=== PATIENT | male | born 1930 | race Caucasian/White ===

== ENCOUNTER 2017-02-19 09:59 | Inpatient (IN) | payer BC, MEDICARE ==
[~2017-02-19] VITALS: Ht 170.2 cm; Wt 61.0 kg
[2017-02-19] VITALS (27 sets, daily range): BP systolic 75–199; BP diastolic 45–188; PULSE 120–131; RESP 16–26; TEMP 97.1; Ht 170.2 cm; Wt 61.0 kg
--- NOTE | 2017-02-19 10:42 | ERA ---
ER Documentation Chief Complaint Date/Time DATE: 02/19/17 TIME: 10:39 Chief Complaint GEN WEAKNESS AND LOW BP NO TRAUMA NO NEURO DEFICIT. NO HEADACHE HPI Patient is an 86-year-old male who presents with 3 days of gradual onset, intermittent, nonbloody vomiting associated with generalized weakness and fatigue. Patient denies diarrhea, abdominal pain, chest pain. He does report mild dyspnea and cough. No sputum production or hemoptysis. Patient denies fever. He reports having poor appetite. Patient does report mild dysuria. According to family members, the patient was recently hospitalized 1 month ago for hypotension with hypoglycemia. He has been recovering in a jail. He recently had a blood test showing leukocytosis. He is apparently sent to the ER today for low blood pressure and generalized weakness. He has not had diarrhea, but a stool test was performed and is pending. ROS All systems reviewed and are negative except as per history of present illness. Medications Home Meds Reported Medications Ticagrelor* (Brilinta*) 90 Mg Tablet, 90 MG PO QAM, TAB 02/19/17 Rosuvastatin Calcium* (Crestor*) 20 Mg Tablet, 20 MG PO QHS, #30 TAB 02/19/17 Prednisone* (Prednisone*) 10 Mg Tab, 10 MG PO QAM, TAB 02/19/17 Linagliptin-Metformin (Jentadueto) 2.5-500 Mg Tablet, 1 TAB PO BID, TAB 02/19/17 Levothyroxine Sodium* (Levothyroxine Sodium*) 75 Mcg Tablet, 75 MCG PO BEFORE BREAKFAST, #30 TAB 02/19/17 Insulin Degludec (Tresiba Flextouch U-100) 100 Unit/1 Ml Insuln.pen, 28 UNIT SQ Q9AM 02/19/17 Esomeprazole Mag Trihydrate (Nexium) 40 Mg Capsule.dr, 40 MG PO QAM, #30 CAP 02/19/17 Sod Phosphate/Sod Biphosphate* (Fleet* Enema Pediatric) 66.6 Ml Soln, 66.6 ML TN Q2D Y for CONSTIPATION, ENEMA 02/19/17 Bisacodyl* (Bisacodyl*) 10 Mg Supp, 10 MG TN Q24H Y for PRN, SUPP 02/19/17 Desvenlafaxine Succinate (Pristiq) 50 Mg Tab.sr.24h, 50 MG PO QAM, TAB.SA 02/19/17 Magnesium Hydroxide* (Milk Of Magnesia*) 400 Mg/5 Ml Oral.susp, 30 ML PO DAILY, ML 02/19/17 Magnesium Oxide* (Magnesium Oxide*) 400 Mg Tablet, 400 MG PO QPM, TAB 02/19/17 Zinc Sulfate* (Zinc Sulfate*) 220 Mg Tablet, 220 MG PO QAM, TAB 02/19/17 Amino Acids/Protein Hydrolys (PRO-STAT LIQUID) 30 Ml Liquid.pkt, 30 ML PO BID SUGAR FREE 02/19/17 Gabapentin* (Gabapentin*) 100 Mg Capsule, 100 MG PO TID, #90 CAP 02/19/17 Acetaminophen* (Tylenol*) 325 Mg Tablet, 650 MG PO Q6H Y for PAIN LEVEL 1-02/15, TAB 02/19/17 Ascorbic Acid (Vitamin C) 500 Mg Tab, 500 MG PO QAM, TAB 02/19/17 Multivitamin with Minerals (Multivitamins with Minerals) 1 Each Tablet, 1 EACH PO QAM, TAB 02/19/17 Allergies Allergies: Coded Allergies: No Known Allergy (Unverified , 02/19/17) PMhx/Soc Past medical history: Diabetes mellitus Past surgical history: Prostate, cardiac stent 2 Social history: Ex-tobacco smoker, no alcohol FmHx Family History: No coronary disease, No diabetes Physical Exam Vitals Vital Signs Date Time Temp Pulse Resp B/P Pulse Ox O2 Delivery O2 Flow Rate FiO2 02/19/17 16:01 122 26 77/29 100 Nasal Cannula 4.0 02/19/17 15:19 120 26 88/56 98 Nasal Cannula 2.0 02/19/17 14:47 113 28 110/78 100 Nasal Cannula 4.0 02/19/17 13:12 97.1 115 30 103/88 98 Nasal Cannula 4.0 02/19/17 12:23 114 25 108/91 98 Nasal Cannula 2.0 02/19/17 11:41 112 20 98/56 98 Room Air 02/19/17 11:41 Nasal Cannula 3 02/19/17 10:08 98.8 115 22 90/58 97 Physical Exam Const: Alert, ill-appearing Head: Atraumatic Eyes: Normal Conjunctiva, mild pallor, no icterus ENT: Normal External Ears, Nose and Mouth. Neck: Full range of motion..~ No meningismus. No JVD Resp: Clear to auscultation bilaterally, except for left basilar rales, no wheeze Cardio: Regular rhythm, tachycardia, no murmurs Abd: Soft, non tender, non distended. Normal bowel sounds Skin: No petechiae or rashes Back: No midline or flank tenderness, stage II decubitus ulcer on sacrum. Rectal: Soft de la o stool, no external hemorrhoids : Uncircumcised penis, caseous material around foreskin, no perineal or scrotal edema or crepitus. Ext: No cyanosis, or edema Neur: Awake and alert, no facial droop, strength full in 4 extremities. Psych: Normal Mood and Affect though evaluation limited by patient's medical condition Result Diagram: 02/19/17 1020 02/19/17 1020 Results 24 hrs Laboratory Tests Test 02/19/17 10:20 02/19/17 11:05 02/19/17 12:47 02/19/17 12:50 White Blood Count 16.510^3/ul Red Blood Count 3.6210^6/ul Hemoglobin 10.6g/dl Hematocrit 33.7% Mean Corpuscular Volume 93.1fl Mean Corpuscular Hemoglobin 29.3pg Mean Corpuscular Hemoglobin Concent 31.5g/dl Red Cell Distribution Width 17.6% Platelet Count 31731^3/UL Mean Platelet Volume 10.1fl Neutrophils % 91.7% Lymphocytes % 4.7% Monocytes % 2.1% Eosinophils % 0.0% Basophils % 0.5% Nucleated Red Blood Cells % 0.1/100WBC Neutrophils # 15.110^3/ul Lymphocytes # 0.810^3/ul Monocytes # 0.310^3/ul Eosinophils # 0.010^3/ul Basophils # 0.110^3/ul Nucleated Red Blood Cells # 0.010^3/ul Prothrombin Time 19.0Sec Prothrombin Time Ratio 1.5 INR International Normalized Ratio 1.58 Activated Partial Thromboplast Time 33.4Sec Sodium Level 129mmol/L Potassium Level 5.4mmol/L Chloride Level 101mmol/L Carbon Dioxide Level 17mmol/L Anion Gap 16 Blood Urea Nitrogen 43mg/dl Creatinine 2.11mg/dl Glucose Level 80mg/dl Lactic Acid Level 7.6mmol/L 6.8mmol/L Calcium Level 8.2mg/dl Total Bilirubin 0.0mg/dl Direct Bilirubin 0.00mg/dl Indirect Bilirubin 0.0mg/dl Aspartate Amino Transf (AST/SGOT) 24IU/L Alanine Aminotransferase (ALT/SGPT) 36IU/L Alkaline Phosphatase 152IU/L Troponin I 0.025ng/ml B-Type Natriuretic Peptide 1770PG/ML Total Protein 4.8g/dl Albumin 2.2g/dl Globulin 2.60g/dl Albumin/Globulin Ratio 0.84 Lipase 20U/L Thyroid Stimulating Hormone (TSH) 0.758MIU/L Random Cortisol Pending Urine Color YELLOW Urine Clarity CLEAR Urine pH 6.0 Urine Specific [place] >=1.030 Urine Ketones NEGATIVE Urine Nitrite NEGATIVE Urine Bilirubin NEGATIVE Urine Urobilinogen 0.2 E.U./dL Urine Leukocyte Esterase NEGATIVE Urine Microscopic RBC 10-25/HPF Urine Microscopic WBC 2-5/HPF Urine Epithelial Cells FEW Urine Amorphous Urates FEW Urine Bacteria MODERATE Urine Coarse Granular Casts FEW Urine Mucus FEW Urine Hemoglobin 3+ Urine Glucose NEGATIVE% Urine Total Protein 2+ Test 02/19/17 14:36 Lactic Acid Level 5.6mmol/L Current Medications Medications (Trade) Dose Ordered Sig/Georgina Route PRN Reason Start Time Stop Time Status Last Admin Dose Admin Sodium Chloride 1,000 ml @ 1,000 mls/hr Q1H ONCE IV 02/19/17 11:00 02/19/17 11:59 DC 02/19/17 11:40 Sodium Chloride 1,000 ml @ 1,000 mls/hr Q1H ONCE IV 02/19/17 13:30 02/19/17 14:29 DC 02/19/17 13:18 Ceftriaxone Sodium 50 ml @ 100 mls/hr ONCE ONCE IVPB 02/19/17 13:30 02/19/17 13:59 DC 02/19/17 13:24 Sodium Chloride (NS) 1,000 ml @ 1,000 mls/hr Q1H ONCE IV 02/19/17 15:00 02/19/17 15:59 DC 02/19/17 14:49 Ondansetron HCl (Zofran Inj) 4 mg ER BRIDGE PRN IV NAUSEA AND/OR VOMITING 02/19/17 15:00 02/20/17 14:59 Acetaminophen 650 mg 650 mg ER BRIDGE PRN PO MILD PAIN/FEVER 02/19/17 15:00 02/20/17 14:59 Norepinephrine 250 ml @ ud STK-MED ONCE .ROUTE 02/19/17 15:57 02/19/17 15:58 DC Norepinephrine 250 ml @ 7.5 mls/hr ONCE STAT IV 02/19/17 16:09 02/21/17 01:28 Vancomycin HCl (Vancocin) 250 ml @ 125 mls/hr ONCE STAT IVPB 02/19/17 16:09 02/19/17 18:08 Vancomycin HCl (Vanco Iv Per Pharmacy) VANCOMYCIN PER PHARMACY PER PROTOCOL XX 02/19/17 16:30 UNV Vancomycin HCl 125 mg 125 mg Q6 PO 02/19/17 18:00 UNV Cefepime HCl (Maxipime 2gm/50 ml (Pmx)) 50 ml @ 100 mls/hr DAILY IVPB 02/19/17 16:30 UNV Enoxaparin Sodium (Lovenox) 30 mg DAILY SC 02/19/17 16:30 UNV Famotidine (Pepcid Iv) 20 mg DAILY IV 02/19/17 16:30 UNV Lactobacillus Acidophilus/ Rhamnosus (Culturelle) 1 cap BID PO 02/19/17 21:00 UNV Multivitamins Therapeutic (Theragran) 1 tab DAILY PO 02/20/17 09:00 UNV Ascorbic Acid (Vitamin C) 500 mg QAM PO 02/20/17 09:00 UNV Levothyroxine Sodium (Synthroid) 75 mcg BEFORE BREAKFAST PO 02/20/17 07:00 UNV Prednisone (Prednisone) 10 mg QAM PO 02/19/17 16:30 UNV Ticagrelor (Brilinta) 90 mg QAM PO 02/19/17 16:30 UNV Zinc Sulfate (Zinc Sulfate) 220 mg QAM PO 02/20/17 09:00 UNV Miscellaneous Information 30 ml BID PO 02/19/17 21:00 UNV Miscellaneous Information 50 mg QAM PO 02/20/17 09:00 UNV Miscellaneous Information 20 mg QHS PO 02/19/17 21:00 UNV Procedures/MDM EKG read by me: Time 1131, rate 117 Rhythm: Sinus tachycardia [place]: Normal Intervals: Normal ST-T waves: no ischemic changes Ectopy: No Q-waves: No Q waves, poor R-wave progression V2 to V3 Impression: Tachycardia, no evidence of ischemia or arrhythmia Central Line Placement by me: Patient consented, sterilely draped, full prep, gown, glove, mask, time out performed. Anesthesia: 1% lidocaine locally Location: Right internal jugular Device: Multiple lumen Technique: Seldinger technique. Secured with suture. Results: Venous return from all ports with easy saline flush. No complications. Guide wire retrieved and disposed of. ED Ultrasound: Central line placed by me using concurrent ultrasound guidance. Real time image archived in the medical record confirms vascular anatomy. Chest X-ray 1V Interpreted by me: Central line in SVC, Normal soft tissue, No evidence of pneumothorax. MDM: Patient is an 86-year-old male with diabetes brought from a snf for hypotension and generalized weakness. The patient is able to communicate, but has slightly garbled speech. Is no focal motor deficit or facial droop. Patient is found to have significant lactic acidosis. Septic workup was initiated, with blood and urine cultures sent. The patient was given empiric antibiotics and IV fluids. Lactic acid only slightly improved with treatment. Patient was found to have acute renal insufficiency, and is on metformin. He has no fever, but does have leukocytosis. There is no source of infection on his workup or exam. Diagnostic considerations include occult septic shock, and lactic acidosis due to metformin toxicity. The patient also had tachypnea and hypoxia initially, but his oxygenation and breathing improved with hydration. Chest x-ray showed left basilar atelectasis. I cannot exclude early pneumonia. That patient was given ceftriaxone and azithromycin. The patient denied dyspnea. Patient denied abdominal pain, and had a benign abdominal exam, so I do not suspect intestinal ischemia. The patient was found to have hyponatremia , so cortisol level was ordered. Central line was placed for recurrent hypotension and elevated lactic acid for administration of pressors. The patient will be admitted to the ICU for further care. I have ordered a VQ scan to evaluate for PE given hypoxia and hypotension, but I cannot obtain a CT angiogram of the chest due to renal impairment. I have ordered a CT of the head due to the family stating that the patient's speech is different than usual , although I believe this is likely due to underlying medical condition. I have ordered a pneumonia given the patient's low albumin and possible underlying liver disease. Critical Care Time: 40 minutes Treatments/Evaluations: Close monitoring and treatment of unstable vital signs, cardiorespiratory, and neurologic status, while maintaining tight balance of fluid, respiratory, and cardiac interventions. This time includes discussing the case with the patient and the patient's family. This time does not include all procedures stated elsewhere in this record. This time also includes reviewing old records, labs and radiological studies. This time includes examining and re-examining the patient. Additionally, this time also includes arranging care with admitting and consulting physicians. Departure Diagnosis: Primary Impression: Septic shock Additional Impressions: Acute renal failure Qualified Code: N17.9 - Acute renal failure, unspecified acute renal failure type Altered mental status Qualified Code: R41.82 - Altered mental status, unspecified altered mental status type Hyponatremia Hypoxemia Condition: Serious RAMIN CULLEN MD February 19, 2017 10:42
[2017-02-19] MEDS ORDERED: SOD CHLORIDE 0.9% 1,000 ML IV ONE ×4 (11:00→16:30)
--- NOTE | 2017-02-19 11:27 | RADRPT ---
PROCEDURE: XR Chest. CLINICAL INDICATION: Possible Sepsis TECHNIQUE: Single frontal view of the chest was obtained COMPARISON: None FINDINGS: Atherosclerotic changes are seen in the aortic arch. The cardiac silhouette is unremarkable. There is mild patchy left basilar atelectasis. Low lung volumes compresses the lung parenchyma. The lungs are otherwise clear. There is no pleural effusion or pneumothorax. IMPRESSION: Mild patchy left basilar atelectasis. Otherwise, no definite abnormalities are identified. RPTAT:AAJJ Physician Carlos Date Time Electronically viewed and signed by Chavez Dowd Physician on 02/19/2017 11:27 DHARMESH/
[2017-02-19] MEDS ORDERED: MULT-105 PO (11:28)
[2017-02-19] MEDS ORDERED: ASC500 PO (11:28)
[2017-02-19] MEDS ORDERED: ACET325T33 PO (11:29)
[2017-02-19] MEDS ORDERED: GABA100C14 PO (11:30)
[2017-02-19] MEDS ORDERED: AMIN30LI PO (11:31)
[2017-02-19 11:34] LABS: ADD SCAN DIFF NO
[2017-02-19 11:39] LABS: ABNORMAL IP MESSAGE 1; BASOPHIL # 0.1 10^3/ul (0.0-0.1); BASOPHILS % 0.5 % (0.0-2.0); HEMATOCRIT 33.7 % (42.0-52.0); HEMOGLOBIN 10.6 g/dl (14.0-18.0); LYMPHOCYTES # 0.8 10^3/ul (0.8-2.9); LYMPHOCYTES % 4.7 % (15.0-51.0); MEAN CORPUSCULAR HEMOGLOBIN 29.3 pg (29.0-33.0); MEAN CORPUSCULAR HGB CONC 31.5 g/dl (32.0-37.0); MEAN CORPUSCULAR VOLUME 93.1 fl (82.0-101.0); MEAN PLATELET VOLUME 10.1 fl (7.4-10.4); MONOCYTE # 0.3 10^3/ul (0.3-0.9); MONOCYTES % 2.1 % (0.0-11.0); NEUTROPHIL # 15.1 10^3/ul (1.6-7.5); NUCLEATED RED BLOOD CELLS% 0.1 /100WBC (0.0-0.0); PLATELET COUNT 254 10^3/UL (140-415); RED BLOOD COUNT 3.62 10^6/ul (4.70-6.10); RED CELL DISTRIBUTION WIDTH 17.6 % (11.5-14.5); WHITE BLOOD COUNT 16.5 10^3/ul (4.8-10.8)
[2017-02-19] MEDS ORDERED: ZINC220T PO (11:40)
[2017-02-19] MEDS ORDERED: MAGN400T28 PO (11:40)
[2017-02-19] MEDS ORDERED: DESV50TA4 PO (11:41)
[2017-02-19] MEDS ORDERED: MAGN400O4 PO (11:41)
[2017-02-19 11:42] LABS: NEUTROPHILS % 91.7 % (39.0-77.0)
[2017-02-19] MEDS ORDERED: BISA10SU75 PR (11:43)
[2017-02-19] MEDS ORDERED: FLEETPED PR (11:44)
[2017-02-19] MEDS ORDERED: ESOM40CA PO (11:45)
[2017-02-19] MEDS ORDERED: INSU100I31 SQ (11:46)
[2017-02-19] MEDS ORDERED: LEVO75TA5 PO (11:46)
[2017-02-19] MEDS ORDERED: PRED10TA PO (11:47)
[2017-02-19] MEDS ORDERED: LINA1TAB PO (11:47)
[2017-02-19] MEDS ORDERED: TICA90TA PO (11:48)
[2017-02-19] MEDS ORDERED: ROSU20TA PO (11:48)
[2017-02-19 11:52] LABS: INR 1.58; PT RATIO 1.5
[2017-02-19 11:53] LABS: PARTIAL THROMBOPLASTIN TIME 33.4 Sec (25.0-35.0)
[2017-02-19 11:54] LABS: ALBUMIN 2.2 g/dl (3.3-4.9); ALBUMIN/GLOBULIN RATIO 0.84; CALCIUM 8.2 mg/dl (8.4-10.2); CREATININE 2.11 mg/dl (0.61-1.24); POTASSIUM 5.4 mmol/L (3.5-5.1); TOTAL PROTEIN 4.8 g/dl (6.1-8.1)
[2017-02-19 12:06] LABS: TROPONIN-I 0.025 ng/ml (0.00-0.12)
[2017-02-19 13:20] LABS: ADD UMIC YES; URINE BILIRUBIN (Dip) NEGATIVE (NEGATIVE); URINE BLOOD (Dip) 3+ (NEGATIVE); URINE COLOR YELLOW (YELLOW); URINE GLUCOSE (Dip) NEGATIVE (NEGATIVE); URINE KETONES (Dip) NEGATIVE (NEGATIVE); URINE LEUKOCYTE ESTERASE (Dip) NEGATIVE (NEGATIVE); URINE NITRITE (Dip) NEGATIVE (NEGATIVE); URINE TOTAL PROTEIN (Dip) 2+ (NEGATIVE); URINE UROBILINOGEN (Dip) 0.2 E.U./dL (0.1-1.0)
[2017-02-19] MEDS ORDERED: CEFTRIAXONE 2 GM/50 ML (PMX) 50 ML IVPB ONE (13:30)
[2017-02-19 13:54] LABS: BACTERIA,URINE MODERATE; MUCUS,URINE FEW
[2017-02-19 14:43] LABS: THYROID STIMULATING HORMONE 0.758 MIU/L (0.465-4.680)
[2017-02-19] MEDS ORDERED: ACETAMINOPHEN 325 MG TAB PO PRN ×2 (15:00→16:30)
[2017-02-19] MEDS ORDERED: ONDANSETRON 4 MG INJ IV PRN ×2 (15:00→16:30)
[2017-02-19] MEDS ORDERED: NORepinephrine 8MG/250 ML (PMX 250 ML ONE (15:57)
--- NOTE | 2017-02-19 16:02 | PN ---
Date/Time of Note Date/Time of Note DATE: 02/19/17 TIME: 16:01 Assessment/Plan VTE Prophylaxis VTE Prophylaxis Intervention: heparin Lines/Catheters Urinary Cath still in place: Yes Reason Cath still needed: urinary retention, skin wounds contaminated by urine Assessment/Plan Chief Complaint/Hosp Course H&P dictated. family aware. A/P 1) Severe Sepsis 2) ARF 3) Ca Prostate 4) CAD/ pci/ brilinta 5) Decub 6) Ftt 7) Coagulopathy 8) Anemia Problems: Exam/Review of Systems Vital Signs Vitals Vital Signs Date Time Temp Pulse Resp B/P Pulse Ox O2 Delivery O2 Flow Rate FiO2 02/19/17 15:19 120 26 88/56 98 Nasal Cannula 2.0 02/19/17 13:12 97.1 Results Result Diagram: 02/19/17 1020 02/19/17 1020 Results 24 hrs Laboratory Tests Test 02/19/17 10:20 02/19/17 11:05 02/19/17 12:47 02/19/17 12:50 White Blood Count 16.5 H Red Blood Count 3.62 L Hemoglobin 10.6 L Hematocrit 33.7 L Mean Corpuscular Volume 93.1 Mean Corpuscular Hemoglobin 29.3 Mean Corpuscular Hemoglobin Concent 31.5 L Red Cell Distribution Width 17.6 H Platelet Count 254 Mean Platelet Volume 10.1 Neutrophils % 91.7 H Lymphocytes % 4.7 L Monocytes % 2.1 Eosinophils % 0.0 Basophils % 0.5 Nucleated Red Blood Cells % 0.1 H Neutrophils # 15.1 H Lymphocytes # 0.8 Monocytes # 0.3 Eosinophils # 0.0 Basophils # 0.1 Nucleated Red Blood Cells # 0.0 Prothrombin Time 19.0 H Prothrombin Time Ratio 1.5 INR International Normalized Ratio 1.58 Activated Partial Thromboplast Time 33.4 Sodium Level 129 L Potassium Level 5.4 H Chloride Level 101 Carbon Dioxide Level 17 L Anion Gap 16 Blood Urea Nitrogen 43 H Creatinine 2.11 H Glucose Level 80 Lactic Acid Level 7.6 *H 6.8 *H Calcium Level 8.2 L Total Bilirubin 0.0 L Direct Bilirubin 0.00 Indirect Bilirubin 0.0 Aspartate Amino Transf (AST/SGOT) 24 Alanine Aminotransferase (ALT/SGPT) 36 Alkaline Phosphatase 152 H Troponin I 0.025 B-Type Natriuretic Peptide 1770 H Total Protein 4.8 L Albumin 2.2 L Globulin 2.60 Albumin/Globulin Ratio 0.84 Lipase 20 L Thyroid Stimulating Hormone (TSH) 0.758 Random Cortisol Pending Urine Color YELLOW Urine Clarity CLEAR Urine pH 6.0 Urine Specific [place] >=1.030 H Urine Ketones NEGATIVE Urine Nitrite NEGATIVE Urine Bilirubin NEGATIVE Urine Urobilinogen 0.2 E.U./dL Urine Leukocyte Esterase NEGATIVE Urine Microscopic RBC 10-25 Urine Microscopic WBC 2-5 Urine Epithelial Cells FEW Urine Amorphous Urates FEW Urine Bacteria MODERATE Urine Coarse Granular Casts FEW Urine Mucus FEW Urine Hemoglobin 3+ H Urine Glucose NEGATIVE Urine Total Protein 2+ H Test 02/19/17 14:36 Lactic Acid Level 5.6 *H WHITNEY RODRIGUEZ MD February 19, 2017 16:02
[2017-02-19] MEDS ORDERED: VANCOMYCIN 1 GM (PMX) 250 ML IVPB STA (16:09)
[2017-02-19] MEDS ORDERED: NORepinephrine 8MG/250 ML (PMX 250 ML IV STA (16:09)
[2017-02-19] MEDS ORDERED: GLUCOSE GEL 15 GRAM TUBE PO PRN ×2 (16:30)
[2017-02-19] MEDS ORDERED: GLUCOSE GEL 15 GRAM TUBE BUCCAL PRN (16:30)
[2017-02-19] MEDS ORDERED: NACL 0.9% 3 ML SYG IV SCH (16:30)
[2017-02-19] MEDS ORDERED: VANCOMYCIN IV PER PHARMACY XX SCH (16:30)
[2017-02-19] MEDS ORDERED: ACETAMINOPHEN 650 MG SUPP PR PRN (16:30)
[2017-02-19] MEDS ORDERED: Discontinue Glyburide, Glipizide, and/or Glimepiride prior to starting Insulin XX ONE (16:30)
[2017-02-19] MEDS ORDERED: HYDROCODONE/APAP (5/325) TAB PO PRN (16:30)
[2017-02-19] MEDS ORDERED: GLUCAGON 1 MG INJ IM PRN (16:30)
[2017-02-19] MEDS ORDERED: AZITHROMYCIN 500MG/NS (PMX) 250 ML IVPB ONE (16:30)
[2017-02-19] MEDS ORDERED: SODIUM CHLORIDE 0.9% 1L BAG IV SCH (16:30)
[2017-02-19] MEDS ORDERED: HYPOGLYCEMIA PROTOCOL when Glucose is <70 mg/dL or symptomatic <90 mg/dL. XX ONE (16:30)
[2017-02-19] MEDS: [UNRECOGNIZED DRUG - OTHER] XX SCH (17:00)
--- NOTE | 2017-02-19 17:00 | RADRPT ---
PROCEDURE: Retroperitoneal US. CLINICAL INDICATION: Renal insufficiency TECHNIQUE: Multiple sonographic images of the kidneys and retroperitoneum were obtained. The imag es were reviewed on a PACS workstation. COMPARISON: No prior studies are available for comparison. FINDINGS: The kidneys are normal in size, contour, cortical thickness and cortical echogenicity. The right kidney measures 10.8 cm. The left kidney measures 11.1 cm. There is a 3.5 cm simple cyst in the left kidney. No kidney stones are visualized. There is no evidence for hydronephrosis. The urinary bladder is decompressed by a Christopher catheter and not seen. RPTAT: AA IMPRESSION: No evidence of hydronephrosis. Left kidney simple cyst. .Ronny Corona MD, MD Date Time Electronically viewed and signed by .Ronny Corona MD, MD on 02/19/2017 17:00 .S/
--- NOTE | 2017-02-19 17:00 | RADRPT ---
PROCEDURE: XR Chest. CLINICAL INDICATION: Chest pain, central line placement TECHNIQUE: AP view of the chest was performed. COMPARISON: None FINDINGS: There is a right central venous catheter with the tip at the RA/SVC junction. This line is in good positioning and ready for use. The heart size is normal. Decreased lung volumes and bibasilar atelectasis are present. There are no findings of fluid overload. Severe degenerative changes to both shoulder joints and osteopenia are noted. IMPRESSION: Right central venous catheter in good positioning and ready for use. Decreased lung volumes, bibasi lar atelectasis, osteopenia, and degenerative changes. No findings of fluid overload. RPTAT: QQ .Judi Mckeon MD, MD Date Time Electronically viewed and signed by .Judi Mckeon MD, on 02/19/2017 17:00 .F/
--- NOTE | 2017-02-19 17:39 | RADRPT ---
PROCEDURE: CT Brain without contrast. CLINICAL INDICATION: confused TECHNIQUE: A CT of the brain was performed on a multidetector CT scanner utilizing axial imaging f rom the skull base through the vertex without IV contrast. Multiplanar reformatted images were made . Images were reviewed on a PACS workstation. The CTDIvol is 44 mGy and the DLP is 810 mGycm. COMPARISON: None FINDINGS: There is severe diffuse cerebral volume loss with sulcal and ventricular dilatation. No discrete ex tra-axial fluid collection or masses seen. The ventricles are in the midline and of normal contour and configuration. There is periventricular white matter disease in both cerebral hemispheres. No associated mass effect is present. There is no intracranial hemorrhage. There is debris layering in the sphenoid sinus. IMPRESSION: Atrophy. White matter disease compatible with chronic small vessel ischemia. No intracranial hemor rhage or mass. .Esvin Muller MD, MD Date Time Electronically viewed and signed by .Esvin Muller MD, on 02/19/2017 17:39 .A/
[2017-02-19] MEDS: INSULIN ASPART [NOVOLOG] 3 ML PEN SC SCH ×2 (18:00→21:00)
[2017-02-19] MEDS: SOD CHLORIDE 0.9% 1,000 ML IV SCH (18:17)
[2017-02-19] MEDS ORDERED: VANCOMYCIN 1.25 GM in SOD CHLORIDE 0.9% 250 ML IVPB SCH (18:30)
--- NOTE | 2017-02-19 18:48 | HP ---
DATE OF ADMISSION: 02/19/2017 PRIMARY CARE PHYSICIAN: Dr. Pittman. CHIEF COMPLAINT: Fatigue and weakness. HISTORY OF PRESENT ILLNESS: This is an 86-year-old gentleman who was residing at [facility] a month after visiting [facility]. For the last few days the patient has been fatigued and lethargic. He has not been eating much in a while. Otherwise, family has not noted any problems o kelli the last week. Probably adherent to his medications but not eating well. He has a decubitus ul cer which [facility], but obviously he is deconditioned and trying to part icipate in PT, OT. Unknown reason for decline over the last few months. Back in May, the patient had coronary arter y disease stented. I believe went home, but his history is with sciatica, lower back pain. He rece ntly had sepsis related to pneumonia. longterm notes noted leukocytosis of 20, anemia around 9, potentially on Bactrim for UTI and po tentially diarrhea as a C. diff was ordered. PAST MEDICAL HISTORY: 1. Chronic coronary artery disease, potentially old IA status, stable on Brilinta, EF unknown. Per cutaneous intervention in May. 2. Chronic dyslipidemia. 3. Chronic diabetes. 4. Chronic hypothyroidism. 5. Metabolic syndrome. 6. Sepsis, pneumonia related, treated in [place]. 7. Prostate cancer diagnosed many years ago. Latest imaging does not show any metastases. He was on surveillance expectant management. 8. Sciatica, history of epidurals. 9. Cataracts. 10. Hernia. PAST SURGICAL HISTORY: Hernia, cataracts. SOCIAL HISTORY: Social alcohol. No tobacco. 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 FAMILY HISTORY: There is no family history of early coronary artery disease, cancer, or stroke that I am aware of. ALLERGIES: NO KNOWN DRUG ALLERGIES. REVIEW OF SYSTEMS: Not obtainable due to lethargy. At the most the patient has had no witnessed lo ss of speech or vision, chest pain, dyspnea, cough, fever or abdominal pain. Positive loss of appet ite, nausea, potentially diarrhea. MUSCULOSKELETAL: Moderate gait dysfunction. PHYSICAL EXAMINATION: HEENT: Extraocular movements appear to be intact. No pallor, no icterus. No adenopathy. No carot id bruits. No JVD. No droop. CARDIOVASCULAR: S1, S2 regular. No murmurs, rubs, gallops appreciated. LUNGS: Clear to auscultation bilaterally. No tachypnea. ABDOMEN: Bowel sounds present, nontender, nondistended. No rigidity, no rebound, no guarding. EXTREMITIES: Without any edema. Negative Homans sign. IMAGING STUDIES: Chest x-ray: No acute process, atelectasis present. LABORATORY DATA: White cell count of 16, hemoglobin and hematocrit of 10 and 33, MCV 93, platelets of 250, neutrophil predominance. INR 1.5. Urine ____, a few epithelial cells, RBCs 10 to 20. Bili garner negative, nitrite negative, leukocyte esterase is negative. Hemoglobin 3+. Sodium 129, potas sium 5.4, chloride 101, bicarbonate 17, BUN of 43, creatinine 2.1, glucose of 80, calcium of 8. LFT s otherwise okay. Alkaline phosphatase 150. Protein of 4.8, albumin of 2.2. TSH is 0.7. Cortisol level pending. ASSESSMENT: 1. Shock, likely circulatory sepsis, source potentially Clostridium difficile. 2. Acute renal failure. 3. Recent hypoglycemia, probably related to malnutrition, rule out adrenal insufficiency. 4. Hypoalbuminemia, poor prognosis. 5. Stage II decubitus prior to admission. 6. Coagulopathy. 7. Anemia. 8. Non-anion gap metabolic acidosis potentially due to diarrhea. 9. Hematuria, probably due to cancer of prostate. 10. Cancer of prostate. 11. Chronic coronary artery disease. Will continue Brilinta without any active bleed. 12. Sinus tachycardia. PLAN: 1. ICU admit, sepsis, renal failure, fluids and antibiotics. Rule out Clostridium difficile. Deep venous thrombosis prophylaxis with Lovenox. Pepcid, Culturelle and discontinue Bactrim. Renal ult rasound, occult stool, iron, ferritin, PT, OT. May need an ideally advanced care planning once lizzette ort is established. 2. Chronic coronary artery disease. Dictated By: WHITNEY SANCHEZ/NTS Conf#: [id number] DID#: [id number]
[2017-02-19] MEDS ORDERED: NON-FORMULARY/PATIENT OWN MED (Amino Acids/Protein Hydrolys (Pro-Stat Liquid) 30 ML) PO SCH (21:00)
[2017-02-19] MEDS: LACTOBACILLUS RHAMNOSUS CAP PO SCH (21:21)
[2017-02-19] MEDS: ATORVASTATIN 80 MG TAB PO SCH (21:21)
[2017-02-19] MEDS: predniSONE 10 MG TAB PO SCH (21:22)
[2017-02-19] MEDS: TICAGRELOR 90 MG TABLET PO SCH (21:23)
[2017-02-19] MEDS: FAMOTIDINE 20 MG INJ IV SCH (21:25)
[2017-02-19] MEDS: ENOXAPARIN 30 MG/0.3 ML SYG SC SCH (21:28)
[2017-02-19] MEDS: CEFEPIME 2GM/50 ML (PMX) 50 ML IVPB SCH (21:33)
[2017-02-19] MEDS: DEXTROSE 50% 50 ML SYRINGE IV PRN (21:41)
[2017-02-19] MEDS: VANCOMYCIN HCL 250 MG/5ML POSYG PO SCH (23:24)
[2017-02-19] MEDS: NORepinephrine 8MG/250 ML (PMX 250 ML IV SCH (23:33)
[2017-02-20] VITALS (89 sets, daily range): BP systolic 77–191; BP diastolic 36–158; PULSE 101–135; RESP 16–31
[2017-02-20] MEDS: SOD CHLORIDE 0.9% 1,000 ML IV SCH (00:33)
[2017-02-20] MEDS: [UNRECOGNIZED DRUG - OTHER] XX SCH ×3 (01:00→17:00)
[2017-02-20] MEDS: ACCUCHECK AT 2AM (Patients on SS coverage) XX SCH (01:10)
[2017-02-20] MEDS: DEXTROSE 50% 50 ML SYRINGE IV PRN (03:06)
[2017-02-20] MEDS ORDERED: DEXTROSE 5%-0.45% NACL 1,000 ML IV SCH (03:30)
[2017-02-20] MEDS: NORepinephrine 8MG/250 ML (PMX 250 ML IV SCH (04:04)
[2017-02-20 04:50] LABS: ABNORMAL IP MESSAGE 1; ADD SCAN DIFF NO; BASOPHIL # 0.1 10^3/ul (0.0-0.1); BASOPHILS % 0.3 % (0.0-2.0); HEMATOCRIT 26.5 % (42.0-52.0); HEMOGLOBIN 8.2 g/dl (14.0-18.0); LYMPHOCYTES # 0.5 10^3/ul (0.8-2.9); LYMPHOCYTES % 2.6 % (15.0-51.0); MEAN CORPUSCULAR HEMOGLOBIN 28.6 pg (29.0-33.0); MEAN CORPUSCULAR HGB CONC 30.9 g/dl (32.0-37.0); MEAN CORPUSCULAR VOLUME 92.3 fl (82.0-101.0); MEAN PLATELET VOLUME 9.9 fl (7.4-10.4); MONOCYTE # 0.4 10^3/ul (0.3-0.9); MONOCYTES % 1.9 % (0.0-11.0); NEUTROPHIL # 17.6 10^3/ul (1.6-7.5); PLATELET COUNT 181 10^3/UL (140-415); RED BLOOD COUNT 2.87 10^6/ul (4.70-6.10); RED CELL DISTRIBUTION WIDTH 17.6 % (11.5-14.5); WHITE BLOOD COUNT 18.8 10^3/ul (4.8-10.8)
[2017-02-20 05:10] LABS: NEUTROPHILS % 93.6 % (39.0-77.0)
[2017-02-20 05:17] LABS: ALBUMIN 1.4 g/dl (3.3-4.9); ALBUMIN/GLOBULIN RATIO 0.7; CALCIUM 6.4 mg/dl (8.4-10.2); CREATININE 1.58 mg/dl (0.61-1.24); PHOSPHORUS 4.1 mg/dl (2.5-4.9); POTASSIUM 4.1 mmol/L (3.5-5.1); TOTAL PROTEIN 3.4 g/dl (6.1-8.1)
[2017-02-20 05:25] LABS: TOTAL IRON BINDING CAPACITY 125 ug/dl (241-421)
[2017-02-20 05:32] LABS: IRON < 10 ug/dl (35-150)
[2017-02-20 06:07] LABS: INR 2.01; PT RATIO 1.8
[2017-02-20] MEDS: VANCOMYCIN HCL 250 MG/5ML POSYG PO SCH ×4 (06:38→17:21)
[2017-02-20] MEDS: LEVOTHYROXINE 75 MCG TAB PO SCH (06:38)
--- NOTE | 2017-02-20 06:54 | RADRPT ---
PROCEDURE: XR Chest. CLINICAL INDICATION: Sepsis TECHNIQUE: An AP view of the chest was obtained. COMPARISON: Chest x-ray dated 02/19/2017 FINDINGS: There is a right internal jugular central venous catheter with tip near the cavoatrial junction. Th e tip of the enteric tube projects over the left upper quadrant. There is prominence of the interstitial markings. There are bilateral basilar reticular interstitia l opacities No pleural effusion or pneumothorax is seen. The cardiomediastinal silhouette is upper limits of normal in size. Calcifications are seen within the aortic arch. The osseous structures de monstrate senescent changes. IMPRESSION: 1. Mild prominence of the interstitial markings, may reflect mild underlying interstitial edema or chronic lung changes. No significant interval change. 2. Aortic atherosclerosis. 3. Tubes and lines, as described above. RPTAT: HH .Nanette Saucedo MD, MD Date Time Electronically viewed and signed by .Nanette Saucedo MD, on 02/20/2017 06:54 .G/
[2017-02-20] MEDS: INSULIN ASPART [NOVOLOG] 3 ML PEN SC SCH ×4 (07:35→21:00)
[2017-02-20] MEDS ORDERED: NON-FORMULARY/PATIENT OWN MED (Desvenlafaxine Succinate (Pristiq) 50 MG) XX SCH (09:00)
[2017-02-20] MEDS: ENOXAPARIN 30 MG/0.3 ML SYG SC SCH (09:00)
[2017-02-20] MEDS ORDERED: SOD CHLORIDE 0.9% 1,000 ML IV ONE (09:30)
[2017-02-20] MEDS ORDERED: SOD CHLORIDE 0.9% 500 ML IV ONE (10:00)
[2017-02-20] MEDS: ASCORBIC ACID 500 MG TAB PO SCH (10:03)
[2017-02-20] MEDS: LACTOBACILLUS RHAMNOSUS CAP PO SCH ×2 (10:03→20:57)
[2017-02-20] MEDS: predniSONE 10 MG TAB PO SCH (10:03)
[2017-02-20] MEDS: ZINC SULFATE 220 MG CAP PO SCH (10:03)
[2017-02-20] MEDS: MULTIVITAMINS THERAPEUTIC TAB PO SCH (10:03)
[2017-02-20] MEDS: TICAGRELOR 90 MG TABLET PO SCH (10:04)
--- NOTE | 2017-02-20 10:08 | CONS ---
DATE OF ADMISSION: 02/19/2017 DATE OF CONSULTATION: 02/20/2017 TYPE OF CONSULTATION: Pulmonary. REASON FOR CONSULTATION: Respiratory distress and septic shock. HISTORY OF PRESENT ILLNESS: This is an 86-year-old gentleman transferred from [facility] yesterday for increasing lethargy, fatigue, he had decreased p.o. intake. On admission, found t o be hypotensive, requiring initiation of vasopressor support via central line. The patient is some what somnolent this morning, but arousable. Chest x-ray on admission showed possible left lower lob e infiltrate. In addition, he had leukocytosis, white count was 16.5, now is 18.8. PAST MEDICAL HISTORY: Hypothyroidism, diabetes, history of coronary artery disease, history of meta bolic syndrome and prostate cancer. MEDICATIONS: Per chart. ALLERGIES: NONE. SOCIAL HISTORY: Nonsmoker, no alcohol, no history of drug use. FAMILY HISTORY: Noncontributory. SYSTEMS REVIEW: A 12-point review of systems currently unable to perform. PHYSICAL EXAMINATION: GENERAL: Elderly-appearing gentleman on low dose Levophed. VITAL SIGNS: Currently afebrile. Temperature 98, pulse is 130, blood pressure 96/61, O2 saturation 96% on 2 L nasal cannula. NECK: Supple. No JVD or lymphadenopathy. CARDIAC: S1, S2, no added sounds or murmurs. CHEST: Diminished air entry bilaterally. ABDOMEN: Soft, nontender. No guarding or rebound. EXTREMITIES: No cyanosis, clubbing, edema. NEUROLOGIC: Generalized weakness. LABORATORY DATA: BUN 34, creatinine 1.58. Hemoglobin 8.2, white count 18.8, INR 2.01. DIAGNOSTIC DATA: Chest x-ray was reviewed, shows left lower lobe infiltrate. IMPRESSION AND PLAN: 1. Septic shock. 2. Possible healthcare-associated pneumonia. 3. Renal insufficiency, likely prerenal. 4. Incomplete data. PLAN: 1. Continue antibiotics, currently on vancomycin and cefepime. 2. Infectious disease consult. 3. Panculture. 4. DVT and GI prophylaxis. Dictated By: PAULO YE/LADY Conf#: [id number] DID#: [id number]
--- NOTE | 2017-02-20 10:18 | CONS ---
DATE OF ADMISSION: 02/19/2017 DATE OF CONSULTATION: 02/20/2017 TYPE OF CONSULTATION: Nephrology. REFERRING PHYSICIAN: Dr. Berry REASON FOR CONSULTATION: Acute kidney injury with a creatinine of 2.1 on admission, hyponatremia, h yperchloremic metabolic acidosis, hypocalcemia. HISTORY OF PRESENT ILLNESS: This is an 86-year-old male with a past medical history of hypertension , history of coronary artery disease status post stent placement, history of prostate CA, diabetes m ellitus. The patient presented to [facility] with a complaint of fatigue, weaknes s. 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 The patient gets admitted for possible sepsis with lactic acidosis, s hock and acute renal failure. The patient also had a history of hypertension with episodes of hypog lycemia. The patient was hypoalbuminemic with a very poor prognosis. The patient gets admitted for acute renal failure, septic shock and renal has been consulted for acute kidney injury, hyperchlore heidi metabolic acidosis, hypocalcemia. REVIEW OF SYSTEMS: Unable to obtain from the patient since the patient is currently on a Levophed d rip, not able to provide any detailed history due to altered mental status. PAST MEDICAL HISTORY: Notable for hypertension, history of coronary artery disease status post prev ious stent placement, hyperlipidemia, diabetes mellitus, history of prostate cancer. PAST SURGICAL HISTORY: History of cardiac catheterization with a stent placement. SOCIAL HISTORY: No smoking, alcohol or recreational drug use. 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 FAMILY HISTORY: Noncontributory. PHYSICAL EXAMINATION VITAL SIGNS: Temperature 98, heart rate is 135, respirations 25, blood pressure is 97/61, saturatio n is 100% on 2 liters nasal cannula. GENERAL: Patient awake but lethargic, falling back to the sleep. HEENT: Pupils equal, round, reactive to light and accommodation. Extraocular muscles are intact. NECK: Supple, no JVD. LUNGS: Decreased breath sounds at both lung bases with bibasilar crackles present. HEART: S1, S2, tachycardia. ABDOMEN: Soft, nontender, nondistended. EXTREMITIES: 1+ pitting edema with a Christopher catheter in place. No clubbing, cyanosis. NEUROLOGICAL: Uncooperative for exam. PSYCHIATRIC: Appropriate affect and mood. LABORATORY DATA/DIAGNOSTIC IMAGIN. Sodium 134, potassium 4.1, chloride 114, bicarbonate 16, BUN 34, creatinine 1.5, glucose 165, he moglobin A1c 6.4, calcium 6.4, albumin is 1.4. Iron saturation less than 10. INR is 2.01, WBC 18.8 , hemoglobin 8.2, platelet count is 181, MCV 92. Urinalysis is positive for urine sodium 25 3+ hemo globin, 2+ total protein. 2. Chest x-ray shows mild prominence of the interstitial markings may reflect underlying interstiti al edema or chronic lung changes, no significant interval change. 3. CT head without contrast shows atrophy, white matter, this is comparable with chronic small vess el ischemia, no intracranial hemorrhage or mass. IMPRESSION: This is an 86-year-old male who gets admitted to the ICU for septic shock, currently on a Levophed drip and renal has been consulted for acute renal failure, hyperchloremic non-anion gap metabolic acidosis, hematuria, hypoalbuminemia. 1. Septic shock, likely secondary to possible Clostridium difficile. 2. Acute kidney injury secondary to acute tubular necrosis from septic shock. 3. Hyperchloremic non-anion gap metabolic acidosis likely secondary to severe diarrhea. Currently, the patient's bicarbonate has been dropped down to 16. 4. Hyponatremia, likely secondary to hypovolemic hyponatremia. 5. 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 6. Hypocalcemia, but the corrected calcium with a low albumin has been pretty much normal. PLAN: Thank you, Dr. Berry, for this consultation. 1. The patient will need a cardiology consultations because of his tachycardia associated with Levo phed drip. 2. I will order the ABG to follow up on his pH and possible plan for a bicarbonate drip. The patie nt received aggressive IV fluid hydration with NS, which could be the cause for her follows his hype rchloremic metabolic acidosis, but due to his severe metabolic acidosis, I would consider bicarbonat e drip depending on his ABG results. 3. IV antibiotics as per the primary care team. 4. The patient currently has multiple comorbidities and possible history of chronic kidney disease, so will continue to monitor his electrolytes and renal functions. 6. The patient currently seen in the ICU and will be followed up along with the primary team. Total time spent in this patient's evaluation making assessment and plan, communicating with the [facility] staff took more than 90 minutes. Dictated By: ANJEL LEE MD, KP/LADY Conf#: [id number] DID#: [id number]
[2017-02-20 10:48] LABS: AADO2 Arterial 73.9 mmHg (7.0-24.0); Allen Test ACCEPTAB; Arterial Base Excess -10.5 mmol/L (-3.0-3); Arterial COHb 0 % (0.0-3.0); Arterial Fraction of Oxyhgb 95.5 % (93.0-99.0); Arterial HCO3 12.8 mmol/L (22.0-26.0); Arterial MetHb 0.1 % (0.0-1.5); Arterial Total Hemglobin 8.5 g/dl (12.0-18.0); MODE NASAL CANNULA
--- NOTE | 2017-02-20 11:06 | PN ---
DATE: 02/20/2017 Time: 0830 AM SUBJECTIVE DATA: The patient remains on pressors. Continues to be tachycardic. OBJECTIVE DATA: VITAL SIGNS: Temperature 98.0, pulse rate 135, respiratory rate 25, blood pressure 97/61, oxygen saturation 100% on low flow O2. GENERAL: This is an 86-year-old elderly male lying in bed in no apparent distress. HEENT: Head normocephalic and atraumatic. Eyes: Anicteric sclerae. Conjunctivae clear. ENT: Nasal septum is midline, oral mucosa is dry. The patient has an NG tube in the left naris. NECK: No JVD noticed. RESPIRATORY: Bilaterally diminished breath sounds. No adventitious breath sounds heard. No use of accessory muscles of respiration. CARDIAC: Regular rate and rhythm. S1 and S2 heard. Sinus tachycardia. ABDOMEN: Soft, nontender. Bowel sounds hypoactive in all 4 quadrants. GENITOURINARY: The patient has a Christopher catheter in place. EXTREMITIES: No cyanosis, no clubbing. Bilateral lower extremity ankle edema. Peripheral pulses are palpable. NEUROLOGIC: The patient is awake and alert. Follows simple commands. Oriented to herself. LABORATORY AND DIAGNOSTIC DATA: WBC 18.8, hemoglobin 8.2, hematocrit 26.5, platelet count 181. Sodium 134, potassium 4.1, chloride 114, carbon dioxide 16 , anion gap 8, BUN 34, creatinine 1.5, glucose 165. Sodium 134, potassium 4.1, chloride 114, carbon dioxide 16, anion gap 8, BUN 34, creatinine 1.58, glucose 165, calcium 6.4, phosphorus 4.1. ASSESSMENT AND PLAN: 1. Sepsis with underlying septic shock. Etiology could be probably from underlying colitis versus pneumonia. Cultures are pending at this time. Continue vasopressors to keep hemodynamic status stable. 2. Sinus tachycardia. Etiology unclear. Probably secondary to underlying sepsis. Cardiology on case since the patient has a known history of coronary artery disease. 3. Coronary artery disease. The patient will be continued on antiplatelet medications. 4. Diabetes mellitus. Hemoglobin A1c is 6.4. Currently, hypoglycemic. The patient was started on IV fluid containing dextrose. 5. Hypothyroidism. Continue Synthroid. 6. Dyslipidemia. Continue statin. 7. Prostate cancer. No evidence of any metastasis. 8. Nonoliguric acute kidney injury in a patient with unknown baseline creatinine. Continue IV hydration. Will involve Nephrology on the case. 9. Normocytic normochromic anemia. Etiology unclear. Iron panel showing low iron and low TIBC with a high ferritin. Will order stool for occult blood on this patient. We will transfuse as needed. 10. Hypoalbuminemia. The etiology is unclear. Will obtain a dietary consult. 11. Non-anion gap metabolic acidosis. The patient probably needs bicarbonate supplements. 12. Hematuria, resolved. 13. Coagulopathy. Etiology unclear. Will hold the patient's anticoagulants. However, he will be continued on antiplatelet therapy since the patient has history of CAD status post stent placement. The patient will be monitored closely for any bleeding. 14. Dysphagia. Speech therapy evaluation will be ordered. The patient will be kept n.p.o. Medications will be given through NG tube. 15. Fluid, electrolytes and nutrition. Continue n.p.o. Continue IV fluids. 16. DVT prophylaxis with bilateral sequential compression devices. 17. Gastrointestinal prophylaxis. Proton pump inhibitors. PLAN: 1. Continue to wean down pressors as tolerated. 2. Continue antibiotics. 3. Obtain nephrology and cardiology consults. The case discussed with Dr. Berry. Critical care time 45 minutes. HARDIK BERRY MD, AM/LADY Conf#: [id number] DID#: [id number] MTDMaria Elena
[2017-02-20 11:21] LABS: HEMOGLOBIN 7.8 g/dl (14.0-18.0)
[2017-02-20 11:59] LABS: IRON < 10 ug/dl (35-150)
[2017-02-20 12:04] LABS: TOTAL IRON BINDING CAPACITY 117 ug/dl (241-421)
[2017-02-20 12:07] LABS: CK-MB 3.14 ng/ml (0.0-2.4); TROPONIN-I 0.117 ng/ml (0.00-0.12)
[2017-02-20] MEDS ORDERED: SOD CHLORIDE 0.9% 250 ML IV* ONE (12:14)
[2017-02-20] MEDS: SODIUM BICARBONATE (IV ADD) 50 MEQ in DEXTROSE 5% 1,000 ML IV SCH (12:49)
--- NOTE | 2017-02-20 14:41 | CONS ---
DATE OF ADMISSION: 02/19/2017 DATE OF CONSULTATION: 02/20/2017 INFECTIOUS DISEASE CONSULTATION REASON FOR CONSULTATION: Antibiotic management. HISTORY OF PRESENT ILLNESS: Dudley Barr is an 86-year-old male who comes in with fever, weakness, and is being seen for antibiotic management. The patient is in a senior living facility. He was sent to [facility] after being at [facility] for a month. He has been fatigued and lethargic. He has not been eating very well. He has a decubitus ulcer which is being treated at the alf. In May of last year, he had a coronary artery bypass stent. He also has sciatica and low back pain. He recently had sepsis related to pneumonia. On admission, his white count was 16,000, H and H of 10 and 33, platelet count 250,000. BUN and creatinine 43 and 2.1. He was admitted with shock, etiology unclear, and possibly related to Clostridium difficile. Past problems include coronary artery disease status post stent, chronic dyslipidemia, chronic diabe elias, hypothyroidism, metabolic syndrome, prostate cancer diagnosed many years ago without evidence o f metastasis, sciatica, cataracts, and hernia. PAST SURGICAL HISTORY: Includes hernia and cataracts. SOCIAL HISTORY: He does not smoke, drink, or abuse drugs. ALLERGIES: NONE TO PENICILLIN, SULFA, OR FOODS. MEDICATIONS: Per chart. REVIEW OF SYSTEMS: As per HPI. PHYSICAL EXAMINATION: GENERAL: The patient is a well-developed, well-nourished elderly appearing male who is awake, respo nsive, in no acute distress. VITAL SIGNS: Stable. He is afebrile. SKIN: Without generalized rash. HEENT: Within normal limits. NECK: Supple. LYMPH NODES: None palpable. CHEST: Decreased breath sounds at the bases. HEART: Without murmur or gallop. ABDOMEN: Soft, nontender without organosplenomegaly or masses. EXTREMITIES: Without cyanosis, clubbing, or edema. RECTAL AND GENITAL: Deferred. NEUROLOGIC: No focal neurological abnormalities. The patient was seen in consultation by Dr. Deng for septic shock. He was pancultured. The dewey ent is currently on vancomycin and cefepime. Urine cultures are negative. Blood cultures so far ar e negative. Chest x-ray shows mild prominence of interstitial markings with significant interval ch anuel. He has a right internal jugular central venous catheter placed. Will continue to observe his progress and await his cultures. I will dictate my findings to the hospitalist and to Dr. Deng and Dr. Jerson Michael. Dictated By: SUNITHA BUCKLEY MD, JD/LADY Conf#: [id number] DID#: [id number]
[2017-02-20] MEDS: FAMOTIDINE 20 MG INJ IV SCH (16:24)
--- NOTE | 2017-02-20 16:40 | CONS ---
DATE OF ADMISSION: 02/19/2017 DATE OF CONSULTATION: 02/20/2017 TYPE OF CONSULTATION: Cardiology. REFERRING PHYSICIAN: HARDIK MCBRIDE NP. REASON FOR CONSULTATION: Tachycardia, coronary artery disease. CHIEF COMPLAINT: Weakness. HISTORY OF PRESENT ILLNESS: Thank you for referring this patient who is a poor historian. We revie wed the old chart and had discussion with the staff and physicians. This is a pleasant 86-year-old gentleman with history of coronary artery disease, status post what appeared to be PCI in May or June of last year. He was originally from [facility]. The patient apparently has been complai sonja of being fatigued, weak and lethargic. He was noted to be hypotensive and tachycardic. He has been admitted to ICU on Levophed drip. Continued to be tachycardic. Rhythm strip was reviewed, re te in sinus tachycardia, heart rate of 120s to 130s. We were kindly asked to evaluate and treat. The patient denies any chest pain or pressure to me. Denies any palpitations to me. PAST MEDICAL HISTORY: History of coronary artery disease, status post probably FL, status post PCI in June or May, unknown hospital. History of diabetes, dyslipidemia and thyroid disorder, m etabolic syndrome. Status post sepsis and pneumonia. He was treated at [facility]. Previous history of prostate cancer many years ago, diagnosed. History of sciatica, cataracts and hernia. SURGICAL HISTORY: Hernia surgery, cataract surgery, PCI as mentioned. SOCIAL HISTORY: Does not smoke. Currently in intermediate. FAMILY HISTORY: No reported coronary artery disease that we can obtain. MEDICATIONS: As per medication reconciliation, personally reviewed. ALLERGIES: No reported allergies. MEDICATIONS: The medicine reconciliation personally reviewed. CURRENT MEDICATIONS: In the hospital, he is on: 1. Vancomycin. 2. Protonix. 3. Insulin. 4. Levophed drip. 5. Synthroid 75. 6. Lipitor 80. 7. Lovenox 30. 8. Prednisone. 9. Brilinta once a day only. PHYSICAL EXAMINATION: VITAL SIGNS: Temperature 98.3, heart rate of 120, blood pressure 104/65, respiratory rate of 20. HEENT: Normocephalic, atraumatic. Satting 100%. Status post NG tube in place. Pupils equal and r ound. CARDIOVASCULAR: Tachycardic, systolic murmur. PULMONARY: Anteriorly with mild rhonchi at the base. GASTROINTESTINAL: Soft. No rebound or guarding. EXTREMITIES: With positive ankle edema. NEUROLOGIC: Awake, responds appropriately. Oriented to person and place only though. PSYCHIATRIC: Appears to be calm but gets easily agitated. Oropharynx is status post NG tube and or opharynx appears to be dry. LABORATORY: Sodium 134, potassium 4.1, BUN of 34, creatinine 1.58. Creatinine was 2.11 on admissio n and glucose 165. Iron is less than 10. Troponin has been 0.425 and 0.117. Albumin is 1.4. TSH is 0.758 and 0.238. Echocardiogram personally reviewed, no evidence of pericardial effusion appeare d to have preserved LV systolic function. DIAGNOSTIC DATA: Chest x-ray this morning showed mild prominent interstitial markings may reflect s mall underlying edema or chronic changes. EKG shows sinus tachycardia. Poor R-wave progression. ASSESSMENT AND PLAN: 1. Sepsis and shock, requiring pressors. 2. Sinus tachycardia secondary to above. 3. History of coronary artery disease. 4. Severe anemia with decreasing hemoglobin down to 7.8 most recently. 5. Iron deficiency 6. History of coronary artery disease, status post percutaneous coronary intervention. 7. Dyslipidemia. 8. Essential hypotension, currently in hypotensive shock. 9. History of Clostridium difficile. 10. Severe malnutrition with albumin only 1.4. 11. Hypothyroidism. He is on Synthroid and TSH is currently on the low side. RECOMMENDATIONS: 1. Continue with the ICU care. Try to titrate off the Levophed. The patient has been transfused n ow. IV fluid as tolerated will be continued. Nutritional support to be started and continued as pe r internal medicine. 2. Patient also with acute renal failure secondary to above, currently slowly improving. Electroly elias will be corrected as needed. IV fluid was initiated and will be continued as well. The patient should really be on Brilinta twice today; however, given his severe anemia and iron deficiency, I w ill keep her only on a once a day dose that he is for now. However, I will add a baby aspirin as we ll. 3. Continue to monitor him under telemetry. Continue with the ICU care for now. Dictated By: CAITIE ESTRELLA/LADY Conf#: [id number] DID#: [id number] CC: HARDIK MCBRIDE TRADITIONAL [facility]ACTITIONER;*End*
[2017-02-20] MEDS: CEFEPIME 2GM/50 ML (PMX) 50 ML IVPB SCH (17:20)
[2017-02-20] MEDS: PANTOPRAZOLE 40 MG INJ IV SCH (17:20)
--- NOTE | 2017-02-20 17:49 | RADRPT ---
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 Ref. Physician: CAITIE HUERTAS Quality: Technically Difficult Study Procedures: Transthoracic echocardiogram with complete 2D, M-Mode, and doppler examination. Indications: Tachycardia. 2D/M Mode Doppler Measurement Value Normal Ranges Measurement Value Normal Ranges LVIDd 2D 3.0 3.5 - 5.6 cm AV Peak Harsha 1.1 m/sec LVIDs 2D 2.1 2.1 - 4.1 cm AV Peak PG 5.0 mmHg LVPWd 2D 1.2 0.6 - 1.1 cm LVOT Peak Harsha 1.0 m/sec IVSd 2D 1.2 0.6 - 1.1 cm LVOT Peak PG 3.7 mmHg AoR Diam 2D 2.8 2.0 - 3.7 cm MV E Peak Harsha 0.7 m/sec EDV 2D 35.7 cm3 MV A Peak Harsha 0.9 m/sec ESV 2D 9.8 cm3 MV E/A 0.7 LA Dimen 2D 3.0 2.3 - 4.0 cm MV Decel Time 146 msec MV Decel Chase 5 MV E/A 0.7 TR Peak Harsha 2.9 m/sec TR Peak PG 33.7 mmHg Findings Left Ventricle: Normal left ventricular systolic function. Hyperdynamic left ventricular systolic function. Normal left ventricular cavity size. Mild concentric left ventricular hypertrophy. Ejection fraction is visually estimated at 65 %. Tissue Doppler/Mitral Doppler indices are consistent with impaired relaxation (Stage I diastolic dysfunction). Right Ventricle: Normal right ventricular systolic function. Mild enlargement of right ventricle. Left Atrium: The left atrium is normal in size. Right Atrium: Right atrium at upper limits of normal. Mitral Valve: Mild mitral leaflet calcification. Mild mitral annular calcification. Trace mitral regurgitation. Aortic Valve: No significant aortic stenosis or insufficiency. Aortic cusps appear mildly calcified. Tricuspid Valve: Tricuspid valve not well visualized. Estimated peak PA systolic pressure 42 mmHg. There is mild tricuspid regurgitation. Pulmonic Valve: Pulmonic valve not well visualized. There is trace pulmonic regurgitation. Pericardium: Normal pericardium with no significant pericardial effusion. Aorta: Normal aortic root. IVC: Normal size and poor respiratory collapse consistent with elevated right atrial pressure. Conclusions 1.Normal left ventricular systolic function. Hyperdynamic left ventricular systolic function. Normal left ventricular cavity size. Mild concentric left ventricular hypertrophy. Ejection fraction is visually estimated at 65 %. Tissue Doppler/Mitral Doppler indices are consistent with impaired relaxation (Stage I diastolic dysfunction). 2.Normal right ventricular systolic function. Mild enlargement of right ventricle. 3.Mild mitral leaflet calcification. Mild mitral annular calcification. Trace mitral regurgitation. 4.No significant aortic stenosis or insufficiency. Aortic cusps appear mildly calcified. 5.Tricuspid valve not well visualized. Estimated peak PA systolic pressure 42 mmHg. There is mild tricuspid regurgitation. 6.Normal pericardium with no significant pericardial effusion. Electronically Signed By: Caitie Huertas 20-Feb-2017 17:47:57 -0700 Patient Name: WILLIAM SANTAMARIA Study Date: 20-Feb-2017 [id number]
[2017-02-20] MEDS: ATORVASTATIN 80 MG TAB PO SCH (20:57)
[2017-02-21] VITALS (86 sets, daily range): BP systolic 78–127; BP diastolic 49–94; PULSE 97–155; RESP 14–38
[2017-02-21] MEDS: VANCOMYCIN HCL 250 MG/5ML POSYG PO SCH ×5 (00:02→18:00)
[2017-02-21] MEDS: [UNRECOGNIZED DRUG - OTHER] XX SCH ×3 (01:00→17:00)
[2017-02-21] MEDS: INSULIN ASPART [NOVOLOG] 3 ML PEN SC SCH ×6 (01:00→20:47)
[2017-02-21] MEDS: SODIUM BICARBONATE (IV ADD) 50 MEQ in DEXTROSE 5% 1,000 ML IV SCH ×2 (01:07→16:37)
[2017-02-21] MEDS: ACCUCHECK AT 2AM (Patients on SS coverage) XX SCH (02:00)
[2017-02-21] MEDS: PANTOPRAZOLE 40 MG INJ IV SCH ×2 (05:59→17:41)
[2017-02-21 06:01] LABS: ADD SCAN DIFF NO; ALANINE AMINOTRANSFERASE 34 IU/L (13-69); ALBUMIN 1.5 g/dl (3.3-4.9); ALBUMIN/GLOBULIN RATIO 0.68; ALKALINE PHOSPHATASE 136 IU/L (42-121); ANION GAP 9 (8-16); ASPARTATE AMINO TRANSFERASE 28 IU/L (15-46); B-TYPE NATRIURETIC PEPTIDE 4860 PG/ML (0-450); BLOOD UREA NITROGEN 33 mg/dl (7-20); CALCIUM 6.3 mg/dl (8.4-10.2); CARBON DIOXIDE 17 mmol/L (21-31); CHLORIDE 111 mmol/L (97-110); CREATININE 1.57 mg/dl (0.61-1.24); GLUCOSE 103 mg/dl (70-220); HDL CHOLESTEROL 15 mg/dl (31-75); PHOSPHORUS 3.7 mg/dl (2.5-4.9); POTASSIUM 3.3 mmol/L (3.5-5.1); SODIUM 134 mmol/L (135-144); TOTAL PROTEIN 3.7 g/dl (6.1-8.1); TRIGLYCERIDES 91 mg/dl (0-149)
[2017-02-21 06:06] LABS: CHOLESTEROL < 50 mg/dl (100-200)
[2017-02-21 06:07] LABS: ABNORMAL IP MESSAGE 1; BASOPHIL # 0.1 10^3/ul (0.0-0.1); BASOPHILS % 0.3 % (0.0-2.0); EOSINOPHILS # 0.1 10^3/ul (0.0-0.5); EOSINOPHILS % 0.3 % (0.0-7.0); HEMOGLOBIN 10.9 g/dl (14.0-18.0); LYMPHOCYTES # 0.7 10^3/ul (0.8-2.9); LYMPHOCYTES % 3.9 % (15.0-51.0); MEAN CORPUSCULAR HEMOGLOBIN 29.7 pg (29.0-33.0); MEAN CORPUSCULAR VOLUME 89.9 fl (82.0-101.0); MONOCYTE # 0.4 10^3/ul (0.3-0.9); NEUTROPHIL # 15.7 10^3/ul (1.6-7.5); PLATELET COUNT 115 10^3/UL (140-415); RED BLOOD COUNT 3.67 10^6/ul (4.70-6.10); RED CELL DISTRIBUTION WIDTH 16.8 % (11.5-14.5); WHITE BLOOD COUNT 17.4 10^3/ul (4.8-10.8)
[2017-02-21 06:08] LABS: THYROID STIMULATING HORMONE 0.228 MIU/L (0.465-4.680)
[2017-02-21 06:09] LABS: CK-MB 2.52 ng/ml (0.0-2.4); TROPONIN-I 0.082 ng/ml (0.00-0.12)
[2017-02-21 06:10] LABS: INR 1.89; PROTIME 21.9 Sec (12.2-14.2); PT RATIO 1.7
[2017-02-21 06:11] LABS: PARTIAL THROMBOPLASTIN TIME 39.9 Sec (25.0-35.0)
[2017-02-21 06:13] LABS: NEUTROPHILS % 90.4 % (39.0-77.0)
[2017-02-21] MEDS: LEVOTHYROXINE 75 MCG TAB PO SCH (06:24)
[2017-02-21] MEDS ORDERED: POTASSIUM CHLORIDE 50 ML IVPB ONE (07:30)
--- NOTE | 2017-02-21 07:51 | RADRPT ---
PROCEDURE: XR Chest. CLINICAL INDICATION: Pneumonia TECHNIQUE: An AP view of the chest was obtained. COMPARISON: Chest x-ray dated 02/19/2017 and 02/20/2017 FINDINGS: There is a right internal jugular central venous catheter with tip near the cavoatrial junction. Th e tip of the enteric tube extends below the left diaphragm. Lung volumes are low. There is prominence of the interstitial markings. There are left basilar int erstitial opacities No pleural effusion or pneumothorax is seen. The cardiomediastinal silhouette i s upper limits of normal in size. Calcifications are seen within the aortic arch. The osseous struc tures demonstrate senescent changes. IMPRESSION: 1. Mild prominence of the interstitial markings, may reflect mild underlying interstitial edema or chronic lung changes. No significant interval change. 2. Left basilar atelectasis versus pneumonia, also unchanged. 3. Aortic atherosclerosis. 4. Tubes and lines, as described above. RPTAT: HH .Nanette Saucedo MD, MD Date Time Electronically viewed and signed by .Nanette Saucedo MD, on 02/21/2017 07:51 .G/
[2017-02-21 08:17] LABS: AADO2 Arterial 62.2 mmHg (7.0-24.0); Allen Test ACCEPTAB; Arterial Base Excess -6.4 mmol/L (-3.0-3); Arterial COHb 0.2 % (0.0-3.0); Arterial Fraction of Oxyhgb 96.7 % (93.0-99.0); Arterial HCO3 16.1 mmol/L (22.0-26.0); Arterial MetHb 0.1 % (0.0-1.5); Arterial Total Hemglobin 12.1 g/dl (12.0-18.0); MODE NASAL CANNULA
[2017-02-21] MEDS: ASPIRIN (EC) 81 MG TAB PO SCH (08:48)
[2017-02-21] MEDS: MULTIVITAMINS THERAPEUTIC TAB PO SCH (08:48)
[2017-02-21] MEDS: ASCORBIC ACID 500 MG TAB PO SCH (08:48)
[2017-02-21] MEDS: predniSONE 10 MG TAB PO SCH (08:49)
[2017-02-21] MEDS: ZINC SULFATE 220 MG CAP PO SCH (08:49)
[2017-02-21] MEDS: LACTOBACILLUS RHAMNOSUS CAP PO SCH ×2 (08:49→20:34)
[2017-02-21] MEDS: ENOXAPARIN 30 MG/0.3 ML SYG SC SCH (08:52)
[2017-02-21] MEDS: TICAGRELOR 90 MG TABLET PO SCH (08:57)
--- NOTE | 2017-02-21 09:11 | PN ---
Date/Time of Note Date/Time of Note DATE: 02/21/17 TIME: 09:05 Assessment/Plan VTE Prophylaxis VTE Prophylaxis Intervention: SCD's Lines/Catheters IV Catheter Type (from [facility]): Central Line Central line still needed: Yes Urinary Cath still in place: Yes Reason Cath still needed: other (indicate) Assessment/Plan Chief Complaint/Hosp Course 1. Sepsis with underlying septic shock. Etiology could be probably from underlying colitis versus healthcare associated pneumonia. [place] cultures are negative so far. Continue vasopressors to keep hemodynamic status stable. 2. Sinus tachycardia. Etiology unclear. Probably secondary to underlying sepsis. Cardiology on case since the patient has a known history of coronary artery disease. Thyroid function showed evidence of hyperthyroidism. Hence the patient's Synthroid was discontinued. 3. Coronary artery disease. The patient will be continued on antiplatelet medications. 4. Type 2 diabetes mellitus. Hemoglobin A1c is 6.4. Continue sliding scale insulin. 5. Hypothyroidism. Thyroid panel showing evidence of hyperthyroidism. Will discontinue Synthroid. 6. Dyslipidemia. Continue statins. 7. Prostate cancer. No evidence of any metastasis. 8. Nonoliguric acute kidney injury in a patient with unknown baseline creatinine. Continue IV hydration. Nephrology following. 9. Normocytic normochromic anemia. Etiology unclear. Iron panel showing low iron and low TIBC with a high ferritin. Pending stool for OB. Status post 1 unit of PRBC transfusion on 02/20/2017. 10. Hypoalbuminemia. The etiology is unclear. Will obtain a dietary consult. Will start the patient on tube feedings. 11. Non-anion gap metabolic acidosis. Continue bicarbonate drip. Nephrology following. 12. Hematuria. Resolved. 13. Coagulopathy. Etiology unclear. Will hold the patient's anticoagulants. However, he will be continued on antiplatelet therapy since the patient has history of CAD status post stent placement. The patient will be monitored closely for any bleeding. 14. Dysphagia. Speech therapy evaluation will be ordered. The patient will be kept n.p.o. Medications will be given through NG tube. 15. Fluid, electrolytes and nutrition. Continue n.p.o. Continue IV fluids. Will start the patient on tube feedings 16. DVT prophylaxis with bilateral sequential compression devices. 17. Gastrointestinal prophylaxis. Proton pump inhibitors. PLAN: 1. Continue to wean down pressors as tolerated. 2. Continue antibiotics. 3. Obtain endocrinology consult. The case was discussed with Dr. Berry. Critical care time: 35 minutes. Problems: Subjective 24 Hr Interval Summary Free Text/Dictation The patient remains afebrile. Continues to be tachycardic. Remains on pressors. Exam/Review of Systems Vital Signs Vitals Vital Signs Date Time Temp Pulse Resp B/P Pulse Ox O2 Delivery O2 Flow Rate FiO2 02/21/17 08:00 119 02/21/17 07:49 2.0 02/21/17 06:15 18 102/65 100 02/21/17 00:00 98.0 02/20/17 23:00 Nasal Cannula Intake and Output 02/20/17 02/20/17 02/21/17 15:00 23:00 07:00 Intake Total 2541.25 ml 748.75 ml 551.25 ml Output Total 355 ml 255 ml 195 ml Balance 2186.25 ml 493.75 ml 356.25 ml Exam GENERAL: This is an 86-year-old elderly male lying in bed in no apparent distress. HEENT: Head normocephalic and atraumatic. Eyes: Anicteric sclerae. Conjunctivae clear. ENT: Nasal septum is midline, oral mucosa is dry. The patient has an NG tube in the left naris. NECK: No JVD noticed. RESPIRATORY: Bilaterally diminished breath sounds. No adventitious breath sounds heard. No use of accessory muscles of respiration. CARDIAC: Regular rate and rhythm. S1 and S2 heard. Sinus tachycardia. ABDOMEN: Soft, nontender. Bowel sounds hypoactive in all 4 quadrants. GENITOURINARY: The patient has a Christopher catheter in place. EXTREMITIES: No cyanosis, no clubbing. Bilateral lower extremity ankle edema. Peripheral pulses are palpable. NEUROLOGIC: The patient is awake and alert. Follows simple commands. Oriented to himself. Results Result Diagram: 02/21/17 0400 02/21/17 0400 Results 24 hrs Laboratory Tests Test 02/20/17 10:00 02/20/17 11:00 02/20/17 12:55 02/20/17 17:20 Blood Gas Specimen Source Blood arterial Arterial Blood Date Drawn 02/20/2017 10:20:12 AM Arterial Blood pH (Temp corrected) 7.400 Arterial Blood pCO2 (Temp correct) 21.2 L Arterial Blood pO2 (Temp corrected) 93.5 H Arterial Blood HCO3 12.8 L Arterial Blood Base Excess -10.5 L Arterial Blood Oxygen Saturation 95.6 Tera Test ACCEPTAB Arterial Blood Gas Puncture Site Right Radial Arterial Blood Carboxyhemoglobin 0 Arterial Blood Methemoglobin 0.1 Blood Gas A-a O2 Differential 73.9 H Oxyhemoglobin Percent 95.5 Total Hemoglobin 8.5 L Blood Gas Temperature 37.0 Blood Gas Modality NASAL CANNULA FiO2 27.0 Blood Gas Notified Whom JLD Blood Gas Notified Time 02/20/2017 10:47:59 AM Hemoglobin 7.8 L Hematocrit 25.0 L Iron Level < 10 L Total Iron Binding Capacity 117 L Percent Iron Saturation Creatine Kinase 57 Creatine Kinase Index 5.5 Creatinine Kinase MB (Mass) 3.14 H Troponin I 0.117 Thyroid Stimulating Hormone (TSH) 0.237 L Bedside Glucose 92 108 Test 02/20/17 21:01 02/21/17 01:03 02/21/17 04:00 02/21/17 04:52 Bedside Glucose 110 110 White Blood Count 17.4 H Red Blood Count 3.67 #L Hemoglobin 10.9 #L Hematocrit 33.0 #L Mean Corpuscular Volume 89.9 Mean Corpuscular Hemoglobin 29.7 Mean Corpuscular Hemoglobin Concent 33.0 Red Cell Distribution Width 16.8 H Platelet Count 115 #L Mean Platelet Volume 10.0 Neutrophils % 90.4 H Lymphocytes % 3.9 L Monocytes % 2.0 Eosinophils % 0.3 Basophils % 0.3 Nucleated Red Blood Cells % 0.0 Neutrophils # 15.7 H Lymphocytes # 0.7 L Monocytes # 0.4 Eosinophils # 0.1 Basophils # 0.1 Nucleated Red Blood Cells # 0.0 Prothrombin Time 21.9 H Prothrombin Time Ratio 1.7 INR International Normalized Ratio 1.89 Activated Partial Thromboplast Time 39.9 H Sodium Level 134 L Potassium Level 3.3 L Chloride Level 111 H Carbon Dioxide Level 17 L Anion Gap 9 Blood Urea Nitrogen 33 H Creatinine 1.57 H Glucose Level 103 # Lactic Acid Level 1.8 Calcium Level 6.3 L Phosphorus Level 3.7 Magnesium Level 2.0 Total Bilirubin 0.0 L Direct Bilirubin 0.00 Indirect Bilirubin 0.0 Aspartate Amino Transf (AST/SGOT) 28 Alanine Aminotransferase (ALT/SGPT) 34 Alkaline Phosphatase 136 H Creatine Kinase 36 Creatine Kinase Index 7.0 Creatinine Kinase MB (Mass) 2.52 H Troponin I 0.082 B-Type Natriuretic Peptide 4860 H Total Protein 3.7 L Albumin 1.5 L Globulin 2.20 Albumin/Globulin Ratio 0.68 Triglycerides Level 91 Cholesterol Level < 50 L LDL Cholesterol, Calculated HDL Cholesterol 15 L Cholesterol/HDL Ratio Thyroid Stimulating Hormone (TSH) 0.228 L Free Thyroxine 1.94 H Lab Scanned Report BLOOD TRANSFUSION Test 02/21/17 07:00 Blood Gas Specimen Source Blood arterial Arterial Blood Date Drawn 02/21/2017 7:20:22 AM Arterial Blood pH (Temp corrected) 7.439 Arterial Blood pCO2 (Temp correct) 24.3 L Arterial Blood pO2 (Temp corrected) 101.6 H Arterial Blood HCO3 16.1 L Arterial Blood Base Excess -6.4 L Arterial Blood Oxygen Saturation 97.0 Tera Test ACCEPTAB Arterial Blood Gas Puncture Site Right Radial Arterial Blood Carboxyhemoglobin 0.2 Arterial Blood Methemoglobin 0.1 Blood Gas A-a O2 Differential 62.2 H Oxyhemoglobin Percent 96.7 Total Hemoglobin 12.1 Blood Gas Temperature 37.0 Blood Gas Modality NASAL CANNULA FiO2 27.0 Blood Gas Notified Whom JLD Blood Gas Notified Time 02/21/2017 8:17:02 AM Medications Medications Current Medications Vancomycin HCl 125 mg 125 mg Q6 PO Last administered on 02/21/17 06:02; Admin Dose 125 MG; Start 02/19/17 at 18:00 Cefepime HCl (Maxipime 2gm/50 ml (Pmx)) 50 ml @ 100 mls/hr Q24H IVPB Last administered on 02/20/17 17:20; Admin Dose 100 MLS/HR; Start 02/19/17 at 17:30 Enoxaparin Sodium (Lovenox) 30 mg DAILY SC Last administered on 02/21/17 08:52 ; Admin Dose 30 MG; Start 02/19/17 at 16:30 Lactobacillus Acidophilus/ Rhamnosus (Culturelle) 1 cap BID PO Last administered on 02/21/17 08:49; Admin Dose 1 CAP; Start 02/19/17 at 21:00 Multivitamins Therapeutic (Theragran) 1 tab DAILY PO Last administered on 08:48; Admin Dose 1 TAB; Start 02/20/17 at 09:00 Ascorbic Acid (Vitamin C) 500 mg QAM PO Last administered on 02/21/17 08:48; Admin Dose 500 MG; Start 02/20/17 at 09:00 Prednisone (Prednisone) 10 mg QAM PO Last administered on 02/21/17 08:49; Admin Dose 10 MG; Start 02/19/17 at 16:30 Ticagrelor (Brilinta) 90 mg QAM PO Last administered on 02/21/17 08:57; Admin Dose 90 MG; Start 02/19/17 at 16:30 Zinc Sulfate (Zinc Sulfate) 220 mg QAM PO Last administered on 02/21/17 08:49 ; Admin Dose 220 MG; Start 02/20/17 at 09:00 Miscellaneous Information 50 mg QAM XX ; Start 02/20/17 at 09:00; Status UNV Atorvastatin Calcium (Lipitor) 80 mg DAILY@21 PO Last administered on 20:57; Admin Dose 80 MG; Start 02/19/17 at 21:00 Ondansetron HCl (Zofran Inj) 4 mg Q6H PRN IV NAUSEA AND/OR VOMITING; Start at 16:30 Acetaminophen (Tylenol Tab) 650 mg Q6H PRN PO PAIN LEVEL 1-3 OR FEVER; Start at 16:30 Acetaminophen (Tylenol Supp) 650 mg Q6H PRN AL PAIN LEVEL 1-3 OR FEVER; Start 02/19/17 at 16:30 Acetaminophen/ Hydrocodone Bitart ([place] (5/325)) 1 tab Q6H PRN PO MODERATE PAIN LEVEL 4-6; Start 02/19/17 at 16:30 Morphine Sulfate (morphine) 2 mg Q4H PRN IV SEVERE PAIN LEVEL 7-10; Start 02/19 at 16:30 Miscellaneous Information 1 ea NOTE XX ; Start 02/19/17 at 16:30 Glucose (Glutose) 15 gm Q15M PRN PO DECREASED GLUCOSE; Start 02/19/17 at 16:30 Glucose (Glutose) 22.5 gm Q15M PRN PO DECREASED GLUCOSE; Start 02/19/17 at 16: 30 Dextrose (D50w Syringe) 25 ml Q15M PRN IV DECREASED GLUCOSE Last administered on 02/20/17 03:06; Admin Dose 25 ML; Start 02/19/17 at 16:30 Dextrose (D50w Syringe) 50 ml Q15M PRN IV DECREASED GLUCOSE; Start 02/19/17 at 16:30 Glucagon (Glucagen) 1 mg Q15M PRN IM DECREASED GLUCOSE; Start 02/19/17 at 16:30 Glucose (Glutose) 15 gm Q15M PRN BUCCAL DECREASED GLUCOSE; Start 02/19/17 at 16 :30 Miscellaneous Information (*Order Clarification Bulletin) *(Desvenlafaxine Succinate (Pristiq)... Q8H XX Last administered on 02/21/17 01:00; Admin Dose 1 EA; Start 02/19/17 at 17:00 Diagnostic Test (Pha) (Accu-Chek) 1 ea 02 XX Last administered on 02/20/17 01: 10; Admin Dose 1 EA; Start 02/20/17 at 02:00 Insulin Aspart NOVOLOG *MILD* ALGORITHM Q4 SC ; Start 02/20/17 at 13:00 Norepinephrine/ Dextrose (Levophed/D5W) 500 ml @ 1.87 mls/hr TITRATE IV Last administered on 02/20/17 11:56; Admin Dose 15 MLS/HR; Start 02/20/17 at 11:00 Pantoprazole 40 mg 40 mg BID@06,18 IV Last administered on 02/21/17 05:59; Admin Dose 40 MG; Start 02/20/17 at 18:00 Sodium Bicarbonate 50 meq/Dextrose 1,050 ml @ 75 mls/hr Q14H IV Last administered on 02/21/17 01:07; Admin Dose 75 MLS/HR; Start 02/20/17 at 13:00 Vancomycin HCl (Vancocin) 250 ml @ 125 mls/hr Q36H IVPB ; Start 02/21/17 at 10: 00 Aspirin 81 mg 81 mg DAILY PO Last administered on 02/21/17 08:48; Admin Dose 81 MG; Start 02/21/17 at 09:00 Potassium Chloride (KCl 20 MEQ/50 ML SW) 50 ml @ 25 mls/hr ONCE ONCE IVPB Last administered on 02/21/17 09:00; Admin Dose 25 MLS/HR; Start 02/21/17 at 07 :30; Stop 02/21/17 at 09:29 HARDIK MCBRIDE NP February 21, 2017 09:10
--- NOTE | 2017-02-21 10:11 | CONS ---
Date/Time of Note Date/Time of Note DATE: 02/21/17 TIME: 10:09 Consult Date/Type/Reason Admit Date/Time February 19, 2017 at 14:52 Initial Consult Date Type of Consultation: Pulmonary Subjective Patient is awake alert mildly confused no respiratory distress Continues low-dose Levophed Remains tachycardic Objective Vital Signs Date Time Temp Pulse Resp B/P Pulse Ox O2 Delivery O2 Flow Rate FiO2 02/21/17 08:00 119 02/21/17 07:49 2.0 02/21/17 06:15 18 102/65 100 02/21/17 00:00 98.0 02/20/17 23:00 Nasal Cannula Intake and Output 02/20/17 02/20/17 02/21/17 15:00 23:00 07:00 Intake Total 2541.25 ml 748.75 ml 551.25 ml Output Total 355 ml 255 ml 195 ml Balance 2186.25 ml 493.75 ml 356.25 ml Exam PHYSICAL EXAMINATION: GENERAL: Elderly-appearing gentleman on low dose Levophed. VITAL SIGNS: As above NECK: Supple. No JVD or lymphadenopathy. CARDIAC: S1, S2, no added sounds or murmurs. CHEST: Diminished air entry bilaterally. ABDOMEN: Soft, nontender. No guarding or rebound. EXTREMITIES: No cyanosis, clubbing, edema. NEUROLOGIC: Generalized weakness. Results/Medications Result Diagram: 02/21/17 0400 02/21/17 0400 Results 24 hrs Laboratory Tests Test 02/20/17 11:00 02/20/17 12:55 02/20/17 17:20 02/20/17 21:01 Hemoglobin 7.8 L Hematocrit 25.0 L Iron Level < 10 L Total Iron Binding Capacity 117 L Percent Iron Saturation Creatine Kinase 57 Creatine Kinase Index 5.5 Creatinine Kinase MB (Mass) 3.14 H Troponin I 0.117 Thyroid Stimulating Hormone (TSH) 0.237 L Bedside Glucose 92 108 110 Test 02/21/17 01:03 02/21/17 04:00 02/21/17 04:52 02/21/17 07:00 Bedside Glucose 110 White Blood Count 17.4 H Red Blood Count 3.67 #L Hemoglobin 10.9 #L Hematocrit 33.0 #L Mean Corpuscular Volume 89.9 Mean Corpuscular Hemoglobin 29.7 Mean Corpuscular Hemoglobin Concent 33.0 Red Cell Distribution Width 16.8 H Platelet Count 115 #L Mean Platelet Volume 10.0 Neutrophils % 90.4 H Lymphocytes % 3.9 L Monocytes % 2.0 Eosinophils % 0.3 Basophils % 0.3 Nucleated Red Blood Cells % 0.0 Neutrophils # 15.7 H Lymphocytes # 0.7 L Monocytes # 0.4 Eosinophils # 0.1 Basophils # 0.1 Nucleated Red Blood Cells # 0.0 Prothrombin Time 21.9 H Prothrombin Time Ratio 1.7 INR International Normalized Ratio 1.89 Activated Partial Thromboplast Time 39.9 H Sodium Level 134 L Potassium Level 3.3 L Chloride Level 111 H Carbon Dioxide Level 17 L Anion Gap 9 Blood Urea Nitrogen 33 H Creatinine 1.57 H Glucose Level 103 # Lactic Acid Level 1.8 Calcium Level 6.3 L Phosphorus Level 3.7 Magnesium Level 2.0 Total Bilirubin 0.0 L Direct Bilirubin 0.00 Indirect Bilirubin 0.0 Aspartate Amino Transf (AST/SGOT) 28 Alanine Aminotransferase (ALT/SGPT) 34 Alkaline Phosphatase 136 H Creatine Kinase 36 Creatine Kinase Index 7.0 Creatinine Kinase MB (Mass) 2.52 H Troponin I 0.082 B-Type Natriuretic Peptide 4860 H Total Protein 3.7 L Albumin 1.5 L Globulin 2.20 Albumin/Globulin Ratio 0.68 Triglycerides Level 91 Cholesterol Level < 50 L LDL Cholesterol, Calculated HDL Cholesterol 15 L Cholesterol/HDL Ratio Thyroid Stimulating Hormone (TSH) 0.228 L Free Thyroxine 1.94 H Lab Scanned Report BLOOD TRANSFUSION Blood Gas Specimen Source Blood arterial Arterial Blood Date Drawn 02/21/2017 7:20:22 AM Arterial Blood pH (Temp corrected) 7.439 Arterial Blood pCO2 (Temp correct) 24.3 L Arterial Blood pO2 (Temp corrected) 101.6 H Arterial Blood HCO3 16.1 L Arterial Blood Base Excess -6.4 L Arterial Blood Oxygen Saturation 97.0 Tera Test ACCEPTAB Arterial Blood Gas Puncture Site Right Radial Arterial Blood Carboxyhemoglobin 0.2 Arterial Blood Methemoglobin 0.1 Blood Gas A-a O2 Differential 62.2 H Oxyhemoglobin Percent 96.7 Total Hemoglobin 12.1 Blood Gas Temperature 37.0 Blood Gas Modality NASAL CANNULA FiO2 27.0 Blood Gas Notified Whom JLD Blood Gas Notified Time 02/21/2017 8:17:02 AM Test 02/21/17 08:51 Bedside Glucose 79 Medications Current Medications Vancomycin HCl 125 mg 125 mg Q6 PO Last administered on 02/21/17 06:02; Admin Dose 125 MG; Start 02/19/17 at 18:00 Cefepime HCl (Maxipime 2gm/50 ml (Pmx)) 50 ml @ 100 mls/hr Q24H IVPB Last administered on 02/20/17 17:20; Admin Dose 100 MLS/HR; Start 02/19/17 at 17:30 Enoxaparin Sodium (Lovenox) 30 mg DAILY SC Last administered on 02/21/17 08:52 ; Admin Dose 30 MG; Start 02/19/17 at 16:30 Lactobacillus Acidophilus/ Rhamnosus (Culturelle) 1 cap BID PO Last administered on 02/21/17 08:49; Admin Dose 1 CAP; Start 02/19/17 at 21:00 Multivitamins Therapeutic (Theragran) 1 tab DAILY PO Last administered on 08:48; Admin Dose 1 TAB; Start 02/20/17 at 09:00 Ascorbic Acid (Vitamin C) 500 mg QAM PO Last administered on 02/21/17 08:48; Admin Dose 500 MG; Start 02/20/17 at 09:00 Prednisone (Prednisone) 10 mg QAM PO Last administered on 02/21/17 08:49; Admin Dose 10 MG; Start 02/19/17 at 16:30 Ticagrelor (Brilinta) 90 mg QAM PO Last administered on 02/21/17 08:57; Admin Dose 90 MG; Start 02/19/17 at 16:30 Zinc Sulfate (Zinc Sulfate) 220 mg QAM PO Last administered on 02/21/17 08:49 ; Admin Dose 220 MG; Start 02/20/17 at 09:00 Miscellaneous Information 50 mg QAM XX ; Start 02/20/17 at 09:00; Status UNV Atorvastatin Calcium (Lipitor) 80 mg DAILY@21 PO Last administered on 20:57; Admin Dose 80 MG; Start 02/19/17 at 21:00 Ondansetron HCl (Zofran Inj) 4 mg Q6H PRN IV NAUSEA AND/OR VOMITING; Start at 16:30 Acetaminophen (Tylenol Tab) 650 mg Q6H PRN PO PAIN LEVEL 1-3 OR FEVER; Start at 16:30 Acetaminophen (Tylenol Supp) 650 mg Q6H PRN IN PAIN LEVEL 1-3 OR FEVER; Start 02/19/17 at 16:30 Acetaminophen/ Hydrocodone Bitart ([place] (5/325)) 1 tab Q6H PRN PO MODERATE PAIN LEVEL 4-6; Start 02/19/17 at 16:30 Morphine Sulfate (morphine) 2 mg Q4H PRN IV SEVERE PAIN LEVEL 7-10; Start 02/19 at 16:30 Miscellaneous Information 1 ea NOTE XX ; Start 02/19/17 at 16:30 Glucose (Glutose) 15 gm Q15M PRN PO DECREASED GLUCOSE; Start 02/19/17 at 16:30 Glucose (Glutose) 22.5 gm Q15M PRN PO DECREASED GLUCOSE; Start 02/19/17 at 16: 30 Dextrose (D50w Syringe) 25 ml Q15M PRN IV DECREASED GLUCOSE Last administered on 02/20/17 03:06; Admin Dose 25 ML; Start 02/19/17 at 16:30 Dextrose (D50w Syringe) 50 ml Q15M PRN IV DECREASED GLUCOSE; Start 02/19/17 at 16:30 Glucagon (Glucagen) 1 mg Q15M PRN IM DECREASED GLUCOSE; Start 02/19/17 at 16:30 Glucose (Glutose) 15 gm Q15M PRN BUCCAL DECREASED GLUCOSE; Start 02/19/17 at 16 :30 Miscellaneous Information (*Order Clarification Bulletin) *(Desvenlafaxine Succinate (Pristiq)... Q8H XX Last administered on 02/21/17 01:00; Admin Dose 1 EA; Start 02/19/17 at 17:00 Diagnostic Test (Pha) (Accu-Chek) 1 ea 02 XX Last administered on 02/20/17 01: 10; Admin Dose 1 EA; Start 02/20/17 at 02:00 Insulin Aspart NOVOLOG *MILD* ALGORITHM Q4 SC ; Start 02/20/17 at 13:00 Norepinephrine/ Dextrose (Levophed/D5W) 500 ml @ 1.87 mls/hr TITRATE IV Last administered on 02/20/17 11:56; Admin Dose 15 MLS/HR; Start 02/20/17 at 11:00 Pantoprazole 40 mg 40 mg BID@06,18 IV Last administered on 02/21/17 05:59; Admin Dose 40 MG; Start 02/20/17 at 18:00 Sodium Bicarbonate 50 meq/Dextrose 1,050 ml @ 75 mls/hr Q14H IV Last administered on 02/21/17 01:07; Admin Dose 75 MLS/HR; Start 02/20/17 at 13:00 Vancomycin HCl (Vancocin) 250 ml @ 125 mls/hr Q36H IVPB ; Start 02/21/17 at 10: 00 Aspirin (Halfprin) 81 mg DAILY PO Last administered on 02/21/17 08:48; Admin Dose 81 MG; Start 02/21/17 at 09:00 Assessment/Plan Chief Complaint/Hosp Course IMPRESSION AND PLAN: 1. Septic shock. 2. Possible healthcare-associated pneumonia. 3. Renal insufficiency, likely prerenal. 4. Hypokalemia 5. Sinus tachycardia likely secondary to vasopressors PLAN: 1. Continue antibiotics, currently on vancomycin and cefepime. 2. Infectious disease consult. 3. Panculture. 4. DVT and GI prophylaxis. 5. Aspiration precautions and speech therapy evaluation Disposition keep in ICU Problems: PAULO TRIMBLE MD, [facility] February 21, 2017 10:11
--- NOTE | 2017-02-21 11:01 | CONS ---
Date/Time of Note Date/Time of Note DATE: 02/21/17 TIME: 10:59 Assessment/Plan Assessment/Plan Additional Assessment/Plan 1. Septic shock, likely secondary to possible Clostridium difficile. 2. Acute kidney injury secondary to acute tubular necrosis from septic shock. 3. Hyperchloremic non-anion gap metabolic acidosis likely secondary to severe diarrhea. Currently, the patient's bicarbonate has been dropped down to 16. 4. Hyponatremia, likely secondary to hypovolemic hyponatremia. 5. 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 6. Hypocalcemia, but the corrected calcium with a low albumin has been pretty much normal. PLAN: continue Bicarbonate drip Cr improving, K low KCL 20mEQ IV x 1 dose now BP more stable, titrate levophed gtt to off U/o 835 cc so far will continue to follow up Full Code Consultation Date/Type/Reason Admit Date/Time February 19, 2017 at 14:52 Initial Consult Date 02/20/2017 Type of Consultation: NEPHROLOGY Reason for Consultation acute kidney injury, Hyponatremia, metabolic acidosis Referring Provider: MITCH CANALES 24 HR Interval Summary Free Text/Dictation remained stabel on bicarbonate drip, on low dose levophed, K low, pt still lethargic Exam/Review of Systems Vital Signs Vitals Vital Signs Date Time Temp Pulse Resp B/P Pulse Ox O2 Delivery O2 Flow Rate FiO2 02/21/17 08:00 119 02/21/17 07:49 2.0 02/21/17 06:15 18 102/65 100 02/21/17 00:00 98.0 02/20/17 23:00 Nasal Cannula Intake and Output 02/20/17 02/20/17 02/21/17 15:00 23:00 07:00 Intake Total 2541.25 ml 748.75 ml 551.25 ml Output Total 355 ml 255 ml 195 ml Balance 2186.25 ml 493.75 ml 356.25 ml Exam GENERAL: Patient awake but lethargic, falling back to the sleep. HEENT: Pupils equal, round, reactive to light and accommodation. Extraocular muscles are intact. NECK: Supple, no JVD. LUNGS: Decreased breath sounds at both lung bases with bibasilar crackles present. HEART: S1, S2, tachycardia. ABDOMEN: Soft, nontender, nondistended. EXTREMITIES: 1+ pitting edema with a Christopher catheter in place. No clubbing, cyanosis. NEUROLOGICAL: Uncooperative for exam. PSYCHIATRIC: Appropriate affect and mood. Results Result Diagram: 02/21/17 0400 02/21/17 0400 Results 24 hrs Laboratory Tests Test 02/20/17 11:00 02/20/17 12:55 02/20/17 17:20 02/20/17 21:01 Hemoglobin 7.8 L Hematocrit 25.0 L Iron Level < 10 L Total Iron Binding Capacity 117 L Percent Iron Saturation Creatine Kinase 57 Creatine Kinase Index 5.5 Creatinine Kinase MB (Mass) 3.14 H Troponin I 0.117 Thyroid Stimulating Hormone (TSH) 0.237 L Bedside Glucose 92 108 110 Test 02/21/17 01:03 02/21/17 04:00 02/21/17 04:52 02/21/17 07:00 Bedside Glucose 110 White Blood Count 17.4 H Red Blood Count 3.67 #L Hemoglobin 10.9 #L Hematocrit 33.0 #L Mean Corpuscular Volume 89.9 Mean Corpuscular Hemoglobin 29.7 Mean Corpuscular Hemoglobin Concent 33.0 Red Cell Distribution Width 16.8 H Platelet Count 115 #L Mean Platelet Volume 10.0 Neutrophils % 90.4 H Lymphocytes % 3.9 L Monocytes % 2.0 Eosinophils % 0.3 Basophils % 0.3 Nucleated Red Blood Cells % 0.0 Neutrophils # 15.7 H Lymphocytes # 0.7 L Monocytes # 0.4 Eosinophils # 0.1 Basophils # 0.1 Nucleated Red Blood Cells # 0.0 Prothrombin Time 21.9 H Prothrombin Time Ratio 1.7 INR International Normalized Ratio 1.89 Activated Partial Thromboplast Time 39.9 H Sodium Level 134 L Potassium Level 3.3 L Chloride Level 111 H Carbon Dioxide Level 17 L Anion Gap 9 Blood Urea Nitrogen 33 H Creatinine 1.57 H Glucose Level 103 # Lactic Acid Level 1.8 Calcium Level 6.3 L Phosphorus Level 3.7 Magnesium Level 2.0 Total Bilirubin 0.0 L Direct Bilirubin 0.00 Indirect Bilirubin 0.0 Aspartate Amino Transf (AST/SGOT) 28 Alanine Aminotransferase (ALT/SGPT) 34 Alkaline Phosphatase 136 H Creatine Kinase 36 Creatine Kinase Index 7.0 Creatinine Kinase MB (Mass) 2.52 H Troponin I 0.082 B-Type Natriuretic Peptide 4860 H Total Protein 3.7 L Albumin 1.5 L Globulin 2.20 Albumin/Globulin Ratio 0.68 Triglycerides Level 91 Cholesterol Level < 50 L LDL Cholesterol, Calculated HDL Cholesterol 15 L Cholesterol/HDL Ratio Thyroid Stimulating Hormone (TSH) 0.228 L Free Thyroxine 1.94 H Lab Scanned Report BLOOD TRANSFUSION Blood Gas Specimen Source Blood arterial Arterial Blood Date Drawn 02/21/2017 7:20:22 AM Arterial Blood pH (Temp corrected) 7.439 Arterial Blood pCO2 (Temp correct) 24.3 L Arterial Blood pO2 (Temp corrected) 101.6 H Arterial Blood HCO3 16.1 L Arterial Blood Base Excess -6.4 L Arterial Blood Oxygen Saturation 97.0 Tera Test ACCEPTAB Arterial Blood Gas Puncture Site Right Radial Arterial Blood Carboxyhemoglobin 0.2 Arterial Blood Methemoglobin 0.1 Blood Gas A-a O2 Differential 62.2 H Oxyhemoglobin Percent 96.7 Total Hemoglobin 12.1 Blood Gas Temperature 37.0 Blood Gas Modality NASAL CANNULA FiO2 27.0 Blood Gas Notified Whom JLD Blood Gas Notified Time 02/21/2017 8:17:02 AM Test 02/21/17 08:51 Bedside Glucose 79 Medications Medications Current Medications Vancomycin HCl 125 mg 125 mg Q6 PO Last administered on 02/21/17 06:02; Admin Dose 125 MG; Start 02/19/17 at 18:00 Cefepime HCl (Maxipime 2gm/50 ml (Pmx)) 50 ml @ 100 mls/hr Q24H IVPB Last administered on 02/20/17 17:20; Admin Dose 100 MLS/HR; Start 02/19/17 at 17:30 Enoxaparin Sodium (Lovenox) 30 mg DAILY SC Last administered on 02/21/17 08:52 ; Admin Dose 30 MG; Start 02/19/17 at 16:30 Lactobacillus Acidophilus/ Rhamnosus (Culturelle) 1 cap BID PO Last administered on 02/21/17 08:49; Admin Dose 1 CAP; Start 02/19/17 at 21:00 Multivitamins Therapeutic (Theragran) 1 tab DAILY PO Last administered on 08:48; Admin Dose 1 TAB; Start 02/20/17 at 09:00 Ascorbic Acid (Vitamin C) 500 mg QAM PO Last administered on 02/21/17 08:48; Admin Dose 500 MG; Start 02/20/17 at 09:00 Prednisone (Prednisone) 10 mg QAM PO Last administered on 02/21/17 08:49; Admin Dose 10 MG; Start 02/19/17 at 16:30 Ticagrelor (Brilinta) 90 mg QAM PO Last administered on 02/21/17 08:57; Admin Dose 90 MG; Start 02/19/17 at 16:30 Zinc Sulfate (Zinc Sulfate) 220 mg QAM PO Last administered on 02/21/17 08:49 ; Admin Dose 220 MG; Start 02/20/17 at 09:00 Miscellaneous Information 50 mg QAM XX ; Start 02/20/17 at 09:00; Status UNV Atorvastatin Calcium (Lipitor) 80 mg DAILY@21 PO Last administered on 20:57; Admin Dose 80 MG; Start 02/19/17 at 21:00 Ondansetron HCl (Zofran Inj) 4 mg Q6H PRN IV NAUSEA AND/OR VOMITING; Start at 16:30 Acetaminophen (Tylenol Tab) 650 mg Q6H PRN PO PAIN LEVEL 1-3 OR FEVER; Start at 16:30 Acetaminophen (Tylenol Supp) 650 mg Q6H PRN AR PAIN LEVEL 1-3 OR FEVER; Start 02/19/17 at 16:30 Acetaminophen/ Hydrocodone Bitart ([place] (5/325)) 1 tab Q6H PRN PO MODERATE PAIN LEVEL 4-6; Start 02/19/17 at 16:30 Morphine Sulfate (morphine) 2 mg Q4H PRN IV SEVERE PAIN LEVEL 7-10; Start 02/19 at 16:30 Miscellaneous Information 1 ea NOTE XX ; Start 02/19/17 at 16:30 Glucose (Glutose) 15 gm Q15M PRN PO DECREASED GLUCOSE; Start 02/19/17 at 16:30 Glucose (Glutose) 22.5 gm Q15M PRN PO DECREASED GLUCOSE; Start 02/19/17 at 16: 30 Dextrose (D50w Syringe) 25 ml Q15M PRN IV DECREASED GLUCOSE Last administered on 02/20/17 03:06; Admin Dose 25 ML; Start 02/19/17 at 16:30 Dextrose (D50w Syringe) 50 ml Q15M PRN IV DECREASED GLUCOSE; Start 02/19/17 at 16:30 Glucagon (Glucagen) 1 mg Q15M PRN IM DECREASED GLUCOSE; Start 02/19/17 at 16:30 Glucose (Glutose) 15 gm Q15M PRN BUCCAL DECREASED GLUCOSE; Start 02/19/17 at 16 :30 Miscellaneous Information (*Order Clarification Bulletin) *(Desvenlafaxine Succinate (Pristiq)... Q8H XX Last administered on 02/21/17 01:00; Admin Dose 1 EA; Start 02/19/17 at 17:00 Diagnostic Test (Pha) (Accu-Chek) 1 ea 02 XX Last administered on 02/20/17 01: 10; Admin Dose 1 EA; Start 02/20/17 at 02:00 Insulin Aspart NOVOLOG *MILD* ALGORITHM Q4 SC ; Start 02/20/17 at 13:00 Norepinephrine/ Dextrose (Levophed/D5W) 500 ml @ 1.87 mls/hr TITRATE IV Last administered on 02/20/17 11:56; Admin Dose 15 MLS/HR; Start 02/20/17 at 11:00 Pantoprazole 40 mg 40 mg BID@06,18 IV Last administered on 02/21/17 05:59; Admin Dose 40 MG; Start 02/20/17 at 18:00 Sodium Bicarbonate 50 meq/Dextrose 1,050 ml @ 75 mls/hr Q14H IV Last administered on 02/21/17 01:07; Admin Dose 75 MLS/HR; Start 02/20/17 at 13:00 Vancomycin HCl (Vancocin) 250 ml @ 125 mls/hr Q36H IVPB ; Start 02/21/17 at 10: 00 Aspirin (Halfprin) 81 mg DAILY PO Last administered on 02/21/17 08:48; Admin Dose 81 MG; Start 02/21/17 at 09:00 ANJEL LEE MD February 21, 2017 11:01
[2017-02-21] MEDS: VANCOMYCIN 1 GM in NS 250 ML IVPB SCH (11:07)
[2017-02-21] MEDS ORDERED: POTASSIUM CHLORIDE 20 MEQ in SOD CHLORIDE 0.9% 100 ML IVPB ONE (12:30)
--- NOTE | 2017-02-21 12:49 | PN ---
DATE: 02/21/2017 SUBJECTIVE: No acute changes. The patient is lying comfortably in bed. He is confused but respons virgil, in no distress. VITAL SIGNS: Temperature 98, pulse 119, respirations 18, blood pressure 102/65, saturation 100 on 2 liters. ANTIMICROBIALS: 1. Vancomycin. 2. Cefepime. INDWELLINGS: Christopher, right IJ triple-lumen catheter. DIAGNOSTICS: Chest x-ray revealed left basilar atelectasis versus pneumonia. LABORATORY DATA: WBC 17.4, H and H 10.9 and 33, platelets 115, neutrophils 90.4, BUN 33, creatinine 1.57. PHYSICAL EXAMINATION: GENERAL: This is a fragile, chronically ill-appearing, elderly man who is in no distress. HEENT: Head atraumatic, normocephalic. Sclerae anicteric. Buccal mucosa dry. CHEST: Rise symmetrical. Breath sounds diminished to bases. HEART: S1, S2. ABDOMEN: Soft. Bowel tones present. EXTREMITIES: With trace edema. ASSESSMENT: 1. Sepsis with shock. 2. Pneumonia. 3. Acute renal failure. 4. Diabetes. 5. History of prostate cancer. PLAN: The patient remains on low dose of Levophed drip, clinically stable. So far cultures have be en negative. Pulmonary follows him as well as nephrology. We will continue him on current regimen. Continue anti-aspiration measures. Follow chest x-ray. Dictated By: MICHAELA SPEARS SLASHER TENDER HELPER for SUNITHA COLINDRES/NTS Conf#: [id number] DID#: [id number]
--- NOTE | 2017-02-21 16:22 | RADRPT ---
PROCEDURE: Ventilation-perfusion lung scan CLINICAL INDICATION: 86 -year-old patient with shortness of breath. TECHNIQUE: Following the inhalation of approximately 1.0 mCi of Tc-99m stannous DTPA aerosol, vent ilation images were obtained. The patient was then given an intravenous injection of 4.5 mCi of Tc- 99m MAA, in perfusion images were obtained. COMPARISON: No prior VQ scans. Correlation was made with chest x-ray dated February 21, 2017. FINDINGS: Ventilation images demonstrate nonhomogeneous distribution of activity in the lungs bilaterally. Perfusion images reveal matched nonhomogeneous distribution of activity in both lungs. The findings represent low probability for pulmonary embolus. IMPRESSION: Low probability for pulmonary embolus. RPTAT: HH .Marisol Gregory MD, Date Time Electronically viewed and signed by .Marisol Gregory MD, MD on 02/21/2017 16:21 .L/
--- NOTE | 2017-02-21 18:27 | CONS ---
Date/Time of Note Date/Time of Note DATE: 02/21/17 TIME: 18:22 Assessment/Plan Assessment/Plan Problems: (1) Acquired hypothyroidism Status: Chronic Comment: His levothyroxine has been held. I would necessarily do that for a long period of time. If 75 mcg daily was modestly too much than 50 mcg a day by oral replacement should do the trick. If he cannot be taking it p.o. than 100 mcg every other day would be equivalent. (2) Diastolic dysfunction Status: Chronic Comment: Noted as per cardiology (3) Acute renal failure Status: Acute Comment: This is improved nicely. Intravascularly the patient still somewhat depleted and might do well to have a fluid bolus to see if it can help get him off of his pressor agents Qualifiers: Qualified Code: N17.9 - Acute renal failure, unspecified acute renal failure type (4) Septic shock Status: Acute Comment: Improved. Because to be worked up by primary team Additional Assessment/Plan "Endocrine consultation"/I do not believe this represents hyperthyroidism or thyroid storm nor do I believe this represents myxedema. Further I do not believe this represents adrenal insufficiency or hypercortisolism. At this point he can stop the prednisone Consultation Date/Type/Reason Admit Date/Time February 19, 2017 at 14:52 Date of Consultation: February 21, 2017 Type of Consultation: Endocrinology Reason for Consultation "Endocrine consultation" Referring Provider: HARDIK MCBRIDE NP Hx of Present Illness 86-year-old gentleman ECF resident admitted with what appears to be septic shock and acute renal insufficiency. He has had a persistent hyperchloremic metabolic acidosis. As an outpatient appears that he has a chronic hypothyroid state and has been on medium dose levothyroxine replacement therapy continuously. On presentation here it appears he is actually modestly over replaced. In addition to this concern was raised about the possibility of hypocortisolism. 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 Past Surgical History Past Surgical Hx: noncontributory Family History Significant Family History: no pertinent family hx Social History Smoking Status: Never smoker Drug Use: none Exam/Review of Systems Vital Signs Vitals Vital Signs Date Time Temp Pulse Resp B/P Pulse Ox O2 Delivery O2 Flow Rate FiO2 02/21/17 16:30 114 02/21/17 15:15 16 109/71 100 Nasal Cannula 02/21/17 12:00 97.6 02/21/17 12:00 2.0 Intake and Output 02/20/17 02/20/17 02/21/17 15:00 23:00 07:00 Intake Total 2541.25 ml 748.75 ml 630.00 ml Output Total 355 ml 255 ml 235 ml Balance 2186.25 ml 493.75 ml 395.00 ml Exam Elderly male lying in bed with an NG tube in place clearing his throat Constitutional: alert (Oriented times person) Neck: non-tender, other (No thyromegaly no thyroid nodules), supple Respiratory: clear to auscultation, normal air movement Results Result Diagram: 02/21/17 0400 02/21/17 0400 Results 24 hrs Laboratory Tests Test 02/20/17 21:01 02/21/17 01:03 02/21/17 04:00 02/21/17 04:52 Bedside Glucose 110 110 White Blood Count 17.4 H Red Blood Count 3.67 #L Hemoglobin 10.9 #L Hematocrit 33.0 #L Mean Corpuscular Volume 89.9 Mean Corpuscular Hemoglobin 29.7 Mean Corpuscular Hemoglobin Concent 33.0 Red Cell Distribution Width 16.8 H Platelet Count 115 #L Mean Platelet Volume 10.0 Neutrophils % 90.4 H Lymphocytes % 3.9 L Monocytes % 2.0 Eosinophils % 0.3 Basophils % 0.3 Nucleated Red Blood Cells % 0.0 Neutrophils # 15.7 H Lymphocytes # 0.7 L Monocytes # 0.4 Eosinophils # 0.1 Basophils # 0.1 Nucleated Red Blood Cells # 0.0 Prothrombin Time 21.9 H Prothrombin Time Ratio 1.7 INR International Normalized Ratio 1.89 Activated Partial Thromboplast Time 39.9 H Sodium Level 134 L Potassium Level 3.3 L Chloride Level 111 H Carbon Dioxide Level 17 L Anion Gap 9 Blood Urea Nitrogen 33 H Creatinine 1.57 H Glucose Level 103 # Lactic Acid Level 1.8 Calcium Level 6.3 L Phosphorus Level 3.7 Magnesium Level 2.0 Total Bilirubin 0.0 L Direct Bilirubin 0.00 Indirect Bilirubin 0.0 Aspartate Amino Transf (AST/SGOT) 28 Alanine Aminotransferase (ALT/SGPT) 34 Alkaline Phosphatase 136 H Creatine Kinase 36 Creatine Kinase Index 7.0 Creatinine Kinase MB (Mass) 2.52 H Troponin I 0.082 B-Type Natriuretic Peptide 4860 H Total Protein 3.7 L Albumin 1.5 L Globulin 2.20 Albumin/Globulin Ratio 0.68 Triglycerides Level 91 Cholesterol Level < 50 L LDL Cholesterol, Calculated HDL Cholesterol 15 L Cholesterol/HDL Ratio Thyroid Stimulating Hormone (TSH) 0.228 L Free Thyroxine 1.94 H Lab Scanned Report BLOOD TRANSFUSION Test 02/21/17 05:44 02/21/17 07:00 02/21/17 08:51 02/21/17 11:30 Bedside Glucose 105 79 Blood Gas Specimen Source Blood arterial Arterial Blood Date Drawn 02/21/2017 7:20:22 AM Arterial Blood pH (Temp corrected) 7.439 Arterial Blood pCO2 (Temp correct) 24.3 L Arterial Blood pO2 (Temp corrected) 101.6 H Arterial Blood HCO3 16.1 L Arterial Blood Base Excess -6.4 L Arterial Blood Oxygen Saturation 97.0 Tera Test ACCEPTAB Arterial Blood Gas Puncture Site Right Radial Arterial Blood Carboxyhemoglobin 0.2 Arterial Blood Methemoglobin 0.1 Blood Gas A-a O2 Differential 62.2 H Oxyhemoglobin Percent 96.7 Total Hemoglobin 12.1 Blood Gas Temperature 37.0 Blood Gas Modality NASAL CANNULA FiO2 27.0 Blood Gas Notified Whom JLD Blood Gas Notified Time 02/21/2017 8:17:02 AM Lactic Acid Level 1.6 Test 02/21/17 11:40 02/21/17 13:07 02/21/17 17:45 Bedside Glucose 107 122 125 Medications Medications Current Medications Vancomycin HCl 125 mg 125 mg Q6 PO Last administered on 02/21/17 13:03; Admin Dose 125 MG; Start 02/19/17 at 18:00 Cefepime HCl (Maxipime 2gm/50 ml (Pmx)) 50 ml @ 100 mls/hr Q24H IVPB Last administered on 02/20/17 17:20; Admin Dose 100 MLS/HR; Start 02/19/17 at 17:30 Enoxaparin Sodium (Lovenox) 30 mg DAILY SC Last administered on 02/21/17 08:52 ; Admin Dose 30 MG; Start 02/19/17 at 16:30 Lactobacillus Acidophilus/ Rhamnosus (Culturelle) 1 cap BID PO Last administered on 02/21/17 08:49; Admin Dose 1 CAP; Start 02/19/17 at 21:00 Multivitamins Therapeutic (Theragran) 1 tab DAILY PO Last administered on 08:48; Admin Dose 1 TAB; Start 02/20/17 at 09:00 Ascorbic Acid (Vitamin C) 500 mg QAM PO Last administered on 02/21/17 08:48; Admin Dose 500 MG; Start 02/20/17 at 09:00 Prednisone (Prednisone) 10 mg QAM PO Last administered on 02/21/17 08:49; Admin Dose 10 MG; Start 02/19/17 at 16:30; Status Future Hold Ticagrelor (Brilinta) 90 mg QAM PO Last administered on 02/21/17 08:57; Admin Dose 90 MG; Start 02/19/17 at 16:30 Zinc Sulfate (Zinc Sulfate) 220 mg QAM PO Last administered on 02/21/17 08:49 ; Admin Dose 220 MG; Start 02/20/17 at 09:00 Miscellaneous Information 50 mg QAM XX ; Start 02/20/17 at 09:00; Status UNV Atorvastatin Calcium (Lipitor) 80 mg DAILY@21 PO Last administered on 20:57; Admin Dose 80 MG; Start 02/19/17 at 21:00 Ondansetron HCl (Zofran Inj) 4 mg Q6H PRN IV NAUSEA AND/OR VOMITING; Start at 16:30 Acetaminophen (Tylenol Tab) 650 mg Q6H PRN PO PAIN LEVEL 1-3 OR FEVER; Start at 16:30 Acetaminophen (Tylenol Supp) 650 mg Q6H PRN ND PAIN LEVEL 1-3 OR FEVER; Start 02/19/17 at 16:30 Acetaminophen/ Hydrocodone Bitart ([place] (5/325)) 1 tab Q6H PRN PO MODERATE PAIN LEVEL 4-6; Start 02/19/17 at 16:30 Morphine Sulfate (morphine) 2 mg Q4H PRN IV SEVERE PAIN LEVEL 7-10; Start 02/19 at 16:30 Miscellaneous Information 1 ea NOTE XX ; Start 02/19/17 at 16:30 Glucose (Glutose) 15 gm Q15M PRN PO DECREASED GLUCOSE; Start 02/19/17 at 16:30 Glucose (Glutose) 22.5 gm Q15M PRN PO DECREASED GLUCOSE; Start 02/19/17 at 16: 30 Dextrose (D50w Syringe) 25 ml Q15M PRN IV DECREASED GLUCOSE Last administered on 02/20/17 03:06; Admin Dose 25 ML; Start 02/19/17 at 16:30 Dextrose (D50w Syringe) 50 ml Q15M PRN IV DECREASED GLUCOSE; Start 02/19/17 at 16:30 Glucagon (Glucagen) 1 mg Q15M PRN IM DECREASED GLUCOSE; Start 02/19/17 at 16:30 Glucose (Glutose) 15 gm Q15M PRN BUCCAL DECREASED GLUCOSE; Start 02/19/17 at 16 :30 Miscellaneous Information (*Order Clarification Bulletin) *(Desvenlafaxine Succinate (Pristiq)... Q8H XX Last administered on 02/21/17 01:00; Admin Dose 1 EA; Start 02/19/17 at 17:00 Diagnostic Test (Pha) (Accu-Chek) 1 ea 02 XX Last administered on 02/20/17 01: 10; Admin Dose 1 EA; Start 02/20/17 at 02:00 Insulin Aspart NOVOLOG *MILD* ALGORITHM Q4 SC ; Start 02/20/17 at 13:00 Norepinephrine/ Dextrose (Levophed/D5W) 500 ml @ 1.87 mls/hr TITRATE IV Last administered on 02/20/17 11:56; Admin Dose 15 MLS/HR; Start 02/20/17 at 11:00 Pantoprazole 40 mg 40 mg BID@06,18 IV Last administered on 02/21/17 17:41; Admin Dose 40 MG; Start 02/20/17 at 18:00 Sodium Bicarbonate 50 meq/Dextrose 1,050 ml @ 75 mls/hr Q14H IV Last administered on 02/21/17 16:37; Admin Dose 75 MLS/HR; Start 02/20/17 at 13:00 Vancomycin HCl (Vancocin) 250 ml @ 125 mls/hr Q36H IVPB Last administered on 11:07; Admin Dose 125 MLS/HR; Start 02/21/17 at 10:00 Aspirin 81 mg 81 mg DAILY PO Last administered on 02/21/17 08:48; Admin Dose 81 MG; Start 02/21/17 at 09:00 Ferric Sodium Gluconate Complex/ Sodium Chloride (Ferrlecit/NS) 110 ml @ 100 mls/hr ONCE ONCE IVPB ; Start 02/21/17 at 18:30; Stop 02/21/17 at 19:35; Status UNV Levothyroxine Sodium (Synthroid) 50 mcg DAILY@06 PO ; Start 02/22/17 at 06:00; Status UNV LANCE JACKSON MD February 21, 2017 18:27
[2017-02-21] MEDS: CEFEPIME 2GM/50 ML (PMX) 50 ML IVPB SCH (18:30)
--- NOTE | 2017-02-21 18:53 | RADRPT ---
PROCEDURE: XR Chest. CLINICAL INDICATION: Nasogastric tube placement. TECHNIQUE: Single frontal view of the chest. COMPARISON: Chest dated today, about 12 hours ago. FINDINGS: Right central venous line in place with tip at the superior vena cava right atrial junction. Nasoga stric tube in place with tip and the side port within the proximal stomach. Cardiomegaly. Atherosclerotic calcifications in the thoracic aorta. Left lung base atelectasis vers us airspace disease versus small left pleural effusion. Hypoinflated lungs accentuate pulmonary vasc ular markings. No signs of pneumothorax are seen. The osseous structures and soft tissues are unrem arkable. IMPRESSION: 1. Nasogastric tube in place with tip and the side port within the proximal stomach. 2. Left lung base atelectasis versus airspace disease versus small left pleural effusion. RPTAT: [facility] Physician Vladimir Date Time Electronically viewed and signed by Physician Vladimir on 02/21/2017 18:53 RS/
[2017-02-21] MEDS ORDERED: LACTATED RINGER'S 250 ML IV ONE (19:00)
[2017-02-21] MEDS ORDERED: SOD FERRIC GLUC COMPLX 125 MG in SOD CHLORIDE 0.9% 100 ML IVPB ONE (20:00)
[2017-02-21] MEDS: ATORVASTATIN 80 MG TAB PO SCH (20:34)
[2017-02-22] VITALS (94 sets, daily range): BP systolic 79–118; BP diastolic 42–74; PULSE 106–131; RESP 15–37
[2017-02-22] MEDS: VANCOMYCIN HCL 250 MG/5ML POSYG PO SCH ×4 (00:05→17:48)
[2017-02-22] MEDS: INSULIN ASPART [NOVOLOG] 3 ML PEN SC SCH ×6 (01:00→21:22)
[2017-02-22] MEDS: [UNRECOGNIZED DRUG - OTHER] XX SCH (01:00)
[2017-02-22] MEDS: ACCUCHECK AT 2AM (Patients on SS coverage) XX SCH (01:36)
[2017-02-22] MEDS ORDERED: NON-FORMULARY/PATIENT OWN MED (Desvenlafaxine Succinate (Pristiq) 50 MG) XX SCH (04:45)
[2017-02-22] MEDS: LEVOTHYROXINE 50 MCG TAB PO SCH (05:54)
[2017-02-22] MEDS: PANTOPRAZOLE 40 MG INJ IV SCH ×2 (05:54→17:47)
[2017-02-22] MEDS: SODIUM BICARBONATE (IV ADD) 50 MEQ in DEXTROSE 5% 1,000 ML IV SCH ×2 (05:55→20:41)
[2017-02-22 06:01] LABS: INR 1.88; PROTIME 21.8 Sec (12.2-14.2); PT RATIO 1.7
[2017-02-22 06:02] LABS: PARTIAL THROMBOPLASTIN TIME 47.9 Sec (25.0-35.0)
[2017-02-22 06:05] LABS: CREATININE 1.47 mg/dl (0.61-1.24); PHOSPHORUS 3.3 mg/dl (2.5-4.9)
[2017-02-22 06:06] LABS: CALCIUM 6.3 mg/dl (8.4-10.2)
--- NOTE | 2017-02-22 07:22 | PN ---
Date/Time of Note Date/Time of Note DATE: 02/22/17 TIME: 07:20 Assessment/Plan VTE Prophylaxis VTE Prophylaxis Intervention: SCD's Lines/Catheters IV C[facility]ter Type (from [facility]): Central Line Central line still needed: Yes Urinary Cath still in place: Yes Reason Cath still needed: other (indicate) Assessment/Plan Chief Complaint/Hosp Course 1. Sepsis with underlying septic shock. Etiology could be probably from underlying colitis versus healthcare associated pneumonia. [place] cultures are negative so far. Continue vasopressors to keep hemodynamic status stable. 2. Sinus tachycardia. Etiology unclear. Probably secondary to underlying sepsis. Cardiology on case since the patient has a known history of coronary artery disease. Thyroid function showed evidence of hyperthyroidism. Therefore , the patient's Synthroid was discontinued. 3. Coronary artery disease. The patient will be continued on antiplatelet medications. 4. Type 2 diabetes mellitus. Hemoglobin A1c is 6.4. Continue sliding scale insulin. 5. Hypothyroidism. Thyroid panel showing evidence of hyperthyroidism. Synthroid on hold. 6. Dyslipidemia. Continue statins. 7. Prostate cancer. No evidence of any metastasis. 8. Nonoliguric acute kidney injury in a patient with unknown baseline creatinine. Continue IV hydration. Nephrology following. 9. Normocytic normochromic anemia. Etiology unclear. Iron panel showing low iron and low TIBC with a high ferritin. Pending stool for OB. Status post 1 unit of PRBC transfusion on 02/20/2017. 10. Hypoalbuminemia. The etiology is unclear. Will obtain a dietary consult. Will continue tube feedings. 11. Non-anion gap metabolic acidosis. Continue bicarbonate drip. Nephrology following. 12. Hematuria. Resolved. 13. Coagulopathy. Etiology unclear. Will hold the patient's anticoagulants. However, he will be continued on antiplatelet therapy since the patient has history of CAD status post stent placement. The patient will be monitored closely for any bleeding. 14. Dysphagia. Speech therapy evaluation ongoing. The patient will be kept n.p.o. Medications will be given through NG tube. 15. Fluid, electrolytes and nutrition. Continue n.p.o. Continue IV fluids. Continue tube feedings 16. DVT prophylaxis with bilateral sequential compression devices. 17. Gastrointestinal prophylaxis. Proton pump inhibitors. PLAN: 1. Continue to wean down pressors as tolerated. 2. Continue antibiotics. The case was discussed with Dr. Berry. Critical care time: 35 minutes. Problems: Subjective 24 Hr Interval Summary Free Text/Dictation Remains on pressors. Exam/Review of Systems Vital Signs Vitals Vital Signs Date Time Temp Pulse Resp B/P Pulse Ox O2 Delivery O2 Flow Rate FiO2 02/22/17 06:15 115 20 90/49 98 Nasal Cannula 2.0 02/22/17 04:00 98.0 Intake and Output 02/21/17 02/21/17 02/22/17 15:00 23:00 07:00 Intake Total 693.75 ml 677.48 ml 753.73 ml Output Total 280 ml 270 ml 420 ml Balance 413.75 ml 407.48 ml 333.73 ml Exam GENERAL: This is an 86-year-old elderly male lying in bed in no apparent distress. HEENT: Head normocephalic and atraumatic. Eyes: Anicteric sclerae. Conjunctivae clear. ENT: Nasal septum is midline, oral mucosa is dry. The patient has an NG tube in the left naris. NECK: No JVD noticed. RESPIRATORY: Bilaterally diminished breath sounds. No adventitious breath sounds heard. No use of accessory muscles of respiration. CARDIAC: Regular rate and rhythm. S1 and S2 heard. Sinus tachycardia. ABDOMEN: Soft, nontender. Bowel sounds hypoactive in all 4 quadrants. GENITOURINARY: The patient has a Christopher catheter in place. EXTREMITIES: No cyanosis, no clubbing. Bilateral lower extremity ankle edema. Peripheral pulses are palpable. NEUROLOGIC: The patient is awake and alert. Follows simple commands. Oriented to himself. Results Result Diagram: 02/21/17 0400 02/22/17 0530 Results 24 hrs Laboratory Tests Test 02/21/17 08:51 02/21/17 11:30 02/21/17 11:40 02/21/17 13:07 Bedside Glucose 79 107 122 Lactic Acid Level 1.6 Test 02/21/17 17:45 02/21/17 19:34 02/21/17 20:43 02/22/17 01:35 Bedside Glucose 125 130 119 Hepatitis B Surface Antigen NEGATIVE Hepatitis C Antibody NEGATIVE Test 02/22/17 05:05 02/22/17 05:30 Bedside Glucose 143 Prothrombin Time 21.8 H Prothrombin Time Ratio 1.7 INR International Normalized Ratio 1.88 Activated Partial Thromboplast Time 47.9 H Sodium Level 133 L Potassium Level 3.0 L Chloride Level 107 Carbon Dioxide Level 20 L Anion Gap 9 Blood Urea Nitrogen 30 H Creatinine 1.47 H Glucose Level 149 # Calcium Level 6.3 L Phosphorus Level 3.3 Medications Medications Current Medications Vancomycin HCl 125 mg 125 mg Q6 PO Last administered on 02/22/17 05:54; Admin Dose 125 MG; Start 02/19/17 at 18:00 Cefepime HCl (Maxipime 2gm/50 ml (Pmx)) 50 ml @ 100 mls/hr Q24H IVPB Last administered on 02/21/17 18:30; Admin Dose 100 MLS/HR; Start 02/19/17 at 17:30 Enoxaparin Sodium (Lovenox) 30 mg DAILY SC Last administered on 02/21/17 08:52 ; Admin Dose 30 MG; Start 02/19/17 at 16:30 Lactobacillus Acidophilus/ Rhamnosus (Culturelle) 1 cap BID PO Last administered on 02/21/17 20:34; Admin Dose 1 CAP; Start 02/19/17 at 21:00 Multivitamins Therapeutic (Theragran) 1 tab DAILY PO Last administered on 08:48; Admin Dose 1 TAB; Start 02/20/17 at 09:00 Ascorbic Acid (Vitamin C) 500 mg QAM PO Last administered on 02/21/17 08:48; Admin Dose 500 MG; Start 02/20/17 at 09:00 Prednisone (Prednisone) 10 mg QAM PO Last administered on 02/21/17 08:49; Admin Dose 10 MG; Start 02/19/17 at 16:30; Status Future Hold Ticagrelor (Brilinta) 90 mg QAM PO Last administered on 02/21/17 08:57; Admin Dose 90 MG; Start 02/19/17 at 16:30 Zinc Sulfate (Zinc Sulfate) 220 mg QAM PO Last administered on 02/21/17 08:49 ; Admin Dose 220 MG; Start 02/20/17 at 09:00 Atorvastatin Calcium (Lipitor) 80 mg DAILY@21 PO Last administered on 20:34; Admin Dose 80 MG; Start 02/19/17 at 21:00 Ondansetron HCl (Zofran Inj) 4 mg Q6H PRN IV NAUSEA AND/OR VOMITING; Start at 16:30 Acetaminophen (Tylenol Tab) 650 mg Q6H PRN PO PAIN LEVEL 1-3 OR FEVER; Start at 16:30 Acetaminophen (Tylenol Supp) 650 mg Q6H PRN [place] PAIN LEVEL 1-3 OR FEVER; Start 02/19/17 at 16:30 Acetaminophen/ Hydrocodone Bitart ([place] (5/325)) 1 tab Q6H PRN PO MODERATE PAIN LEVEL 4-6; Start 02/19/17 at 16:30 Morphine Sulfate (morphine) 2 mg Q4H PRN IV SEVERE PAIN LEVEL 7-10; Start 02/19 at 16:30 Miscellaneous Information 1 ea NOTE XX ; Start 02/19/17 at 16:30 Glucose (Glutose) 15 gm Q15M PRN PO DECREASED GLUCOSE; Start 02/19/17 at 16:30 Glucose (Glutose) 22.5 gm Q15M PRN PO DECREASED GLUCOSE; Start 02/19/17 at 16: 30 Dextrose (D50w Syringe) 25 ml Q15M PRN IV DECREASED GLUCOSE Last administered on 02/20/17 03:06; Admin Dose 25 ML; Start 02/19/17 at 16:30 Dextrose (D50w Syringe) 50 ml Q15M PRN IV DECREASED GLUCOSE; Start 02/19/17 at 16:30 Glucagon (Glucagen) 1 mg Q15M PRN IM DECREASED GLUCOSE; Start 02/19/17 at 16:30 Glucose (Glutose) 15 gm Q15M PRN BUCCAL DECREASED GLUCOSE; Start 02/19/17 at 16 :30 Miscellaneous Information (*Order Clarification Bulletin) *(Desvenlafaxine Succinate (Pristiq)... Q8H XX Last administered on 02/21/17 01:00; Admin Dose 1 EA; Start 02/19/17 at 17:00 Diagnostic Test (Pha) (Accu-Chek) 1 ea 02 XX Last administered on 02/22/17 01: 36; Admin Dose 1 EA; Start 02/20/17 at 02:00 Insulin Aspart NOVOLOG *MILD* ALGORITHM Q4 SC Last administered on 02/22/17 05 :50; Admin Dose 1 UNIT; Start 02/20/17 at 13:00 Norepinephrine/ Dextrose (Levophed/D5W) 500 ml @ 1.87 mls/hr TITRATE IV Last administered on 02/22/17 05:57; Admin Dose 1.87 MLS/HR; Start 02/20/17 at 11:00 Pantoprazole 40 mg 40 mg BID@06,18 IV Last administered on 02/22/17 05:54; Admin Dose 40 MG; Start 02/20/17 at 18:00 Sodium Bicarbonate 50 meq/Dextrose 1,050 ml @ 75 mls/hr Q14H IV Last administered on 02/22/17 05:55; Admin Dose 75 MLS/HR; Start 02/20/17 at 13:00 Vancomycin HCl (Vancocin) 250 ml @ 125 mls/hr Q36H IVPB Last administered on 11:07; Admin Dose 125 MLS/HR; Start 02/21/17 at 10:00 Aspirin (Halfprin) 81 mg DAILY PO Last administered on 02/21/17 08:48; Admin Dose 81 MG; Start 02/21/17 at 09:00 Levothyroxine Sodium (Synthroid) 50 mcg DAILY@06 PO Last administered on 05:54; Admin Dose 50 MCG; Start 02/22/17 at 06:00 Miscellaneous Information 50 mg QAM XX ; Start 02/22/17 at 04:45; Status UNV HARDIK MCBRIDE NP February 22, 2017 07:22
--- NOTE | 2017-02-22 07:39 | PN ---
DATE: 02/21/2017 CARDIOLOGY FOLLOWUP SUBJECTIVE: Discussed with the staff. Rhythm strip was reviewed. The patient remains in sinus tac hycardia. Blood pressure is still low dose, he is on Levophed drip has been able to cut down on Lev ophed, 2 mcg only though. The patient with no reported chest pain or pressure. He still has an NG tube in place, is more aware but is still confused. MEDICATIONS: Reviewed as per medication reconciliation, was personally reviewed. PHYSICAL EXAMINATION: VITAL SIGNS: Temperature 98, heart rate of 114, blood pressure 102/65, respiration rate of 18, satu rating 100%. HEENT: Normocephalic, atraumatic. status post NG tubing placement. CARDIOVASCULAR: Tachycardic with systolic murmur. PULMONARY: Anteriorly with no wheezes heard. Mild rhonchi at the base. GASTROINTESTINAL: Soft. No rebound or guarding. EXTREMITIES: Diffuse lower extremity edema. NEUROLOGIC: Awake and alert, is oriented to person and place. PSYCHIATRIC: Appears to be anxious. There are multiple ecchymoses. LABORATORY: Sodium 134, potassium 3.3, BUN of 33, creatinine 1.57, glucose of 103, proBNP of 4860, albumin is 1.5. Cholesterol less than 50, HDL of 15. TSH is 0.228 with free T4 1.94. Echocardiogr am was personally reviewed, which showed normal ejection fraction was 65%. PA pressure was elevated at 42 mmHg. ASSESSMENT AND PLAN: 1. Severe sepsis and shock, currently still requiring pressors. 2. Sinus tachycardia, multifactorial, partially related to hyperthyroid state as well as shock of s epsis. 3. History of coronary artery disease. 4. History of percutaneous coronary intervention. 5. Severe anemia requiring transfusion, currently improved. 6. Iron deficiency. 7. Severe malnutrition with albumin level of only 1.5. 8. Dyslipidemia. 9. History of ____ . 10. History of thyroid disorder, with hypothyroidism, on Synthroid now. RECOMMENDATIONS: We will continue with the ICU care, try to wean off the Levophed. Nutritional sup port as per internal medicine. Aspirin will be continued at low dose daily. Brilinta will be continued at the current dose once there is no bleeding sign found, it will be incr eased to b.i.d. Unable to give any beta basia now due to hypotension. Will slowly wean off Levop hed though. I will hold the Synthroid for now and have it adjusted by primary medicine team, given the fact that his labs showed the patient is in a hyperthryroid state and he is tachycardic. Nutrit ional support will be continued. ICU care will be continued. More than 39 minutes of critical care time was spent in management of this patient excluding any pro cedures. Dictated By: CAITIE LOPEZ MD AV/LADY Conf#: [id number] DID#: [id number] CC: HARDIK MCBRIDE SCHOOL CHILD CARE ATTENDANT;*EndCC*
--- NOTE | 2017-02-22 08:58 | PN ---
DATE: 02/22/2017 CARDIOLOGY FOLLOWUP SUBJECTIVE: Discussed with the staff. Rhythm strip was reviewed. The patient remains in sinus rhyth m, sinus tachycardia. Status post NG tube in place and tube feeding has been started. No reported chest pain or pressure. The patient is significantly confused but responds appropriately. I have di scussed with the staff. MEDICATIONS: Reviewed as per medical reconciliation which include: 1. Synthroid, which was held. 2. Vancomycin. 3. Aspirin. 4. Protonix. 5. Cefepime. 6. Lovenox. 7. Aspirin. 8. Lipitor. 9. Brilinta. Brilinta is still once a day only. PHYSICAL EXAMINATION: VITAL SIGNS: Temperature 98, heart rate of 115, blood pressure 90/49 on Levophed drip, pressor rate of 20 and saturating 98%. HEENT: Normocephalic, atraumatic. ____ status post NG tube in place. NECK: Status post right IJ central line in place. CARDIOVASCULAR: Tachycardic, systolic murmur. PULMONARY: With rhonchi at the base. GASTROINTESTINAL: Soft, nontender. EXTREMITIES: Diffuse lower extremity edema. NEUROLOGIC: Comfortably sleeping. DERMATOLOGIC: There are multiple ecchymoses, no active bleeding site. PSYCHIATRIC: Calm. LABORATORY: 1. Sodium 133, potassium is 3. BUN of 30, creatinine 1.47, glucose 149. WBC of 17.4, hemoglobin 1 0.9 as of yesterday. 2. VQ scan showed low probability of a PE. Chest x-ray showed mild prominence of interstitial jennifer ings, may reflect on underlying interstitial edema or chronic lung disease. No significant change. ASSESSMENT AND PLAN: 1. Marked tachycardia, multifactorial secondary to thyroid disorder, underlying sepsis and shock. 2. Sepsis and shock, still on Levophed drip in ICU. 3. History of coronary artery disease, status post percutaneous coronary intervention. 4. Severe anemia, status post transfusions. 5. Thyroid disorder, history of hypothyroidism, on Synthroid, currently hyperthyroid. 6. Severe malnutrition with markedly low albumin level and dysphagia. 7. History of C difficile. 8. History of hypertension, currently hypotension and shock. 9. Dyslipidemia. 10. Encephalopathy. RECOMMENDATIONS: Aspirin and Brilinta will be continued. I will hold off on b.i.d. Brilinta for no w until we make sure there is no active bleeding noted. Guaiac stools will be send as well. Electr olytes including potassium level will be replaced. Renal insufficiency, slowly improving. Follow u p with renal recommendations. We will continue with the ICU care. More than 38 minutes of critical care time was spent in management of this patient excluding any pro cedures. Dictated By: CAITIE ESTRELLA/LADY Conf#: [id number] DID#: [id number] CC: HARDIK MCBRIDE BUSINESS COMPUTERS TEACHER;*EndCC*
[2017-02-22] MEDS: ENOXAPARIN 30 MG/0.3 ML SYG SC SCH (09:00)
[2017-02-22] MEDS: POTASSIUM CHLORIDE (SR) 10 MEQ TAB PO SCH ×2 (09:34→20:42)
[2017-02-22] MEDS: MULTIVITAMINS THERAPEUTIC TAB PO SCH (09:35)
[2017-02-22] MEDS: LACTOBACILLUS RHAMNOSUS CAP PO SCH ×2 (09:35→20:42)
[2017-02-22] MEDS: ASCORBIC ACID 500 MG TAB PO SCH (09:35)
[2017-02-22] MEDS: ASPIRIN (EC) 81 MG TAB PO SCH (09:35)
[2017-02-22] MEDS: ZINC SULFATE 220 MG CAP PO SCH (09:36)
[2017-02-22] MEDS: TICAGRELOR 90 MG TABLET PO SCH (09:39)
[2017-02-22] MEDS: VENLAFAXINE 25 MG TAB NGT SCH ×2 (10:53→20:41)
--- NOTE | 2017-02-22 10:57 | CONS ---
Date/Time of Note Date/Time of Note DATE: 02/22/17 TIME: 10:54 Consult Date/Type/Reason Admit Date/Time February 19, 2017 at 14:52 Type of Consultation: Pulmonary Ordering Provider: HARDIK MCBRIDE NP Subjective Overall condition remains unchanged continues low-dose vasopressors Neurologically unchanged Objective Vital Signs Date Time Temp Pulse Resp B/P Pulse Ox O2 Delivery O2 Flow Rate FiO2 02/22/17 08:30 114 20 90/51 98 Nasal Cannula 2.0 02/22/17 08:00 97.7 Intake and Output 02/21/17 02/21/17 02/22/17 15:00 23:00 07:00 Intake Total 693.75 ml 677.48 ml 860.60 ml Output Total 280 ml 270 ml 450 ml Balance 413.75 ml 407.48 ml 410.60 ml Exam GENERAL: Elderly gentleman comfortable at rest no acute distress VITAL SIGNS: per chart NECK: Supple. No JVD or lymphadenopathy. CARDIAC EXAM: S1, S2. No added sounds or murmurs. CHEST: clear bilaterally, No added sounds, rales or wheezes ABDOMEN: Soft, nontender. No guarding or rebound. EXTREMITIES: No cyanosis, clubbing or edema. NEUROLOGIC: Generalized weakness. No focal deficits. Results/Medications Result Diagram: 02/21/17 0400 02/22/17 0530 Results 24 hrs Laboratory Tests Test 02/21/17 11:30 02/21/17 11:40 02/21/17 13:07 02/21/17 17:45 Lactic Acid Level 1.6 Bedside Glucose 107 122 125 Test 02/21/17 19:34 02/21/17 20:43 02/22/17 01:35 02/22/17 05:05 Hepatitis B Surface Antigen NEGATIVE Hepatitis C Antibody NEGATIVE Bedside Glucose 130 119 143 Test 02/22/17 05:30 02/22/17 09:44 Prothrombin Time 21.8 H Prothrombin Time Ratio 1.7 INR International Normalized Ratio 1.88 Activated Partial Thromboplast Time 47.9 H Sodium Level 133 L Potassium Level 3.0 L Chloride Level 107 Carbon Dioxide Level 20 L Anion Gap 9 Blood Urea Nitrogen 30 H Creatinine 1.47 H Glucose Level 149 # Calcium Level 6.3 L Phosphorus Level 3.3 Bedside Glucose 209 Medications Current Medications Vancomycin HCl 125 mg 125 mg Q6 PO Last administered on 02/22/17t 05:54; Admin Dose 125 MG; Start 02/19/17 at 18:00 Cefepime HCl (Maxipime 2gm/50 ml (Pmx)) 50 ml @ 100 mls/hr Q24H IVPB Last administered on 02/21/17 18:30; Admin Dose 100 MLS/HR; Start 02/19/17 at 17:30 Lactobacillus Acidophilus/ Rhamnosus (Culturelle) 1 cap BID PO Last administered on 02/22/17 09:35; Admin Dose 1 CAP; Start 02/19/17 at 21:00 Multivitamins Therapeutic (Theragran) 1 tab DAILY PO Last administered on 09:35; Admin Dose 1 TAB; Start 02/20/17 at 09:00 Ascorbic Acid (Vitamin C) 500 mg QAM PO Last administered on 02/22/17 09:35; Admin Dose 500 MG; Start 02/20/17 at 09:00 Prednisone (Prednisone) 10 mg QAM PO Last administered on 02/21/17 08:49; Admin Dose 10 MG; Start 02/19/17 at 16:30; Status Future Hold Ticagrelor (Brilinta) 90 mg QAM PO Last administered on 02/22/17 09:39; Admin Dose 90 MG; Start 02/19/17 at 16:30 Zinc Sulfate (Zinc Sulfate) 220 mg QAM PO Last administered on 02/22/17 09:36 ; Admin Dose 220 MG; Start 02/20/17 at 09:00 Atorvastatin Calcium (Lipitor) 80 mg DAILY@21 PO Last administered on 20:34; Admin Dose 80 MG; Start 02/19/17 at 21:00 Ondansetron HCl (Zofran Inj) 4 mg Q6H PRN IV NAUSEA AND/OR VOMITING; Start at 16:30 Acetaminophen (Tylenol Tab) 650 mg Q6H PRN PO PAIN LEVEL 1-3 OR FEVER; Start at 16:30 Acetaminophen (Tylenol Supp) 650 mg Q6H PRN [place] PAIN LEVEL 1-3 OR FEVER; Start 02/19/17 at 16:30 Acetaminophen/ Hydrocodone Bitart ([place] (5/325)) 1 tab Q6H PRN PO MODERATE PAIN LEVEL 4-6; Start 02/19/17 at 16:30 Morphine Sulfate (morphine) 2 mg Q4H PRN IV SEVERE PAIN LEVEL 7-10; Start 02/19 at 16:30 Miscellaneous Information 1 ea NOTE XX ; Start 02/19/17 at 16:30 Glucose (Glutose) 15 gm Q15M PRN PO DECREASED GLUCOSE; Start 02/19/17 at 16:30 Glucose (Glutose) 22.5 gm Q15M PRN PO DECREASED GLUCOSE; Start 02/19/17 at 16: 30 Dextrose (D50w Syringe) 25 ml Q15M PRN IV DECREASED GLUCOSE Last administered on 02/20/17 03:06; Admin Dose 25 ML; Start 02/19/17 at 16:30 Dextrose (D50w Syringe) 50 ml Q15M PRN IV DECREASED GLUCOSE; Start 02/19/17 at 16:30 Glucagon (Glucagen) 1 mg Q15M PRN IM DECREASED GLUCOSE; Start 02/19/17 at 16:30 Glucose (Glutose) 15 gm Q15M PRN BUCCAL DECREASED GLUCOSE; Start 02/19/17 at 16 :30 Diagnostic Test (Pha) (Accu-Chek) 1 ea 02 XX Last administered on 02/22/17 01: 36; Admin Dose 1 EA; Start 02/20/17 at 02:00 Insulin Aspart NOVOLOG *MILD* ALGORITHM Q4 SC Last administered on 02/22/17 09 :47; Admin Dose 2 UNIT; Start 02/20/17 at 13:00 Norepinephrine/ Dextrose (Levophed/D5W) 500 ml @ 1.87 mls/hr TITRATE IV Last administered on 02/22/17 05:57; Admin Dose 1.87 MLS/HR; Start 02/20/17 at 11:00 Pantoprazole 40 mg 40 mg BID@06,18 IV Last administered on 02/22/17 05:54; Admin Dose 40 MG; Start 02/20/17 at 18:00 Sodium Bicarbonate 50 meq/Dextrose 1,050 ml @ 75 mls/hr Q14H IV Last administered on 02/22/17 05:55; Admin Dose 75 MLS/HR; Start 02/20/17 at 13:00 Vancomycin HCl (Vancocin) 250 ml @ 125 mls/hr Q36H IVPB Last administered on 11:07; Admin Dose 125 MLS/HR; Start 02/21/17 at 10:00 Aspirin (Halfprin) 81 mg DAILY PO Last administered on 02/22/17 09:35; Admin Dose 81 MG; Start 02/21/17 at 09:00 Levothyroxine Sodium (Synthroid) 50 mcg DAILY@06 PO Last administered on 05:54; Admin Dose 50 MCG; Start 02/22/17 at 06:00; Status Future hold Potassium Chloride (Klor-Con 10) 30 meq BID PO Last administered on 02/22/17 09:34; Admin Dose 30 MEQ; Start 02/22/17 at 09:00; Stop 02/22/17 at 21:01 Venlafaxine HCl (Effexor) 25 mg BID NGT Last administered on 02/22/17 10:53; Admin Dose 25 MG; Start 02/22/17 at 10:30 Insulin Glargine (Lantus) 8 unit DAILY@08 SC ; Start 02/22/17 at 11:00 Assessment/Plan Chief Complaint/Hosp Course IMPRESSION AND PLAN: 1. Septic shock. 2. Possible healthcare-associated pneumonia. 3. Renal insufficiency, likely prerenal. 4. Hypokalemia 5. Sinus tachycardia likely secondary to vasopressors 6. History of depression PLAN: 1. Continue antibiotics, currently on vancomycin and cefepime. 2. Infectious disease recommendations 3. Panculture. 4. DVT and GI prophylaxis. 5. Aspiration precautions and speech therapy recommendations 6. Recent cortisol level within normal limits excluding adrenal insufficiency 7. Replace electrolytes Disposition keep in ICU Problems: PAULO TRIMBLE MD, [facility] February 22, 2017 10:57
[2017-02-22] MEDS: INSULIN GLARGINE [LANtus] 3 ML PEN SC SCH (12:29)
--- NOTE | 2017-02-22 14:01 | PN ---
DATE: 02/22/2017 SUBJECTIVE: No acute changes. The patient is lethargic, still on pressors, tachycardic. He is afe brile. LABORATORY DATA: No CBC is ordered today. BUN 30, creatinine 1.47. VITAL SIGNS: Temperature 97.7, pulse 120, respirations 22, blood pressure 93/53, saturation 99% on 2 liters nasal cannula. MICROBIOLOGY: Blood and urine culture remains negative. ANTIMICROBIALS: The patient is on 1. IV vancomycin. 2. Cefepime. INDWELLINGS: NG tube, right IJ triple-lumen catheter, Christopher catheter. PHYSICAL EXAMINATION: GENERAL: This is a fragile, chronically ill-appearing elderly man who is in no distress. HEENT: Atraumatic, normocephalic. Sclerae anicteric. Buccal mucosa dry. NECK: Supple. Trachea midline. CHEST: Rise symmetrical Breath sounds diminished at bases. HEART: S1, S2. ABDOMEN: Soft, bowel sounds present. EXTREMITIES: Without cyanosis. ASSESSMENT: 1. Sepsis with shock. 2. Pneumonia, possibly aspiration. 3. Diabetes. 4. Renal failure. 5. History of prostate carcinoma. 6. Encephalopathy. PLAN: The patient remains hemodynamically unstable, still requiring Levophed drip. He is tachycard ic. Cardiology on case. V/Q scan done yesterday was negative for pulmonary emboli. Continue prese nt care, antibiotics. Dictated By: MICHAELA SPEARS MOLD SPRAYER for SUNITHA BUCKLEY MD NI/NTS Conf#: [id number] DID#: [id number]
--- NOTE | 2017-02-22 14:07 | RADRPT ---
PROCEDURE: XR Chest. CLINICAL INDICATION: Nasogastric tube placement. TECHNIQUE: Chest x-ray, single view. COMPARISON: 02/21/2017. FINDINGS: The cardiac silhouette is slightly magnified. Aortic arch atherosclerotic calcification is present. A right internal jugular central venous catheter terminates at the SVC/right atrial junction. The enteric tube terminates within the distal portion of the stomach. Low lung volumes are observed. Basilar atelectatic changes are present. Degenerative changes of the spine are observed. IMPRESSION: Hypoinflation with basilar atelectatic changes. Support lines and tubes, as above. The enteric tube terminates within the expected location of the distal portion of the stomach. RPTAT: [facility] .Rebekah Phillips MD, MD Date Time Electronically viewed and signed by .Rebekah Phillips MD, on 02/22/2017 14:07 .T/
--- NOTE | 2017-02-22 17:32 | CONS ---
Date/Time of Note Date/Time of Note DATE: 02/22/17 TIME: 17:31 Assessment/Plan Assessment/Plan Chief Complaint/Hosp Course 86-year-old gentleman ECF resident admitted with what appears to be septic shock and acute renal insufficiency. He has had a persistent hyperchloremic metabolic acidosis. As an outpatient appears that he has a chronic hypothyroid state and has been on medium dose levothyroxine replacement therapy continuously. On presentation here it appears he is actually modestly over replaced. In addition to this concern was raised about the possibility of hypocortisolism. The patient has some degree of organic brain syndrome and is unable to give meaningful history Problems: (1) Acquired hypothyroidism Status: Chronic Comment: Holding the levothyroxine for a few days which had already had held for a few days will not be particularly detriment to this gentleman. However at the 10 day jennifer that needs to be reconsidered. His outpatient dosage was 75 mcg a day and he was minimally hyperthyroid. At 50 mcg a day this should be right on the money. There is no evident evidence of adrenal insufficiency. Please note that his hypocalcemia corrects when we account for the albumin levels. His overall status is extremely poor critical with a poor prognosis Consultation Date/Type/Reason Admit Date/Time February 19, 2017 at 14:52 Initial Consult Date 02/21/17 Type of Consultation: Endocrinology Reason for Consultation Hypothyroidism modestly over replaced recently. Septic shock Referring Provider: HARDIK MCBRIDE NP 24 HR Interval Summary Subjective hx not possible: pt non-verbal Exam/Review of Systems Vital Signs Vitals Vital Signs Date Time Temp Pulse Resp B/P Pulse Ox O2 Delivery O2 Flow Rate FiO2 02/22/17 17:00 131 28 106/59 96 Nasal Cannula 2.0 02/22/17 16:00 97.8 Intake and Output 02/21/17 02/21/17 02/22/17 15:00 23:00 07:00 Intake Total 693.75 ml 677.48 ml 860.60 ml Output Total 280 ml 270 ml 450 ml Balance 413.75 ml 407.48 ml 410.60 ml Exam Constitutional: non-verbal Neck: non-tender, supple Respiratory: clear to auscultation, normal air movement Cardiovascular: nl pulses, regular rate and rhythm Results Result Diagram: 02/21/17 0400 02/22/17 0530 Results 24 hrs Laboratory Tests Test 02/21/17 17:45 02/21/17 19:34 02/21/17 20:43 02/22/17 01:35 Bedside Glucose 125 130 119 Hepatitis B Surface Antigen NEGATIVE Hepatitis C Antibody NEGATIVE Test 02/22/17 05:05 02/22/17 05:30 02/22/17 09:44 02/22/17 12:09 Bedside Glucose 143 209 182 Prothrombin Time 21.8 H Prothrombin Time Ratio 1.7 INR International Normalized Ratio 1.88 Activated Partial Thromboplast Time 47.9 H Sodium Level 133 L Potassium Level 3.0 L Chloride Level 107 Carbon Dioxide Level 20 L Anion Gap 9 Blood Urea Nitrogen 30 H Creatinine 1.47 H Glucose Level 149 # Calcium Level 6.3 L Phosphorus Level 3.3 Medications Medications Current Medications Vancomycin HCl 125 mg 125 mg Q6 PO Last administered on 02/22/17 05:54; Admin Dose 125 MG; Start 02/19/17 at 18:00 Cefepime HCl (Maxipime 2gm/50 ml (Pmx)) 50 ml @ 100 mls/hr Q24H IVPB Last administered on 02/21/17 18:30; Admin Dose 100 MLS/HR; Start 02/19/17 at 17:30 Lactobacillus Acidophilus/ Rhamnosus (Culturelle) 1 cap BID PO Last administered on 02/22/17 09:35; Admin Dose 1 CAP; Start 02/19/17 at 21:00 Multivitamins Therapeutic (Theragran) 1 tab DAILY PO Last administered on 09:35; Admin Dose 1 TAB; Start 02/20/17 at 09:00 Ascorbic Acid (Vitamin C) 500 mg QAM PO Last administered on 02/22/17 09:35; Admin Dose 500 MG; Start 02/20/17 at 09:00 Prednisone (Prednisone) 10 mg QAM PO Last administered on 02/21/17 08:49; Admin Dose 10 MG; Start 02/19/17 at 16:30; Status Future Hold Ticagrelor (Brilinta) 90 mg QAM PO Last administered on 02/22/17 09:39; Admin Dose 90 MG; Start 02/19/17 at 16:30 Zinc Sulfate (Zinc Sulfate) 220 mg QAM PO Last administered on 02/22/17 09:36 ; Admin Dose 220 MG; Start 02/20/17 at 09:00 Atorvastatin Calcium (Lipitor) 80 mg DAILY@21 PO Last administered on 20:34; Admin Dose 80 MG; Start 02/19/17 at 21:00 Ondansetron HCl (Zofran Inj) 4 mg Q6H PRN IV NAUSEA AND/OR VOMITING; Start at 16:30 Acetaminophen (Tylenol Tab) 650 mg Q6H PRN PO PAIN LEVEL 1-3 OR FEVER; Start at 16:30 Acetaminophen (Tylenol Supp) 650 mg Q6H PRN [place] PAIN LEVEL 1-3 OR FEVER; Start 02/19/17 at 16:30 Acetaminophen/ Hydrocodone Bitart ([place] (5/325)) 1 tab Q6H PRN PO MODERATE PAIN LEVEL 4-6; Start 02/19/17 at 16:30 Morphine Sulfate (morphine) 2 mg Q4H PRN IV SEVERE PAIN LEVEL 7-10; Start 02/19 at 16:30 Miscellaneous Information 1 ea NOTE XX ; Start 02/19/17 at 16:30 Glucose (Glutose) 15 gm Q15M PRN PO DECREASED GLUCOSE; Start 02/19/17 at 16:30 Glucose (Glutose) 22.5 gm Q15M PRN PO DECREASED GLUCOSE; Start 02/19/17 at 16: 30 Dextrose (D50w Syringe) 25 ml Q15M PRN IV DECREASED GLUCOSE Last administered on 02/20/17 03:06; Admin Dose 25 ML; Start 02/19/17 at 16:30 Dextrose (D50w Syringe) 50 ml Q15M PRN IV DECREASED GLUCOSE; Start 02/19/17 at 16:30 Glucagon (Glucagen) 1 mg Q15M PRN IM DECREASED GLUCOSE; Start 02/19/17 at 16:30 Glucose (Glutose) 15 gm Q15M PRN BUCCAL DECREASED GLUCOSE; Start 02/19/17 at 16 :30 Diagnostic Test (Pha) (Accu-Chek) 1 ea 02 XX Last administered on 02/22/17 01: 36; Admin Dose 1 EA; Start 02/20/17 at 02:00 Insulin Aspart NOVOLOG *MILD* ALGORITHM Q4 SC Last administered on 02/22/17 12 :11; Admin Dose 2 UNIT; Start 02/20/17 at 13:00 Norepinephrine/ Dextrose (Levophed/D5W) 500 ml @ 1.87 mls/hr TITRATE IV Last administered on 02/22/17 05:57; Admin Dose 1.87 MLS/HR; Start 02/20/17 at 11:00 Pantoprazole 40 mg 40 mg BID@06,18 IV Last administered on 02/22/17 05:54; Admin Dose 40 MG; Start 02/20/17 at 18:00 Sodium Bicarbonate 50 meq/Dextrose 1,050 ml @ 75 mls/hr Q14H IV Last administered on 02/22/17 05:55; Admin Dose 75 MLS/HR; Start 02/20/17 at 13:00 Vancomycin HCl (Vancocin) 250 ml @ 125 mls/hr Q36H IVPB Last administered on 11:07; Admin Dose 125 MLS/HR; Start 02/21/17 at 10:00 Aspirin (Halfprin) 81 mg DAILY PO Last administered on 02/22/17 09:35; Admin Dose 81 MG; Start 02/21/17 at 09:00 Levothyroxine Sodium (Synthroid) 50 mcg DAILY@06 PO Last administered on 05:54; Admin Dose 50 MCG; Start 02/22/17 at 06:00; Status Future hold Potassium Chloride (Klor-Con 10) 30 meq BID PO Last administered on 02/22/17 09:34; Admin Dose 30 MEQ; Start 02/22/17 at 09:00; Stop 02/22/17 at 21:01 Venlafaxine HCl (Effexor) 25 mg BID NGT Last administered on 02/22/17 10:53; Admin Dose 25 MG; Start 02/22/17 at 10:30 Insulin Glargine (Lantus) 8 unit DAILY@08 SC Last administered on 02/22/17 12: 29; Admin Dose 8 UNIT; Start 02/22/17 at 11:00 Miscellaneous Information (*Rx Drug Level Order Reminder*) VANCO TROUGH @ 2, 100 ON... ONCE ONCE XX ; Start 02/22/17 at 21:00; Stop 02/22/17 at 21:01 LANCE JACKSON MD February 22, 2017 17:32
[2017-02-22] MEDS: CEFEPIME 2GM/50 ML (PMX) 50 ML IVPB SCH (17:47)
--- NOTE | 2017-02-22 19:23 | CONS ---
Date/Time of Note Date/Time of Note DATE: 02/22/17 TIME: 19:19 Assessment/Plan Assessment/Plan Additional Assessment/Plan 1. Septic shock, likely secondary to possible Clostridium difficile. 2. Acute kidney injury secondary to acute tubular necrosis from septic shock. 3. Hyperchloremic non-anion gap metabolic acidosis likely secondary to severe diarrhea. Currently, the patient's bicarbonate has been dropped down to 16. 4. Hyponatremia, likely secondary to hypovolemic hyponatremia. 5. 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 6. Hypocalcemia, but the corrected calcium with a low albumin has been pretty much normal. PLAN: continue Bicarbonate drip Cr improving, K low- already repalced for today BP more stable, titrate levophed gtt to off U/o 1000 cc so far will continue to follow up Full Code Consultation Date/Type/Reason Admit Date/Time February 19, 2017 at 14:52 Initial Consult Date 02/20/2017 Type of Consultation: NEPHROLOGY Referring Provider: HARDIK MCBRIDE [employer] 24 HR Interval Summary Free Text/Dictation Na improved to 133, K 3.0, already replaced, afebrile l Exam/Review of Systems Vital Signs Vitals Vital Signs Date Time Temp Pulse Resp B/P Pulse Ox O2 Delivery O2 Flow Rate FiO2 02/22/17 18:15 2.0 02/22/17 17:00 131 28 106/59 96 Nasal Cannula 02/22/17 16:00 97.8 Intake and Output 02/21/17 02/21/17 02/22/17 15:00 23:00 07:00 Intake Total 693.75 ml 677.48 ml 860.60 ml Output Total 280 ml 270 ml 450 ml Balance 413.75 ml 407.48 ml 410.60 ml Exam GENERAL: Patient awake but lethargic, falling back to the sleep. HEENT: Pupils equal, round, reactive to light and accommodation. Extraocular muscles are intact. NECK: Supple, no JVD. LUNGS: Decreased breath sounds at both lung bases with bibasilar crackles present. HEART: S1, S2, tachycardia. ABDOMEN: Soft, nontender, nondistended. EXTREMITIES: 1+ pitting edema with a Christopher catheter in place. No clubbing, cyanosis. NEUROLOGICAL: Uncooperative for exam. PSYCHIATRIC: Appropriate affect and mood. Results Result Diagram: 02/21/17 0400 02/22/17 0530 Results 24 hrs Laboratory Tests Test 02/21/17 19:34 02/21/17 20:43 02/22/17 01:35 02/22/17 05:05 Hepatitis B Surface Antigen NEGATIVE Hepatitis C Antibody NEGATIVE Bedside Glucose 130 119 143 Test 02/22/17 05:30 02/22/17 09:44 02/22/17 12:09 02/22/17 17:54 Prothrombin Time 21.8 H Prothrombin Time Ratio 1.7 INR International Normalized Ratio 1.88 Activated Partial Thromboplast Time 47.9 H Sodium Level 133 L Potassium Level 3.0 L Chloride Level 107 Carbon Dioxide Level 20 L Anion Gap 9 Blood Urea Nitrogen 30 H Creatinine 1.47 H Glucose Level 149 # Calcium Level 6.3 L Phosphorus Level 3.3 Bedside Glucose 209 182 128 Medications Medications Current Medications Vancomycin HCl 125 mg 125 mg Q6 PO Last administered on 02/22/17 17:48; Admin Dose 125 MG; Start 02/19/17 at 18:00 Cefepime HCl (Maxipime 2gm/50 ml (Pmx)) 50 ml @ 100 mls/hr Q24H IVPB Last administered on 02/22/17 17:47; Admin Dose 100 MLS/HR; Start 02/19/17 at 17:30 Lactobacillus Acidophilus/ Rhamnosus (Culturelle) 1 cap BID PO Last administered on 02/22/17 09:35; Admin Dose 1 CAP; Start 02/19/17 at 21:00 Multivitamins Therapeutic (Theragran) 1 tab DAILY PO Last administered on 09:35; Admin Dose 1 TAB; Start 02/20/17 at 09:00 Ascorbic Acid (Vitamin C) 500 mg QAM PO Last administered on 02/22/17 09:35; Admin Dose 500 MG; Start 02/20/17 at 09:00 Prednisone (Prednisone) 10 mg QAM PO Last administered on 02/21/17 08:49; Admin Dose 10 MG; Start 02/19/17 at 16:30; Status Future Hold Ticagrelor (Brilinta) 90 mg QAM PO Last administered on 02/22/17 09:39; Admin Dose 90 MG; Start 02/19/17 at 16:30 Zinc Sulfate (Zinc Sulfate) 220 mg QAM PO Last administered on 02/22/17 09:36 ; Admin Dose 220 MG; Start 02/20/17 at 09:00 Atorvastatin Calcium (Lipitor) 80 mg DAILY@21 PO Last administered on 20:34; Admin Dose 80 MG; Start 02/19/17 at 21:00 Ondansetron HCl (Zofran Inj) 4 mg Q6H PRN IV NAUSEA AND/OR VOMITING; Start at 16:30 Acetaminophen (Tylenol Tab) 650 mg Q6H PRN PO PAIN LEVEL 1-3 OR FEVER; Start at 16:30 Acetaminophen (Tylenol Supp) 650 mg Q6H PRN [place] PAIN LEVEL 1-3 OR FEVER; Start 02/19/17 at 16:30 Acetaminophen/ Hydrocodone Bitart ([place] (5/325)) 1 tab Q6H PRN PO MODERATE PAIN LEVEL 4-6; Start 02/19/17 at 16:30 Morphine Sulfate (morphine) 2 mg Q4H PRN IV SEVERE PAIN LEVEL 7-10; Start 02/19 at 16:30 Miscellaneous Information 1 ea NOTE XX ; Start 02/19/17 at 16:30 Glucose (Glutose) 15 gm Q15M PRN PO DECREASED GLUCOSE; Start 02/19/17 at 16:30 Glucose (Glutose) 22.5 gm Q15M PRN PO DECREASED GLUCOSE; Start 02/19/17 at 16: 30 Dextrose (D50w Syringe) 25 ml Q15M PRN IV DECREASED GLUCOSE Last administered on 02/20/17 03:06; Admin Dose 25 ML; Start 02/19/17 at 16:30 Dextrose (D50w Syringe) 50 ml Q15M PRN IV DECREASED GLUCOSE; Start 02/19/17 at 16:30 Glucagon (Glucagen) 1 mg Q15M PRN IM DECREASED GLUCOSE; Start 02/19/17 at 16:30 Glucose (Glutose) 15 gm Q15M PRN BUCCAL DECREASED GLUCOSE; Start 02/19/17 at 16 :30 Diagnostic Test (Pha) (Accu-Chek) 1 ea 02 XX Last administered on 02/22/17 01: 36; Admin Dose 1 EA; Start 02/20/17 at 02:00 Insulin Aspart NOVOLOG *MILD* ALGORITHM Q4 SC Last administered on 02/22/17 12 :11; Admin Dose 2 UNIT; Start 02/20/17 at 13:00 Norepinephrine/ Dextrose (Levophed/D5W) 500 ml @ 1.87 mls/hr TITRATE IV Last administered on 02/22/17 05:57; Admin Dose 1.87 MLS/HR; Start 02/20/17 at 11:00 Pantoprazole 40 mg 40 mg BID@06,18 IV Last administered on 02/22/17 17:47; Admin Dose 40 MG; Start 02/20/17 at 18:00 Sodium Bicarbonate 50 meq/Dextrose 1,050 ml @ 75 mls/hr Q14H IV Last administered on 02/22/17 05:55; Admin Dose 75 MLS/HR; Start 02/20/17 at 13:00 Vancomycin HCl (Vancocin) 250 ml @ 125 mls/hr Q36H IVPB Last administered on 11:07; Admin Dose 125 MLS/HR; Start 02/21/17 at 10:00 Aspirin (Halfprin) 81 mg DAILY PO Last administered on 02/22/17 09:35; Admin Dose 81 MG; Start 02/21/17 at 09:00 Levothyroxine Sodium (Synthroid) 50 mcg DAILY@06 PO Last administered on 05:54; Admin Dose 50 MCG; Start 02/22/17 at 06:00; Status Future hold Potassium Chloride (Klor-Con 10) 30 meq BID PO Last administered on 02/22/17 09:34; Admin Dose 30 MEQ; Start 02/22/17 at 09:00; Stop 02/22/17 at 21:01 Venlafaxine HCl (Effexor) 25 mg BID NGT Last administered on 02/22/17 10:53; Admin Dose 25 MG; Start 02/22/17 at 10:30 Insulin Glargine (Lantus) 8 unit DAILY@08 SC Last administered on 02/22/17 12: 29; Admin Dose 8 UNIT; Start 02/22/17 at 11:00 Miscellaneous Information (*Rx Drug Level Order Reminder*) VANCO TROUGH @ 2, 100 ON... ONCE ONCE XX ; Start 02/22/17 at 21:00; Stop 02/22/17 at 21:01 ANJEL LEE MD February 22, 2017 19:23
[2017-02-22] MEDS ORDERED: POTASSIUM CHLORIDE 20 MEQ in SOD CHLORIDE 0.9% 100 ML IVPB ONE (19:30)
[2017-02-22] MEDS: ATORVASTATIN 80 MG TAB PO SCH (20:42)
[2017-02-22] MEDS: VANCOMYCIN 1 GM in NS 250 ML IVPB SCH (22:34)
[2017-02-23] VITALS (94 sets, daily range): BP systolic 77–117; BP diastolic 32–69; PULSE 112–123; RESP 18–42
[2017-02-23] MEDS: VANCOMYCIN HCL 250 MG/5ML POSYG PO SCH ×4 (00:34→17:38)
[2017-02-23] MEDS: INSULIN ASPART [NOVOLOG] 3 ML PEN SC SCH ×6 (00:38→20:37)
[2017-02-23] MEDS: ACCUCHECK AT 2AM (Patients on SS coverage) XX SCH (02:00)
[2017-02-23] MEDS: PANTOPRAZOLE 40 MG INJ IV SCH ×2 (05:14→17:38)
[2017-02-23 06:33] LABS: ADD SCAN DIFF NO
[2017-02-23 06:37] LABS: INR 1.67; PROTIME 19.8 Sec (12.2-14.2); PT RATIO 1.5
[2017-02-23 06:38] LABS: PARTIAL THROMBOPLASTIN TIME 39.4 Sec (25.0-35.0)
[2017-02-23 06:42] LABS: ABNORMAL IP MESSAGE 1; HEMATOCRIT 31.2 % (42.0-52.0); HEMOGLOBIN 10.2 g/dl (14.0-18.0); MEAN CORPUSCULAR HEMOGLOBIN 29.3 pg (29.0-33.0); MEAN CORPUSCULAR HGB CONC 32.7 g/dl (32.0-37.0); MEAN CORPUSCULAR VOLUME 89.7 fl (82.0-101.0); MEAN PLATELET VOLUME 10.5 fl (7.4-10.4); PLATELET COUNT 78 10^3/UL (140-415); RED BLOOD COUNT 3.48 10^6/ul (4.70-6.10); RED CELL DISTRIBUTION WIDTH 16.9 % (11.5-14.5); WHITE BLOOD COUNT 15.9 10^3/ul (4.8-10.8)
[2017-02-23 06:51] LABS: ALBUMIN 1.4 g/dl (3.3-4.9)
[2017-02-23 06:52] LABS: POTASSIUM 3.5 mmol/L (3.5-5.1)
[2017-02-23 06:54] LABS: ALBUMIN/GLOBULIN RATIO 0.73; BILIRUBIN,INDIRECT 0.1 mg/dl (0-1.1); BILIRUBIN,TOTAL 0.1 mg/dl (0.2-1.3); CREATININE 1.32 mg/dl (0.61-1.24); TOTAL PROTEIN 3.3 g/dl (6.1-8.1)
[2017-02-23 06:55] LABS: CALCIUM 6.3 mg/dl (8.4-10.2)
[2017-02-23 06:59] LABS: MAGNESIUM 1.8 mg/dl (1.7-2.5); PHOSPHORUS 2.2 mg/dl (2.5-4.9)
--- NOTE | 2017-02-23 08:36 | PN ---
DATE: 02/23/2017 CARDIOLOGY FOLLOWUP PROGRESS NOTE SUBJECTIVE: Discussed with the staff. Rhythm strip was reviewed. The patient remains in sinus rhy thm, sinus tachycardia. Still continues to be hypotensive and on Levophed drip. The patient is giv en NG tube feeding. Denies any chest pain or pressure to me. Drowsy, but responds appropriately in general. No bleeding reported. He has had also bowel movements with 2 loose bowel movements, but watery according to staff. MEDICATIONS: Reviewed, which include: 1. Effexor. 2. Insulin. 3. Aspirin 81. 4. Vancomycin. 5. Bicarbonate drip. 6. Levophed at 4 mcg now. 7. Cefepime 8. Brilinta 90 daily. PHYSICAL EXAMINATION: VITAL SIGNS: Temperature 97.8, heart rate of 120, blood pressure 101/56, respiratory rate of 21, sa turating 100%. HEENT: Normocephalic, atraumatic. Oropharynx status post NG tube in place. CARDIOVASCULAR: Tachycardic, systolic murmur. PULMONARY: With minimal rhonchi. GASTROINTESTINAL: Soft, nontender. EXTREMITIES: Positive for ____ lower extremity edema. NEUROLOGIC: Drowsy, but awake, responds appropriately. PSYCHIATRIC: Appears to be calm. DERMATOLOGIC: Multiple ecchymoses. LABORATORY: WBC of 15.9, hemoglobin 10.2, platelets of 78. Sodium 132, potassium 3.5, BUN of 31, c reatinine 1.32, glucose of 194. Calcium is 6.3. ALT of 102, alkaline phosphorous 418. Albumin is 1.4. INR is 1.67. Mag level is 12.5. Chest x-ray shows hypoventilation with bibasilar atelectasis ____. Blood cultures are negative x3 days. CVP was about 5. ASSESSMENT AND PLAN: 1. Sinus tachycardia, multifactorial. 2. Sepsis and shock. 3. Severe malnutrition, low albumin level. 4. Thyroid disorder. 5. Diabetes. 6. Coronary artery disease status post myocardial infarction. 7. History of percutaneous coronary intervention. 8. Thrombocytopenia. 9. Coagulopathy, probably secondary to malnutrition. 10. Liver disease. RECOMMENDATIONS: We will continue with Levophed and try to titrate off as possible. I will give th e patient vitamin K. Aspirin and Brilinta will be continued for now. ICU care will be continued. IV fluids will be continued. Nutritional support to be continued as well. Antibiotic as per strategy intern al medicine. Transfusion p.r.n. More than 36 minutes of critical care time was spent in management of this patient excluding procedu res. Dictated By: CAITIE LOPEZ MD AV/NTS Conf#: [id number] DID#: [id number] CC: MARCOS RAMOS DO;*EndCC*
[2017-02-23] MEDS: MULTIVITAMINS THERAPEUTIC TAB PO SCH (09:00)
[2017-02-23] MEDS: LACTOBACILLUS RHAMNOSUS CAP PO SCH ×2 (09:00→20:28)
[2017-02-23] MEDS ORDERED: PHYTONADIONE (1 MG/ML PO SYG) NGT SCH (09:00)
[2017-02-23] MEDS: ASCORBIC ACID 500 MG TAB PO SCH (09:00)
[2017-02-23] MEDS: ZINC SULFATE 220 MG CAP PO SCH (09:00)
[2017-02-23] MEDS: VENLAFAXINE 25 MG TAB NGT SCH ×2 (09:01→20:28)
[2017-02-23] MEDS: INSULIN GLARGINE [LANtus] 3 ML PEN SC SCH ×2 (09:03→20:38)
[2017-02-23 09:10] LABS: LYMPHOCYTES # 0.5 10^3/ul (0.8-2.9); MONOCYTE # 0.5 10^3/ul (0.3-0.9); NEUTROPHIL # 14.3 10^3/ul (1.6-7.5)
[2017-02-23] MEDS ORDERED: SOD CHLORIDE 0.9% 500 ML IV ONE (10:00)
--- NOTE | 2017-02-23 10:07 | CONS ---
Date/Time of Note Date/Time of Note DATE: 02/23/17 TIME: 09:58 Consult Date/Type/Reason Admit Date/Time February 19, 2017 at 14:52 Type of Consultation: Pulm Ordering Provider: HARDIK MCBRIDE NP Subjective Patient continued vasopressor support Remains confused intermittent agitation Tolerating tube feeding Objective Vital Signs Date Time Temp Pulse Resp B/P Pulse Ox O2 Delivery O2 Flow Rate FiO2 02/23/17 09:15 119 26 93/54 100 Nasal Cannula 2.0 02/23/17 08:00 97.6 02/23/17 02:29 27 Intake and Output 02/22/17 02/22/17 02/23/17 15:00 23:00 07:00 Intake Total 935.61 ml 1263.04 ml 1237.50 ml Output Total 265 ml 320 ml 530 ml Balance 670.61 ml 943.04 ml 707.50 ml Exam GENERAL: Elderly gentleman comfortable at rest no acute distress VITAL SIGNS: per chart NECK: Supple. No JVD or lymphadenopathy. CARDIAC EXAM: S1, S2. No added sounds or murmurs. CHEST: clear bilaterally, No added sounds, rales or wheezes ABDOMEN: Soft, nontender. No guarding or rebound. EXTREMITIES: No cyanosis, clubbing or edema. NEUROLOGIC: Generalized weakness. No focal deficits. Results/Medications Result Diagram: 02/23/17 0500 02/23/17 0540 Results 24 hrs Laboratory Tests Test 02/22/17 12:09 02/22/17 17:54 02/22/17 20:51 02/22/17 21:12 Bedside Glucose 182 128 203 Vancomycin Level Trough 12.5 Test 02/23/17 00:38 02/23/17 05:00 02/23/17 05:13 02/23/17 05:30 Bedside Glucose 146 195 White Blood Count 15.9 H Red Blood Count 3.48 L Hemoglobin 10.2 L Hematocrit 31.2 L Mean Corpuscular Volume 89.7 Mean Corpuscular Hemoglobin 29.3 Mean Corpuscular Hemoglobin Concent 32.7 Red Cell Distribution Width 16.9 H Platelet Count 78 #L Mean Platelet Volume 10.5 H Neutrophils % 90.0 H Band Neutrophils % 4.0 Lymphocytes % 3.0 L Monocytes % 3.0 Eosinophils % Neutrophils # 14.3 H Lymphocytes # 0.5 L Monocytes # 0.5 Eosinophils # Lactic Acid Level 2.7 H Test 02/23/17 05:40 02/23/17 08:59 Prothrombin Time 19.8 H Prothrombin Time Ratio 1.5 INR International Normalized Ratio 1.67 Activated Partial Thromboplast Time 39.4 H Sodium Level 132 L Potassium Level 3.5 Chloride Level 106 Carbon Dioxide Level 19 L Anion Gap 11 Blood Urea Nitrogen 31 H Creatinine 1.32 H Glucose Level 194 Calcium Level 6.3 L Phosphorus Level 2.2 #L Magnesium Level 1.8 Total Bilirubin 0.1 L Direct Bilirubin 0.00 Indirect Bilirubin 0.1 Aspartate Amino Transf (AST/SGOT) 136 H Alanine Aminotransferase (ALT/SGPT) 102 H Alkaline Phosphatase 418 H Total Protein 3.3 L Albumin 1.4 L Globulin 1.90 Albumin/Globulin Ratio 0.73 Bedside Glucose 239 H Medications Current Medications Vancomycin HCl 125 mg 125 mg Q6 PO Last administered on 02/23/17 05:14; Admin Dose 125 MG; Start 02/19/17 at 18:00 Cefepime HCl (Maxipime 2gm/50 ml (Pmx)) 50 ml @ 100 mls/hr Q24H IVPB Last administered on 02/22/17 17:47; Admin Dose 100 MLS/HR; Start 02/19/17 at 17:30 Lactobacillus Acidophilus/ Rhamnosus (Culturelle) 1 cap BID PO Last administered on 02/23/17 09:00; Admin Dose 1 CAP; Start 02/19/17 at 21:00 Multivitamins Therapeutic (Theragran) 1 tab DAILY PO Last administered on 09:00; Admin Dose 1 TAB; Start 02/20/17 at 09:00 Ascorbic Acid (Vitamin C) 500 mg QAM PO Last administered on 02/23/17 09:00; Admin Dose 500 MG; Start 02/20/17 at 09:00 Prednisone (Prednisone) 10 mg QAM PO Last administered on 02/21/17 08:49; Admin Dose 10 MG; Start 02/19/17 at 16:30; Status Future Hold Ticagrelor (Brilinta) 90 mg QAM PO Last administered on 02/22/17 09:39; Admin Dose 90 MG; Start 02/19/17 at 16:30 Zinc Sulfate (Zinc Sulfate) 220 mg QAM PO Last administered on 02/23/17 09:00 ; Admin Dose 220 MG; Start 02/20/17 at 09:00 Atorvastatin Calcium (Lipitor) 80 mg DAILY@21 PO Last administered on 20:42; Admin Dose 80 MG; Start 02/19/17 at 21:00 Ondansetron HCl (Zofran Inj) 4 mg Q6H PRN IV NAUSEA AND/OR VOMITING; Start at 16:30 Acetaminophen (Tylenol Tab) 650 mg Q6H PRN PO PAIN LEVEL 1-3 OR FEVER; Start at 16:30 Acetaminophen (Tylenol Supp) 650 mg Q6H PRN [place] PAIN LEVEL 1-3 OR FEVER; Start 02/19/17 at 16:30 Acetaminophen/ Hydrocodone Bitart ([place] (5/325)) 1 tab Q6H PRN PO MODERATE PAIN LEVEL 4-6; Start 02/19/17 at 16:30 Morphine Sulfate (morphine) 2 mg Q4H PRN IV SEVERE PAIN LEVEL 7-10; Start 02/19 at 16:30 Miscellaneous Information 1 ea NOTE XX ; Start 02/19/17 at 16:30 Glucose (Glutose) 15 gm Q15M PRN PO DECREASED GLUCOSE; Start 02/19/17 at 16:30 Glucose (Glutose) 22.5 gm Q15M PRN PO DECREASED GLUCOSE; Start 02/19/17 at 16: 30 Dextrose (D50w Syringe) 25 ml Q15M PRN IV DECREASED GLUCOSE Last administered on 02/20/17 03:06; Admin Dose 25 ML; Start 02/19/17 at 16:30 Dextrose (D50w Syringe) 50 ml Q15M PRN IV DECREASED GLUCOSE; Start 02/19/17 at 16:30 Glucagon (Glucagen) 1 mg Q15M PRN IM DECREASED GLUCOSE; Start 02/19/17 at 16:30 Glucose (Glutose) 15 gm Q15M PRN BUCCAL DECREASED GLUCOSE; Start 02/19/17 at 16 :30 Diagnostic Test (Pha) (Accu-Chek) 1 ea 02 XX Last administered on 02/22/17 01: 36; Admin Dose 1 EA; Start 02/20/17 at 02:00 Insulin Aspart NOVOLOG *MILD* ALGORITHM Q4 SC Last administered on 02/23/17 09 :04; Admin Dose 3 UNIT; Start 02/20/17 at 13:00 Norepinephrine/ Dextrose (Levophed/D5W) 500 ml @ 1.87 mls/hr TITRATE IV Last administered on 02/22/17 05:57; Admin Dose 1.87 MLS/HR; Start 02/20/17 at 11:00 Pantoprazole 40 mg 40 mg BID@06,18 IV Last administered on 02/23/17 05:14; Admin Dose 40 MG; Start 02/20/17 at 18:00 Sodium Bicarbonate 50 meq/Dextrose 1,050 ml @ 75 mls/hr Q14H IV Last administered on 02/22/17 20:41; Admin Dose 75 MLS/HR; Start 02/20/17 at 13:00 Vancomycin HCl (Vancocin) 250 ml @ 125 mls/hr Q36H IVPB Last administered on 22:34; Admin Dose 125 MLS/HR; Start 02/21/17 at 10:00 Aspirin (Halfprin) 81 mg DAILY PO Last administered on 02/22/17 09:35; Admin Dose 81 MG; Start 02/21/17 at 09:00 Levothyroxine Sodium (Synthroid) 50 mcg DAILY@06 PO Last administered on 05:54; Admin Dose 50 MCG; Start 02/22/17 at 06:00; Status Future hold Venlafaxine HCl (Effexor) 25 mg BID NGT Last administered on 02/23/17 09:01; Admin Dose 25 MG; Start 02/22/17 at 10:30 Insulin Glargine 12 unit 12 unit HS SC ; Start 02/23/17 at 21:00 Sodium Chloride (NS) 500 ml @ 500 mls/hr Q1H ONCE IV ; Start 02/23/17 at 10:00 ; Stop 02/23/17 at 10:59 Assessment/Plan Chief Complaint/Hosp Course IMPRESSION AND PLAN: 1. Ongoing septic shock. Lactic acidosis 2. Possible healthcare-associated pneumonia. 3. Renal insufficiency, likely prerenal. 4. Hyponatremia 5. Sinus tachycardia likely secondary to vasopressors 6. History of depression PLAN: 1. Continue antibiotics, currently on vancomycin and cefepime. 2. Infectious disease recommendations 3. Panculture. 4. DVT and GI prophylaxis. 5. Aspiration precautions and speech therapy recommendations 6. Recent cortisol level within normal limits excluding adrenal insufficiency 7. Replace electrolytes 8. Trial of fluid challenge Disposition keep in ICU Problems: PAULO TRIMBLE MD, [facility] February 23, 2017 10:07
--- NOTE | 2017-02-23 10:12 | PN ---
Date/Time of Note Date/Time of Note DATE: 02/23/17 TIME: 10:07 Assessment/Plan VTE Prophylaxis VTE Prophylaxis Intervention: SCD's Lines/Catheters IV Catheter Type (from [facility] Central Line Central line still needed: Yes Urinary Cath still in place: Yes Reason Cath still needed: other (indicate) Assessment/Plan Chief Complaint/Hosp Course Chief Complaint/Hosp Course 1. Sepsis with underlying septic shock. Etiology could be probably healthcare associated pneumonia. [place] cultures are negative so far. Continue pressors to keep hemodynamic status stable. Continue broad-spectrum IV antibiotics and fluids. 2. Sinus tachycardia. Etiology unclear. Probably secondary to underlying sepsis. Cardiology on case since the patient has a known history of coronary artery disease. Thyroid function showed evidence of hyperthyroidism. Therefore , the patient's Synthroid was discontinued. 3. Coronary artery disease. The patient will be continued on antiplatelet medications. 4. Type 2 diabetes mellitus. Hemoglobin A1c is 6.4. Continue sliding scale insulin. Increase Lantus to 12 units 5. Hypothyroidism. Thyroid panel showing evidence of hyperthyroidism. Synthroid on hold. 6. Dyslipidemia. Continue statins. 7. Prostate cancer. No evidence of any metastasis. 8. Nonoliguric acute kidney injury in a patient with unknown baseline creatinine. Continue IV hydration. Nephrology following. 9. Normocytic normochromic anemia. Etiology unclear. Iron panel showing low iron and low TIBC with a high ferritin. Pending stool for OB. Status post 1 unit of PRBC transfusion on 02/20/2017. 10. Hypoalbuminemia. The etiology is unclear. Will obtain a dietary consult. Will continue tube feedings. 11. Non-anion gap metabolic acidosis. Status post bicarbonate drip. Nephrology following. 12. Hematuria. Resolved. 13. Coagulopathy. Likely secondary to sepsis versus anticoagulant. Will hold the patient's anticoagulants. However, he will be continued on antiplatelet therapy since the patient has history of CAD status post stent placement. The patient will be monitored closely for any bleeding. 14. Dysphagia. Speech therapy evaluation ongoing. The patient will be kept n.p.o. Medications and feeding will be given through NG tube. - DVT prophylaxis with bilateral sequential compression devices. - Gastrointestinal prophylaxis. Proton pump inhibitors. PLAN: 1. Continue to wean down pressors as tolerated. 2. Continue antibiotics. 3. Hunting Sales Associate management and recommendation are appreciated Problems: Subjective 24 Hr Interval Summary Free Text/Dictation Patient is more responsive to verbal stimuli On pressors via levophed Tube feeding via NG tube Exam/Review of Systems Vital Signs Vitals Vital Signs Date Time Temp Pulse Resp B/P Pulse Ox O2 Delivery O2 Flow Rate FiO2 02/23/17 09:15 119 26 93/54 100 Nasal Cannula 2.0 02/23/17 08:00 97.6 02/23/17 02:29 27 Intake and Output 02/22/17 02/22/17 02/23/17 15:00 23:00 07:00 Intake Total 935.61 ml 1263.04 ml 1237.50 ml Output Total 265 ml 320 ml 530 ml Balance 670.61 ml 943.04 ml 707.50 ml Exam General: The patient is well-developed, Not in acute distress. HEENT: Atraumatic, normocephalic. The pupils are equal and round . NG tube in place Neck: Supple Chest: Normal expansion of the thorax during inspiration Lungs: Clear to auscultation bilaterally Heart: Normal S1-S2, Regular rhythm and rate. Abdomen: Soft , nontender, nondistended , bowel sounds are present. Extremities: Normal to inspection, no edema no cyanosis Neurologic: Patient is awake, encephalopathy, follow simple commands only Results Result Diagram: 02/23/17 0500 02/23/17 0540 Results 24 hrs Laboratory Tests Test 02/22/17 12:09 02/22/17 17:54 02/22/17 20:51 02/22/17 21:12 Bedside Glucose 182 128 203 Vancomycin Level Trough 12.5 Test 02/23/17 00:38 02/23/17 05:00 02/23/17 05:13 02/23/17 05:30 Bedside Glucose 146 195 White Blood Count 15.9 H Red Blood Count 3.48 L Hemoglobin 10.2 L Hematocrit 31.2 L Mean Corpuscular Volume 89.7 Mean Corpuscular Hemoglobin 29.3 Mean Corpuscular Hemoglobin Concent 32.7 Red Cell Distribution Width 16.9 H Platelet Count 78 #L Mean Platelet Volume 10.5 H Neutrophils % 90.0 H Band Neutrophils % 4.0 Lymphocytes % 3.0 L Monocytes % 3.0 Eosinophils % Neutrophils # 14.3 H Lymphocytes # 0.5 L Monocytes # 0.5 Eosinophils # Lactic Acid Level 2.7 H Test 02/23/17 05:40 02/23/17 08:59 Prothrombin Time 19.8 H Prothrombin Time Ratio 1.5 INR International Normalized Ratio 1.67 Activated Partial Thromboplast Time 39.4 H Sodium Level 132 L Potassium Level 3.5 Chloride Level 106 Carbon Dioxide Level 19 L Anion Gap 11 Blood Urea Nitrogen 31 H Creatinine 1.32 H Glucose Level 194 Calcium Level 6.3 L Phosphorus Level 2.2 #L Magnesium Level 1.8 Total Bilirubin 0.1 L Direct Bilirubin 0.00 Indirect Bilirubin 0.1 Aspartate Amino Transf (AST/SGOT) 136 H Alanine Aminotransferase (ALT/SGPT) 102 H Alkaline Phosphatase 418 H Total Protein 3.3 L Albumin 1.4 L Globulin 1.90 Albumin/Globulin Ratio 0.73 Bedside Glucose 239 H Medications Medications Current Medications Vancomycin HCl 125 mg 125 mg Q6 PO Last administered on 02/23/17 05:14; Admin Dose 125 MG; Start 02/19/17 at 18:00 Cefepime HCl (Maxipime 2gm/50 ml (Pmx)) 50 ml @ 100 mls/hr Q24H IVPB Last administered on 02/22/17 17:47; Admin Dose 100 MLS/HR; Start 02/19/17 at 17:30 Lactobacillus Acidophilus/ Rhamnosus (Culturelle) 1 cap BID PO Last administered on 02/23/17 09:00; Admin Dose 1 CAP; Start 02/19/17 at 21:00 Multivitamins Therapeutic (Theragran) 1 tab DAILY PO Last administered on 09:00; Admin Dose 1 TAB; Start 02/20/17 at 09:00 Ascorbic Acid (Vitamin C) 500 mg QAM PO Last administered on 02/23/17 09:00; Admin Dose 500 MG; Start 02/20/17 at 09:00 Prednisone (Prednisone) 10 mg QAM PO Last administered on 02/21/17 08:49; Admin Dose 10 MG; Start 02/19/17 at 16:30; Status Future Hold Ticagrelor (Brilinta) 90 mg QAM PO Last administered on 02/22/17 09:39; Admin Dose 90 MG; Start 02/19/17 at 16:30 Zinc Sulfate (Zinc Sulfate) 220 mg QAM PO Last administered on 02/23/17 09:00 ; Admin Dose 220 MG; Start 02/20/17 at 09:00 Atorvastatin Calcium (Lipitor) 80 mg DAILY@21 PO Last administered on 20:42; Admin Dose 80 MG; Start 02/19/17 at 21:00 Ondansetron HCl (Zofran Inj) 4 mg Q6H PRN IV NAUSEA AND/OR VOMITING; Start at 16:30 Acetaminophen (Tylenol Tab) 650 mg Q6H PRN PO PAIN LEVEL 1-3 OR FEVER; Start at 16:30 Acetaminophen (Tylenol Supp) 650 mg Q6H PRN [place] PAIN LEVEL 1-3 OR FEVER; Start 02/19/17 at 16:30 Acetaminophen/ Hydrocodone Bitart ([place] (5/325)) 1 tab Q6H PRN PO MODERATE PAIN LEVEL 4-6; Start 02/19/17 at 16:30 Morphine Sulfate (morphine) 2 mg Q4H PRN IV SEVERE PAIN LEVEL 7-10; Start 02/19 at 16:30 Miscellaneous Information 1 ea NOTE XX ; Start 02/19/17 at 16:30 Glucose (Glutose) 15 gm Q15M PRN PO DECREASED GLUCOSE; Start 02/19/17 at 16:30 Glucose (Glutose) 22.5 gm Q15M PRN PO DECREASED GLUCOSE; Start 02/19/17 at 16: 30 Dextrose (D50w Syringe) 25 ml Q15M PRN IV DECREASED GLUCOSE Last administered on 02/20/17 03:06; Admin Dose 25 ML; Start 02/19/17 at 16:30 Dextrose (D50w Syringe) 50 ml Q15M PRN IV DECREASED GLUCOSE; Start 02/19/17 at 16:30 Glucagon (Glucagen) 1 mg Q15M PRN IM DECREASED GLUCOSE; Start 02/19/17 at 16:30 Glucose (Glutose) 15 gm Q15M PRN BUCCAL DECREASED GLUCOSE; Start 02/19/17 at 16 :30 Diagnostic Test (Pha) (Accu-Chek) 1 ea 02 XX Last administered on 02/22/17 01: 36; Admin Dose 1 EA; Start 02/20/17 at 02:00 Insulin Aspart NOVOLOG *MILD* ALGORITHM Q4 SC Last administered on 02/23/17 09 :04; Admin Dose 3 UNIT; Start 02/20/17 at 13:00 Norepinephrine/ Dextrose (Levophed/D5W) 500 ml @ 1.87 mls/hr TITRATE IV Last administered on 02/22/17 05:57; Admin Dose 1.87 MLS/HR; Start 02/20/17 at 11:00 Pantoprazole 40 mg 40 mg BID@06,18 IV Last administered on 02/23/17 05:14; Admin Dose 40 MG; Start 02/20/17 at 18:00 Sodium Bicarbonate 50 meq/Dextrose 1,050 ml @ 75 mls/hr Q14H IV Last administered on 02/22/17 20:41; Admin Dose 75 MLS/HR; Start 02/20/17 at 13:00 Vancomycin HCl (Vancocin) 250 ml @ 125 mls/hr Q36H IVPB Last administered on 22:34; Admin Dose 125 MLS/HR; Start 02/21/17 at 10:00 Aspirin (Halfprin) 81 mg DAILY PO Last administered on 02/22/17 09:35; Admin Dose 81 MG; Start 02/21/17 at 09:00 Levothyroxine Sodium (Synthroid) 50 mcg DAILY@06 PO Last administered on 05:54; Admin Dose 50 MCG; Start 02/22/17 at 06:00; Status Future hold Venlafaxine HCl (Effexor) 25 mg BID NGT Last administered on 02/23/17 09:01; Admin Dose 25 MG; Start 02/22/17 at 10:30 Insulin Glargine 12 unit 12 unit HS SC ; Start 02/23/17 at 21:00 Sodium Chloride (NS) 500 ml @ 500 mls/hr Q1H ONCE IV ; Start 02/23/17 at 10:00 ; Stop 02/23/17 at 10:59 JOHN HOGAN MD February 23, 2017 10:12
[2017-02-23] MEDS: ASPIRIN (EC) 81 MG TAB PO SCH (10:58)
[2017-02-23] MEDS: TICAGRELOR 90 MG TABLET PO SCH (11:03)
[2017-02-23] MEDS: SODIUM BICARBONATE (IV ADD) 50 MEQ in DEXTROSE 5% 1,000 ML IV SCH (11:54)
--- NOTE | 2017-02-23 13:28 | PN ---
DATE: 02/23/2017 SUBJECTIVE: No acute changes. The patient is more awake today and looks comfortable. No fevers. Still on low dose pressors. LABORATORY DATA: WBC today 15.9, H and H 10.2 and 31.2, platelets 78, neutrophils 90, bands 4, lymp hs 3. BUN 31, creatinine 1.32, sodium 132. MICROBIOLOGY: Cultures have been negative. DIAGNOSTICS: Chest x-ray this morning revealed bibasilar atelectatic changes. INDWELLINGS: NG tube, right IJ triple-lumen catheter, Christopher catheter. ANTIMICROBIALS: 1. Vancomycin. 2. Cefepime day #5. PHYSICAL EXAMINATION: GENERAL: This is a fragile, chronically ill-appearing, elderly man who is lethargic, arousable, in no distress. HEENT: Head atraumatic, normocephalic. Sclerae anicteric. Buccal mucosa dry. NECK: Supple. CHEST: Rise symmetrical. Breath sounds diminished to bases. HEART: S1, S2. ABDOMEN: Soft. Bowel sounds present. EXTREMITIES: Without cyanosis. ASSESSMENT: 1. Severe sepsis with shock and persistent lactic acidosis with lactic acid today 2.7. 2. Pneumonia, possibly aspiration type. 3. Encephalopathy. 4. Diabetes. 5. History of prostate cancer. 6. Acute renal failure secondary to sepsis. PLAN: Remains on pressors, although more awake today. White blood cell count tracing down. Contin ue present care, antibiotics. Follow recommendations of consultants. Check liver ultrasound to homero luate transaminitis. Dictated By: MICHAELA SPEARS BOOKS SALESPERSON for SUNITHA COLINDRES/LADY Conf#: [id number] DID#: [id number]
--- NOTE | 2017-02-23 17:03 | CONS ---
Date/Time of Note Date/Time of Note DATE: 02/23/17 TIME: 17:00 Assessment/Plan Assessment/Plan Additional Assessment/Plan 1. Septic shock, likely secondary to possible Clostridium difficile. 2. Acute kidney injury secondary to acute tubular necrosis from septic shock. 3. Hyperchloremic non-anion gap metabolic acidosis likely secondary to severe diarrhea. Currently, the patient's bicarbonate has been dropped down to 16. 4. Hyponatremia, likely secondary to hypovolemic hyponatremia. 5. 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 6. Hypocalcemia, but the corrected calcium with a low albumin has been pretty much normal. PLAN: continue Bicarbonate drip- will check ABG in am and decide for discontinuing bicarbonate drip Cr improving, monitor electrolytes today BP more stable, titrate levophed gtt to off U/o 1145 cc so far will continue to follow up Full Code Consultation Date/Type/Reason Admit Date/Time February 19, 2017 at 14:52 Initial Consult Date 02/20/2017 Type of Consultation: NEPHROLOGY Referring Provider: HARDIK MCBRIDE TAX AUDITOR 24 HR Interval Summary Free Text/Dictation Na improved to 132, Bp stbale, afebrile, Cr slightly improved Exam/Review of Systems Vital Signs Vitals Vital Signs Date Time Temp Pulse Resp B/P Pulse Ox O2 Delivery O2 Flow Rate FiO2 02/23/17 16:51 2.0 02/23/17 16:00 98.2 115 21 92/59 100 Nasal Cannula 02/23/17 02:29 27 Intake and Output 02/22/17 02/22/17 02/23/17 15:00 23:00 07:00 Intake Total 935.61 ml 1263.04 ml 1237.50 ml Output Total 265 ml 320 ml 530 ml Balance 670.61 ml 943.04 ml 707.50 ml Results Result Diagram: 02/23/17 0500 02/23/17 0540 Results 24 hrs Laboratory Tests Test 02/22/17 17:54 02/22/17 20:51 02/22/17 21:12 02/23/17 00:38 Bedside Glucose 128 203 146 Vancomycin Level Trough 12.5 Test 02/23/17 05:00 02/23/17 05:13 02/23/17 05:30 02/23/17 05:40 White Blood Count 15.9 H Red Blood Count 3.48 L Hemoglobin 10.2 L Hematocrit 31.2 L Mean Corpuscular Volume 89.7 Mean Corpuscular Hemoglobin 29.3 Mean Corpuscular Hemoglobin Concent 32.7 Red Cell Distribution Width 16.9 H Platelet Count 78 #L Mean Platelet Volume 10.5 H Neutrophils % 90.0 H Band Neutrophils % 4.0 Lymphocytes % 3.0 L Monocytes % 3.0 Eosinophils % Neutrophils # 14.3 H Lymphocytes # 0.5 L Monocytes # 0.5 Eosinophils # Bedside Glucose 195 Lactic Acid Level 2.7 H Prothrombin Time 19.8 H Prothrombin Time Ratio 1.5 INR International Normalized Ratio 1.67 Activated Partial Thromboplast Time 39.4 H Sodium Level 132 L Potassium Level 3.5 Chloride Level 106 Carbon Dioxide Level 19 L Anion Gap 11 Blood Urea Nitrogen 31 H Creatinine 1.32 H Glucose Level 194 Calcium Level 6.3 L Phosphorus Level 2.2 #L Magnesium Level 1.8 Total Bilirubin 0.1 L Direct Bilirubin 0.00 Indirect Bilirubin 0.1 Aspartate Amino Transf (AST/SGOT) 136 H Alanine Aminotransferase (ALT/SGPT) 102 H Alkaline Phosphatase 418 H Total Protein 3.3 L Albumin 1.4 L Globulin 1.90 Albumin/Globulin Ratio 0.73 Test 02/23/17 08:59 02/23/17 12:36 Bedside Glucose 239 H 226 H Medications Medications Current Medications Vancomycin HCl 125 mg 125 mg Q6 PO Last administered on 02/23/17 11:06; Admin Dose 125 MG; Start 02/19/17 at 18:00 Cefepime HCl (Maxipime 2gm/50 ml (Pmx)) 50 ml @ 100 mls/hr Q24H IVPB Last administered on 02/22/17 17:47; Admin Dose 100 MLS/HR; Start 02/19/17 at 17:30 Lactobacillus Acidophilus/ Rhamnosus (Culturelle) 1 cap BID PO Last administered on 02/23/17 09:00; Admin Dose 1 CAP; Start 02/19/17 at 21:00 Multivitamins Therapeutic (Theragran) 1 tab DAILY PO Last administered on 09:00; Admin Dose 1 TAB; Start 02/20/17 at 09:00 Ascorbic Acid (Vitamin C) 500 mg QAM PO Last administered on 02/23/17 09:00; Admin Dose 500 MG; Start 02/20/17 at 09:00 Prednisone (Prednisone) 10 mg QAM PO Last administered on 02/21/17 08:49; Admin Dose 10 MG; Start 02/19/17 at 16:30; Status Future Hold Ticagrelor (Brilinta) 90 mg QAM PO Last administered on 02/23/17 11:03; Admin Dose 90 MG; Start 02/19/17 at 16:30 Zinc Sulfate (Zinc Sulfate) 220 mg QAM PO Last administered on 02/23/17 09:00 ; Admin Dose 220 MG; Start 02/20/17 at 09:00 Atorvastatin Calcium (Lipitor) 80 mg DAILY@21 PO Last administered on 20:42; Admin Dose 80 MG; Start 02/19/17 at 21:00 Ondansetron HCl (Zofran Inj) 4 mg Q6H PRN IV NAUSEA AND/OR VOMITING; Start at 16:30 Acetaminophen (Tylenol Tab) 650 mg Q6H PRN PO PAIN LEVEL 1-3 OR FEVER; Start at 16:30 Acetaminophen (Tylenol Supp) 650 mg Q6H PRN [place] PAIN LEVEL 1-3 OR FEVER; Start 02/19/17 at 16:30 Acetaminophen/ Hydrocodone Bitart ([place] (5/325)) 1 tab Q6H PRN PO MODERATE PAIN LEVEL 4-6; Start 02/19/17 at 16:30 Morphine Sulfate (morphine) 2 mg Q4H PRN IV SEVERE PAIN LEVEL 7-10; Start 02/19 at 16:30 Miscellaneous Information 1 ea NOTE XX ; Start 02/19/17 at 16:30 Glucose (Glutose) 15 gm Q15M PRN PO DECREASED GLUCOSE; Start 02/19/17 at 16:30 Glucose (Glutose) 22.5 gm Q15M PRN PO DECREASED GLUCOSE; Start 02/19/17 at 16: 30 Dextrose (D50w Syringe) 25 ml Q15M PRN IV DECREASED GLUCOSE Last administered on 02/20/17 03:06; Admin Dose 25 ML; Start 02/19/17 at 16:30 Dextrose (D50w Syringe) 50 ml Q15M PRN IV DECREASED GLUCOSE; Start 02/19/17 at 16:30 Glucagon (Glucagen) 1 mg Q15M PRN IM DECREASED GLUCOSE; Start 02/19/17 at 16:30 Glucose (Glutose) 15 gm Q15M PRN BUCCAL DECREASED GLUCOSE; Start 02/19/17 at 16 :30 Diagnostic Test (Pha) (Accu-Chek) 1 ea 02 XX Last administered on 02/22/17 01: 36; Admin Dose 1 EA; Start 02/20/17 at 02:00 Insulin Aspart NOVOLOG *MILD* ALGORITHM Q4 SC Last administered on 02/23/17 12 :39; Admin Dose 3 UNIT; Start 02/20/17 at 13:00 Norepinephrine/ Dextrose (Levophed/D5W) 500 ml @ 1.87 mls/hr TITRATE IV Last administered on 02/22/17 05:57; Admin Dose 1.87 MLS/HR; Start 02/20/17 at 11:00 Pantoprazole 40 mg 40 mg BID@06,18 IV Last administered on 02/23/17 05:14; Admin Dose 40 MG; Start 02/20/17 at 18:00 Sodium Bicarbonate 50 meq/Dextrose 1,050 ml @ 75 mls/hr Q14H IV Last administered on 02/23/17 11:54; Admin Dose 75 MLS/HR; Start 02/20/17 at 13:00 Vancomycin HCl (Vancocin) 250 ml @ 125 mls/hr Q36H IVPB Last administered on 22:34; Admin Dose 125 MLS/HR; Start 02/21/17 at 10:00 Aspirin (Halfprin) 81 mg DAILY PO Last administered on 02/23/17 10:58; Admin Dose 81 MG; Start 02/21/17 at 09:00 Levothyroxine Sodium (Synthroid) 50 mcg DAILY@06 PO Last administered on 05:54; Admin Dose 50 MCG; Start 02/22/17 at 06:00; Status Future hold Venlafaxine HCl (Effexor) 25 mg BID NGT Last administered on 02/23/17 09:01; Admin Dose 25 MG; Start 02/22/17 at 10:30 Insulin Glargine (Lantus) 12 unit HS SC ; Start 02/23/17 at 21:00 ANJEL LEE MD February 23, 2017 17:03
[2017-02-23] MEDS: CEFEPIME 2GM/50 ML (PMX) 50 ML IVPB SCH (17:38)
[2017-02-23] MEDS ORDERED: CYANOCOBALAMIN 1000 MCG INJ IM ONE (19:00)
[2017-02-23] MEDS: ATORVASTATIN 80 MG TAB PO SCH (20:28)
[2017-02-23] MEDS ORDERED: SOD FERRIC GLUC COMPLX 125 MG in SOD CHLORIDE 0.9% 100 ML IVPB ONE (20:30)
[2017-02-23] MEDS ORDERED: INSULIN GLARGINE [LANtus] 3 ML PEN SC SCH (21:00)
[2017-02-24] VITALS (94 sets, daily range): BP systolic 77–116; BP diastolic 39–74; PULSE 97–126; RESP 12–31
[2017-02-24] MEDS: VANCOMYCIN HCL 250 MG/5ML POSYG PO SCH ×5 (00:10→18:00)
[2017-02-24] MEDS: SODIUM BICARBONATE (IV ADD) 50 MEQ in DEXTROSE 5% 1,000 ML IV SCH ×3 (01:00→21:06)
[2017-02-24] MEDS: INSULIN ASPART [NOVOLOG] 3 ML PEN SC SCH ×6 (01:12→21:00)
[2017-02-24] MEDS: ACCUCHECK AT 2AM (Patients on SS coverage) XX SCH (02:12)
--- NOTE | 2017-02-24 04:57 | RADRPT ---
PROCEDURE: US Abdomen. CLINICAL INDICATION: Elevated liver function tests TECHNIQUE: Pradhan scale and color Doppler imaging of the right upper quadrant COMPARISON: 02/19/2017 FINDINGS: The aorta and visualized inferior vena cava were not well seen due to bowel gas. The liver was smal l in size and slightly heterogeneous with a suggestion of micronodularity. This may be due to cirrh osis. Hepatopedal flow was seen in the main portal vein. Sludge and small stones were seen in the g allbladder and gallbladder neck. No gallbladder wall thickening was seen. No pericholecystic fluid was seen. No intra or extrahepatic biliary dilatation is seen. The common bile duct measures 5 mm in maximal dimension. The right kidney measures 11.1 cm. No hydronephrosis or renal calculi are see n. The right kidney was diffusely echogenic suggesting medical renal disease The pancreas was not s een due to bowel gas.. Mild free fluid was seen anterior to the liver. IMPRESSION: Study slightly limited by bowel gas. question cirrhosis. Sludge and small stones in the gallbladde r without definite secondary signs of acute cholecystitis. HIDA scan correlation may be obtained if indicated. Echogenic right kidney suggesting medical renal disease. RPTAT: [facility] Physician Himanshu Date Time Electronically viewed and signed by Physician Himanshu on 02/24/2017 04:57 JULIÁN/
[2017-02-24] MEDS: PANTOPRAZOLE 40 MG INJ IV SCH ×2 (05:20→17:16)
[2017-02-24 05:35] LABS: ADD SCAN DIFF NO
[2017-02-24 05:36] LABS: Arterial Base Excess -2.7 mmol/L (-3.0-3); Arterial COHb 0.3 % (0.0-3.0); Arterial HCO3 19.4 mmol/L (22.0-26.0); Arterial MetHb 0 % (0.0-1.5); Arterial Total Hemglobin 10.5 g/dl (12.0-18.0)
[2017-02-24 05:37] LABS: AADO2 Arterial 108.2 mmHg (7.0-24.0); MODE NASAL CANNULA
[2017-02-24 05:39] LABS: ABNORMAL IP MESSAGE 1; BASOPHILS % 0.2 % (0.0-2.0); EOSINOPHILS # 0.2 10^3/ul (0.0-0.5); EOSINOPHILS % 1.7 % (0.0-7.0); HEMATOCRIT 29.2 % (42.0-52.0); HEMOGLOBIN 9.7 g/dl (14.0-18.0); LYMPHOCYTES # 0.9 10^3/ul (0.8-2.9); MEAN CORPUSCULAR HEMOGLOBIN 29.5 pg (29.0-33.0); MEAN CORPUSCULAR HGB CONC 33.2 g/dl (32.0-37.0); MEAN CORPUSCULAR VOLUME 88.8 fl (82.0-101.0); MEAN PLATELET VOLUME 10.4 fl (7.4-10.4); MONOCYTE # 0.3 10^3/ul (0.3-0.9); NEUTROPHIL # 9.8 10^3/ul (1.6-7.5); NEUTROPHILS % 85.3 % (39.0-77.0); PLATELET COUNT 53 10^3/UL (140-415); RED BLOOD COUNT 3.29 10^6/ul (4.70-6.10); RED CELL DISTRIBUTION WIDTH 16.7 % (11.5-14.5); WHITE BLOOD COUNT 11.5 10^3/ul (4.8-10.8)
[2017-02-24 06:01] LABS: INR 1.64; PROTIME 19.5 Sec (12.2-14.2); PT RATIO 1.5
[2017-02-24 06:12] LABS: ALBUMIN 1.2 g/dl (3.3-4.9); ALBUMIN/GLOBULIN RATIO 0.63; CALCIUM 6.1 mg/dl (8.4-10.2); CREATININE 1.2 mg/dl (0.61-1.24); MAGNESIUM 1.6 mg/dl (1.7-2.5); TOTAL PROTEIN 3.1 g/dl (6.1-8.1)
[2017-02-24 06:20] LABS: POTASSIUM 2.9 mmol/L (3.5-5.1)
[2017-02-24] MEDS ORDERED: MAGNESIUM SULFATE 2 GM/50 ML 50 ML IVPB ONE (06:30)
[2017-02-24] MEDS: POTASSIUM CHLORIDE 250 ML IVPB SCH ×2 (06:35→10:14)
--- NOTE | 2017-02-24 07:49 | PN ---
DATE: 02/24/2017 CARDIOLOGY FOLLOWUP SUBJECTIVE: Discussed with the staff. Rhythm strip was reviewed. The patient remains in sinus rhy thm, sinus tachycardia. Status post NG feeding. Still tachycardic, but in sinus, with no evidence of SVT or atrial fibrillation. The patient denies any chest pain. Discussed with the staff. MEDICATIONS: Reviewed, as per medication reconciliation, personally reviewed. The patient has not been able to be taken off of the Levophed yet, currently on . PHYSICAL EXAMINATION: VITAL SIGNS: Heart rate of 120, temperature is afebrile at 97.7, blood pressure 88/54, respiratory rate of 20. HEENT: Normocephalic, atraumatic. Status post NG tube in place. In no acute distress. CARDIOVASCULAR: Tachycardic, a systolic murmur. PULMONARY: With mild rhonchi. GASTROINTESTINAL: Soft, nontender. EXTREMITIES: Diffuse lower extremity edema. NEUROLOGIC: Lethargic, drowsy and sleepy. PSYCHIATRIC: Appears to be calm. LABORATORY: WBC of 11.5, hemoglobin 9.7, platelets of 53. Sodium 130, potassium 2.9, BUN of 30, cr eatinine 1.2, glucose of 142, magnesium is 1.6, phosphorus is 1.5. ALT of 117, AST of 120. Albumin is 1.2. ABG done this morning shows a pH of 7.49, pCO2 of 25, pO2 of 61. I's and O's shows 4093 i n and 3025 out. has been about 5 or 6 now. ASSESSMENT AND PLAN: 1. Sinus tachycardia, multifactorial, currently slightly improved. 2. Sepsis and shock, possibly partially related to hypovolemia. 3. Severe malnutrition with an albumin level of 1.2 now. 4. Coronary artery disease with a history of recent percutaneous coronary intervention. 5. Thrombocytopenia. 6. Diabetes. 7. Thyroid disorder. 8. Coagulopathy. 9. Possible cirrhosis. RECOMMENDATIONS: I will give another dose of vitamin K today. Magnesium and potassium to be replac ed. Continue the Brilinta once a day, but the aspirin is on hold, given his thrombocytopenia. Mague tor him closely in the ICU. Levophed will be continued and adjusted as needed. Antibiotics as per i nternal medicine. Will continue with the ICU care. I am unable to give any beta blockers due to hi s severe hypotension. More than 38 minutes of critical care time was spent in management of this patient, excluding any pr ocedures. Dictated By: CAITIE ESTRELLA/LADY Conf#: [id number] DID#: [id number]
[2017-02-24 08:13] LABS: INR 1.69; PT RATIO 1.6
--- NOTE | 2017-02-24 08:29 | PN ---
Date/Time of Note Date/Time of Note DATE: 02/24/17 TIME: 08:27 Assessment/Plan VTE Prophylaxis VTE Prophylaxis Intervention: SCD's Lines/Catheters IV [facility]ter Type (from [facility]): Central Line Central line still needed: Yes Urinary Cath still in place: Yes Reason Cath still needed: other (indicate) Assessment/Plan Chief Complaint/Hosp Course Chief Complaint/Hosp Course 1. Sepsis with underlying septic shock. Etiology could be probably healthcare associated pneumonia. [place] cultures are negative so far. Continue pressors to keep hemodynamic status stable. Continue broad-spectrum IV antibiotics and fluids. 2. Sinus tachycardia. Etiology unclear. Probably secondary to underlying sepsis. Cardiology on case since the patient has a known history of coronary artery disease. Thyroid function showed evidence of hyperthyroidism. Therefore , the patient's Synthroid was discontinued. 3. Coronary artery disease. The patient will be continued on antiplatelet medications. 4. Type 2 diabetes mellitus. Hemoglobin A1c is 6.4. Continue sliding scale insulin. Increase Lantus to 12 units 5. Hypothyroidism. Thyroid panel showing evidence of hyperthyroidism. Synthroid on hold. 6. Dyslipidemia. Continue statins. 7. Prostate cancer. No evidence of any metastasis. 8. Nonoliguric acute kidney injury in a patient with unknown baseline creatinine. Continue IV hydration. Nephrology following. 9. Normocytic normochromic anemia. Etiology unclear. Iron panel showing low iron and low TIBC with a high ferritin. Pending stool for OB. Status post 1 unit of PRBC transfusion on 02/20/2017. 10. Hypoalbuminemia. The etiology is unclear. Will obtain a dietary consult. Will continue tube feedings. 11. Non-anion gap metabolic acidosis. Status post bicarbonate drip. Nephrology following. 12. Hematuria. Resolved. 13. Coagulopathy. Likely secondary to sepsis versus anticoagulant. Will hold the patient's anticoagulants. However, he will be continued on antiplatelet therapy since the patient has history of CAD status post stent placement. The patient will be monitored closely for any bleeding. 14. Dysphagia. Speech therapy evaluation ongoing. The patient will be kept n.p.o. Medications and feeding will be given through NG tube. 15. Hypokalemia and hypomagnesemia, repleted, follow up electrolytes in a.m. - DVT prophylaxis with bilateral sequential compression devices. - Gastrointestinal prophylaxis. Proton pump inhibitors. PLAN: 1. Continue to wean down pressors as tolerated. 2. Continue antibiotics. 3. Associate Drafter management and recommendation are appreciated Problems: Subjective 24 Hr Interval Summary Free Text/Dictation No acute changes Patient is tolerating NG tube feeding Continues to be on pressors More awake and alert Exam/Review of Systems Vital Signs Vitals Vital Signs Date Time Temp Pulse Resp B/P Pulse Ox O2 Delivery O2 Flow Rate FiO2 02/24/17 06:45 120 20 88/54 100 02/24/17 06:00 Nasal Cannula 2.0 02/24/17 05:42 33 02/24/17 05:30 97.7 Intake and Output 02/23/17 02/23/17 02/24/17 15:00 23:00 07:00 Intake Total 1850.29 ml 1224.02 ml 1019.37 ml Output Total 625 ml 375 ml 325 ml Balance 1225.29 ml 849.02 ml 694.37 ml Exam General: The patient is well-developed, Not in acute distress. HEENT: Atraumatic, normocephalic. The pupils are equal and round . NG tube in place Neck: Supple with full range of motion. Chest: Normal expansion of the thorax during inspiration Lungs: Clear to auscultation bilaterally Heart: Normal S1-S2, tachycardic Abdomen: Soft , nontender, nondistended , bowel sounds are present. Extremities: Normal to inspection, no edema no cyanosis Neurologic: The patient is awake, alert Results Result Diagram: 02/24/17 0330 02/24/17 0330 Results 24 hrs Laboratory Tests Test 02/23/17 08:59 02/23/17 12:36 02/23/17 17:51 02/23/17 20:29 Bedside Glucose 239 H 226 H 196 164 Test 02/24/17 01:06 02/24/17 03:30 02/24/17 05:00 02/24/17 05:13 Bedside Glucose 172 163 White Blood Count 11.5 #H Red Blood Count 3.29 L Hemoglobin 9.7 L Hematocrit 29.2 L Mean Corpuscular Volume 88.8 Mean Corpuscular Hemoglobin 29.5 Mean Corpuscular Hemoglobin Concent 33.2 Red Cell Distribution Width 16.7 H Platelet Count 53 #L Mean Platelet Volume 10.4 Neutrophils % 85.3 H Lymphocytes % 8.0 L Monocytes % 3.0 Eosinophils % 1.7 Basophils % 0.2 Nucleated Red Blood Cells % 0.0 Neutrophils # 9.8 H Lymphocytes # 0.9 Monocytes # 0.3 Eosinophils # 0.2 Basophils # 0.0 Nucleated Red Blood Cells # 0.0 Prothrombin Time 19.5 H Prothrombin Time Ratio 1.5 INR International Normalized Ratio 1.64 Sodium Level 130 L Potassium Level 2.9 *L Chloride Level 108 Carbon Dioxide Level 20 L Anion Gap 5 L Blood Urea Nitrogen 30 H Creatinine 1.20 Glucose Level 142 # Lactic Acid Level 1.9 Calcium Level 6.1 L Phosphorus Level 1.5 L Magnesium Level 1.6 L Total Bilirubin 0.0 L Direct Bilirubin 0.00 Indirect Bilirubin 0.0 Aspartate Amino Transf (AST/SGOT) 120 H Alanine Aminotransferase (ALT/SGPT) 117 H Alkaline Phosphatase 471 H Total Protein 3.1 L Albumin 1.2 L Globulin 1.90 Albumin/Globulin Ratio 0.63 Blood Gas Specimen Source Blood arterial Arterial Blood Date Drawn 02/24/2017 5:25:16 AM Arterial Blood pH (Temp corrected) 7.496 H Arterial Blood pCO2 (Temp correct) 25.7 L Arterial Blood pO2 (Temp corrected) 61.1 L Arterial Blood HCO3 19.4 L Arterial Blood Base Excess -2.7 Arterial Blood Oxygen Saturation 92.3 L Tera Test N/A Arterial Blood Gas Puncture Site Right Brachial Arterial Blood Carboxyhemoglobin 0.3 Arterial Blood Methemoglobin 0 Blood Gas A-a O2 Differential 108.2 H Oxyhemoglobin Percent 92.0 L Total Hemoglobin 10.5 L Blood Gas Temperature 37.0 Blood Gas Modality NASAL CANNULA FiO2 28.0 Blood Gas Notified Whom MA Blood Gas Notified Time 02/24/2017 5:36:51 AM Test 02/24/17 07:45 Prothrombin Time 20.0 H Prothrombin Time Ratio 1.6 INR International Normalized Ratio 1.69 Activated Partial Thromboplast Time 42.0 H Medications Medications Current Medications Vancomycin HCl 125 mg 125 mg Q6 PO Last administered on 02/24/17 05:20; Admin Dose 125 MG; Start 02/19/17 at 18:00 Cefepime HCl (Maxipime 2gm/50 ml (Pmx)) 50 ml @ 100 mls/hr Q24H IVPB Last administered on 02/23/17 17:38; Admin Dose 100 MLS/HR; Start 02/19/17 at 17:30 Lactobacillus Acidophilus/ Rhamnosus (Culturelle) 1 cap BID PO Last administered on 02/23/17 20:28; Admin Dose 1 CAP; Start 02/19/17 at 21:00 Multivitamins Therapeutic (Theragran) 1 tab DAILY PO Last administered on 09:00; Admin Dose 1 TAB; Start 02/20/17 at 09:00 Ascorbic Acid (Vitamin C) 500 mg QAM PO Last administered on 02/23/17 09:00; Admin Dose 500 MG; Start 02/20/17 at 09:00 Ticagrelor (Brilinta) 90 mg QAM PO Last administered on 02/23/17 11:03; Admin Dose 90 MG; Start 02/19/17 at 16:30 Zinc Sulfate (Zinc Sulfate) 220 mg QAM PO Last administered on 02/23/17 09:00 ; Admin Dose 220 MG; Start 02/20/17 at 09:00 Atorvastatin Calcium (Lipitor) 80 mg DAILY@21 PO Last administered on 20:28; Admin Dose 80 MG; Start 02/19/17 at 21:00 Ondansetron HCl (Zofran Inj) 4 mg Q6H PRN IV NAUSEA AND/OR VOMITING; Start at 16:30 Acetaminophen (Tylenol Tab) 650 mg Q6H PRN PO PAIN LEVEL 1-3 OR FEVER; Start at 16:30 Acetaminophen (Tylenol Supp) 650 mg Q6H PRN [place] PAIN LEVEL 1-3 OR FEVER; Start 02/19/17 at 16:30 Acetaminophen/ Hydrocodone Bitart ([place] (5/325)) 1 tab Q6H PRN PO MODERATE PAIN LEVEL 4-6; Start 02/19/17 at 16:30 Morphine Sulfate (morphine) 2 mg Q4H PRN IV SEVERE PAIN LEVEL 7-10; Start 02/19 at 16:30 Miscellaneous Information 1 ea NOTE XX ; Start 02/19/17 at 16:30 Glucose (Glutose) 15 gm Q15M PRN PO DECREASED GLUCOSE; Start 02/19/17 at 16:30 Glucose (Glutose) 22.5 gm Q15M PRN PO DECREASED GLUCOSE; Start 02/19/17 at 16: 30 Dextrose (D50w Syringe) 25 ml Q15M PRN IV DECREASED GLUCOSE Last administered on 02/20/17 03:06; Admin Dose 25 ML; Start 02/19/17 at 16:30 Dextrose (D50w Syringe) 50 ml Q15M PRN IV DECREASED GLUCOSE; Start 02/19/17 at 16:30 Glucagon (Glucagen) 1 mg Q15M PRN IM DECREASED GLUCOSE; Start 02/19/17 at 16:30 Glucose (Glutose) 15 gm Q15M PRN BUCCAL DECREASED GLUCOSE; Start 02/19/17 at 16 :30 Diagnostic Test (Pha) (Accu-Chek) 1 ea 02 XX Last administered on 02/24/17 02: 12; Admin Dose 1 EA; Start 02/20/17 at 02:00 Insulin Aspart NOVOLOG *MILD* ALGORITHM Q4 SC Last administered on 02/24/17 05 :16; Admin Dose 1 UNIT; Start 02/20/17 at 13:00 Norepinephrine/ Dextrose (Levophed/D5W) 500 ml @ 1.87 mls/hr TITRATE IV Last administered on 02/22/17 05:57; Admin Dose 1.87 MLS/HR; Start 02/20/17 at 11:00 Pantoprazole 40 mg 40 mg BID@06,18 IV Last administered on 02/24/17 05:20; Admin Dose 40 MG; Start 02/20/17 at 18:00 Sodium Bicarbonate 50 meq/Dextrose 1,050 ml @ 75 mls/hr Q14H IV Last administered on 02/23/17 11:54; Admin Dose 75 MLS/HR; Start 02/20/17 at 13:00 Vancomycin HCl (Vancocin) 250 ml @ 125 mls/hr Q36H IVPB Last administered on 22:34; Admin Dose 125 MLS/HR; Start 02/21/17 at 10:00 Aspirin (Halfprin) 81 mg DAILY PO Last administered on 02/23/17 10:58; Admin Dose 81 MG; Start 02/21/17 at 09:00; Status Future Hold Levothyroxine Sodium (Synthroid) 50 mcg DAILY@06 PO Last administered on 05:54; Admin Dose 50 MCG; Start 02/22/17 at 06:00; Status Future hold Venlafaxine HCl (Effexor) 25 mg BID NGT Last administered on 5/18/17at 20:28; Admin Dose 25 MG; Start 02/22/17 at 10:30 Insulin Glargine 8 unit 8 unit BID SC Last administered on 02/23/17 20:38; Admin Dose 8 UNIT; Start 02/23/17 at 21:00 Potassium Chloride 250 ml @ 62.5 mls/hr Q4H IVPB Last administered on 06:35; Admin Dose 62.5 MLS/HR; Start 02/24/17 at 06:30; Stop 02/24/17 at 14 :29 Magnesium Sulfate/ Sodium Chloride (Magnesium Sulfate/NS) 106 ml @ 35.333 mls/ hr ONCE ONCE IVPB ; Start 02/24/17 at 09:00; Stop 02/24/17 at 11:59 Phytonadione (Vitamin K Soln) 10 mg DAILY PO ; Start 02/24/17 at 09:00; Stop at 09:01 JOHN HOGAN MD February 24, 2017 08:29
[2017-02-24] MEDS ORDERED: SOD CHLORIDE 0.9% 500 ML IV ONE (08:30)
[2017-02-24] MEDS: VENLAFAXINE 25 MG TAB NGT SCH ×2 (08:53→21:05)
[2017-02-24] MEDS: LACTOBACILLUS RHAMNOSUS CAP PO SCH ×2 (08:53→21:05)
[2017-02-24] MEDS: ZINC SULFATE 220 MG CAP PO SCH (08:53)
[2017-02-24] MEDS: MULTIVITAMINS THERAPEUTIC TAB PO SCH (08:53)
[2017-02-24] MEDS: ALBUMIN HUMAN 25% 100 ML IV SCH ×2 (08:53→17:21)
[2017-02-24] MEDS: ASCORBIC ACID 500 MG TAB PO SCH (08:53)
[2017-02-24] MEDS: PHYTONADIONE (1 MG/ML PO SYG) PO SCH (08:56)
[2017-02-24] MEDS: INSULIN GLARGINE [LANtus] 3 ML PEN SC SCH ×2 (08:57→21:16)
[2017-02-24] MEDS: TICAGRELOR 90 MG TABLET PO SCH (08:58)
[2017-02-24] MEDS ORDERED: MAGNESIUM SULFATE 3 GM in SOD CHLORIDE 0.9% 100 ML IVPB ONE (09:00)
--- NOTE | 2017-02-24 09:57 | CONS ---
Date/Time of Note Date/Time of Note DATE: 02/24/17 TIME: 09:55 Consult Date/Type/Reason Admit Date/Time February 19, 2017 at 14:52 Type of Consultation: Pulmonary Ordering Provider: HARDIK MCBRIDE [employer] TEAM [employer]BER Subjective Low-dose vasopressors but did respond to fluid challenge Objective Vital Signs Date Time Temp Pulse Resp B/P Pulse Ox O2 Delivery O2 Flow Rate FiO2 02/24/17 09:45 102 16 96/50 02/24/17 09:30 100 02/24/17 09:00 Nasal Cannula 02/24/17 08:00 97.7 02/24/17 06:00 2.0 02/24/17 05:42 33 Intake and Output 02/23/17 02/23/17 02/24/17 15:00 23:00 07:00 Intake Total 1850.29 ml 1224.02 ml 1019.37 ml Output Total 625 ml 375 ml 325 ml Balance 1225.29 ml 849.02 ml 694.37 ml Exam GENERAL: Elderly gentleman comfortable at rest no acute distress VITAL SIGNS: per chart NECK: Supple. No JVD or lymphadenopathy. CARDIAC EXAM: S1, S2. No added sounds or murmurs. CHEST: clear bilaterally, No added sounds, rales or wheezes ABDOMEN: Soft, nontender. No guarding or rebound. EXTREMITIES: No cyanosis, clubbing or edema. NEUROLOGIC: Generalized weakness. No focal deficits. Results/Medications Result Diagram: 02/24/17 0330 02/24/17 0330 Results 24 hrs Laboratory Tests Test 02/23/17 12:36 02/23/17 17:51 02/23/17 20:29 02/24/17 01:06 Bedside Glucose 226 H 196 164 172 Test 02/24/17 03:30 02/24/17 05:00 02/24/17 05:13 02/24/17 07:45 White Blood Count 11.5 #H Red Blood Count 3.29 L Hemoglobin 9.7 L Hematocrit 29.2 L Mean Corpuscular Volume 88.8 Mean Corpuscular Hemoglobin 29.5 Mean Corpuscular Hemoglobin Concent 33.2 Red Cell Distribution Width 16.7 H Platelet Count 53 #L Mean Platelet Volume 10.4 Neutrophils % 85.3 H Lymphocytes % 8.0 L Monocytes % 3.0 Eosinophils % 1.7 Basophils % 0.2 Nucleated Red Blood Cells % 0.0 Neutrophils # 9.8 H Lymphocytes # 0.9 Monocytes # 0.3 Eosinophils # 0.2 Basophils # 0.0 Nucleated Red Blood Cells # 0.0 Prothrombin Time 19.5 H 20.0 H Prothrombin Time Ratio 1.5 1.6 INR International Normalized Ratio 1.64 1.69 Sodium Level 130 L Potassium Level 2.9 *L Chloride Level 108 Carbon Dioxide Level 20 L Anion Gap 5 L Blood Urea Nitrogen 30 H Creatinine 1.20 Glucose Level 142 # Lactic Acid Level 1.9 Calcium Level 6.1 L Phosphorus Level 1.5 L Magnesium Level 1.6 L Total Bilirubin 0.0 L Direct Bilirubin 0.00 Indirect Bilirubin 0.0 Aspartate Amino Transf (AST/SGOT) 120 H Alanine Aminotransferase (ALT/SGPT) 117 H Alkaline Phosphatase 471 H Total Protein 3.1 L Albumin 1.2 L Globulin 1.90 Albumin/Globulin Ratio 0.63 Blood Gas Specimen Source Blood arterial Arterial Blood Date Drawn 02/24/2017 5:25:16 AM Arterial Blood pH (Temp corrected) 7.496 H Arterial Blood pCO2 (Temp correct) 25.7 L Arterial Blood pO2 (Temp corrected) 61.1 L Arterial Blood HCO3 19.4 L Arterial Blood Base Excess -2.7 Arterial Blood Oxygen Saturation 92.3 L Tera Test N/A Arterial Blood Gas Puncture Site Right Brachial Arterial Blood Carboxyhemoglobin 0.3 Arterial Blood Methemoglobin 0 Blood Gas A-a O2 Differential 108.2 H Oxyhemoglobin Percent 92.0 L Total Hemoglobin 10.5 L Blood Gas Temperature 37.0 Blood Gas Modality NASAL CANNULA FiO2 28.0 Blood Gas Notified Whom MA Blood Gas Notified Time 02/24/2017 5:36:51 AM Bedside Glucose 163 Activated Partial Thromboplast Time 42.0 H Test 02/24/17 08:51 Bedside Glucose 161 Medications Current Medications Vancomycin HCl 125 mg 125 mg Q6 PO Last administered on 02/24/17 05:20; Admin Dose 125 MG; Start 02/19/17 at 18:00 Cefepime HCl (Maxipime 2gm/50 ml (Pmx)) 50 ml @ 100 mls/hr Q24H IVPB Last administered on 02/23/17 17:38; Admin Dose 100 MLS/HR; Start 02/19/17 at 17:30 Lactobacillus Acidophilus/ Rhamnosus (Culturelle) 1 cap BID PO Last administered on 02/24/17 08:53; Admin Dose 1 CAP; Start 02/19/17 at 21:00 Multivitamins Therapeutic (Theragran) 1 tab DAILY PO Last administered on 08:53; Admin Dose 1 TAB; Start 02/20/17 at 09:00 Ascorbic Acid (Vitamin C) 500 mg QAM PO Last administered on 02/24/17 08:53; Admin Dose 500 MG; Start 02/20/17 at 09:00 Ticagrelor (Brilinta) 90 mg QAM PO Last administered on 02/24/17 08:58; Admin Dose 90 MG; Start 02/19/17 at 16:30 Zinc Sulfate (Zinc Sulfate) 220 mg QAM PO Last administered on 02/24/17 08:53 ; Admin Dose 220 MG; Start 02/20/17 at 09:00 Atorvastatin Calcium (Lipitor) 80 mg DAILY@21 PO Last administered on 20:28; Admin Dose 80 MG; Start 02/19/17 at 21:00 Ondansetron HCl (Zofran Inj) 4 mg Q6H PRN IV NAUSEA AND/OR VOMITING; Start at 16:30 Acetaminophen (Tylenol Tab) 650 mg Q6H PRN PO PAIN LEVEL 1-3 OR FEVER; Start at 16:30 Acetaminophen (Tylenol Supp) 650 mg Q6H PRN [place] PAIN LEVEL 1-3 OR FEVER; Start 02/19/17 at 16:30 Acetaminophen/ Hydrocodone Bitart ([place] (5/325)) 1 tab Q6H PRN PO MODERATE PAIN LEVEL 4-6; Start 02/19/17 at 16:30 Morphine Sulfate (morphine) 2 mg Q4H PRN IV SEVERE PAIN LEVEL 7-10; Start 02/19 at 16:30 Miscellaneous Information 1 ea NOTE XX ; Start 02/19/17 at 16:30 Glucose (Glutose) 15 gm Q15M PRN PO DECREASED GLUCOSE; Start 02/19/17 at 16:30 Glucose (Glutose) 22.5 gm Q15M PRN PO DECREASED GLUCOSE; Start 02/19/17 at 16: 30 Dextrose (D50w Syringe) 25 ml Q15M PRN IV DECREASED GLUCOSE Last administered on 02/20/17 03:06; Admin Dose 25 ML; Start 02/19/17 at 16:30 Dextrose (D50w Syringe) 50 ml Q15M PRN IV DECREASED GLUCOSE; Start 02/19/17 at 16:30 Glucagon (Glucagen) 1 mg Q15M PRN IM DECREASED GLUCOSE; Start 02/19/17 at 16:30 Glucose (Glutose) 15 gm Q15M PRN BUCCAL DECREASED GLUCOSE; Start 02/19/17 at 16 :30 Diagnostic Test (Pha) (Accu-Chek) 1 ea 02 XX Last administered on 02/24/17 02: 12; Admin Dose 1 EA; Start 02/20/17 at 02:00 Insulin Aspart NOVOLOG *MILD* ALGORITHM Q4 SC Last administered on 02/24/17 08 :58; Admin Dose 1 UNIT; Start 02/20/17 at 13:00 Norepinephrine/ Dextrose (Levophed/D5W) 500 ml @ 1.87 mls/hr TITRATE IV Last administered on 02/22/17 05:57; Admin Dose 1.87 MLS/HR; Start 02/20/17 at 11:00 Pantoprazole 40 mg 40 mg BID@06,18 IV Last administered on 02/24/17 05:20; Admin Dose 40 MG; Start 02/20/17 at 18:00 Sodium Bicarbonate 50 meq/Dextrose 1,050 ml @ 100 mls/hr [id number] IV Last administered on 02/24/17 09:10; Admin Dose 100 MLS/HR; Start 02/20/17 at 13:00 Vancomycin HCl (Vancocin) 250 ml @ 125 mls/hr Q36H IVPB Last administered on 22:34; Admin Dose 125 MLS/HR; Start 02/21/17 at 10:00 Aspirin (Halfprin) 81 mg DAILY PO Last administered on 02/23/17 10:58; Admin Dose 81 MG; Start 02/21/17 at 09:00; Status Future Hold Levothyroxine Sodium (Synthroid) 50 mcg DAILY@06 PO Last administered on 05:54; Admin Dose 50 MCG; Start 02/22/17 at 06:00; Status Future hold Venlafaxine HCl (Effexor) 25 mg BID NGT Last administered on 02/24/17 08:53; Admin Dose 25 MG; Start 02/22/17 at 10:30 Insulin Glargine 8 unit 8 unit BID SC Last administered on 02/24/17 08:57; Admin Dose 8 UNIT; Start 02/23/17 at 21:00 Potassium Chloride 250 ml @ 62.5 mls/hr Q4H IVPB Last administered on 06:35; Admin Dose 62.5 MLS/HR; Start 02/24/17 at 06:30; Stop 02/24/17 at 14 :29 Magnesium Sulfate/ Sodium Chloride (Magnesium Sulfate/NS) 106 ml @ 35.333 mls/ hr ONCE ONCE IVPB Last administered on 02/24/17 09:10; Admin Dose 35.333 MLS/ HR; Start 02/24/17 at 09:00; Stop 02/24/17 at 11:59 Phytonadione 10 mg 10 mg DAILY PO Last administered on 02/24/17 08:56; Admin Dose 10 MG; Start 02/24/17 at 09:00; Stop 02/25/17 at 09:01 Albumin Human (Albumin Human 25%) 100 ml @ 100 mls/hr Q8H IV Last administered on 02/24/17 08:53; Admin Dose 100 MLS/HR; Start 02/24/17 at 08:30 ; Stop 02/25/17 at 01:29 Assessment/Plan Chief Complaint/Hosp Course IMPRESSION AND PLAN: 1. Ongoing septic shock. Lactic acidosis 2. Possible healthcare-associated pneumonia. 3. Renal insufficiency, likely prerenal. 4. Hyponatremia 5. Sinus tachycardia likely secondary to vasopressors 6. History of depression PLAN: 1. Continue antibiotics, currently on vancomycin and cefepime. 2. Infectious disease recommendations consider de-escalation of antibiotics 3. Replace electrolytes 4. DVT and GI prophylaxis. 5. Aspiration precautions and speech therapy recommendations Disposition keep in ICU Problems: PAULO TRIMBLE MD, [facility] February 24, 2017 09:57
[2017-02-24] MEDS: VANCOMYCIN 1 GM in NS 250 ML IVPB SCH (10:13)
[2017-02-24] MEDS: morphine 2 MG INJ IV PRN (14:31)
--- NOTE | 2017-02-24 16:21 | CONS ---
[facility] INITIAL INPATIENT CONSULTATION NOTE DATE OF CONSULTATION: 02/24/2017 PLACE OF SERVICE: [facility] intensive care unit ASSESSMENT AND PLAN: A very pleasant but unfortunate 86-year-old gentleman with multiple comorbid issues including hypothyroidism, diabetes, and a number of other issues, recently institutionalized after 1 month hospital stay at an outside hospital, presenting with septic shock which is likely due to his Clostridium difficile colitis. He is also severely malnourished and he has cardiac difficulties with coronary artery disease and recent percutaneous coronary intervention. The patient's clinical picture is not consistent with that of acute cholecystitis. The amount of imaging that we have available is somewhat limited, and the ultrasound shows sludge and small stones in the gallbladder without definite secondary signs of acute cholecystitis. The elevated alkaline phosphatase could be due to the ongoing clinical picture as well as history of prostate cancer, although we do not have any evidence of metastatic disease. His abdominal exam also does not support that of an acute cholecystitis. The patient also is extremely high risk for complications with any kind of surgical intervention. Fortunately, I do not believe that there are any indications for acute surgical intervention. I believe that with aggressive medical care and treatment of C. difficile colitis, there is a good chance that the patient will improve and not need any surgical intervention. The patient himself was not able to communicate well and I had no family in the room to convey all my thoughts, but I have communicated my recommendations to the team. With the above assessment, I have recommended the followin. Aggressive medical management to include appropriate treatment for C. difficile colitis. 2. Continued intensive care unit level of care. 3. Check labs in a.m. 4. Nutritional intake in the form of tube feeding if the oral intake is inadequate or consideration for TPN if that is not a possibility. 5. Treat hypothyroidism. 6. Consider neurohormonal check. 7. Agree with gastroenterology consultation, and the patient may need a HIDA scan, although a HIDA scan in this setting will not be as sensitive as in other settings and will not be a definitive test. 8. Possible need for MRCP. 9. I will continue to follow the patient along with you and if the patient needs an operative intervention, I would be happy to participate. Thank you again for allowing us to participate in the care of this very pleasant gentleman and I am certain his wonderful family. If there are any questions, please feel free to contact me at [phone]. Total visit time 45 minutes of which more than half was spent in [id number] discussion attempt at bedside as well as coordination of care between multiple physicians and providers. UPDATED CLINICAL SUMMARY: The patient is a very pleasant 86-year-old gentleman admitted to [facility] on 02/19/2017 from a senior care ( [facility]) initially for sepsis, which was manifesting by fatigue and lethargy. He was in the intensive care unit since admission and required significant support and has progressively gotten better to a point where he extubated 3 days prior to my initial visit. This was thought to be due to Clostridium difficile infection. COMORBIDITIES: 1. Chronic coronary artery disease, potentially old [place], treated on Brilinta. He had a percutaneous intervention in May. 2. Chronic dyslipidemia. 3. Chronic diabetes. 4. Chronic hypothyroidism. 5. Metabolic syndrome. 6. History of sepsis due to pneumonia treated in [facility] and then transferred to [facility] after a month. 7. Prostate cancer diagnosed years ago. No evidence of obvious metastasis. He has been on surveillance and expectant management. 8. Sciatica with history of epidurals. 9. Cataracts. 10. Hernia. 11. Clostridium difficile colitis infection, culture positive 02/24/2017. DATE OF ADMISSION: 02/19/2017 HISTORY OF PRESENT ILLNESS: The patient is a very pleasant but unfortunate 86- year-old gentleman with above-mentioned comorbidities, whom we were kindly asked to consult regarding evaluation of his biliary system including the gallbladder. The patient himself did not have any complaints during my visit. When I asked him specifically if he had abdominal pain, he indicated yes, but he does not speak and he does not follow even simple commands. I could not obtain any further history from the patient. Speaking to the nurses, the patient grimaces sometimes with movement, but otherwise does not seem to be complaining of abdominal pain. ALLERGIES: NO KNOWN DRUG ALLERGIES. MEDICATIONS: Outpatient medications are numerous and carefully documented in the electronic record system, as well as the inpatient medications. They were all reviewed very carefully by me. SOCIAL HISTORY: The patient was residing at [facility]. He does not report any smoking, drinking, or intravenous drug use. 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 FAMILY HISTORY: There is no major reported medical, surgical or oncologic problems in the family. REVIEW OF SYSTEMS: Unable to obtain due to the patient's mental status. PHYSICAL EXAMINATION: GENERAL: The patient appears to be a very pleasant gentleman of perhaps mixed descent (nurses told me that the patient speaks Welsh as well as an Danish), lying in bed comfortably and in no acute distress. He is not intubated. BMI is 21.1. VITAL SIGNS: Temperature 97.2, blood pressure 101/59, pulse 107, respiratory rate 16, pulse oximetry 100% on room air. HEENT: Normocephalic and atraumatic. Extraocular muscles and hearing are grossly intact bilaterally and symmetrically. Sclerae are nonicteric. Oral cavity is clear; oral mucosa appeared to be pink and moist. Dentition: poor. NECK: Supple. There is no lymphadenopathy or JVD. There is no submental, submandibular or supraclavicular lymphadenopathy. CHEST: Rises symmetrically with each breath; patient is breathing comfortably. There are no audible wheezes, rales or rhonchi on the gross exam. HEART: Pulse is regular and palpable on the right wrist. Capillary refill was normal. Carotid pulses are palpable bilaterally and symmetrically in the neck. ABDOMEN: The patient's abdomen is soft and nondistended. He has minimal discomfort with deep palpation, but in all quadrants. There is no evidence of organomegaly, caput medusae, engorged subcutaneous veins, or ascites. There is total body anasarca and there are no peritoneal signs or guarding. EXTREMITIES: Lower extremities contain 3+ pitting edema bilaterally around the ankles. NEUROLOGIC: The patient opens his eyes to voice, but does not open his mouth to command. He does not squeeze hand to command. He is unable to or will not turn his head. SKIN: Appears to be pink and feels warm to touch. NEUROLOGIC: Awake, alert, and follows commands appropriately. LABORATORY DATA: White blood cell count 11.5, hemoglobin 9.7, platelets 53 (on admission it was 254). Electrolytes show potassium of 2.9, CO2 of 20, creatinine 1.20. Magnesium 1.6, total bilirubin 0, AST 120, ALT 117, alkaline phosphatase 471. Albumin 1.2. INR 1.69. ABG showed pH 7.5, CO2 of 25.7, pO2 of 61.1, bicarbonate 19.4, base deficit 2.7, improved from base deficit of 10.5 on 02/20/2017. Urinalysis on 02/19/2017 showed no leukocyte esterase or nitrite positivity. Hepatitis B surface antigen and hepatitis C antibody were both negative. Microbiology demonstrated as Clostridium difficile DNA amplification and positivity on 02/24/2017. Urine cultures as well as blood cultures on 02/19/2017 were all negative. Dictated By: RADHA ALVAREZ/LADY Conf#: [id number] DID#: [id number] MTDD
[2017-02-24] MEDS: CEFEPIME 2GM/50 ML (PMX) 50 ML IVPB SCH (17:16)
--- NOTE | 2017-02-24 17:33 | CONS ---
Date/Time of Note Date/Time of Note DATE: 02/24/17 TIME: 17:32 Assessment/Plan Assessment/Plan Chief Complaint/Hosp Course 86-year-old gentleman ECF resident admitted with what appears to be septic shock and acute renal insufficiency. He has had a persistent hyperchloremic metabolic acidosis. As an outpatient appears that he has a chronic hypothyroid state and has been on medium dose levothyroxine replacement therapy continuously. On presentation here it appears he is actually modestly over replaced. In addition to this concern was raised about the possibility of hypocortisolism. The patient has some degree of organic brain syndrome and is unable to give meaningful history Problems: (1) Acquired hypothyroidism Status: Chronic Comment: Will check TSH and free T4 now. If they are moving in the direction that I expect that he is missing his replacement and we will start him on levothyroxine 50 mcg once a day via G-tube feedings. Consultation Date/Type/Reason Admit Date/Time February 19, 2017 at 14:52 Initial Consult Date 02/21/17 Type of Consultation: Endocrinology Reason for Consultation Thyroid status and critical care setting with known history of hypothyroidism Referring Provider: HARDIK MCBRIDE DISBURSING OFFICER 24 HR Interval Summary Subjective hx not possible: pt non-verbal Exam/Review of Systems Vital Signs Vitals Vital Signs Date Time Temp Pulse Resp B/P Pulse Ox O2 Delivery O2 Flow Rate FiO2 02/24/17 16:45 106 16 91/51 100 Nasal Cannula 02/24/17 16:00 97.2 02/24/17 15:52 4.0 02/24/17 05:42 33 Intake and Output 02/23/17 02/23/17 02/24/17 15:00 23:00 07:00 Intake Total 1850.29 ml 1224.02 ml 1210.62 ml Output Total 625 ml 375 ml 370 ml Balance 1225.29 ml 849.02 ml 840.62 ml Exam No changes Constitutional: non-verbal Results Result Diagram: 02/24/17 0330 02/24/17 0330 Results 24 hrs Laboratory Tests Test 02/23/17 17:51 02/23/17 20:29 02/24/17 01:06 02/24/17 03:30 Bedside Glucose 196 164 172 White Blood Count 11.5 #H Red Blood Count 3.29 L Hemoglobin 9.7 L Hematocrit 29.2 L Mean Corpuscular Volume 88.8 Mean Corpuscular Hemoglobin 29.5 Mean Corpuscular Hemoglobin Concent 33.2 Red Cell Distribution Width 16.7 H Platelet Count 53 #L Mean Platelet Volume 10.4 Neutrophils % 85.3 H Lymphocytes % 8.0 L Monocytes % 3.0 Eosinophils % 1.7 Basophils % 0.2 Nucleated Red Blood Cells % 0.0 Neutrophils # 9.8 H Lymphocytes # 0.9 Monocytes # 0.3 Eosinophils # 0.2 Basophils # 0.0 Nucleated Red Blood Cells # 0.0 Prothrombin Time 19.5 H Prothrombin Time Ratio 1.5 INR International Normalized Ratio 1.64 Sodium Level 130 L Potassium Level 2.9 *L Chloride Level 108 Carbon Dioxide Level 20 L Anion Gap 5 L Blood Urea Nitrogen 30 H Creatinine 1.20 Glucose Level 142 # Lactic Acid Level 1.9 Calcium Level 6.1 L Phosphorus Level 1.5 L Magnesium Level 1.6 L Total Bilirubin 0.0 L Direct Bilirubin 0.00 Indirect Bilirubin 0.0 Aspartate Amino Transf (AST/SGOT) 120 H Alanine Aminotransferase (ALT/SGPT) 117 H Alkaline Phosphatase 471 H Total Protein 3.1 L Albumin 1.2 L Globulin 1.90 Albumin/Globulin Ratio 0.63 Test 02/24/17 05:00 02/24/17 05:13 02/24/17 07:45 02/24/17 08:51 Blood Gas Specimen Source Blood arterial Arterial Blood Date Drawn 02/24/2017 5:25:16 AM Arterial Blood pH (Temp corrected) 7.496 H Arterial Blood pCO2 (Temp correct) 25.7 L Arterial Blood pO2 (Temp corrected) 61.1 L Arterial Blood HCO3 19.4 L Arterial Blood Base Excess -2.7 Arterial Blood Oxygen Saturation 92.3 L Tera Test N/A Arterial Blood Gas Puncture Site Right Brachial Arterial Blood Carboxyhemoglobin 0.3 Arterial Blood Methemoglobin 0 Blood Gas A-a O2 Differential 108.2 H Oxyhemoglobin Percent 92.0 L Total Hemoglobin 10.5 L Blood Gas Temperature 37.0 Blood Gas Modality NASAL CANNULA FiO2 28.0 Blood Gas Notified Whom [place] Blood Gas Notified Time 02/24/2017 5:36:51 AM Bedside Glucose 163 161 Prothrombin Time 20.0 H Prothrombin Time Ratio 1.6 INR International Normalized Ratio 1.69 Activated Partial Thromboplast Time 42.0 H Test 02/24/17 12:24 02/24/17 17:15 Bedside Glucose 130 94 Medications Medications Current Medications Vancomycin HCl 125 mg 125 mg Q6 PO Last administered on 02/24/17 17:17; Admin Dose 125 MG; Start 02/19/17 at 18:00 Cefepime HCl (Maxipime 2gm/50 ml (Pmx)) 50 ml @ 100 mls/hr Q24H IVPB Last administered on 02/24/17 17:16; Admin Dose 100 MLS/HR; Start 02/19/17 at 17:30 Lactobacillus Acidophilus/ Rhamnosus (Culturelle) 1 cap BID PO Last administered on 02/24/17 08:53; Admin Dose 1 CAP; Start 02/19/17 at 21:00 Multivitamins Therapeutic (Theragran) 1 tab DAILY PO Last administered on 08:53; Admin Dose 1 TAB; Start 02/20/17 at 09:00 Ascorbic Acid (Vitamin C) 500 mg QAM PO Last administered on 02/24/17 08:53; Admin Dose 500 MG; Start 02/20/17 at 09:00 Ticagrelor (Brilinta) 90 mg QAM PO Last administered on 02/24/17 08:58; Admin Dose 90 MG; Start 02/19/17 at 16:30 Zinc Sulfate (Zinc Sulfate) 220 mg QAM PO Last administered on 02/24/17 08:53 ; Admin Dose 220 MG; Start 02/20/17 at 09:00 Atorvastatin Calcium (Lipitor) 80 mg DAILY@21 PO Last administered on 20:28; Admin Dose 80 MG; Start 02/19/17 at 21:00 Ondansetron HCl (Zofran Inj) 4 mg Q6H PRN IV NAUSEA AND/OR VOMITING; Start at 16:30 Acetaminophen (Tylenol Tab) 650 mg Q6H PRN PO PAIN LEVEL 1-3 OR FEVER; Start at 16:30 Acetaminophen (Tylenol Supp) 650 mg Q6H PRN [place] PAIN LEVEL 1-3 OR FEVER; Start 02/19/17 at 16:30 Acetaminophen/ Hydrocodone Bitart ([place] (5/325)) 1 tab Q6H PRN PO MODERATE PAIN LEVEL 4-6; Start 02/19/17 at 16:30 Morphine Sulfate (morphine) 2 mg Q4H PRN IV SEVERE PAIN LEVEL 7-10 Last administered on 02/24/17 14:31; Admin Dose 2 MG; Start 02/19/17 at 16:30 Miscellaneous Information 1 ea NOTE XX ; Start 02/19/17 at 16:30 Glucose (Glutose) 15 gm Q15M PRN PO DECREASED GLUCOSE; Start 02/19/17 at 16:30 Glucose (Glutose) 22.5 gm Q15M PRN PO DECREASED GLUCOSE; Start 02/19/17 at 16: 30 Dextrose (D50w Syringe) 25 ml Q15M PRN IV DECREASED GLUCOSE Last administered on 02/20/17 03:06; Admin Dose 25 ML; Start 02/19/17 at 16:30 Dextrose (D50w Syringe) 50 ml Q15M PRN IV DECREASED GLUCOSE; Start 02/19/17 at 16:30 Glucagon (Glucagen) 1 mg Q15M PRN IM DECREASED GLUCOSE; Start 02/19/17 at 16:30 Glucose (Glutose) 15 gm Q15M PRN BUCCAL DECREASED GLUCOSE; Start 02/19/17 at 16 :30 Diagnostic Test (Pha) (Accu-Chek) 1 ea 02 XX Last administered on 02/24/17 02: 12; Admin Dose 1 EA; Start 02/20/17 at 02:00 Insulin Aspart NOVOLOG *MILD* ALGORITHM Q4 SC Last administered on 02/24/17 08 :58; Admin Dose 1 UNIT; Start 02/20/17 at 13:00 Norepinephrine/ Dextrose (Levophed/D5W) 500 ml @ 1.87 mls/hr TITRATE IV Last administered on 02/22/17 05:57; Admin Dose 1.87 MLS/HR; Start 02/20/17 at 11:00 Pantoprazole 40 mg 40 mg BID@06,18 IV Last administered on 02/24/17 17:16; Admin Dose 40 MG; Start 02/20/17 at 18:00 Sodium Bicarbonate 50 meq/Dextrose 1,050 ml @ 100 mls/hr [id number] IV Last administered on 02/24/17 09:10; Admin Dose 100 MLS/HR; Start 02/20/17 at 13:00 Vancomycin HCl (Vancocin) 250 ml @ 125 mls/hr Q36H IVPB Last administered on 10:13; Admin Dose 125 MLS/HR; Start 02/21/17 at 10:00 Aspirin (Halfprin) 81 mg DAILY PO Last administered on 02/23/17 10:58; Admin Dose 81 MG; Start 02/21/17 at 09:00; Status Future Hold Levothyroxine Sodium (Synthroid) 50 mcg DAILY@06 PO Last administered on 05:54; Admin Dose 50 MCG; Start 02/22/17 at 06:00; Status Future hold Venlafaxine HCl (Effexor) 25 mg BID NGT Last administered on 02/24/17 08:53; Admin Dose 25 MG; Start 02/22/17 at 10:30 Insulin Glargine (Lantus) 8 unit BID SC Last administered on 02/24/17 08:57; Admin Dose 8 UNIT; Start 02/23/17 at 21:00 Phytonadione 10 mg 10 mg DAILY PO Last administered on 02/24/17 08:56; Admin Dose 10 MG; Start 02/24/17 at 09:00; Stop 02/25/17 at 09:01 Albumin Human (Albumin Human 25%) 100 ml @ 100 mls/hr Q8H IV Last administered on 02/24/17 17:21; Admin Dose 100 MLS/HR; Start 02/24/17 at 08:30 ; Stop 02/25/17 at 01:29 LANCE JACKSON MD February 24, 2017 17:33
[2017-02-24] MEDS: ATORVASTATIN 80 MG TAB PO SCH (21:05)
--- NOTE | 2017-02-24 22:41 | CONS ---
Date/Time of Note Date/Time of Note DATE: 02/24/17 TIME: 22:37 Assessment/Plan Assessment/Plan Additional Assessment/Plan 1. Septic shock 2. Acute kidney injury secondary to acute tubular necrosis from septic shock. 3. Hyperchloremic non-anion gap metabolic acidosis likely secondary to severe diarrhea. Currently, the patient's bicarbonate has been dropped down to 16. 4. Hyponatremia, likely secondary to hypovolemic hyponatremia. 5. 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 6. Hypocalcemia, but the corrected calcium with a low albumin has been pretty much normal. PLAN: continue Bicarbonate drip- will decreased rate to 75 cc/hr Cr improving, K low, Mag low, Po4 low, replaced today BP more stable, titrate levophed gtt to off good urine output will continue to follow up Full Code Consultation Date/Type/Reason Admit Date/Time February 19, 2017 at 14:52 Initial Consult Date 02/20/2017 Type of Consultation: NEPHROLOGY Referring Provider: HARDIK MCBRIDE ROBOTICS ENGINEER 24 HR Interval Summary Free Text/Dictation K low, mag low, Po4 low, BP stable Exam/Review of Systems Vital Signs Vitals Vital Signs Date Time Temp Pulse Resp B/P Pulse Ox O2 Delivery O2 Flow Rate FiO2 02/24/17 22:00 100 12 94/47 100 Nasal Cannula 2.0 02/24/17 20:00 97.5 02/24/17 05:42 33 Intake and Output 02/23/17 02/23/17 02/24/17 15:00 23:00 07:00 Intake Total 1850.29 ml 1224.02 ml 1210.62 ml Output Total 625 ml 375 ml 370 ml Balance 1225.29 ml 849.02 ml 840.62 ml Exam General: awake but lethargic . Chest: decreased BS at bases, no wheezing Heart: Normal S1-S2, tachycardic Abdomen: Soft , nontender, nondistended , bowel sounds are present. NG tube Extremities: Normal to inspection, no edema no cyanosis Results Result Diagram: 02/24/17 0330 02/24/17 0330 Results 24 hrs Laboratory Tests Test 02/24/17 01:06 02/24/17 03:30 02/24/17 05:00 02/24/17 05:13 Bedside Glucose 172 163 White Blood Count 11.5 #H Red Blood Count 3.29 L Hemoglobin 9.7 L Hematocrit 29.2 L Mean Corpuscular Volume 88.8 Mean Corpuscular Hemoglobin 29.5 Mean Corpuscular Hemoglobin Concent 33.2 Red Cell Distribution Width 16.7 H Platelet Count 53 #L Mean Platelet Volume 10.4 Neutrophils % 85.3 H Lymphocytes % 8.0 L Monocytes % 3.0 Eosinophils % 1.7 Basophils % 0.2 Nucleated Red Blood Cells % 0.0 Neutrophils # 9.8 H Lymphocytes # 0.9 Monocytes # 0.3 Eosinophils # 0.2 Basophils # 0.0 Nucleated Red Blood Cells # 0.0 Prothrombin Time 19.5 H Prothrombin Time Ratio 1.5 INR International Normalized Ratio 1.64 Sodium Level 130 L Potassium Level 2.9 *L Chloride Level 108 Carbon Dioxide Level 20 L Anion Gap 5 L Blood Urea Nitrogen 30 H Creatinine 1.20 Glucose Level 142 # Lactic Acid Level 1.9 Calcium Level 6.1 L Phosphorus Level 1.5 L Magnesium Level 1.6 L Total Bilirubin 0.0 L Direct Bilirubin 0.00 Indirect Bilirubin 0.0 Aspartate Amino Transf (AST/SGOT) 120 H Alanine Aminotransferase (ALT/SGPT) 117 H Alkaline Phosphatase 471 H Total Protein 3.1 L Albumin 1.2 L Globulin 1.90 Albumin/Globulin Ratio 0.63 Thyroid Stimulating Hormone (TSH) 1.000 Free Thyroxine 0.86 Blood Gas Specimen Source Blood arterial Arterial Blood Date Drawn 02/24/2017 5:25:16 AM Arterial Blood pH (Temp corrected) 7.496 H Arterial Blood pCO2 (Temp correct) 25.7 L Arterial Blood pO2 (Temp corrected) 61.1 L Arterial Blood HCO3 19.4 L Arterial Blood Base Excess -2.7 Arterial Blood Oxygen Saturation 92.3 L Tera Test N/A Arterial Blood Gas Puncture Site Right Brachial Arterial Blood Carboxyhemoglobin 0.3 Arterial Blood Methemoglobin 0 Blood Gas A-a O2 Differential 108.2 H Oxyhemoglobin Percent 92.0 L Total Hemoglobin 10.5 L Blood Gas Temperature 37.0 Blood Gas Modality NASAL CANNULA FiO2 28.0 Blood Gas Notified Whom MA Blood Gas Notified Time 02/24/2017 5:36:51 AM Test 02/24/17 07:45 02/24/17 08:51 02/24/17 12:24 02/24/17 17:15 Prothrombin Time 20.0 H Prothrombin Time Ratio 1.6 INR International Normalized Ratio 1.69 Activated Partial Thromboplast Time 42.0 H Bedside Glucose 161 130 94 Test 02/24/17 21:07 Bedside Glucose 96 Medications Medications Current Medications Vancomycin HCl 125 mg 125 mg Q6 PO Last administered on 02/24/17 17:17; Admin Dose 125 MG; Start 02/19/17 at 18:00 Cefepime HCl (Maxipime 2gm/50 ml (Pmx)) 50 ml @ 100 mls/hr Q24H IVPB Last administered on 02/24/17 17:16; Admin Dose 100 MLS/HR; Start 02/19/17 at 17:30 Lactobacillus Acidophilus/ Rhamnosus (Culturelle) 1 cap BID PO Last administered on 02/24/17 21:05; Admin Dose 1 CAP; Start 02/19/17 at 21:00 Multivitamins Therapeutic (Theragran) 1 tab DAILY PO Last administered on 08:53; Admin Dose 1 TAB; Start 02/20/17 at 09:00 Ascorbic Acid (Vitamin C) 500 mg QAM PO Last administered on 02/24/17 08:53; Admin Dose 500 MG; Start 02/20/17 at 09:00 Ticagrelor (Brilinta) 90 mg QAM PO Last administered on 02/24/17 08:58; Admin Dose 90 MG; Start 02/19/17 at 16:30 Zinc Sulfate (Zinc Sulfate) 220 mg QAM PO Last administered on 02/24/17 08:53 ; Admin Dose 220 MG; Start 02/20/17 at 09:00 Atorvastatin Calcium (Lipitor) 80 mg DAILY@21 PO Last administered on 21:05; Admin Dose 80 MG; Start 02/19/17 at 21:00 Ondansetron HCl (Zofran Inj) 4 mg Q6H PRN IV NAUSEA AND/OR VOMITING; Start at 16:30 Acetaminophen (Tylenol Tab) 650 mg Q6H PRN PO PAIN LEVEL 1-3 OR FEVER; Start at 16:30 Acetaminophen (Tylenol Supp) 650 mg Q6H PRN [place] PAIN LEVEL 1-3 OR FEVER; Start 02/19/17 at 16:30 Acetaminophen/ Hydrocodone Bitart ([place] (5/325)) 1 tab Q6H PRN PO MODERATE PAIN LEVEL 4-6; Start 02/19/17 at 16:30 Morphine Sulfate (morphine) 2 mg Q4H PRN IV SEVERE PAIN LEVEL 7-10 Last administered on 02/24/17 14:31; Admin Dose 2 MG; Start 02/19/17 at 16:30 Miscellaneous Information 1 ea NOTE XX ; Start 02/19/17 at 16:30 Glucose (Glutose) 15 gm Q15M PRN PO DECREASED GLUCOSE; Start 02/19/17 at 16:30 Glucose (Glutose) 22.5 gm Q15M PRN PO DECREASED GLUCOSE; Start 02/19/17 at 16: 30 Dextrose (D50w Syringe) 25 ml Q15M PRN IV DECREASED GLUCOSE Last administered on 02/20/17 03:06; Admin Dose 25 ML; Start 02/19/17 at 16:30 Dextrose (D50w Syringe) 50 ml Q15M PRN IV DECREASED GLUCOSE; Start 02/19/17 at 16:30 Glucagon (Glucagen) 1 mg Q15M PRN IM DECREASED GLUCOSE; Start 02/19/17 at 16:30 Glucose (Glutose) 15 gm Q15M PRN BUCCAL DECREASED GLUCOSE; Start 02/19/17 at 16 :30 Diagnostic Test (Pha) (Accu-Chek) 1 ea 02 XX Last administered on 02/24/17 02: 12; Admin Dose 1 EA; Start 02/20/17 at 02:00 Insulin Aspart NOVOLOG *MILD* ALGORITHM Q4 SC Last administered on 02/24/17 08 :58; Admin Dose 1 UNIT; Start 02/20/17 at 13:00 Norepinephrine/ Dextrose (Levophed/D5W) 500 ml @ 1.87 mls/hr TITRATE IV Last administered on 02/22/17 05:57; Admin Dose 1.87 MLS/HR; Start 02/20/17 at 11:00 Pantoprazole 40 mg 40 mg BID@06,18 IV Last administered on 02/24/17 17:16; Admin Dose 40 MG; Start 02/20/17 at 18:00 Sodium Bicarbonate 50 meq/Dextrose 1,050 ml @ 100 mls/hr [id number] IV Last administered on 02/24/17 21:06; Admin Dose 100 MLS/HR; Start 02/20/17 at 13:00 Vancomycin HCl (Vancocin) 250 ml @ 125 mls/hr Q36H IVPB Last administered on 10:13; Admin Dose 125 MLS/HR; Start 02/21/17 at 10:00 Aspirin (Halfprin) 81 mg DAILY PO Last administered on 02/23/17 10:58; Admin Dose 81 MG; Start 02/21/17 at 09:00; Status Future Hold Levothyroxine Sodium (Synthroid) 50 mcg DAILY@06 PO Last administered on 05:54; Admin Dose 50 MCG; Start 02/22/17 at 06:00; Status Future hold Venlafaxine HCl (Effexor) 25 mg BID NGT Last administered on 02/24/17 21:05; Admin Dose 25 MG; Start 02/22/17 at 10:30 Insulin Glargine (Lantus) 8 unit BID SC Last administered on 02/24/17 21:16; Admin Dose 8 UNIT; Start 02/23/17 at 21:00 Phytonadione 10 mg 10 mg DAILY PO Last administered on 02/24/17 08:56; Admin Dose 10 MG; Start 02/24/17 at 09:00; Stop 02/25/17 at 09:01 Albumin Human (Albumin Human 25%) 100 ml @ 100 mls/hr Q8H IV Last administered on 02/24/17 17:21; Admin Dose 100 MLS/HR; Start 02/24/17 at 08:30 ; Stop 02/25/17 at 01:29 Vancomycin HCl (Vancomycin Oral Syringe) 250 mg Q6 PO Last administered on 02/24 18:00; Admin Dose 250 MG; Start 02/24/17 at 18:00 ANJEL LEE MD February 24, 2017 22:41
[2017-02-25] VITALS (61 sets, daily range): BP systolic 78–122; BP diastolic 40–92; PULSE 93–118; RESP 12–33
[2017-02-25] MEDS: INSULIN ASPART [NOVOLOG] 3 ML PEN SC SCH ×7 (01:00→23:59)
[2017-02-25] MEDS: VANCOMYCIN HCL 250 MG/5ML POSYG PO SCH ×5 (01:45→23:59)
[2017-02-25] MEDS: ACCUCHECK AT 2AM (Patients on SS coverage) XX SCH (01:45)
[2017-02-25] MEDS: ALBUMIN HUMAN 25% 100 ML IV SCH (01:49)
[2017-02-25 04:23] LABS: ADD SCAN DIFF NO
[2017-02-25 04:25] LABS: ABNORMAL IP MESSAGE 1; HEMATOCRIT 20.9 % (42.0-52.0); MEAN CORPUSCULAR HEMOGLOBIN 29.7 pg (29.0-33.0); MEAN CORPUSCULAR VOLUME 90.1 fl (82.0-101.0); MEAN PLATELET VOLUME 11.4 fl (7.4-10.4); PLATELET COUNT 41 10^3/UL (140-415); RED BLOOD COUNT 2.32 10^6/ul (4.70-6.10); RED CELL DISTRIBUTION WIDTH 16.6 % (11.5-14.5); WHITE BLOOD COUNT 6.2 10^3/ul (4.8-10.8)
[2017-02-25] MEDS: DEXTROSE 50% 50 ML SYRINGE IV PRN ×3 (04:31→20:58)
[2017-02-25 04:49] LABS: ALBUMIN 1.9 g/dl (3.3-4.9)
[2017-02-25 04:51] LABS: CREATININE 1.09 mg/dl (0.61-1.24)
[2017-02-25 04:52] LABS: ALBUMIN/GLOBULIN RATIO 1.18; BILIRUBIN,INDIRECT 0.6 mg/dl (0-1.1); BILIRUBIN,TOTAL 0.6 mg/dl (0.2-1.3); CALCIUM 6.7 mg/dl (8.4-10.2); TOTAL PROTEIN 3.5 g/dl (6.1-8.1)
[2017-02-25 04:53] LABS: MAGNESIUM 1.9 mg/dl (1.7-2.5)
[2017-02-25 04:55] LABS: INR 2.14; PROTIME 24.1 Sec (12.2-14.2); PT RATIO 1.9
[2017-02-25 04:56] LABS: HEMOGLOBIN 6.9 g/dl (14.0-18.0); POTASSIUM 2.6 mmol/L (3.5-5.1)
[2017-02-25] MEDS: PANTOPRAZOLE 40 MG INJ IV SCH ×2 (05:00→16:58)
[2017-02-25] MEDS: POTASSIUM CHLORIDE 250 ML IVPB SCH ×2 (05:22→12:53)
[2017-02-25] MEDS ORDERED: FUROSEMIDE 20 MG INJ IV ONE (05:30)
[2017-02-25] MEDS ORDERED: POTASSIUM CHLORIDE (SR) 20 MEQ TAB PO STA (07:13)
--- NOTE | 2017-02-25 07:28 | PN ---
Date/Time of Note Date/Time of Note DATE: 02/25/17 TIME: 07:23 Assessment/Plan VTE Prophylaxis VTE Prophylaxis Intervention: contraindicated Lines/Catheters IV Catheter Type (from [facility]): Central Line Central line still needed: Yes Urinary Cath still in place: Yes Reason Cath still needed: urinary retention Assessment/Plan Chief Complaint/Hosp Course 86-year-old gentleman ECF resident admitted with what appears to be septic shock and acute renal insufficiency. He has had a persistent hyperchloremic metabolic acidosis. As an outpatient appears that he has a chronic hypothyroid state and has been on medium dose levothyroxine replacement therapy continuously. On presentation here it appears he is actually modestly over replaced. In addition to this concern was raised about the possibility of hypocortisolism. 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 He did have some hypoglycemia. I will adjust his insulins will continue to monitor this. This is relatively stable issue. He has not had hyperglycemia (2) Gallstones Status: Chronic Comment: It may be that this is not active at this time. (3) Hypokalemia Status: Acute Comment: He received potassium yesterday and will get a repeat that today. I am somewhat concerned that are labs may have been drawn from above IV although they are close enough that I suspect we need to replace them. (4) Vitamin D deficiency Status: Chronic Comment: Replace 1 dose (5) Elevated liver enzymes Status: Chronic Comment: Noted. Please note he has negative hepatitis serologies. I do not believe this represents an obstructive hepatopathy from gallstones I believe and this is related to his septic shock and all the interventions going on (6) Anemia Status: Acute Comment: He has an iron deficiency anemia however on top of this he has developed rather acute anemia. Rechecking a CBC to make sure that were not being Mariel Cheney path from blood draw technique issue. However he will will be transfused 1 unit of blood. Qualifiers: Anemia type: iron deficiency Iron deficiency anemia type: unspecified iron deficiency Qualified Code: D50.9 - Iron deficiency anemia, unspecified iron deficiency anemia type (7) Hyperlipidemia Status: Chronic Comment: Remains on statin therapy. Qualifiers: Hyperlipidemia type: pure hypercholesterolemia Qualified Code: E78.00 - Pure hypercholesterolemia (8) Acquired hypothyroidism Status: Chronic Comment: Resume levothyroxine replacement dosing. That dose adjusted level (9) Diastolic dysfunction Status: Chronic Comment: Noted. (10) Altered mental status Status: Acute Comment: This is a significant issue as I am not sure that his long-term prognosis for meaningful recovery holds much help. Will need to have a family conference at the beginning of the week to discuss what we should be doing with him in terms of aggressiveness of treatment Qualifiers: Altered mental status type: unspecified Qualified Code: R41.82 - Altered mental status, unspecified altered mental status type (11) Septic shock Status: Acute Comment: Remains on Levophed drip at low-dose. Please note all cultures negative. The presumption was that this was due to C. difficile colitis. Subjective 24 Hr Interval Summary Subjective hx not possible: pt non-verbal Exam/Review of Systems Vital Signs Vitals Vital Signs Date Time Temp Pulse Resp B/P Pulse Ox O2 Delivery O2 Flow Rate FiO2 02/25/17 06:49 2.0 02/25/17 06:00 93 14 92/45 98 Nasal Cannula 02/25/17 04:00 97.4 02/24/17 05:42 33 Intake and Output 02/24/17 02/24/17 02/25/17 15:00 23:00 07:00 Intake Total 1645.99 ml 960 ml 620 ml Output Total 525 ml 660 ml 380 ml Balance 1120.99 ml 300 ml 240 ml Exam Patient opens eyes but does not follow commands. Tracks with his eyes Head: atraumatic, normocephalic Eyes: EOMI, nl conjunctiva, nl lids, nl sclera ENMT: mucosa pink and moist, nl external ears & nose, nl lips & teeth, nl nasal mucosa & septum, other (NG tube in place for feeding) Neck: non-tender, supple Respiratory: clear to auscultation, normal air movement Cardiovascular: nl pulses, regular rate and rhythm Gastrointestinal: nl liver, spleen, non-tender, soft Results Result Diagram: 02/25/17 0345 02/25/17 0345 Results 24 hrs Laboratory Tests Test 02/24/17 07:45 02/24/17 08:51 02/24/17 12:24 02/24/17 17:15 Prothrombin Time 20.0 H Prothrombin Time Ratio 1.6 INR International Normalized Ratio 1.69 Activated Partial Thromboplast Time 42.0 H Bedside Glucose 161 130 94 Test 02/24/17 21:07 02/25/17 01:41 02/25/17 03:45 02/25/17 04:25 Bedside Glucose 96 73 59 L White Blood Count 6.2 # Red Blood Count 2.32 #L Hemoglobin 6.9 #*L Hematocrit 20.9 #L Mean Corpuscular Volume 90.1 Mean Corpuscular Hemoglobin 29.7 Mean Corpuscular Hemoglobin Concent 33.0 Red Cell Distribution Width 16.6 H Platelet Count 41 #L Mean Platelet Volume 11.4 H Neutrophils % Lymphocytes % Monocytes % Eosinophils % Neutrophils # Lymphocytes # Monocytes # Eosinophils # Prothrombin Time 24.1 #H Prothrombin Time Ratio 1.9 INR International Normalized Ratio 2.14 Activated Partial Thromboplast Time 45.0 H Sodium Level 135 Potassium Level 2.6 *L Chloride Level 106 Carbon Dioxide Level 21 Anion Gap 11 Blood Urea Nitrogen 26 H Creatinine 1.09 Glucose Level 47 #*L Calcium Level 6.7 L Phosphorus Level 1.4 L Magnesium Level 1.9 Total Bilirubin 0.6 Direct Bilirubin 0.00 Indirect Bilirubin 0.6 Aspartate Amino Transf (AST/SGOT) 41 # Alanine Aminotransferase (ALT/SGPT) 67 Alkaline Phosphatase 248 H B-Type Natriuretic Peptide 1250 H Total Protein 3.5 L Albumin 1.9 L Globulin 1.60 Albumin/Globulin Ratio 1.18 Test 02/25/17 04:45 02/25/17 04:56 Bedside Glucose 137 123 Medications Medications Current Medications Cefepime HCl (Maxipime 2gm/50 ml (Pmx)) 50 ml @ 100 mls/hr Q24H IVPB Last administered on 02/24/17 17:16; Admin Dose 100 MLS/HR; Start 02/19/17 at 17:30 Lactobacillus Acidophilus/ Rhamnosus (Culturelle) 1 cap BID PO Last administered on 02/24/17 21:05; Admin Dose 1 CAP; Start 02/19/17 at 21:00 Multivitamins Therapeutic (Theragran) 1 tab DAILY PO Last administered on 08:53; Admin Dose 1 TAB; Start 02/20/17 at 09:00 Ascorbic Acid (Vitamin C) 500 mg QAM PO Last administered on 02/24/17 08:53; Admin Dose 500 MG; Start 02/20/17 at 09:00 Ticagrelor (Brilinta) 90 mg QAM PO Last administered on 02/24/17 08:58; Admin Dose 90 MG; Start 02/19/17 at 16:30 Zinc Sulfate (Zinc Sulfate) 220 mg QAM PO Last administered on 02/24/17 08:53 ; Admin Dose 220 MG; Start 02/20/17 at 09:00 Atorvastatin Calcium (Lipitor) 80 mg DAILY@21 PO Last administered on 21:05; Admin Dose 80 MG; Start 02/19/17 at 21:00 Ondansetron HCl (Zofran Inj) 4 mg Q6H PRN IV NAUSEA AND/OR VOMITING; Start at 16:30 Acetaminophen (Tylenol Tab) 650 mg Q6H PRN PO PAIN LEVEL 1-3 OR FEVER; Start at 16:30 Acetaminophen (Tylenol Supp) 650 mg Q6H PRN [place] PAIN LEVEL 1-3 OR FEVER; Start 02/19/17 at 16:30 Acetaminophen/ Hydrocodone Bitart ([place] (5/325)) 1 tab Q6H PRN PO MODERATE PAIN LEVEL 4-6; Start 02/19/17 at 16:30 Morphine Sulfate (morphine) 2 mg Q4H PRN IV SEVERE PAIN LEVEL 7-10 Last administered on 02/24/17 14:31; Admin Dose 2 MG; Start 02/19/17 at 16:30 Miscellaneous Information 1 ea NOTE XX ; Start 02/19/17 at 16:30 Glucose (Glutose) 15 gm Q15M PRN PO DECREASED GLUCOSE; Start 02/19/17 at 16:30 Glucose (Glutose) 22.5 gm Q15M PRN PO DECREASED GLUCOSE; Start 02/19/17 at 16: 30 Dextrose (D50w Syringe) 25 ml Q15M PRN IV DECREASED GLUCOSE Last administered on 02/25/17 04:31; Admin Dose 25 ML; Start 02/19/17 at 16:30 Dextrose (D50w Syringe) 50 ml Q15M PRN IV DECREASED GLUCOSE; Start 02/19/17 at 16:30 Glucagon (Glucagen) 1 mg Q15M PRN IM DECREASED GLUCOSE; Start 02/19/17 at 16:30 Glucose (Glutose) 15 gm Q15M PRN BUCCAL DECREASED GLUCOSE; Start 02/19/17 at 16 :30 Diagnostic Test (Pha) (Accu-Chek) 1 ea 02 XX Last administered on 02/25/17 01: 45; Admin Dose 1 EA; Start 02/20/17 at 02:00 Insulin Aspart NOVOLOG *MILD* ALGORITHM Q4 SC Last administered on 02/24/17 08 :58; Admin Dose 1 UNIT; Start 02/20/17 at 13:00 Norepinephrine/ Dextrose (Levophed/D5W) 500 ml @ 1.87 mls/hr TITRATE IV Last administered on 02/22/17 05:57; Admin Dose 1.87 MLS/HR; Start 02/20/17 at 11:00 Pantoprazole 40 mg 40 mg BID@06,18 IV Last administered on 02/25/17 05:00; Admin Dose 40 MG; Start 02/20/17 at 18:00 Sodium Bicarbonate 50 meq/Dextrose 1,050 ml @ 70 mls/hr Q15H IV Last administered on 02/24/17 21:06; Admin Dose 100 MLS/HR; Start 02/20/17 at 13:00 Vancomycin HCl (Vancocin) 250 ml @ 125 mls/hr Q36H IVPB Last administered on 10:13; Admin Dose 125 MLS/HR; Start 02/21/17 at 10:00 Aspirin (Halfprin) 81 mg DAILY PO Last administered on 02/23/17 10:58; Admin Dose 81 MG; Start 02/21/17 at 09:00; Status Future Hold Levothyroxine Sodium (Synthroid) 50 mcg DAILY@06 PO Last administered on 05:54; Admin Dose 50 MCG; Start 02/22/17 at 06:00; Status Future hold Venlafaxine HCl (Effexor) 25 mg BID NGT Last administered on 02/24/17 21:05; Admin Dose 25 MG; Start 02/22/17 at 10:30 Insulin Glargine (Lantus) 8 unit BID SC Last administered on 02/24/17 21:16; Admin Dose 8 UNIT; Start 02/23/17 at 21:00 Phytonadione (Vitamin K Soln) 10 mg DAILY PO Last administered on 02/24/17 08: 56; Admin Dose 10 MG; Start 02/24/17 at 09:00; Stop 02/25/17 at 09:01 Vancomycin HCl 250 mg 250 mg Q6 PO Last administered on 02/25/17 05:00; Admin Dose 250 MG; Start 02/24/17 at 18:00 Potassium Chloride (KCl 40 MEQ/250 ML NS) 250 ml @ 62.5 mls/hr Q4H IVPB Last administered on 02/25/17 05:22; Admin Dose 62.5 MLS/HR; Start 02/25/17 at 05:30 ; Stop 02/25/17 at 13:29 Ergocalciferol 13581 unit 50,000 unit Sa@09 PO ; Start 02/25/17 at 09:00; Status UNV Potassium Chloride (KCl 40 MEQ/250 ML NS) 250 ml @ 62.5 mls/hr ONCE ONCE IVPB ; Start 02/25/17 at 07:30; Stop 02/25/17 at 11:29; Status UNV LANCE JACKSON MD February 25, 2017 07:28
[2017-02-25] MEDS ORDERED: POTASSIUM CHLORIDE 250 ML IVPB ONE (07:30)
[2017-02-25] MEDS ORDERED: MAGNESIUM SULFATE 2 GM/50 ML 50 ML IVPB ONE (08:00)
[2017-02-25] MEDS: ZINC SULFATE 220 MG CAP PO SCH (08:08)
[2017-02-25] MEDS: LACTOBACILLUS RHAMNOSUS CAP PO SCH ×2 (08:08→20:40)
[2017-02-25] MEDS: MULTIVITAMINS THERAPEUTIC TAB PO SCH (08:08)
[2017-02-25] MEDS: VENLAFAXINE 25 MG TAB NGT SCH ×2 (08:09→20:40)
[2017-02-25] MEDS: INSULIN GLARGINE [LANtus] 3 ML PEN SC SCH ×2 (08:11→20:58)
[2017-02-25] MEDS: ASCORBIC ACID 500 MG TAB PO SCH (08:31)
[2017-02-25] MEDS: RIFAXIMIN 200 MG TAB NGT SCH ×3 (08:31→20:40)
[2017-02-25] MEDS: ERGOCALCIFEROL 50,000 UNIT CAP PO SCH (08:31)
[2017-02-25] MEDS: TICAGRELOR 90 MG TABLET PO SCH (08:36)
[2017-02-25 09:41] LABS: BASOPHIL # 0.1 10^3/ul (0.0-0.1); EOSINOPHILS # 0.1 10^3/ul (0.0-0.5); LYMPHOCYTES # 0.7 10^3/ul (0.8-2.9); MONOCYTE # 0.2 10^3/ul (0.3-0.9); NEUTROPHIL # 4.7 10^3/ul (1.6-7.5)
[2017-02-25 09:44] LABS: TOXIC GRANULATION 1+
[2017-02-25 09:46] LABS: ANISOCYTOSIS 1+; OVALOCYTES OCCASIONAL; PLATELET ESTIMATE PLT APPEAR DECREASED; POIKILOCYTOSIS 1+
--- NOTE | 2017-02-25 10:17 | CONS ---
Date/Time of Note Date/Time of Note DATE: 02/25/17 TIME: 10:16 Assessment/Plan Assessment/Plan Chief Complaint/Hosp Course ID PROGRESS NOTE TOTAL ABX DAY #7 => Vanco IV + Cefepime #, Vanco PO + Rifaximin s/p Ceftriaxone/Azith 02/19 24H INTERVAL SUMMARY * (+)C.Diff 02/24 resulted * Self-extubated few days ago-> ABX onboard for concern ASP PNA * PHYSICAL EXAMINATION: GENERAL: VSS, NAD, no fevers HEENT: NGT NECK: Trach midline CHEST: Equal chest rise bilaterally, without dyspnea on observation HEART: Pulse RRR ABDOMEN: Soft EXTREMITIES: Warm,moves all extremities SKIN: Warm, dry ID ASSESSMENT: 86 yo M admitted with: 1. Severe sepsis with shock and persistent lactic acidosis with lactic acid today 2.7. * (+)C.Diff colitis w/severe anemia ?Pseudomembranous Colitis ? 2. Pneumonia, possibly aspiration type. * CXR 02/22 clear 3. Encephalopathy. 4. Diabetes. 5. History of prostate cancer. 6. Acute renal failure secondary to sepsis. 7. Sludge and small stones in the gallbladder without definite secondary signs of acute cholecystitis-Question cirrhosis (Radiology report). 8. Anemia => possible Lower GI bleed ,R/O upper GI bleed 9. CAD -> Hx of CO followed by coronary stent (-)MRSA Nares INVASIVES: *PIV, NGT, FC ABX ALLERGIES: KNDA CURRENT ABX: DAY #7 => Vanco IV + Cefepime #, Vanco PO + Rifaximin s/p Ceftriaxone/Azith 02/19 ID RECOMMENDATIONS: 1. DC Vanco IV + Cefepime IV => Has received 7 days IV ABX and CXR 02/22 was clear, extubated without respiratory distress 2. Treat C.Diff colitis w/Vanco LIQ via NG, Rifaximin onboard, Flagyl IV 3. EGD/[place] -> Pending / Problems: Consultation Date/Type/Reason Admit Date/Time February 19, 2017 at 14:52 Initial Consult Date 02/21/17 Type of Consultation: ID Referring Provider: HARDIK MCBRIDE ELECTROPL[employer] Exam/Review of Systems Vital Signs Vitals Vital Signs Date Time Temp Pulse Resp B/P Pulse Ox O2 Delivery O2 Flow Rate FiO2 02/25/17 10:00 94 14 91/46 100 Nasal Cannula 2.0 02/25/17 08:00 97.7 02/24/17 05:42 33 Intake and Output 02/24/17 02/24/17 02/25/17 15:00 23:00 07:00 Intake Total 1645.99 ml 960 ml 620 ml Output Total 525 ml 660 ml 380 ml Balance 1120.99 ml 300 ml 240 ml Results Result Diagram: 02/25/17 0345 02/25/17 0345 Results 24 hrs Laboratory Tests Test 02/24/17 12:24 02/24/17 17:15 02/24/17 21:07 02/25/17 01:41 Bedside Glucose 130 94 96 73 Test 02/25/17 03:45 02/25/17 04:25 02/25/17 04:45 02/25/17 04:56 White Blood Count 6.2 # Red Blood Count 2.32 #L Hemoglobin 6.9 #*L Hematocrit 20.9 #L Mean Corpuscular Volume 90.1 Mean Corpuscular Hemoglobin 29.7 Mean Corpuscular Hemoglobin Concent 33.0 Red Cell Distribution Width 16.6 H Platelet Count 41 #L Mean Platelet Volume 11.4 H Neutrophils % 75.0 Band Neutrophils % 6.0 H Lymphocytes % 12.0 L Reactive Lymphocytes % 1.0 Monocytes % 3.0 Eosinophils % 2.0 Basophils % 1.0 Neutrophils # 4.7 Lymphocytes # 0.7 L Monocytes # 0.2 L Eosinophils # 0.1 Basophils # 0.1 Toxic Granulation 1+ Platelet Estimate PLT APPEAR DECREASED Large Platelets OCCASIONAL Poikilocytosis 1+ Anisocytosis 1+ Ovalocytes OCCASIONAL [place] 1+ Prothrombin Time 24.1 #H Prothrombin Time Ratio 1.9 INR International Normalized Ratio 2.14 Activated Partial Thromboplast Time 45.0 H Sodium Level 135 Potassium Level 2.6 *L Chloride Level 106 Carbon Dioxide Level 21 Anion Gap 11 Blood Urea Nitrogen 26 H Creatinine 1.09 Glucose Level 47 #*L Calcium Level 6.7 L Phosphorus Level 1.4 L Magnesium Level 1.9 Total Bilirubin 0.6 Direct Bilirubin 0.00 Indirect Bilirubin 0.6 Aspartate Amino Transf (AST/SGOT) 41 # Alanine Aminotransferase (ALT/SGPT) 67 Alkaline Phosphatase 248 H B-Type Natriuretic Peptide 1250 H Total Protein 3.5 L Albumin 1.9 L Globulin 1.60 Albumin/Globulin Ratio 1.18 Bedside Glucose 59 L 137 123 Test 02/25/17 08:11 Bedside Glucose 70 Medications Medications Current Medications Cefepime HCl (Maxipime 2gm/50 ml (Pmx)) 50 ml @ 100 mls/hr Q24H IVPB Last administered on 02/24/17 17:16; Admin Dose 100 MLS/HR; Start 02/19/17 at 17:30 Lactobacillus Acidophilus/ Rhamnosus (Culturelle) 1 cap BID PO Last administered on 02/25/17 08:08; Admin Dose 1 CAP; Start 02/19/17 at 21:00 Multivitamins Therapeutic (Theragran) 1 tab DAILY PO Last administered on 08:08; Admin Dose 1 TAB; Start 02/20/17 at 09:00 Ascorbic Acid (Vitamin C) 500 mg QAM PO Last administered on 02/25/17 08:31; Admin Dose 500 MG; Start 02/20/17 at 09:00 Ticagrelor (Brilinta) 90 mg QAM PO Last administered on 02/25/17 08:36; Admin Dose 90 MG; Start 02/19/17 at 16:30 Zinc Sulfate (Zinc Sulfate) 220 mg QAM PO Last administered on 02/25/17 08:08 ; Admin Dose 220 MG; Start 02/20/17 at 09:00 Atorvastatin Calcium (Lipitor) 80 mg DAILY@21 PO Last administered on 21:05; Admin Dose 80 MG; Start 02/19/17 at 21:00 Ondansetron HCl (Zofran Inj) 4 mg Q6H PRN IV NAUSEA AND/OR VOMITING; Start at 16:30 Acetaminophen (Tylenol Tab) 650 mg Q6H PRN PO PAIN LEVEL 1-3 OR FEVER; Start at 16:30 Acetaminophen (Tylenol Supp) 650 mg Q6H PRN [place] PAIN LEVEL 1-3 OR FEVER; Start 02/19/17 at 16:30 Acetaminophen/ Hydrocodone Bitart ([place] (5/325)) 1 tab Q6H PRN PO MODERATE PAIN LEVEL 4-6; Start 02/19/17 at 16:30 Morphine Sulfate (morphine) 2 mg Q4H PRN IV SEVERE PAIN LEVEL 7-10 Last administered on 02/24/17 14:31; Admin Dose 2 MG; Start 02/19/17 at 16:30 Miscellaneous Information 1 ea NOTE XX ; Start 02/19/17 at 16:30 Glucose (Glutose) 15 gm Q15M PRN PO DECREASED GLUCOSE; Start 02/19/17 at 16:30 Glucose (Glutose) 22.5 gm Q15M PRN PO DECREASED GLUCOSE; Start 02/19/17 at 16: 30 Dextrose (D50w Syringe) 25 ml Q15M PRN IV DECREASED GLUCOSE Last administered on 02/25/17 04:31; Admin Dose 25 ML; Start 02/19/17 at 16:30 Dextrose (D50w Syringe) 50 ml Q15M PRN IV DECREASED GLUCOSE; Start 02/19/17 at 16:30 Glucagon (Glucagen) 1 mg Q15M PRN IM DECREASED GLUCOSE; Start 02/19/17 at 16:30 Glucose (Glutose) 15 gm Q15M PRN BUCCAL DECREASED GLUCOSE; Start 02/19/17 at 16 :30 Diagnostic Test (Pha) (Accu-Chek) 1 ea 02 XX Last administered on 02/25/17 01: 45; Admin Dose 1 EA; Start 02/20/17 at 02:00 Insulin Aspart NOVOLOG *MILD* ALGORITHM Q4 SC Last administered on 02/24/17 08 :58; Admin Dose 1 UNIT; Start 02/20/17 at 13:00 Norepinephrine/ Dextrose (Levophed/D5W) 500 ml @ 1.87 mls/hr TITRATE IV Last administered on 02/22/17 05:57; Admin Dose 1.87 MLS/HR; Start 02/20/17 at 11:00 Pantoprazole 40 mg 40 mg BID@06,18 IV Last administered on 02/25/17 05:00; Admin Dose 40 MG; Start 02/20/17 at 18:00 Sodium Bicarbonate 50 meq/Dextrose 1,050 ml @ 70 mls/hr Q15H IV Last administered on 02/24/17 21:06; Admin Dose 100 MLS/HR; Start 02/20/17 at 13:00 Vancomycin HCl (Vancocin) 250 ml @ 125 mls/hr Q36H IVPB Last administered on 10:13; Admin Dose 125 MLS/HR; Start 02/21/17 at 10:00 Aspirin (Halfprin) 81 mg DAILY PO Last administered on 02/23/17 10:58; Admin Dose 81 MG; Start 02/21/17 at 09:00; Status Future Hold Levothyroxine Sodium (Synthroid) 50 mcg DAILY@06 PO Last administered on 05:54; Admin Dose 50 MCG; Start 02/22/17 at 06:00; Status Future hold Venlafaxine HCl (Effexor) 25 mg BID NGT Last administered on 02/25/17 08:09; Admin Dose 25 MG; Start 02/22/17 at 10:30 Vancomycin HCl 250 mg 250 mg Q6 PO Last administered on 02/25/17 05:00; Admin Dose 250 MG; Start 02/24/17 at 18:00 Potassium Chloride (KCl 40 MEQ/250 ML NS) 250 ml @ 62.5 mls/hr Q4H IVPB Last administered on 02/25/17 05:22; Admin Dose 62.5 MLS/HR; Start 02/25/17 at 05:30 ; Stop 02/25/17 at 13:29 Ergocalciferol 27621 unit 50,000 unit Sa@09 PO Last administered on 02/25/17 08:31; Admin Dose 50,000 UNIT; Start 02/25/17 at 09:00 Potassium Chloride (KCl 40 MEQ/250 ML NS) 250 ml @ 62.5 mls/hr ONCE ONCE IVPB Last administered on 02/25/17 08:08; Admin Dose 62.5 MLS/HR; Start 02/25/17 at 07:30; Stop 02/25/17 at 11:29 Insulin Glargine (Lantus) 6 unit BID SC ; Start 02/25/17 at 09:00 Rifaximin (Xifaxan) 200 mg TID NGT Last administered on 02/25/17 08:31; Admin Dose 200 MG; Start 02/25/17 at 09:00 Miscellaneous Information (*Rx Drug Level Order Reminder*) VANCO TROUGH TONIGHT... ONCE ONCE XX ; Start 02/25/17 at 21:00; Stop 02/25/17 at 21:01 PAULA BECERRA NP February 25, 2017 10:17
--- NOTE | 2017-02-25 11:01 | CONS ---
Date/Time of Note Date/Time of Note DATE: 02/25/17 TIME: 10:59 Assessment/Plan Assessment/Plan Additional Assessment/Plan Assessment recommendations; 1. Patient admitted for respiratory failure due to sepsis currently on appropriate antibiotic regimen. 2. Anemia, currently getting blood transfusion. 3. Lower extremity edema from hypoalbuminemia. 4. Bibasilar pneumonia. Continue current treatment. Patient responding well to current treatment regimen. Consultation Date/Type/Reason Admit Date/Time February 19, 2017 at 14:52 Initial Consult Date 02/21/17 Type of Consultation: Pulmonary/critical care Referring Provider: HARDIK MCBRIDE NP 24 HR Interval Summary Free Text/Dictation Patient condition stable. Remains awake and alert. But somewhat somnolent. Has remained hemodynamically stable. General exam; elderly male, awake currently in no distress. Exam/Review of Systems Vital Signs Vitals Vital Signs Date Time Temp Pulse Resp B/P Pulse Ox O2 Delivery O2 Flow Rate FiO2 02/25/17 10:00 94 14 91/46 100 Nasal Cannula 2.0 02/25/17 08:00 97.7 02/24/17 05:42 33 Intake and Output 02/24/17 02/24/17 02/25/17 15:00 23:00 07:00 Intake Total 1645.99 ml 960 ml 620 ml Output Total 555 ml 660 ml 380 ml Balance 1090.99 ml 300 ml 240 ml Exam H EENT exam is; supple neck, no JVD. No lymphadenopathy. Midline trachea. Patient has fair dentition. Has bilateral intraocular lens implants. Chest examined; diminished but clear vessel. S1-S2 audible, no murmurs. Regular rhythm. Abdomen examination; soft, nondistended. Bowel sounds audible. Extremity exam; 2+ pitting edema lower extremities bilaterally. PIECER examination of Jim patient is awake and moves all 4 extremities. Results Result Diagram: 02/25/17 0345 02/25/17 0345 Results 24 hrs Laboratory Tests Test 02/24/17 12:24 02/24/17 17:15 02/24/17 21:07 02/25/17 01:41 Bedside Glucose 130 94 96 73 Test 02/25/17 03:45 02/25/17 04:25 02/25/17 04:45 02/25/17 04:56 White Blood Count 6.2 # Red Blood Count 2.32 #L Hemoglobin 6.9 #*L Hematocrit 20.9 #L Mean Corpuscular Volume 90.1 Mean Corpuscular Hemoglobin 29.7 Mean Corpuscular Hemoglobin Concent 33.0 Red Cell Distribution Width 16.6 H Platelet Count 41 #L Mean Platelet Volume 11.4 H Neutrophils % 75.0 Band Neutrophils % 6.0 H Lymphocytes % 12.0 L Reactive Lymphocytes % 1.0 Monocytes % 3.0 Eosinophils % 2.0 Basophils % 1.0 Neutrophils # 4.7 Lymphocytes # 0.7 L Monocytes # 0.2 L Eosinophils # 0.1 Basophils # 0.1 Toxic Granulation 1+ Platelet Estimate PLT APPEAR DECREASED Large Platelets OCCASIONAL Poikilocytosis 1+ Anisocytosis 1+ Ovalocytes OCCASIONAL Rouleau 1+ Prothrombin Time 24.1 #H Prothrombin Time Ratio 1.9 INR International Normalized Ratio 2.14 Activated Partial Thromboplast Time 45.0 H Sodium Level 135 Potassium Level 2.6 *L Chloride Level 106 Carbon Dioxide Level 21 Anion Gap 11 Blood Urea Nitrogen 26 H Creatinine 1.09 Glucose Level 47 #*L Calcium Level 6.7 L Phosphorus Level 1.4 L Magnesium Level 1.9 Total Bilirubin 0.6 Direct Bilirubin 0.00 Indirect Bilirubin 0.6 Aspartate Amino Transf (AST/SGOT) 41 # Alanine Aminotransferase (ALT/SGPT) 67 Alkaline Phosphatase 248 H B-Type Natriuretic Peptide 1250 H Total Protein 3.5 L Albumin 1.9 L Globulin 1.60 Albumin/Globulin Ratio 1.18 Bedside Glucose 59 L 137 123 Test 02/25/17 08:11 Bedside Glucose 70 Medications Medications Current Medications Cefepime HCl (Maxipime 2gm/50 ml (Pmx)) 50 ml @ 100 mls/hr Q24H IVPB Last administered on 02/24/17 17:16; Admin Dose 100 MLS/HR; Start 02/19/17 at 17:30 Lactobacillus Acidophilus/ Rhamnosus (Culturelle) 1 cap BID PO Last administered on 02/25/17 08:08; Admin Dose 1 CAP; Start 02/19/17 at 21:00 Multivitamins Therapeutic (Theragran) 1 tab DAILY PO Last administered on 08:08; Admin Dose 1 TAB; Start 02/20/17 at 09:00 Ascorbic Acid (Vitamin C) 500 mg QAM PO Last administered on 02/25/17 08:31; Admin Dose 500 MG; Start 02/20/17 at 09:00 Ticagrelor (Brilinta) 90 mg QAM PO Last administered on 02/25/17 08:36; Admin Dose 90 MG; Start 02/19/17 at 16:30 Zinc Sulfate (Zinc Sulfate) 220 mg QAM PO Last administered on 02/25/17 08:08 ; Admin Dose 220 MG; Start 02/20/17 at 09:00 Atorvastatin Calcium (Lipitor) 80 mg DAILY@21 PO Last administered on 21:05; Admin Dose 80 MG; Start 02/19/17 at 21:00 Ondansetron HCl (Zofran Inj) 4 mg Q6H PRN IV NAUSEA AND/OR VOMITING; Start at 16:30 Acetaminophen (Tylenol Tab) 650 mg Q6H PRN PO PAIN LEVEL 1-3 OR FEVER; Start at 16:30 Acetaminophen (Tylenol Supp) 650 mg Q6H PRN [place] PAIN LEVEL 1-3 OR FEVER; Start 02/19/17 at 16:30 Acetaminophen/ Hydrocodone Bitart ([place] (5/325)) 1 tab Q6H PRN PO MODERATE PAIN LEVEL 4-6; Start 02/19/17 at 16:30 Morphine Sulfate (morphine) 2 mg Q4H PRN IV SEVERE PAIN LEVEL 7-10 Last administered on 02/24/17 14:31; Admin Dose 2 MG; Start 02/19/17 at 16:30 Miscellaneous Information 1 ea NOTE XX ; Start 02/19/17 at 16:30 Glucose (Glutose) 15 gm Q15M PRN PO DECREASED GLUCOSE; Start 02/19/17 at 16:30 Glucose (Glutose) 22.5 gm Q15M PRN PO DECREASED GLUCOSE; Start 02/19/17 at 16: 30 Dextrose (D50w Syringe) 25 ml Q15M PRN IV DECREASED GLUCOSE Last administered on 02/25/17 04:31; Admin Dose 25 ML; Start 02/19/17 at 16:30 Dextrose (D50w Syringe) 50 ml Q15M PRN IV DECREASED GLUCOSE; Start 02/19/17 at 16:30 Glucagon (Glucagen) 1 mg Q15M PRN IM DECREASED GLUCOSE; Start 02/19/17 at 16:30 Glucose (Glutose) 15 gm Q15M PRN BUCCAL DECREASED GLUCOSE; Start 02/19/17 at 16 :30 Diagnostic Test (Pha) (Accu-Chek) 1 ea 02 XX Last administered on 02/25/17 01: 45; Admin Dose 1 EA; Start 02/20/17 at 02:00 Insulin Aspart NOVOLOG *MILD* ALGORITHM Q4 SC Last administered on 02/24/17 08 :58; Admin Dose 1 UNIT; Start 02/20/17 at 13:00 Norepinephrine/ Dextrose (Levophed/D5W) 500 ml @ 1.87 mls/hr TITRATE IV Last administered on 02/22/17 05:57; Admin Dose 1.87 MLS/HR; Start 02/20/17 at 11:00 Pantoprazole 40 mg 40 mg BID@06,18 IV Last administered on 02/25/17 05:00; Admin Dose 40 MG; Start 02/20/17 at 18:00 Sodium Bicarbonate 50 meq/Dextrose 1,050 ml @ 70 mls/hr Q15H IV Last administered on 02/24/17 21:06; Admin Dose 100 MLS/HR; Start 02/20/17 at 13:00 Vancomycin HCl (Vancocin) 250 ml @ 125 mls/hr Q36H IVPB Last administered on 10:13; Admin Dose 125 MLS/HR; Start 02/21/17 at 10:00 Aspirin (Halfprin) 81 mg DAILY PO Last administered on 02/23/17 10:58; Admin Dose 81 MG; Start 02/21/17 at 09:00; Status Future Hold Levothyroxine Sodium (Synthroid) 50 mcg DAILY@06 PO Last administered on 05:54; Admin Dose 50 MCG; Start 02/22/17 at 06:00; Status Future hold Venlafaxine HCl (Effexor) 25 mg BID NGT Last administered on 02/25/17 08:09; Admin Dose 25 MG; Start 02/22/17 at 10:30 Vancomycin HCl 250 mg 250 mg Q6 PO Last administered on 02/25/17 05:00; Admin Dose 250 MG; Start 02/24/17 at 18:00 Potassium Chloride (KCl 40 MEQ/250 ML NS) 250 ml @ 62.5 mls/hr Q4H IVPB Last administered on 02/25/17 05:22; Admin Dose 62.5 MLS/HR; Start 02/25/17 at 05:30 ; Stop 02/25/17 at 13:29 Ergocalciferol 25675 unit 50,000 unit Sa@09 PO Last administered on 02/25/17 08:31; Admin Dose 50,000 UNIT; Start 02/25/17 at 09:00 Potassium Chloride (KCl 40 MEQ/250 ML NS) 250 ml @ 62.5 mls/hr ONCE ONCE IVPB Last administered on 02/25/17 08:08; Admin Dose 62.5 MLS/HR; Start 02/25/17 at 07:30; Stop 02/25/17 at 11:29 Insulin Glargine (Lantus) 6 unit BID SC ; Start 02/25/17 at 09:00 Rifaximin (Xifaxan) 200 mg TID NGT Last administered on 02/25/17 08:31; Admin Dose 200 MG; Start 02/25/17 at 09:00 Miscellaneous Information (*Rx Drug Level Order Reminder*) VANCO TROUGH TONIGHT... ONCE ONCE XX ; Start 02/25/17 at 21:00; Stop 02/25/17 at 21:01 GALINA NELSON February 25, 2017 11:01
--- NOTE | 2017-02-25 11:03 | CONS ---
DATE OF ADMISSION: 02/19/2017 DATE OF CONSULTATION: HISTORY OF PRESENT ILLNESS: He is an 86-year-old gentleman who has a history of diagnosed prostate cancer, whether or not this is metastatic disease is unknown at this time. He also has in the [facility] care unit with sepsis syndrome. He is off pressors at this time, presumably secondary to Clost ridium difficile colitis. He also has comorbid medical problems including coronary heart disease, d iabetes, hypothyroidism. It is unknown what this gentleman's baseline mental status was like prior to this hospitalization, he was brought here from an F. I am asked to evaluate the patient and sp eak to family members concerning ongoing level of care. Patient is a DO NOT RESUSCITATE. DISCUSSION: In reviewing the patient's medical records, he is a non-historian, but once again was br ought from the long term unit. Apparently family members were involved with his transfer to a [facility] facility, as he was found to be altered, loss of appetite and lethargic. When evaluated h ere, he was in shock, required pressors, acute renal failure, fluid and electrolyte abnormalities an d by history has a stage II decubiti on his buttocks. Multiple fluid and electrolyte abnormalities were identified at that time, and admitted to the intensive care unit. In reviewing the patient's m edical records since admission on 02/19/2017 the patient's hospitalist team can find no evidence vivien t he has had a significant improvement in cognitive functions. He is still receiving aggressive int ervention at this time and from what I can ascertain, there is one family member who is arriving in town this weekend and I look forward to speaking with her. Participants will be family members. I do not have as much information as I would like to have this time in terms of the patient's backgrou nd. All I know at this time he resides in the long term facility. When family arrives, I artur l address acceptable quality of life, the strengths or fears, cultural differences, communications a nd also health care delivering team and any caregiver concerned will be addressed also. PHYSICAL EXAMINATION: GENERAL: He is an ill-appearing, ashen gentleman. VITAL SIGNS: Blood pressure 92/45, pulse 93 and regular, respirations of 14, 98% saturations on 2 l iters. HEENT: He is normocephalic and atraumatic. Anicteric. He is acyanotic on examination, CHEST: Distant breath sounds throughout both lung gamez. Inspiratory and expiratory clear breath sounds throughout both lung gamez. COR: S1, S2, without S3, S4, murmur, gallop, rub. Normal rate, normal rhythm on examination. ABDOMEN: Grossly benign. LABORATORY DATA: Have been reviewed from a palliative care standpoint. ASSESSMENT AND PLAN: Social history and family history will be addressed when family members arrive in town. I will defer estimated prognosis or any mention of palliative performance status, but artur l give family members an opportunity to express their desires in so far as ongoing level of care. G oals of care will be discussed also with family members. My impression so far as patient's family m embers understanding the patient's overall clinical condition will be addressed at the time that I s peak with them in the family conference setting. On my examination, there has been a patient managem ent issue and he has been medicated with morphine when the patient is being moved or rolled. Psychosocial, social and spiritual issues be addressed with family members when they arrive as well as ethical issues. Surrogate will be identified and we will identify the patient's code st atus once again. Followup note will be done at that time. Dictated By: WU MO MD, LP/LADY Conf#: [id number] DID#: [id number]
[2017-02-25] MEDS: PHYTONADIONE (1 MG/ML PO SYG) PO SCH (11:18)
--- NOTE | 2017-02-25 11:52 | CONS ---
Date/Time of Note Date/Time of Note DATE: 02/25/17 TIME: 11:12 Assessment/Plan Assessment/Plan Additional Assessment/Plan Assessment * Transaminitis Ultrasound . Sludge and small stones in the gallbladder without definite secondary signs of acute cholecystitis. * Anemia Consider Lower GI bleed ,R/O upper GI bleed * Hypokalemia * Diabetes mellitus * S/P extubation 3 days ago Plan * monitor Hemoglobin and hematocrit q6 and transfuse 1 unit of PRBC if hgn<7.5, if hgb <7 2 uits PRBC * NPO * for EGD/colonoscopy risks and benefit explained to family and agreed with planned procedure * MRCP Consultation Date/Type/Reason Admit Date/Time February 19, 2017 at 14:52 Date of Consultation: February 25, 2017 Type of Consultation: gasrtoenterology Reason for Consultation anemia/transaminitis Referring Provider: BEBO SEYMOUR Hx of Present Illness 86 year old male a with past medical history of CAD,dyslipidemia,diabetes mellitus,hypothyroidism,prostatae cancer,hernia and sepsis (pneumonia) who was admitted last February from a fpc([facility]) because sepsis.Patient complained of body weakness and lethargy.He was extubated 3 days ago,was asked to evaluate patient transaminitis.Information were obtained through medical and records and nursing staff.The patient did not have complaints ultrasound 02/23/2017Study slightly limited by bowel gas. question cirrhosis. Sludge and small stones in the gallbladder without definite secondary signs of acute cholecystitis. HIDA scan correlation may be obtained if indicated. Echogenic right kidney suggesting medical renal disease.Latest laboratory revealed Hemoglobin 6.9 ,K 2.6,lactic acid 6.7 and alkaline phosphatase 248 ,AST 41,ALT 67.No fever,NGT no active bleeding,rectal tube in placed with pinkish liquid stool.The nurse claimed hematochezia mild in amount no active bleeding.Blood transfusion started,planned EGD and colonoscopy after bowel preparation Past Surgical History Past Surgical Hx: noncontributory Social History Smoking Status: Never smoker Drug Use: none Exam/Review of Systems Vital Signs Vitals Vital Signs Date Time Temp Pulse Resp B/P Pulse Ox O2 Delivery O2 Flow Rate FiO2 02/25/17 10:00 94 14 91/46 100 Nasal Cannula 2.0 02/25/17 08:00 97.7 02/24/17 05:42 33 Intake and Output 02/24/17 02/24/17 02/25/17 15:00 23:00 07:00 Intake Total 1645.99 ml 960 ml 620 ml Output Total 555 ml 660 ml 380 ml Balance 1090.99 ml 300 ml 240 ml Exam Constitutional: frail Head: normocephalic Neck: non-tender, supple Respiratory: clear to auscultation, diminished breath sounds, normal air movement Cardiovascular: nl pulses, regular rate and rhythm Gastrointestinal: nl liver, spleen, non-tender, soft, No rebound or guarding Musculoskeletal: nl extremities to inspection Extremities: normal pulses Skin: nl turgor, No rash or lesions Lymph: nl lymph nodes Results Result Diagram: 02/25/17 0345 02/25/17 0345 Results 24 hrs Laboratory Tests Test 02/24/17 12:24 02/24/17 17:15 02/24/17 21:07 02/25/17 01:41 Bedside Glucose 130 94 96 73 Test 02/25/17 03:45 02/25/17 04:25 02/25/17 04:45 02/25/17 04:56 White Blood Count 6.2 # Red Blood Count 2.32 #L Hemoglobin 6.9 #*L Hematocrit 20.9 #L Mean Corpuscular Volume 90.1 Mean Corpuscular Hemoglobin 29.7 Mean Corpuscular Hemoglobin Concent 33.0 Red Cell Distribution Width 16.6 H Platelet Count 41 #L Mean Platelet Volume 11.4 H Neutrophils % 75.0 Band Neutrophils % 6.0 H Lymphocytes % 12.0 L Reactive Lymphocytes % 1.0 Monocytes % 3.0 Eosinophils % 2.0 Basophils % 1.0 Neutrophils # 4.7 Lymphocytes # 0.7 L Monocytes # 0.2 L Eosinophils # 0.1 Basophils # 0.1 Toxic Granulation 1+ Platelet Estimate PLT APPEAR DECREASED Large Platelets OCCASIONAL Poikilocytosis 1+ Anisocytosis 1+ Ovalocytes OCCASIONAL Rouleau 1+ Prothrombin Time 24.1 #H Prothrombin Time Ratio 1.9 INR International Normalized Ratio 2.14 Activated Partial Thromboplast Time 45.0 H Sodium Level 135 Potassium Level 2.6 *L Chloride Level 106 Carbon Dioxide Level 21 Anion Gap 11 Blood Urea Nitrogen 26 H Creatinine 1.09 Glucose Level 47 #*L Calcium Level 6.7 L Phosphorus Level 1.4 L Magnesium Level 1.9 Total Bilirubin 0.6 Direct Bilirubin 0.00 Indirect Bilirubin 0.6 Aspartate Amino Transf (AST/SGOT) 41 # Alanine Aminotransferase (ALT/SGPT) 67 Alkaline Phosphatase 248 H B-Type Natriuretic Peptide 1250 H Total Protein 3.5 L Albumin 1.9 L Globulin 1.60 Albumin/Globulin Ratio 1.18 Bedside Glucose 59 L 137 123 Test 02/25/17 08:11 Bedside Glucose 70 Medications Medications Current Medications Cefepime HCl (Maxipime 2gm/50 ml (Pmx)) 50 ml @ 100 mls/hr Q24H IVPB Last administered on 02/24/17 17:16; Admin Dose 100 MLS/HR; Start 02/19/17 at 17:30 Lactobacillus Acidophilus/ Rhamnosus (Culturelle) 1 cap BID PO Last administered on 02/25/17 08:08; Admin Dose 1 CAP; Start 02/19/17 at 21:00 Multivitamins Therapeutic (Theragran) 1 tab DAILY PO Last administered on 08:08; Admin Dose 1 TAB; Start 02/20/17 at 09:00 Ascorbic Acid (Vitamin C) 500 mg QAM PO Last administered on 02/25/17 08:31; Admin Dose 500 MG; Start 02/20/17 at 09:00 Ticagrelor (Brilinta) 90 mg QAM PO Last administered on 02/25/17 08:36; Admin Dose 90 MG; Start 02/19/17 at 16:30 Zinc Sulfate (Zinc Sulfate) 220 mg QAM PO Last administered on 02/25/17 08:08 ; Admin Dose 220 MG; Start 02/20/17 at 09:00 Atorvastatin Calcium (Lipitor) 80 mg DAILY@21 PO Last administered on 21:05; Admin Dose 80 MG; Start 02/19/17 at 21:00 Ondansetron HCl (Zofran Inj) 4 mg Q6H PRN IV NAUSEA AND/OR VOMITING; Start at 16:30 Acetaminophen (Tylenol Tab) 650 mg Q6H PRN PO PAIN LEVEL 1-3 OR FEVER; Start at 16:30 Acetaminophen (Tylenol Supp) 650 mg Q6H PRN [place] PAIN LEVEL 1-3 OR FEVER; Start 02/19/17 at 16:30 Acetaminophen/ Hydrocodone Bitart ([place] (5/325)) 1 tab Q6H PRN PO MODERATE PAIN LEVEL 4-6; Start 02/19/17 at 16:30 Morphine Sulfate (morphine) 2 mg Q4H PRN IV SEVERE PAIN LEVEL 7-10 Last administered on 02/24/17 14:31; Admin Dose 2 MG; Start 02/19/17 at 16:30 Miscellaneous Information 1 ea NOTE XX ; Start 02/19/17 at 16:30 Glucose (Glutose) 15 gm Q15M PRN PO DECREASED GLUCOSE; Start 02/19/17 at 16:30 Glucose (Glutose) 22.5 gm Q15M PRN PO DECREASED GLUCOSE; Start 02/19/17 at 16: 30 Dextrose (D50w Syringe) 25 ml Q15M PRN IV DECREASED GLUCOSE Last administered on 02/25/17 04:31; Admin Dose 25 ML; Start 02/19/17 at 16:30 Dextrose (D50w Syringe) 50 ml Q15M PRN IV DECREASED GLUCOSE; Start 02/19/17 at 16:30 Glucagon (Glucagen) 1 mg Q15M PRN IM DECREASED GLUCOSE; Start 02/19/17 at 16:30 Glucose (Glutose) 15 gm Q15M PRN BUCCAL DECREASED GLUCOSE; Start 02/19/17 at 16 :30 Diagnostic Test (Pha) (Accu-Chek) 1 ea 02 XX Last administered on 02/25/17 01: 45; Admin Dose 1 EA; Start 02/20/17 at 02:00 Insulin Aspart NOVOLOG *MILD* ALGORITHM Q4 SC Last administered on 02/24/17 08 :58; Admin Dose 1 UNIT; Start 02/20/17 at 13:00 Norepinephrine/ Dextrose (Levophed/D5W) 500 ml @ 1.87 mls/hr TITRATE IV Last administered on 02/22/17 05:57; Admin Dose 1.87 MLS/HR; Start 02/20/17 at 11:00 Pantoprazole 40 mg 40 mg BID@06,18 IV Last administered on 02/25/17 05:00; Admin Dose 40 MG; Start 02/20/17 at 18:00 Sodium Bicarbonate 50 meq/Dextrose 1,050 ml @ 70 mls/hr Q15H IV Last administered on 02/24/17 21:06; Admin Dose 100 MLS/HR; Start 02/20/17 at 13:00 Vancomycin HCl (Vancocin) 250 ml @ 125 mls/hr Q36H IVPB Last administered on 10:13; Admin Dose 125 MLS/HR; Start 02/21/17 at 10:00 Aspirin (Halfprin) 81 mg DAILY PO Last administered on 02/23/17 10:58; Admin Dose 81 MG; Start 02/21/17 at 09:00; Status Future Hold Levothyroxine Sodium (Synthroid) 50 mcg DAILY@06 PO Last administered on 05:54; Admin Dose 50 MCG; Start 02/22/17 at 06:00; Status Future hold Venlafaxine HCl (Effexor) 25 mg BID NGT Last administered on 02/25/17 08:09; Admin Dose 25 MG; Start 02/22/17 at 10:30 Vancomycin HCl 250 mg 250 mg Q6 PO Last administered on 02/25/17 05:00; Admin Dose 250 MG; Start 02/24/17 at 18:00 Potassium Chloride (KCl 40 MEQ/250 ML NS) 250 ml @ 62.5 mls/hr Q4H IVPB Last administered on 02/25/17 05:22; Admin Dose 62.5 MLS/HR; Start 02/25/17 at 05:30 ; Stop 02/25/17 at 13:29 Ergocalciferol 19237 unit 50,000 unit Sa@09 PO Last administered on 02/25/17 08:31; Admin Dose 50,000 UNIT; Start 02/25/17 at 09:00 Potassium Chloride (KCl 40 MEQ/250 ML NS) 250 ml @ 62.5 mls/hr ONCE ONCE IVPB Last administered on 02/25/17 08:08; Admin Dose 62.5 MLS/HR; Start 02/25/17 at 07:30; Stop 02/25/17 at 11:29 Insulin Glargine (Lantus) 6 unit BID SC ; Start 02/25/17 at 09:00 Rifaximin (Xifaxan) 200 mg TID NGT Last administered on 02/25/17 08:31; Admin Dose 200 MG; Start 02/25/17 at 09:00 Miscellaneous Information (*Rx Drug Level Order Reminder*) VANCO TROUGH TONIGHT... ONCE ONCE XX ; Start 02/25/17 at 21:00; Stop 02/25/17 at 21:01 EVENS MARTIN MD February 25, 2017 11:27
[2017-02-25 13:03] LABS: HEMATOCRIT 28.2 % (42.0-52.0); HEMOGLOBIN 9.5 g/dl (14.0-18.0)
[2017-02-25 13:26] LABS: ALBUMIN 1.8 g/dl (3.3-4.9); BILIRUBIN,INDIRECT 0.6 mg/dl (0-1.1); BILIRUBIN,TOTAL 0.6 mg/dl (0.2-1.3); TOTAL PROTEIN 3.6 g/dl (6.1-8.1)
--- NOTE | 2017-02-25 13:44 | PN ---
DATE: 02/24/2017 SUBJECTIVE: No acute changes. The patient is less tachycardic. Still on low-dose Levophed drip. No fevers. WBC today is 11.5, platelets 53, neutrophils 85.3, no bands. BUN 30, creatinine 1.20. MICROBIOLOGY: Stool for C. diff came back positive. DIAGNOSTICS: The patient had a liver ultrasound done yesterday with questionable cirrhosis, sludge, and small stone in the gallbladder without definite secondary signs of acute cholecystitis. INDWELLING: NG tube, right IJ triple-lumen catheter, Christopher. ANTIMICROBIALS: The patient is on: 1. Vancomycin. 2. Cefepime. PHYSICAL EXAMINATION: GENERAL: This is a fragile, chronically ill-appearing, elderly man, who is in no distress. HEENT: Head atraumatic, normocephalic. Sclerae anicteric. Buccal mucosa dry. NECK: Supple, trachea midline. CHEST: Rise symmetrical. Breath sounds diminished at the bases. HEART: S1, S2. ABDOMEN: Soft, bowel tones present. EXTREMITIES: No cyanosis. ASSESSMENT: 1. Ongoing sepsis with shock. 2. Clostridium difficile colitis. 3. Sinus tachycardia, improving. 4. Transaminitis. 5. Encephalopathy. 6. History of prostate cancer. 7. Diabetes. PLAN: We are going to add oral vancomycin to the regimen, continue him on current antimicrobials to complete treatment for pneumonia. Continue anti-aspiration measures. Follow recommendations of co nsultants. Dictated By: MICHAELA SPEARS [employer] for SUNITHA COLINDRES/LADY Conf#: [id number] DID#: [id number]
[2017-02-25] MEDS: SODIUM BICARBONATE (IV ADD) 50 MEQ in DEXTROSE 5% 1,000 ML IV SCH (13:55)
[2017-02-25] MEDS: metroNIDAZOLE 500 MG/NS (PMX) 250 MG in EVAC CONTAINER 1 BOTTLE IVPB SCH ×2 (13:55→21:02)
--- NOTE | 2017-02-25 14:11 | PN ---
Date/Time of Note Date/Time of Note DATE: 02/25/17 TIME: 14:08 Assessment/Plan Lines/Catheters IV Catheter Type (from Nrs): Central Line Christopher in Place (from Nrs): Yes Assessment/Plan Assessment/Plan [facility] Progress Note Date of Service: 02/25/17 Today's Impression & Plan: Overall seems slightly improved. ? efficacy of treatment for C-diff vs. sedation window vs. both. Abs appears benign. No indication for acute surgical intervention. With above assessment, I've recommended the following for today: 1. Cont current management 2. Cont C-diff therapy 3. Ok with MRCP (please make sure medically stable; can likely wait if any major concerns for mental status or cardiopulmonary status Thank you again for your great care of this very pleasant patient and wonderful family. If there are any questions, please feel free to call me at [phone]. TOTAL VISIT TIME: 20 minutes of which more than half was spent in [id number] discussion with the patient, possibly including family, as well as coordination of care between multiple physicians and providers. Disclaimer: Inadvertent spelling or grammatical errors are likely due to EHR/ dictation software use and do not reflect on the overall quality of patient care. Updated Clinical Summary: The patient is a very pleasant 86-year-old gentleman admitted to [facility] on 02/19/2017 from a correction ([facility]) initially for sepsis, which was manifesting by fatigue and lethargy. He was in the intensive care unit since admission and required significant support and has progressively gotten better to a point where he extubated 3 days prior to my initial visit. This was thought to be due to Clostridium difficile infection. COMORBIDITIES: 1. Chronic coronary artery disease, potentially old OR, treated on Brilinta. He had a percutaneous intervention in May. 2. Chronic dyslipidemia. 3. Chronic diabetes. 4. Chronic hypothyroidism. 5. Metabolic syndrome. 6. History of sepsis due to pneumonia treated in [facility] and then transferred to [facility] after a month. 7. Prostate cancer diagnosed years ago. No evidence of obvious metastasis. He has been on surveillance and expectant management. 8. Sciatica with history of epidurals. 9. Cataracts. 10. Hernia. 11. Clostridium difficile colitis infection, culture positive 02/24/2017. Subjective: No major events or complaints overnight; no abd pain; no n/v/d; no sob or cp; + flatus; + BM; - activity Objective: Vitals: See below Exam: GENERAL: On exam, the patient was laying in bed and appeared to be comfortable and in no acute distress. ABDOMEN: Soft, nontender and nondistended. There are no peritoneal signs or guarding. SKIN: Skin appears to be pink and feels warm to touch. NEUROLOGIC: Patient is more arousable than yesterday and followed simple commands. Still not speaking in audible words, but seemed more engaged in the conversation. Exam/Review of Systems Vital Signs Vitals Vital Signs Date Time Temp Pulse Resp B/P Pulse Ox O2 Delivery O2 Flow Rate FiO2 02/25/17 12:09 97 02/25/17 11:30 17 100/47 99 02/25/17 11:00 Room Air 02/25/17 10:00 2.0 02/25/17 08:00 97.7 02/24/17 05:42 33 Intake and Output 02/24/17 02/24/17 02/25/17 14:59 22:59 06:59 Intake Total 1737.24 ml 960 ml 720 ml Output Total 500 ml 700 ml 440 ml Balance 1237.24 ml 260 ml 280 ml Results Result Diagram: 02/25/17 1246 02/25/17 0345 RADHA JAMES M.D. February 25, 2017 14:11
--- NOTE | 2017-02-25 14:15 | CONS ---
Date/Time of Note Date/Time of Note DATE: 02/25/17 TIME: 14:10 Assessment/Plan Assessment/Plan Additional Assessment/Plan 1. Septic shock 2. Acute kidney injury secondary to acute tubular necrosis from septic shock. 3. Hyperchloremic non-anion gap metabolic acidosis likely secondary to severe diarrhea. Currently, the patient's bicarbonate has been dropped down to 16. 4. Hyponatremia, likely secondary to hypovolemic hyponatremia. 5. 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 6. Hypocalcemia, but the corrected calcium with a low albumin has been pretty much normal. PLAN: HCo3 21- stop bicarbonate drip, start D51/2 NS at 60 cc/hr Cr improving, K low, Mag low- replaced today, I will give K phosph 15 mmol IV x 1 in additin to IV KCL replacement good urine output will continue to follow up Full Code Consultation Date/Type/Reason Admit Date/Time February 19, 2017 at 14:52 Initial Consult Date 02/20/2017 Type of Consultation: NPEHROLOGY Referring Provider: BEBO SEYMOUR Exam/Review of Systems Vital Signs Vitals Vital Signs Date Time Temp Pulse Resp B/P Pulse Ox O2 Delivery O2 Flow Rate FiO2 02/25/17 12:09 97 02/25/17 11:30 17 100/47 99 02/25/17 11:00 Room Air 02/25/17 10:00 2.0 02/25/17 08:00 97.7 02/24/17 05:42 33 Intake and Output 02/24/17 02/24/17 02/25/17 15:00 23:00 07:00 Intake Total 1645.99 ml 960 ml 620 ml Output Total 555 ml 660 ml 380 ml Balance 1090.99 ml 300 ml 240 ml Results Result Diagram: 02/25/17 1246 02/25/17 0345 Results 24 hrs Laboratory Tests Test 02/24/17 17:15 02/24/17 21:07 02/25/17 01:41 02/25/17 03:45 Bedside Glucose 94 96 73 White Blood Count 6.2 # Red Blood Count 2.32 #L Hemoglobin 6.9 #*L Hematocrit 20.9 #L Mean Corpuscular Volume 90.1 Mean Corpuscular Hemoglobin 29.7 Mean Corpuscular Hemoglobin Concent 33.0 Red Cell Distribution Width 16.6 H Platelet Count 41 #L Mean Platelet Volume 11.4 H Neutrophils % 75.0 Band Neutrophils % 6.0 H Lymphocytes % 12.0 L Reactive Lymphocytes % 1.0 Monocytes % 3.0 Eosinophils % 2.0 Basophils % 1.0 Neutrophils # 4.7 Lymphocytes # 0.7 L Monocytes # 0.2 L Eosinophils # 0.1 Basophils # 0.1 Toxic Granulation 1+ Platelet Estimate PLT APPEAR DECREASED Large Platelets OCCASIONAL Poikilocytosis 1+ Anisocytosis 1+ Ovalocytes OCCASIONAL Rouleau 1+ Prothrombin Time 24.1 #H Prothrombin Time Ratio 1.9 INR International Normalized Ratio 2.14 Activated Partial Thromboplast Time 45.0 H Sodium Level 135 Potassium Level 2.6 *L Chloride Level 106 Carbon Dioxide Level 21 Anion Gap 11 Blood Urea Nitrogen 26 H Creatinine 1.09 Glucose Level 47 #*L Calcium Level 6.7 L Phosphorus Level 1.4 L Magnesium Level 1.9 Total Bilirubin 0.6 Direct Bilirubin 0.00 Indirect Bilirubin 0.6 Aspartate Amino Transf (AST/SGOT) 41 # Alanine Aminotransferase (ALT/SGPT) 67 Alkaline Phosphatase 248 H B-Type Natriuretic Peptide 1250 H Total Protein 3.5 L Albumin 1.9 L Globulin 1.60 Albumin/Globulin Ratio 1.18 Test 02/25/17 04:25 02/25/17 04:45 02/25/17 04:56 02/25/17 08:11 Bedside Glucose 59 L 137 123 70 Test 02/25/17 12:46 02/25/17 12:52 Hemoglobin 9.5 #L Hematocrit 28.2 #L Total Bilirubin 0.6 Direct Bilirubin 0.00 Indirect Bilirubin 0.6 Aspartate Amino Transf (AST/SGOT) 45 Alanine Aminotransferase (ALT/SGPT) 68 Alkaline Phosphatase 252 H Total Protein 3.6 L Albumin 1.8 L Bedside Glucose 77 Medications Medications Current Medications Lactobacillus Acidophilus/ Rhamnosus (Culturelle) 1 cap BID PO Last administered on 02/25/17 08:08; Admin Dose 1 CAP; Start 02/19/17 at 21:00 Multivitamins Therapeutic (Theragran) 1 tab DAILY PO Last administered on 08:08; Admin Dose 1 TAB; Start 02/20/17 at 09:00 Ascorbic Acid (Vitamin C) 500 mg QAM PO Last administered on 02/25/17 08:31; Admin Dose 500 MG; Start 02/20/17 at 09:00 Ticagrelor (Brilinta) 90 mg QAM PO Last administered on 02/25/17 08:36; Admin Dose 90 MG; Start 02/19/17 at 16:30 Zinc Sulfate (Zinc Sulfate) 220 mg QAM PO Last administered on 02/25/17 08:08 ; Admin Dose 220 MG; Start 02/20/17 at 09:00 Atorvastatin Calcium (Lipitor) 80 mg DAILY@21 PO Last administered on 21:05; Admin Dose 80 MG; Start 02/19/17 at 21:00 Ondansetron HCl (Zofran Inj) 4 mg Q6H PRN IV NAUSEA AND/OR VOMITING; Start at 16:30 Acetaminophen (Tylenol Tab) 650 mg Q6H PRN PO PAIN LEVEL 1-3 OR FEVER; Start at 16:30 Acetaminophen (Tylenol Supp) 650 mg Q6H PRN [place] PAIN LEVEL 1-3 OR FEVER; Start 02/19/17 at 16:30 Acetaminophen/ Hydrocodone Bitart ([place] (5/325)) 1 tab Q6H PRN PO MODERATE PAIN LEVEL 4-6; Start 02/19/17 at 16:30 Morphine Sulfate (morphine) 2 mg Q4H PRN IV SEVERE PAIN LEVEL 7-10 Last administered on 02/24/17 14:31; Admin Dose 2 MG; Start 02/19/17 at 16:30 Miscellaneous Information 1 ea NOTE XX ; Start 02/19/17 at 16:30 Glucose (Glutose) 15 gm Q15M PRN PO DECREASED GLUCOSE; Start 02/19/17 at 16:30 Glucose (Glutose) 22.5 gm Q15M PRN PO DECREASED GLUCOSE; Start 02/19/17 at 16: 30 Dextrose (D50w Syringe) 25 ml Q15M PRN IV DECREASED GLUCOSE Last administered on 02/25/17 04:31; Admin Dose 25 ML; Start 02/19/17 at 16:30 Dextrose (D50w Syringe) 50 ml Q15M PRN IV DECREASED GLUCOSE; Start 02/19/17 at 16:30 Glucagon (Glucagen) 1 mg Q15M PRN IM DECREASED GLUCOSE; Start 02/19/17 at 16:30 Glucose (Glutose) 15 gm Q15M PRN BUCCAL DECREASED GLUCOSE; Start 02/19/17 at 16 :30 Diagnostic Test (Pha) (Accu-Chek) 1 ea 02 XX Last administered on 02/25/17 01: 45; Admin Dose 1 EA; Start 02/20/17 at 02:00 Insulin Aspart NOVOLOG *MILD* ALGORITHM Q4 SC Last administered on 02/24/17 08 :58; Admin Dose 1 UNIT; Start 02/20/17 at 13:00 Norepinephrine/ Dextrose (Levophed/D5W) 500 ml @ 1.87 mls/hr TITRATE IV Last administered on 02/22/17 05:57; Admin Dose 1.87 MLS/HR; Start 02/20/17 at 11:00 Pantoprazole 40 mg 40 mg BID@06,18 IV Last administered on 02/25/17 05:00; Admin Dose 40 MG; Start 02/20/17 at 18:00 Sodium Bicarbonate/ Dextrose (Na Bicarb/D5W) 1,050 ml @ 50 mls/hr Q21H IV Last administered on 02/25/17 13:55; Admin Dose 50 MLS/HR; Start 02/20/17 at 13 :00 Aspirin (Halfprin) 81 mg DAILY PO Last administered on 02/23/17 10:58; Admin Dose 81 MG; Start 02/21/17 at 09:00; Status Future Hold Levothyroxine Sodium (Synthroid) 50 mcg DAILY@06 PO Last administered on 05:54; Admin Dose 50 MCG; Start 02/22/17 at 06:00; Status Future hold Venlafaxine HCl (Effexor) 25 mg BID NGT Last administered on 02/25/17 08:09; Admin Dose 25 MG; Start 02/22/17 at 10:30 Vancomycin HCl (Vancomycin Oral Syringe) 250 mg Q6 PO Last administered on 02/25 11:18; Admin Dose 250 MG; Start 02/24/17 at 18:00 Ergocalciferol (Drisdol) 50,000 unit Sa@09 PO Last administered on 02/25/17 08 :31; Admin Dose 50,000 UNIT; Start 02/25/17 at 09:00 Insulin Glargine (Lantus) 6 unit BID SC ; Start 02/25/17 at 09:00 Rifaximin (Xifaxan) 200 mg TID NGT Last administered on 02/25/17 08:31; Admin Dose 200 MG; Start 02/25/17 at 09:00 Bisacodyl (Dulcolax) 10 mg ONCE ONCE PO ; Start 02/26/17 at 11:00; Stop at 11:01 Magnesium Citrate (Citroma) 300 ml ONCE ONCE NGT ; Start 02/26/17 at 17:30; Stop 02/26/17 at 17:31 Polyethylene Glycol 119 gm 119 gm ONCE ONCE NGT ; Start 02/26/17 at 18:30; Stop 02/26/17 at 18:31 Metronidazole/N/A (Flagyl 500 Mg (Pmx)/Evac Container) 50 ml @ 50 mls/hr Q8 IVPB Last administered on 02/25/17t 13:55; Admin Dose 50 MLS/HR; Start at 14:00 ANJEL LEE MD February 25, 2017 14:15
[2017-02-25] MEDS: DEXTROSE 5%-0.45% NACL 1,000 ML IV SCH (15:05)
[2017-02-25] MEDS ORDERED: POTASSIUM PHOSPHATE 15 MM in SOD CHLORIDE 0.9% 250 ML IVPB ONE (16:00)
[2017-02-25] MEDS: morphine 2 MG INJ IV PRN (18:04)
[2017-02-25 19:45] LABS: HEMATOCRIT 31.1 % (42.0-52.0); HEMOGLOBIN 10.3 g/dl (14.0-18.0)
[2017-02-25] MEDS: ATORVASTATIN 80 MG TAB PO SCH (20:40)
[2017-02-26] VITALS (24 sets, daily range): BP systolic 80–109; BP diastolic 47–61; PULSE 99–114; RESP 13–37
[2017-02-26 00:53] LABS: HEMATOCRIT 29.7 % (42.0-52.0)
[2017-02-26] MEDS: DEXTROSE 10% 1,000 ML IV SCH ×2 (01:05→17:47)
[2017-02-26] MEDS: ACCUCHECK AT 2AM (Patients on SS coverage) XX SCH (02:44)
[2017-02-26] MEDS: INSULIN ASPART [NOVOLOG] 3 ML PEN SC SCH ×5 (04:52→20:32)
[2017-02-26 05:06] LABS: ADD SCAN DIFF NO
[2017-02-26 05:10] LABS: ABNORMAL IP MESSAGE 1; BASOPHILS % 0.1 % (0.0-2.0); EOSINOPHILS # 0.3 10^3/ul (0.0-0.5); EOSINOPHILS % 2.9 % (0.0-7.0); HEMOGLOBIN 9.9 g/dl (14.0-18.0); LYMPHOCYTES # 0.9 10^3/ul (0.8-2.9); LYMPHOCYTES % 9.5 % (15.0-51.0); MEAN CORPUSCULAR HEMOGLOBIN 28.6 pg (29.0-33.0); MEAN CORPUSCULAR VOLUME 86.7 fl (82.0-101.0); MEAN PLATELET VOLUME 11.8 fl (7.4-10.4); MONOCYTE # 0.3 10^3/ul (0.3-0.9); MONOCYTES % 3.1 % (0.0-11.0); NEUTROPHIL # 7.5 10^3/ul (1.6-7.5); NEUTROPHILS % 83.3 % (39.0-77.0); PLATELET COUNT 34 10^3/UL (140-415); RED BLOOD COUNT 3.46 10^6/ul (4.70-6.10); RED CELL DISTRIBUTION WIDTH 18.4 % (11.5-14.5)
[2017-02-26] MEDS: DEXTROSE 5%-0.45% NACL 1,000 ML IV SCH (05:19)
[2017-02-26] MEDS: PANTOPRAZOLE 40 MG INJ IV SCH ×2 (05:28→17:47)
[2017-02-26] MEDS: metroNIDAZOLE 500 MG/NS (PMX) 250 MG in EVAC CONTAINER 1 BOTTLE IVPB SCH ×3 (05:28→21:58)
[2017-02-26] MEDS: VANCOMYCIN HCL 250 MG/5ML POSYG PO SCH ×4 (05:28→23:47)
[2017-02-26 05:33] LABS: ALBUMIN 1.7 g/dl (3.3-4.9); POTASSIUM 3.3 mmol/L (3.5-5.1)
[2017-02-26 05:35] LABS: BILIRUBIN,INDIRECT 0.6 mg/dl (0-1.1); BILIRUBIN,TOTAL 0.6 mg/dl (0.2-1.3); CREATININE 1.03 mg/dl (0.61-1.24)
[2017-02-26 05:36] LABS: ALBUMIN/GLOBULIN RATIO 0.85; CALCIUM 6.8 mg/dl (8.4-10.2); TOTAL PROTEIN 3.7 g/dl (6.1-8.1)
[2017-02-26 05:40] LABS: MAGNESIUM 1.9 mg/dl (1.7-2.5); PHOSPHORUS 2.3 mg/dl (2.5-4.9)
[2017-02-26] MEDS ORDERED: MAGNESIUM SULFATE 1 GM/D5W 100 ML IVPB ONE (06:30)
[2017-02-26] MEDS ORDERED: POTASSIUM PHOSPHATE IVPB ONE (06:30)
[2017-02-26] MEDS ORDERED: SOD CHLORIDE IVPB ONE (06:30)
[2017-02-26] MEDS ORDERED: CALCIUM GLUCONATE 10% 1 GM in SOD CHLORIDE 0.9% 100 ML IVPB ONE (06:30)
[2017-02-26] MEDS ORDERED: POTASSIUM CHLORIDE 250 ML IVPB ONE (07:00)
--- NOTE | 2017-02-26 07:05 | PN ---
Date/Time of Note Date/Time of Note DATE: 02/26/17 TIME: 07:00 Assessment/Plan VTE Prophylaxis VTE Prophylaxis Intervention: other Lines/Catheters IV C[facility]ter Type (from [facility]): Central Line Central line still needed: Yes Urinary Cath still in place: Yes Reason Cath still needed: urinary retention Assessment/Plan Chief Complaint/Hosp Course 86-year-old gentleman ECF resident admitted with what appears to be septic shock and acute renal insufficiency. He has had a persistent hyperchloremic metabolic acidosis. As an outpatient appears that he has a chronic hypothyroid state and has been on medium dose levothyroxine replacement therapy continuously. On presentation here it appears he is actually modestly over replaced. In addition to this concern was raised about the possibility of hypocortisolism. The patient has some degree of organic brain syndrome and is unable to give meaningful history Problems: (1) C. difficile colitis Status: Acute Comment: His diarrhea has stopped with the addition of rifaximin. However is receiving a bowel prep in preparation for scoping. This is going to cause his potassium and bicarbonates to go down again. In addition his tube feedings have been held for 12 hours in preparation for scoping 24 hours in the future. Continue antibiotics. 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 Given that the tube feedings have been held and the insulin was ordered to be held with the tube feedings old I have gone ahead more formally done this. He will need to go back on the insulin tomorrow after tube feedings resume. Alternatively he could use a different agent such as either Metformin or Tradjenta and follow (3) Gallstones Status: Chronic Comment: Noted does not appear that these are active. However MRCP scan can be done in the next 48 hours (4) Hypokalemia Status: Acute Comment: Replace with additional Potassium (5) Vitamin D deficiency Status: Chronic Comment: He has been giving dosages to replete this (6) Elevated liver enzymes Status: Chronic Comment: Noted they have been improving. He still has elevated alkaline phosphatase hence the request for MRCP (7) Anemia Status: Acute Comment: Lab from yesterday does not make sense. He did have some GI tract blood loss however with 1 unit for him to come back to where he was before and actually above where he was before indicates that the hemoglobin is 6.7 was likely altered by the IV line was drawn from Qualifiers: Anemia type: iron deficiency Iron deficiency anemia type: unspecified iron deficiency Qualified Code: D50.9 - Iron deficiency anemia, unspecified iron deficiency anemia type (8) Hyperlipidemia Status: Chronic Comment: Noted Qualifiers: Hyperlipidemia type: pure hypercholesterolemia Qualified Code: E78.00 - Pure hypercholesterolemia (9) Acquired hypothyroidism Status: Chronic Comment: On replacement therapy (10) Septic shock Status: Resolved Comment: He is now off of pressor support. Consideration to move out of the ICU however given all that were about to do I had like to do that later today as opposed to now (11) Acute renal failure Status: Resolved Comment: Resolved Qualifiers: Acute renal failure type: unspecified Qualified Code: N17.9 - Acute renal failure, unspecified acute renal failure type Subjective 24 Hr Interval Summary Free Text/Dictation Open opens eyes and will open mouth to directions but otherwise is not following commands Subjective hx not possible: pt non-verbal Exam/Review of Systems Vital Signs Vitals Vital Signs Date Time Temp Pulse Resp B/P Pulse Ox O2 Delivery O2 Flow Rate FiO2 02/26/17 06:00 106 26 98/49 98 Room Air 02/26/17 04:00 97.5 02/25/17 19:50 21 02/25/17 17:54 2.0 Intake and Output 02/25/17 02/25/17 02/26/17 14:59 22:59 06:59 Intake Total 815.0 ml 751.25 ml 480 ml Output Total 885 ml 1595 ml 660 ml Balance -70.0 ml -843.75 ml -180 ml Exam Constitutional: alert, non-verbal Neck: non-tender, supple Respiratory: clear to auscultation, normal air movement Cardiovascular: nl pulses, regular rate and rhythm Gastrointestinal: nl liver, spleen, non-tender, soft Results Result Diagram: 02/26/17 0445 02/26/175 Results 24 hrs Laboratory Tests Test 02/25/17 08:11 02/25/17 12:46 02/25/17 12:52 02/25/17 16:46 Bedside Glucose 70 77 47 *L Hemoglobin 9.5 #L Hematocrit 28.2 #L Total Bilirubin 0.6 Direct Bilirubin 0.00 Indirect Bilirubin 0.6 Aspartate Amino Transf (AST/SGOT) 45 Alanine Aminotransferase (ALT/SGPT) 68 Alkaline Phosphatase 252 H Total Protein 3.6 L Albumin 1.8 L Test 02/25/17 17:12 02/25/17 19:35 02/25/17 20:51 02/25/17 21:14 Bedside Glucose 154 53 L 165 Hemoglobin 10.3 L Hematocrit 31.1 L Potassium Level 4.0 Test 02/25/17 22:03 02/25/17 23:00 02/25/17 23:55 02/26/17 00:40 Bedside Glucose 114 99 93 Hemoglobin 10.0 L Hematocrit 29.7 L Test 02/26/17 02:26 02/26/17 04:45 02/26/17 05:27 Bedside Glucose 88 White Blood Count 9.0 # Red Blood Count 3.46 #L Hemoglobin 9.9 L Hematocrit 30.0 L Mean Corpuscular Volume 86.7 Mean Corpuscular Hemoglobin 28.6 L Mean Corpuscular Hemoglobin Concent 33.0 Red Cell Distribution Width 18.4 H Platelet Count 34 L Mean Platelet Volume 11.8 H Neutrophils % 83.3 H Lymphocytes % 9.5 L Monocytes % 3.1 Eosinophils % 2.9 Basophils % 0.1 Nucleated Red Blood Cells % 0.0 Neutrophils # 7.5 Lymphocytes # 0.9 Monocytes # 0.3 Eosinophils # 0.3 Basophils # 0.0 Nucleated Red Blood Cells # 0.0 Sodium Level 136 Potassium Level 3.3 L Chloride Level 108 Carbon Dioxide Level 20 L Anion Gap 11 Blood Urea Nitrogen 19 Creatinine 1.03 Glucose Level 120 # Calcium Level 6.8 L Phosphorus Level 2.3 L Magnesium Level 1.9 Total Bilirubin 0.6 Direct Bilirubin 0.00 Indirect Bilirubin 0.6 Aspartate Amino Transf (AST/SGOT) 32 Alanine Aminotransferase (ALT/SGPT) 58 Alkaline Phosphatase 259 H Total Protein 3.7 L Albumin 1.7 L Globulin 2.00 Albumin/Globulin Ratio 0.85 Lab Scanned Report BLOOD TRANSFUSION Medications Medications Current Medications Lactobacillus Acidophilus/ Rhamnosus (Culturelle) 1 cap BID PO Last administered on 02/25/17 20:40; Admin Dose 1 CAP; Start 02/19/17 at 21:00 Multivitamins Therapeutic (Theragran) 1 tab DAILY PO Last administered on 08:08; Admin Dose 1 TAB; Start 02/20/17 at 09:00 Ascorbic Acid (Vitamin C) 500 mg QAM PO Last administered on 02/25/17 08:31; Admin Dose 500 MG; Start 02/20/17 at 09:00 Ticagrelor (Brilinta) 90 mg QAM PO Last administered on 02/25/17 08:36; Admin Dose 90 MG; Start 02/19/17 at 16:30 Zinc Sulfate (Zinc Sulfate) 220 mg QAM PO Last administered on 02/25/17 08:08 ; Admin Dose 220 MG; Start 02/20/17 at 09:00 Atorvastatin Calcium (Lipitor) 80 mg DAILY@21 PO Last administered on 20:40; Admin Dose 80 MG; Start 02/19/17 at 21:00 Ondansetron HCl (Zofran Inj) 4 mg Q6H PRN IV NAUSEA AND/OR VOMITING; Start at 16:30 Acetaminophen (Tylenol Tab) 650 mg Q6H PRN PO PAIN LEVEL 1-3 OR FEVER; Start at 16:30 Acetaminophen (Tylenol Supp) 650 mg Q6H PRN [place] PAIN LEVEL 1-3 OR FEVER; Start 02/19/17 at 16:30 Acetaminophen/ Hydrocodone Bitart ([place] (5/325)) 1 tab Q6H PRN PO MODERATE PAIN LEVEL 4-6; Start 02/19/17 at 16:30 Morphine Sulfate (morphine) 2 mg Q4H PRN IV SEVERE PAIN LEVEL 7-10 Last administered on 02/25/17 18:04; Admin Dose 2 MG; Start 02/19/17 at 16:30 Miscellaneous Information 1 ea NOTE XX ; Start 02/19/17 at 16:30 Glucose (Glutose) 15 gm Q15M PRN PO DECREASED GLUCOSE; Start 02/19/17 at 16:30 Glucose (Glutose) 22.5 gm Q15M PRN PO DECREASED GLUCOSE; Start 02/19/17 at 16: 30 Dextrose (D50w Syringe) 25 ml Q15M PRN IV DECREASED GLUCOSE Last administered on 02/25/17 04:31; Admin Dose 25 ML; Start 02/19/17 at 16:30 Dextrose (D50w Syringe) 50 ml Q15M PRN IV DECREASED GLUCOSE Last administered on 02/25/17 20:58; Admin Dose 50 ML; Start 02/19/17 at 16:30 Glucagon (Glucagen) 1 mg Q15M PRN IM DECREASED GLUCOSE; Start 02/19/17 at 16:30 Glucose (Glutose) 15 gm Q15M PRN BUCCAL DECREASED GLUCOSE; Start 02/19/17 at 16 :30 Diagnostic Test (Pha) (Accu-Chek) 1 ea 02 XX Last administered on 02/26/17 02: 44; Admin Dose 1 EA; Start 02/20/17 at 02:00 Insulin Aspart NOVOLOG *MILD* ALGORITHM Q4 SC Last administered on 02/24/17 08 :58; Admin Dose 1 UNIT; Start 02/20/17 at 13:00 Norepinephrine/ Dextrose (Levophed/D5W) 500 ml @ 1.87 mls/hr TITRATE IV Last administered on 02/22/17 05:57; Admin Dose 1.87 MLS/HR; Start 02/20/17 at 11:00 Pantoprazole (Protonix Iv) 40 mg BID@06,18 IV Last administered on 02/26/17 05 :28; Admin Dose 40 MG; Start 02/20/17 at 18:00 Aspirin (Halfprin) 81 mg DAILY PO Last administered on 02/23/17 10:58; Admin Dose 81 MG; Start 02/21/17 at 09:00; Status Future Hold Levothyroxine Sodium (Synthroid) 50 mcg DAILY@06 PO Last administered on 05:54; Admin Dose 50 MCG; Start 02/22/17 at 06:00; Status Future hold Venlafaxine HCl (Effexor) 25 mg BID NGT Last administered on 02/25/17 20:40; Admin Dose 25 MG; Start 02/22/17 at 10:30 Vancomycin HCl (Vancomycin Oral Syringe) 250 mg Q6 PO Last administered on 02/26 05:28; Admin Dose 250 MG; Start 02/24/17 at 18:00 Ergocalciferol (Drisdol) 50,000 unit Sa@09 PO Last administered on 02/25/17 08 :31; Admin Dose 50,000 UNIT; Start 02/25/17 at 09:00 Insulin Glargine (Lantus) 6 unit BID SC ; Start 02/25/17 at 09:00 Rifaximin (Xifaxan) 200 mg TID NGT Last administered on 02/25/17 20:40; Admin Dose 200 MG; Start 02/25/17 at 09:00 Bisacodyl (Dulcolax) 10 mg ONCE ONCE PO ; Start 02/26/17 at 11:00; Stop at 11:01 Magnesium Citrate (Citroma) 300 ml ONCE ONCE NGT ; Start 02/26/17 at 17:30; Stop 02/26/17 at 17:31 Polyethylene Glycol 119 gm 119 gm ONCE ONCE NGT ; Start 02/26/17 at 18:30; Stop 02/26/17 at 18:31 Metronidazole 250 mg/N/A 50 ml @ 50 mls/hr Q8 IVPB Last administered on 05:28; Admin Dose 50 MLS/HR; Start 02/25/17 at 14:00 Dextrose/Sodium Chloride 1,000 ml @ 60 mls/hr [id number] IV Last administered on 02/25/17 15:05; Admin Dose 60 MLS/HR; Start 02/25/17 at 14:30 Dextrose 1,000 ml @ 60 mls/hr [id number] IV Last administered on 02/26/17 01:05 ; Admin Dose 60 MLS/HR; Start 02/26/17 at 01:00 Potassium Phosphate 40 mm/ Sodium Chloride 263.3333 ml @ 65.833 m... ONCE ONCE IVPB ; Start 02/26/17 at 06:30; Stop 02/26/17 at 10:29 Magnesium Sulfate/ Dextrose 100 ml @ 100 mls/hr ONCE ONCE IVPB ; Start at 06:30; Stop 02/26/17 at 07:29 Calcium Gluconate/ Sodium Chloride (Ca Gluc/NS) 110 ml @ 110 mls/hr ONCE ONCE IVPB ; Start 02/26/17 at 06:30; Stop 02/26/17 at 07:29 LANCE JACKSON MD February 26, 2017 07:05
[2017-02-26] MEDS ORDERED: MAGNESIUM SULFATE 2 GM/50 ML 50 ML IVPB ONE (07:30)
[2017-02-26] MEDS ORDERED: POTASSIUM CHLORIDE 20 MEQ POWDER FOR ORAL SOLN NGT ONE (07:30)
[2017-02-26] MEDS: ZINC SULFATE 220 MG CAP PO SCH (08:00)
[2017-02-26] MEDS: RIFAXIMIN 200 MG TAB NGT SCH ×3 (08:00→20:32)
[2017-02-26] MEDS: VENLAFAXINE 25 MG TAB NGT SCH ×2 (08:00→20:14)
[2017-02-26] MEDS: LACTOBACILLUS RHAMNOSUS CAP PO SCH ×2 (08:00→20:14)
[2017-02-26] MEDS: MULTIVITAMINS THERAPEUTIC TAB PO SCH (08:00)
[2017-02-26] MEDS: ASCORBIC ACID 500 MG TAB PO SCH (08:00)
[2017-02-26] MEDS: TICAGRELOR 90 MG TABLET PO SCH (08:01)
--- NOTE | 2017-02-26 08:59 | PN ---
DATE: 02/26/2017 CARDIOLOGY FOLLOWUP SUBJECTIVE: Discussed with the staff. The patient remains in sinus rhythm, sinus tachycardia. Hea rt rate has ____. Still in the ICU. The patient denies any chest pain or pressure; however, he kee s not really answer questions much. MEDICATIONS: Reviewed. OBJECTIVE: VITAL SIGNS: Temperature 97.5, heart rate of 106, blood pressure 90/49, respiration rate of 26, sat urating 98% on room air. HEENT: Normocephalic, atraumatic. Status post NG tube in place. CARDIOVASCULAR: Tachycardic. PULMONARY: No wheezes heard. Minimal rhonchi at the base. GASTROINTESTINAL: Soft. No rebound or guarding. EXTREMITIES: With positive lower extremity edema. NEUROLOGIC: Awake, does not answer my questions though. LABORATORY: Sodium 136, potassium 3.3, BUN of 19, creatinine 1.03, glucose 120, mag is 1.9. Albumi n is 1.7. WBC of 9, hemoglobin 9.9, platelets 34. ASSESSMENT AND PLAN: 1. Sinus tachycardia. 2. Sepsis and shock, ____ C. diff. 3. Severe malnutrition with a very low albumin level. 4. Coronary artery disease with history of percutaneous coronary intervention. 5. Thrombocytopenia, worsening. 6. Possible DIC. 7. Diabetes. 8. Thyroid disorder. 9. Coagulopathy. RECOMMENDATIONS: We will replace electrolytes including potassium and magnesium today. Continue wi th close monitoring. Check DIC panel for tomorrow morning. Antibiotic management as per Internal m edicine. Thyroid management as per Dr. Marquis. Aspirin is on hold. Brilinta is being given only on ce a day due to severe thrombocytopenia. We will continue to monitor closely. Dictated By: CAITIE ESTRELLA/LADY Conf#: [id number] DID#: [id number]
--- NOTE | 2017-02-26 09:17 | CONS ---
Date/Time of Note Date/Time of Note DATE: 02/26/17 TIME: 09:15 Assessment/Plan Assessment/Plan Additional Assessment/Plan Assessment and recommendations; 1. Patient admitted with sepsis due to pneumonia with significant clinical improvement. 2. Anemia, status post blood transfusion. 3. Thrombocytopenia. Currently no evidence of any overt bleeding. Continue current treatment. Monitor platelet count. Consultation Date/Type/Reason Admit Date/Time February 19, 2017 at 14:52 Initial Consult Date 02/21/17 Type of Consultation: Pulmonary/critical care Referring Provider: BEBO SEYMOUR 24 HR Interval Summary Free Text/Dictation Patient condition is stable. Remains hemodynamically stable. Patient is much more awake and alert today. General exam; elderly male, awake alert currently in no distress. Exam/Review of Systems Vital Signs Vitals Vital Signs Date Time Temp Pulse Resp B/P Pulse Ox O2 Delivery O2 Flow Rate FiO2 02/26/17 08:00 97.3 103 15 92/52 99 Room Air 02/25/17 19:50 21 02/25/17 17:54 2.0 Intake and Output 02/25/17 02/25/17 02/26/17 15:00 23:00 07:00 Intake Total 815.0 ml 811.25 ml 420 ml Output Total 1135 ml 1425 ml 610 ml Balance -320.0 ml -613.75 ml -190 ml Exam H EENT exam; supple neck, no JVD. No lymphadenopathy. Midline trachea. No thyromegaly. Bilateral intraocular lens implants are present. Dentition is fair. Chest exam is; to auscultation. S1-S2 audible, no murmurs. Regular rhythm. Abdomen examination; soft, no organomegaly. Bowel sounds audible. Extremity exam; 1+ pitting edema lower extremities bilaterally. COMMUNITY SPECIALIST examination; no focal deficit. Results Result Diagram: 02/26/17 0445 02/26/17 0445 Results 24 hrs Laboratory Tests Test 02/25/17 12:46 02/25/17 12:52 02/25/17 16:46 02/25/17 17:12 Hemoglobin 9.5 #L Hematocrit 28.2 #L Total Bilirubin 0.6 Direct Bilirubin 0.00 Indirect Bilirubin 0.6 Aspartate Amino Transf (AST/SGOT) 45 Alanine Aminotransferase (ALT/SGPT) 68 Alkaline Phosphatase 252 H Total Protein 3.6 L Albumin 1.8 L Bedside Glucose 77 47 *L 154 Test 02/25/17 19:35 02/25/17 20:51 02/25/17 21:14 02/25/17 22:03 Hemoglobin 10.3 L Hematocrit 31.1 L Potassium Level 4.0 Bedside Glucose 53 L 165 114 Test 02/25/17 23:00 02/25/17 23:55 02/26/17 00:40 02/26/17 02:26 Bedside Glucose 99 93 88 Hemoglobin 10.0 L Hematocrit 29.7 L Test 02/26/17 04:45 02/26/17 05:27 02/26/17 08:03 White Blood Count 9.0 # Red Blood Count 3.46 #L Hemoglobin 9.9 L Hematocrit 30.0 L Mean Corpuscular Volume 86.7 Mean Corpuscular Hemoglobin 28.6 L Mean Corpuscular Hemoglobin Concent 33.0 Red Cell Distribution Width 18.4 H Platelet Count 34 L Mean Platelet Volume 11.8 H Neutrophils % 83.3 H Lymphocytes % 9.5 L Monocytes % 3.1 Eosinophils % 2.9 Basophils % 0.1 Nucleated Red Blood Cells % 0.0 Neutrophils # 7.5 Lymphocytes # 0.9 Monocytes # 0.3 Eosinophils # 0.3 Basophils # 0.0 Nucleated Red Blood Cells # 0.0 Sodium Level 136 Potassium Level 3.3 L Chloride Level 108 Carbon Dioxide Level 20 L Anion Gap 11 Blood Urea Nitrogen 19 Creatinine 1.03 Glucose Level 120 # Calcium Level 6.8 L Phosphorus Level 2.3 L Magnesium Level 1.9 Total Bilirubin 0.6 Direct Bilirubin 0.00 Indirect Bilirubin 0.6 Aspartate Amino Transf (AST/SGOT) 32 Alanine Aminotransferase (ALT/SGPT) 58 Alkaline Phosphatase 259 H Total Protein 3.7 L Albumin 1.7 L Globulin 2.00 Albumin/Globulin Ratio 0.85 Lab Scanned Report BLOOD TRANSFUSION Bedside Glucose 128 Medications Medications Current Medications Lactobacillus Acidophilus/ Rhamnosus (Culturelle) 1 cap BID PO Last administered on 02/26/17 08:00; Admin Dose 1 CAP; Start 02/19/17 at 21:00 Multivitamins Therapeutic (Theragran) 1 tab DAILY PO Last administered on 08:00; Admin Dose 1 TAB; Start 02/20/17 at 09:00 Ascorbic Acid (Vitamin C) 500 mg QAM PO Last administered on 02/26/17 08:00; Admin Dose 500 MG; Start 02/20/17 at 09:00 Ticagrelor (Brilinta) 90 mg QAM PO Last administered on 02/26/17 08:01; Admin Dose 90 MG; Start 02/19/17 at 16:30 Zinc Sulfate (Zinc Sulfate) 220 mg QAM PO Last administered on 02/26/17 08:00 ; Admin Dose 220 MG; Start 02/20/17 at 09:00 Atorvastatin Calcium (Lipitor) 80 mg DAILY@21 PO Last administered on 20:40; Admin Dose 80 MG; Start 02/19/17 at 21:00 Ondansetron HCl (Zofran Inj) 4 mg Q6H PRN IV NAUSEA AND/OR VOMITING; Start at 16:30 Acetaminophen (Tylenol Tab) 650 mg Q6H PRN PO PAIN LEVEL 1-3 OR FEVER; Start at 16:30 Acetaminophen (Tylenol Supp) 650 mg Q6H PRN [place] PAIN LEVEL 1-3 OR FEVER; Start 02/19/17 at 16:30 Acetaminophen/ Hydrocodone Bitart ([place] (5/325)) 1 tab Q6H PRN PO MODERATE PAIN LEVEL 4-6; Start 02/19/17 at 16:30 Morphine Sulfate (morphine) 2 mg Q4H PRN IV SEVERE PAIN LEVEL 7-10 Last administered on 02/25/17 18:04; Admin Dose 2 MG; Start 02/19/17 at 16:30 Miscellaneous Information 1 ea NOTE XX ; Start 02/19/17 at 16:30 Glucose (Glutose) 15 gm Q15M PRN PO DECREASED GLUCOSE; Start 02/19/17 at 16:30 Glucose (Glutose) 22.5 gm Q15M PRN PO DECREASED GLUCOSE; Start 02/19/17 at 16: 30 Dextrose (D50w Syringe) 25 ml Q15M PRN IV DECREASED GLUCOSE Last administered on 02/25/17 04:31; Admin Dose 25 ML; Start 02/19/17 at 16:30 Dextrose (D50w Syringe) 50 ml Q15M PRN IV DECREASED GLUCOSE Last administered on 02/25/17 20:58; Admin Dose 50 ML; Start 02/19/17 at 16:30 Glucagon (Glucagen) 1 mg Q15M PRN IM DECREASED GLUCOSE; Start 02/19/17 at 16:30 Glucose (Glutose) 15 gm Q15M PRN BUCCAL DECREASED GLUCOSE; Start 02/19/17 at 16 :30 Diagnostic Test (Pha) (Accu-Chek) 1 ea 02 XX Last administered on 02/26/17 02: 44; Admin Dose 1 EA; Start 02/20/17 at 02:00 Insulin Aspart NOVOLOG *MILD* ALGORITHM Q4 SC Last administered on 02/24/17 08 :58; Admin Dose 1 UNIT; Start 02/20/17 at 13:00 Norepinephrine/ Dextrose (Levophed/D5W) 500 ml @ 1.87 mls/hr TITRATE IV Last administered on 02/22/17 05:57; Admin Dose 1.87 MLS/HR; Start 02/20/17 at 11:00 Pantoprazole (Protonix Iv) 40 mg BID@06,18 IV Last administered on 02/26/17 05 :28; Admin Dose 40 MG; Start 02/20/17 at 18:00 Aspirin (Halfprin) 81 mg DAILY PO Last administered on 02/23/17 10:58; Admin Dose 81 MG; Start 02/21/17 at 09:00; Status Future Hold Levothyroxine Sodium (Synthroid) 50 mcg DAILY@06 PO Last administered on 05:54; Admin Dose 50 MCG; Start 02/22/17 at 06:00; Status Future hold Venlafaxine HCl (Effexor) 25 mg BID NGT Last administered on 02/26/17 08:00; Admin Dose 25 MG; Start 02/22/17 at 10:30 Vancomycin HCl (Vancomycin Oral Syringe) 250 mg Q6 PO Last administered on 02/26 05:28; Admin Dose 250 MG; Start 02/24/17 at 18:00 Ergocalciferol (Drisdol) 50,000 unit Sa@09 PO Last administered on 02/25/17 08 :31; Admin Dose 50,000 UNIT; Start 02/25/17 at 09:00 Insulin Glargine (Lantus) 6 unit BID SC ; Start 02/25/17 at 09:00; Status Future Hold Rifaximin (Xifaxan) 200 mg TID NGT Last administered on 02/26/17 08:00; Admin Dose 200 MG; Start 02/25/17 at 09:00 Bisacodyl (Dulcolax) 10 mg ONCE ONCE PO ; Start 02/26/17 at 11:00; Stop at 11:01 Magnesium Citrate (Citroma) 300 ml ONCE ONCE NGT ; Start 02/26/17 at 17:30; Stop 02/26/17 at 17:31 Polyethylene Glycol 119 gm 119 gm ONCE ONCE NGT ; Start 02/26/17 at 18:30; Stop 02/26/17 at 18:31 Metronidazole 250 mg/N/A 50 ml @ 50 mls/hr Q8 IVPB Last administered on 05:28; Admin Dose 50 MLS/HR; Start 02/25/17 at 14:00 Dextrose/Sodium Chloride 1,000 ml @ 60 mls/hr [id number] IV Last administered on 02/25/17 15:05; Admin Dose 60 MLS/HR; Start 02/25/17 at 14:30 Dextrose 1,000 ml @ 60 mls/hr [id number] IV Last administered on 02/26/17 01:05 ; Admin Dose 60 MLS/HR; Start 02/26/17 at 01:00 Potassium Phosphate 40 mm/ Sodium Chloride 263.3333 ml @ 65.833 m... ONCE ONCE IVPB Last administered on 02/26/17 08:33; Admin Dose 65.833 MLS/HR; Start 02/26/17 at 06:30; Stop 02/26/17 at 10:29 Magnesium Sulfate (Magnesium Sulfate 2 Gm/50 ml) 50 ml @ 25 mls/hr ONCE ONCE IVPB Last administered on 02/26/17 07:45; Admin Dose 25 MLS/HR; Start at 07:30; Stop 02/26/17 at 09:29 GALINA NELSON February 26, 2017 09:17
[2017-02-26] MEDS ORDERED: BISACODYL (EC) 5 MG TAB PO ONE (11:00)
--- NOTE | 2017-02-26 11:07 | PN ---
Date/Time of Note Date/Time of Note DATE: 02/26/17 TIME: 11:03 Assessment/Plan VTE Prophylaxis VTE Prophylaxis Intervention: SCD's Lines/Catheters IV Catheter Type (from Nrs): Central Line Central line still needed: Yes Urinary Cath still in place: Yes Reason Cath still needed: urinary retention Assessment/Plan Assessment/Plan Transaminitis Ultrasound . Sludge and small stones in the gallbladder without definite secondary signs of acute cholecystitis. * Anemia Consider Lower GI bleed ,R/O upper GI bleed * Hypokalemia 3.2 * Diabetes mellitus * S/P extubation 4 days ago Plan * monitor Hemoglobin and hematocrit q6 and transfuse 1 unit of PRBC if hgn<7.5, if hgb <7 2 uits PRBC * NPO * for EGD/colonoscopy risks and benefit explained to family and agreed with planned procedure * MRCP Subjective 24 Hr Interval Summary Free Text/Dictation * Course reviewed with RN * Patient seen and examined * Latest hemoglobin 9.9 * no hematochezia * still for MRCP today Exam/Review of Systems Vital Signs Vitals Vital Signs Date Time Temp Pulse Resp B/P Pulse Ox O2 Delivery O2 Flow Rate FiO2 02/26/17 10:00 105 17 95/61 98 Room Air 02/26/17 08:00 97.3 02/25/17 19:50 21 02/25/17 17:54 2.0 Intake and Output 02/25/17 02/25/17 02/26/17 15:00 23:00 07:00 Intake Total 815.0 ml 811.25 ml 480 ml Output Total 1135 ml 1425 ml 610 ml Balance -320.0 ml -613.75 ml -130 ml Exam Constitutional: frail Neck: non-tender, supple Respiratory: clear to auscultation, normal air movement Cardiovascular: nl pulses, regular rate and rhythm Gastrointestinal: soft Musculoskeletal: nl extremities to inspection Extremities: normal pulses Skin: nl turgor, No rash or lesions Results Result Diagram: 02/26/17 0445 02/26/175 Results 24 hrs Laboratory Tests Test 02/25/17 12:46 02/25/17 12:52 02/25/17 16:46 02/25/17 17:12 Hemoglobin 9.5 #L Hematocrit 28.2 #L Total Bilirubin 0.6 Direct Bilirubin 0.00 Indirect Bilirubin 0.6 Aspartate Amino Transf (AST/SGOT) 45 Alanine Aminotransferase (ALT/SGPT) 68 Alkaline Phosphatase 252 H Total Protein 3.6 L Albumin 1.8 L Bedside Glucose 77 47 *L 154 Test 02/25/17 19:35 02/25/17 20:51 02/25/17 21:14 02/25/17 22:03 Hemoglobin 10.3 L Hematocrit 31.1 L Potassium Level 4.0 Bedside Glucose 53 L 165 114 Test 02/25/17 23:00 02/25/17 23:55 02/26/17 00:40 02/26/17 02:26 Bedside Glucose 99 93 88 Hemoglobin 10.0 L Hematocrit 29.7 L Test 02/26/17 04:45 02/26/17 05:27 02/26/17 08:03 White Blood Count 9.0 # Red Blood Count 3.46 #L Hemoglobin 9.9 L Hematocrit 30.0 L Mean Corpuscular Volume 86.7 Mean Corpuscular Hemoglobin 28.6 L Mean Corpuscular Hemoglobin Concent 33.0 Red Cell Distribution Width 18.4 H Platelet Count 34 L Mean Platelet Volume 11.8 H Neutrophils % 83.3 H Lymphocytes % 9.5 L Monocytes % 3.1 Eosinophils % 2.9 Basophils % 0.1 Nucleated Red Blood Cells % 0.0 Neutrophils # 7.5 Lymphocytes # 0.9 Monocytes # 0.3 Eosinophils # 0.3 Basophils # 0.0 Nucleated Red Blood Cells # 0.0 Sodium Level 136 Potassium Level 3.3 L Chloride Level 108 Carbon Dioxide Level 20 L Anion Gap 11 Blood Urea Nitrogen 19 Creatinine 1.03 Glucose Level 120 # Calcium Level 6.8 L Phosphorus Level 2.3 L Magnesium Level 1.9 Total Bilirubin 0.6 Direct Bilirubin 0.00 Indirect Bilirubin 0.6 Aspartate Amino Transf (AST/SGOT) 32 Alanine Aminotransferase (ALT/SGPT) 58 Alkaline Phosphatase 259 H Total Protein 3.7 L Albumin 1.7 L Globulin 2.00 Albumin/Globulin Ratio 0.85 Lab Scanned Report BLOOD TRANSFUSION Bedside Glucose 128 Medications Medications Current Medications Lactobacillus Acidophilus/ Rhamnosus (Culturelle) 1 cap BID PO Last administered on 02/26/17 08:00; Admin Dose 1 CAP; Start 02/19/17 at 21:00 Multivitamins Therapeutic (Theragran) 1 tab DAILY PO Last administered on 5/21/ 17at 08:00; Admin Dose 1 TAB; Start 02/20/17 at 09:00 Ascorbic Acid (Vitamin C) 500 mg QAM PO Last administered on 02/26/17 08:00; Admin Dose 500 MG; Start 02/20/17 at 09:00 Ticagrelor (Brilinta) 90 mg QAM PO Last administered on 02/26/17 08:01; Admin Dose 90 MG; Start 02/19/17 at 16:30 Zinc Sulfate (Zinc Sulfate) 220 mg QAM PO Last administered on 02/26/17 08:00 ; Admin Dose 220 MG; Start 02/20/17 at 09:00 Atorvastatin Calcium (Lipitor) 80 mg DAILY@21 PO Last administered on 20:40; Admin Dose 80 MG; Start 02/19/17 at 21:00 Ondansetron HCl (Zofran Inj) 4 mg Q6H PRN IV NAUSEA AND/OR VOMITING; Start at 16:30 Acetaminophen (Tylenol Tab) 650 mg Q6H PRN PO PAIN LEVEL 1-3 OR FEVER; Start at 16:30 Acetaminophen (Tylenol Supp) 650 mg Q6H PRN SC PAIN LEVEL 1-3 OR FEVER; Start 02/19/17 at 16:30 Acetaminophen/ Hydrocodone Bitart ([place] (5/325)) 1 tab Q6H PRN PO MODERATE PAIN LEVEL 4-6; Start 02/19/17 at 16:30 Morphine Sulfate (morphine) 2 mg Q4H PRN IV SEVERE PAIN LEVEL 7-10 Last administered on 02/25/17 18:04; Admin Dose 2 MG; Start 02/19/17 at 16:30 Miscellaneous Information 1 ea NOTE XX ; Start 02/19/17 at 16:30 Glucose (Glutose) 15 gm Q15M PRN PO DECREASED GLUCOSE; Start 02/19/17 at 16:30 Glucose (Glutose) 22.5 gm Q15M PRN PO DECREASED GLUCOSE; Start 02/19/17 at 16: 30 Dextrose (D50w Syringe) 25 ml Q15M PRN IV DECREASED GLUCOSE Last administered on 02/25/17 04:31; Admin Dose 25 ML; Start 02/19/17 at 16:30 Dextrose (D50w Syringe) 50 ml Q15M PRN IV DECREASED GLUCOSE Last administered on 02/25/17 20:58; Admin Dose 50 ML; Start 02/19/17 at 16:30 Glucagon (Glucagen) 1 mg Q15M PRN IM DECREASED GLUCOSE; Start 02/19/17 at 16:30 Glucose (Glutose) 15 gm Q15M PRN BUCCAL DECREASED GLUCOSE; Start 02/19/17 at 16 :30 Diagnostic Test (Pha) (Accu-Chek) 1 ea 02 XX Last administered on 02/26/17 02: 44; Admin Dose 1 EA; Start 02/20/17 at 02:00 Insulin Aspart NOVOLOG *MILD* ALGORITHM Q4 SC Last administered on 02/24/17 08 :58; Admin Dose 1 UNIT; Start 02/20/17 at 13:00 Norepinephrine/ Dextrose (Levophed/D5W) 500 ml @ 1.87 mls/hr TITRATE IV Last administered on 02/22/17 05:57; Admin Dose 1.87 MLS/HR; Start 02/20/17 at 11:00 Pantoprazole (Protonix Iv) 40 mg BID@06,18 IV Last administered on 02/26/17 05 :28; Admin Dose 40 MG; Start 02/20/17 at 18:00 Aspirin (Halfprin) 81 mg DAILY PO Last administered on 02/23/17 10:58; Admin Dose 81 MG; Start 02/21/17 at 09:00; Status Future Hold Levothyroxine Sodium (Synthroid) 50 mcg DAILY@06 PO Last administered on 05:54; Admin Dose 50 MCG; Start 02/22/17 at 06:00; Status Future hold Venlafaxine HCl (Effexor) 25 mg BID NGT Last administered on 02/26/17 08:00; Admin Dose 25 MG; Start 02/22/17 at 10:30 Vancomycin HCl (Vancomycin Oral Syringe) 250 mg Q6 PO Last administered on 02/26 05:28; Admin Dose 250 MG; Start 02/24/17 at 18:00 Ergocalciferol (Drisdol) 50,000 unit Sa@09 PO Last administered on 02/25/17 08 :31; Admin Dose 50,000 UNIT; Start 02/25/17 at 09:00 Insulin Glargine (Lantus) 6 unit BID SC ; Start 02/25/17 at 09:00; Status Future Hold Rifaximin (Xifaxan) 200 mg TID NGT Last administered on 02/26/17 08:00; Admin Dose 200 MG; Start 02/25/17 at 09:00 Magnesium Citrate (Citroma) 300 ml ONCE ONCE NGT ; Start 02/26/17 at 17:30; Stop 02/26/17 at 17:31 Polyethylene Glycol 119 gm 119 gm ONCE ONCE NGT ; Start 02/26/17 at 18:30; Stop 02/26/17 at 18:31 Metronidazole 250 mg/N/A 50 ml @ 50 mls/hr Q8 IVPB Last administered on 05:28; Admin Dose 50 MLS/HR; Start 02/25/17 at 14:00 Dextrose/Sodium Chloride 1,000 ml @ 60 mls/hr [id number] IV Last administered on 02/25/17 15:05; Admin Dose 60 MLS/HR; Start 02/25/17 at 14:30 Dextrose (D10w) 1,000 ml @ 60 mls/hr [id number] IV Last administered on 01:05; Admin Dose 60 MLS/HR; Start 02/26/17 at 01:00 EVENS MARTIN MD February 26, 2017 11:07
[2017-02-26] MEDS ORDERED: LACTULOSE 30ML CUP NGT ONE (11:30)
--- NOTE | 2017-02-26 12:15 | PN ---
Date/Time of Note Date/Time of Note DATE: 02/26/17 TIME: 12:06 Assessment/Plan Lines/Catheters IV Catheter Type (from Nrs): Central Line Christopher in Place (from Nrs): Yes Assessment/Plan Assessment/Plan [facility] Progress Note Date of Service: 02/26/17 Today's Impression & Plan: Overall seems improved. Likely attributed to the efficacy of treatment for C- diff. Abs appears benign. No indication for acute surgical intervention. Updated and daughter at bedside. With above assessment, I've recommended the following for today: 1. Cont current management 2. Cont C-diff therapy 3. Ok with MRCP (please make sure medically stable; can likely wait if any major concerns for mental status or cardiopulmonary status); same is true for colonoscopy Thank you again for your great care of this very pleasant patient and wonderful family. If there are any questions, please feel free to call me at [phone]. TOTAL VISIT TIME: 20 minutes of which more than half was spent in [id number] discussion with the patient, possibly including family, as well as coordination of care between multiple physicians and providers. Disclaimer: Inadvertent spelling or grammatical errors are likely due to EHR/ dictation software use and do not reflect on the overall quality of patient care. Updated Clinical Summary: The patient is a very pleasant 86-year-old gentleman admitted to [facility] on 02/19/2017 from a retirement ([facility]) initially for sepsis, which was manifesting by fatigue and lethargy. He was in the intensive care unit since admission and required significant support and has progressively gotten better to a point where he extubated 3 days prior to my initial visit. This was thought to be due to Clostridium difficile infection. 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 COMORBIDITIES: 1. Chronic coronary artery disease, potentially old NH, treated on Brilinta. He had a percutaneous intervention in May. 2. Chronic dyslipidemia. 3. Chronic diabetes. 4. Chronic hypothyroidism. 5. Metabolic syndrome. 6. History of sepsis due to pneumonia treated in [facility] and then transferred to [facility] after a month. 7. Prostate cancer diagnosed years ago. No evidence of obvious metastasis. He has been on surveillance and expectant management. 8. Sciatica with history of epidurals. 9. Cataracts. 10. Hernia. 11. Clostridium difficile colitis infection, culture positive 02/24/2017. Subjective: No major events or complaints overnight; no abd pain; no n/v/d; no sob or cp; + flatus; + BM; - activity Objective: Vitals: See below Exam: GENERAL: On exam, the patient was laying in bed and appeared to be comfortable and in no acute distress. Being visited with and daughter. ABDOMEN: Soft, nontender and nondistended. There are no peritoneal signs or guarding. SKIN: Skin appears to be pink and feels warm to touch. NEUROLOGIC: Patient is much more awake than yesterday and followed simple commands. Still not speaking in audible words, but seemed more engaged in the conversation. Exam/Review of Systems Vital Signs Vitals Vital Signs Date Time Temp Pulse Resp B/P Pulse Ox O2 Delivery O2 Flow Rate FiO2 02/26/17 12:00 97.8 103 29 94/48 100 Room Air 02/25/17 19:50 21 02/25/17 17:54 2.0 Intake and Output 02/25/17 02/25/17 02/26/17 15:00 23:00 07:00 Intake Total 815.0 ml 811.25 ml 480 ml Output Total 1135 ml 1425 ml 610 ml Balance -320.0 ml -613.75 ml -130 ml Results Result Diagram: 02/26/17 0445 02/26/17 0445 RADHA JAMES M.D. February 26, 2017 12:15
[2017-02-26 12:53] LABS: HEMATOCRIT 31.6 % (42.0-52.0); HEMOGLOBIN 10.7 g/dl (14.0-18.0)
--- NOTE | 2017-02-26 15:04 | CONS ---
Date/Time of Note Date/Time of Note DATE: 02/26/17 TIME: 15:00 Assessment/Plan Assessment/Plan Chief Complaint/Hosp Course ID PROGRESS NOTE TOTAL ABX DAY #2 => Vanco Liquid PO + Rifaximin + Flagyl IV Vanco IV + Cefepime # &=> DC'd 02/25 s/p Ceftriaxone/Azith 02/19 24H INTERVAL SUMMARY * (+)C.Diff 02/24 resulted =>Placed on 3-ABX course * Self-extubated few days ago-> ABX onboard for concern ASP PNA => CXR clear, stable, IV ABX DC'd 02/15 * Stable at this time = pending MRCP, EGD/[facility] PHYSICAL EXAMINATION: GENERAL: VSS, NAD, no fevers HEENT: NGT NECK: Trach midline CHEST: Equal chest rise bilaterally, without dyspnea on observation HEART: Pulse RRR ABDOMEN: Soft EXTREMITIES: Warm,moves all extremities SKIN: Warm, dry ID ASSESSMENT: 86 yo M admitted with: 1. Severe sepsis with shock and persistent lactic acidosis with lactic acid today 2.7. * (+)C.Diff colitis w/severe anemia ?Pseudomembranous Colitis ? 2. Pneumonia, possibly aspiration type => CXR clear suspect aspiration pneumonitis * CXR 02/22 clear * History of sepsis due to pneumonia treated in [facility] and then transferred to [facility] after a month. 3. Encephalopathy. 4. Diabetes. 5. History of prostate cancer. 6. Acute renal failure secondary to sepsis. 7. Sludge and small stones in the gallbladder without definite secondary signs of acute cholecystitis-Question cirrhosis (Radiology report). 8. Anemia => possible Lower GI bleed ,R/O upper GI bleed 9. CAD -> Hx of [place] followed by coronary stent (-)MRSA Nares INVASIVES: *PIV, NGT, FC ABX ALLERGIES: KNDA CURRENT ABX: DAY #2 => Vanco Liquid PO + Rifaximin + Flagyl IV Vanco IV + Cefepime # &=> DC'd 02/25 s/p Ceftriaxone/Azith 02/19 ID RECOMMENDATIONS: 1. Continue OFF Vanco IV + Cefepime IV => Has received 7 days IV ABX and CXR was clear, extubated without respiratory distress 2. Treat C.Diff colitis w/Vanco LIQ via NG, Rifaximin onboard, Flagyl IV 3. EGD/[place] -> Pending 4. MRCP -> Pending / Problems: Consultation Date/Type/Reason Admit Date/Time February 19, 2017 at 14:52 Initial Consult Date 02/21/17 Type of Consultation: ID Referring Provider: BEBO SEYMOUR Exam/Review of Systems Vital Signs Vitals Vital Signs Date Time Temp Pulse Resp B/P Pulse Ox O2 Delivery O2 Flow Rate FiO2 02/26/17 14:00 110 22 90/47 99 Room Air 02/26/17 12:00 97.8 02/25/17 19:50 21 02/25/17 17:54 2.0 Intake and Output 02/25/17 02/25/17 02/26/17 15:00 23:00 07:00 Intake Total 815.0 ml 811.25 ml 480 ml Output Total 1135 ml 1425 ml 610 ml Balance -320.0 ml -613.75 ml -130 ml Results Result Diagram: 02/26/17 1237 02/26/17 0445 Results 24 hrs Laboratory Tests Test 02/25/17 16:46 02/25/17 17:12 02/25/17 19:35 02/25/17 20:51 Bedside Glucose 47 *L 154 53 L Hemoglobin 10.3 L Hematocrit 31.1 L Potassium Level 4.0 Test 02/25/17 21:14 02/25/17 22:03 02/25/17 23:00 02/25/17 23:55 Bedside Glucose 165 114 99 93 Test 02/26/17 00:40 02/26/17 02:26 02/26/17 04:45 02/26/17 05:27 Hemoglobin 10.0 L 9.9 L Hematocrit 29.7 L 30.0 L Bedside Glucose 88 White Blood Count 9.0 # Red Blood Count 3.46 #L Mean Corpuscular Volume 86.7 Mean Corpuscular Hemoglobin 28.6 L Mean Corpuscular Hemoglobin Concent 33.0 Red Cell Distribution Width 18.4 H Platelet Count 34 L Mean Platelet Volume 11.8 H Neutrophils % 83.3 H Lymphocytes % 9.5 L Monocytes % 3.1 Eosinophils % 2.9 Basophils % 0.1 Nucleated Red Blood Cells % 0.0 Neutrophils # 7.5 Lymphocytes # 0.9 Monocytes # 0.3 Eosinophils # 0.3 Basophils # 0.0 Nucleated Red Blood Cells # 0.0 Sodium Level 136 Potassium Level 3.3 L Chloride Level 108 Carbon Dioxide Level 20 L Anion Gap 11 Blood Urea Nitrogen 19 Creatinine 1.03 Glucose Level 120 # Calcium Level 6.8 L Phosphorus Level 2.3 L Magnesium Level 1.9 Total Bilirubin 0.6 Direct Bilirubin 0.00 Indirect Bilirubin 0.6 Aspartate Amino Transf (AST/SGOT) 32 Alanine Aminotransferase (ALT/SGPT) 58 Alkaline Phosphatase 259 H Total Protein 3.7 L Albumin 1.7 L Globulin 2.00 Albumin/Globulin Ratio 0.85 Lab Scanned Report BLOOD TRANSFUSION Test 02/26/17 08:03 02/26/17 12:27 02/26/17 12:37 Bedside Glucose 128 157 Hemoglobin 10.7 L Hematocrit 31.6 L Medications Medications Current Medications Lactobacillus Acidophilus/ Rhamnosus (Culturelle) 1 cap BID PO Last administered on 02/26/17 08:00; Admin Dose 1 CAP; Start 02/19/17 at 21:00 Multivitamins Therapeutic (Theragran) 1 tab DAILY PO Last administered on 08:00; Admin Dose 1 TAB; Start 02/20/17 at 09:00 Ascorbic Acid (Vitamin C) 500 mg QAM PO Last administered on 02/26/17 08:00; Admin Dose 500 MG; Start 02/20/17 at 09:00 Ticagrelor (Brilinta) 90 mg QAM PO Last administered on 02/26/17 08:01; Admin Dose 90 MG; Start 02/19/17 at 16:30 Zinc Sulfate (Zinc Sulfate) 220 mg QAM PO Last administered on 02/26/17 08:00 ; Admin Dose 220 MG; Start 02/20/17 at 09:00 Atorvastatin Calcium (Lipitor) 80 mg DAILY@21 PO Last administered on 20:40; Admin Dose 80 MG; Start 02/19/17 at 21:00 Ondansetron HCl (Zofran Inj) 4 mg Q6H PRN IV NAUSEA AND/OR VOMITING; Start at 16:30 Acetaminophen (Tylenol Tab) 650 mg Q6H PRN PO PAIN LEVEL 1-3 OR FEVER; Start at 16:30 Acetaminophen (Tylenol Supp) 650 mg Q6H PRN [place] PAIN LEVEL 1-3 OR FEVER; Start 02/19/17 at 16:30 Acetaminophen/ Hydrocodone Bitart ([place] (5/325)) 1 tab Q6H PRN PO MODERATE PAIN LEVEL 4-6; Start 02/19/17 at 16:30 Morphine Sulfate (morphine) 2 mg Q4H PRN IV SEVERE PAIN LEVEL 7-10 Last administered on 02/25/17 18:04; Admin Dose 2 MG; Start 02/19/17 at 16:30 Miscellaneous Information 1 ea NOTE XX ; Start 02/19/17 at 16:30 Glucose (Glutose) 15 gm Q15M PRN PO DECREASED GLUCOSE; Start 02/19/17 at 16:30 Glucose (Glutose) 22.5 gm Q15M PRN PO DECREASED GLUCOSE; Start 02/19/17 at 16: 30 Dextrose (D50w Syringe) 25 ml Q15M PRN IV DECREASED GLUCOSE Last administered on 02/25/17 04:31; Admin Dose 25 ML; Start 02/19/17 at 16:30 Dextrose (D50w Syringe) 50 ml Q15M PRN IV DECREASED GLUCOSE Last administered on 02/25/17 20:58; Admin Dose 50 ML; Start 02/19/17 at 16:30 Glucagon (Glucagen) 1 mg Q15M PRN IM DECREASED GLUCOSE; Start 02/19/17 at 16:30 Glucose (Glutose) 15 gm Q15M PRN BUCCAL DECREASED GLUCOSE; Start 02/19/17 at 16 :30 Diagnostic Test (Pha) (Accu-Chek) 1 ea 02 XX Last administered on 02/26/17 02: 44; Admin Dose 1 EA; Start 02/20/17 at 02:00 Insulin Aspart NOVOLOG *MILD* ALGORITHM Q4 SC Last administered on 02/26/17 12 :30; Admin Dose 1 UNIT; Start 02/20/17 at 13:00 Norepinephrine/ Dextrose (Levophed/D5W) 500 ml @ 1.87 mls/hr TITRATE IV Last administered on 02/22/17 05:57; Admin Dose 1.87 MLS/HR; Start 02/20/17 at 11:00 Pantoprazole (Protonix Iv) 40 mg BID@06,18 IV Last administered on 02/26/17 05 :28; Admin Dose 40 MG; Start 02/20/17 at 18:00 Aspirin (Halfprin) 81 mg DAILY PO Last administered on 02/23/17 10:58; Admin Dose 81 MG; Start 02/21/17 at 09:00; Status Future Hold Levothyroxine Sodium (Synthroid) 50 mcg DAILY@06 PO Last administered on 05:54; Admin Dose 50 MCG; Start 02/22/17 at 06:00; Status Future hold Venlafaxine HCl (Effexor) 25 mg BID NGT Last administered on 02/26/17 08:00; Admin Dose 25 MG; Start 02/22/17 at 10:30 Vancomycin HCl (Vancomycin Oral Syringe) 250 mg Q6 PO Last administered on 02/26 11:42; Admin Dose 250 MG; Start 02/24/17 at 18:00 Ergocalciferol (Drisdol) 50,000 unit Sa@09 PO Last administered on 02/25/17 08 :31; Admin Dose 50,000 UNIT; Start 02/25/17 at 09:00 Insulin Glargine (Lantus) 6 unit BID SC ; Start 02/25/17 at 09:00; Status Future Hold Rifaximin (Xifaxan) 200 mg TID NGT Last administered on 02/26/17 12:25; Admin Dose 200 MG; Start 02/25/17 at 09:00 Magnesium Citrate (Citroma) 300 ml ONCE ONCE NGT ; Start 02/26/17 at 17:30; Stop 02/26/17 at 17:31 Polyethylene Glycol 119 gm 119 gm ONCE ONCE NGT ; Start 02/26/17 at 18:30; Stop 02/26/17 at 18:31 Metronidazole 250 mg/N/A 50 ml @ 50 mls/hr Q8 IVPB Last administered on 13:32; Admin Dose 50 MLS/HR; Start 02/25/17 at 14:00 Dextrose (D10w) 1,000 ml @ 60 mls/hr [id number] IV Last administered on 5/21/ 17at 01:05; Admin Dose 60 MLS/HR; Start 02/26/17 at 01:00 Lactulose (Enulose) 10 gm ONCE ONCE NGT ; Start 02/27/17 at 06:00; Stop at 06:01 PAULA BECERRA NP February 26, 2017 15:04
--- NOTE | 2017-02-26 16:22 | CONS ---
Date/Time of Note Date/Time of Note DATE: 02/26/17 TIME: 16:21 Assessment/Plan Assessment/Plan Additional Assessment/Plan 1. Septic shock 2. Acute kidney injury secondary to acute tubular necrosis from septic shock. 3. Hyperchloremic non-anion gap metabolic acidosis likely secondary to severe diarrhea. Currently, the patient's bicarbonate has been dropped down to 16. 4. Hyponatremia, likely secondary to hypovolemic hyponatremia. 5. 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 6. Hypocalcemia, but the corrected calcium with a low albumin has been pretty much normal. PLAN: continue D51/2 NS at 60 cc/hr , K 3.3- replaced , PO4 2.3- I will give K phosph 15 mmol IV x 1 today Cr improving, good urine output will continue to follow up Full Code Consultation Date/Type/Reason Admit Date/Time February 19, 2017 at 14:52 Initial Consult Date 02/20/2017 Type of Consultation: ID Referring Provider: BEBO SEYMOUR Exam/Review of Systems Vital Signs Vitals Vital Signs Date Time Temp Pulse Resp B/P Pulse Ox O2 Delivery O2 Flow Rate FiO2 02/26/17 15:00 114 26 92/56 99 Room Air 02/26/17 12:00 97.8 02/25/17 19:50 21 02/25/17 17:54 2.0 Intake and Output 02/25/17 02/25/17 02/26/17 15:00 23:00 07:00 Intake Total 815.0 ml 811.25 ml 480 ml Output Total 1135 ml 1425 ml 610 ml Balance -320.0 ml -613.75 ml -130 ml Results Result Diagram: 02/26/17 1237 02/26/17 0445 Results 24 hrs Laboratory Tests Test 02/25/17 16:46 02/25/17 17:12 02/25/17 19:35 02/25/17 20:51 Bedside Glucose 47 *L 154 53 L Hemoglobin 10.3 L Hematocrit 31.1 L Potassium Level 4.0 Test 02/25/17 21:14 02/25/17 22:03 02/25/17 23:00 02/25/17 23:55 Bedside Glucose 165 114 99 93 Test 02/26/17 00:40 02/26/17 02:26 02/26/17 04:45 02/26/17 05:27 Hemoglobin 10.0 L 9.9 L Hematocrit 29.7 L 30.0 L Bedside Glucose 88 White Blood Count 9.0 # Red Blood Count 3.46 #L Mean Corpuscular Volume 86.7 Mean Corpuscular Hemoglobin 28.6 L Mean Corpuscular Hemoglobin Concent 33.0 Red Cell Distribution Width 18.4 H Platelet Count 34 L Mean Platelet Volume 11.8 H Neutrophils % 83.3 H Lymphocytes % 9.5 L Monocytes % 3.1 Eosinophils % 2.9 Basophils % 0.1 Nucleated Red Blood Cells % 0.0 Neutrophils # 7.5 Lymphocytes # 0.9 Monocytes # 0.3 Eosinophils # 0.3 Basophils # 0.0 Nucleated Red Blood Cells # 0.0 Sodium Level 136 Potassium Level 3.3 L Chloride Level 108 Carbon Dioxide Level 20 L Anion Gap 11 Blood Urea Nitrogen 19 Creatinine 1.03 Glucose Level 120 # Calcium Level 6.8 L Phosphorus Level 2.3 L Magnesium Level 1.9 Total Bilirubin 0.6 Direct Bilirubin 0.00 Indirect Bilirubin 0.6 Aspartate Amino Transf (AST/SGOT) 32 Alanine Aminotransferase (ALT/SGPT) 58 Alkaline Phosphatase 259 H Total Protein 3.7 L Albumin 1.7 L Globulin 2.00 Albumin/Globulin Ratio 0.85 Lab Scanned Report BLOOD TRANSFUSION Test 02/26/17 08:03 02/26/17 12:27 02/26/17 12:37 Bedside Glucose 128 157 Hemoglobin 10.7 L Hematocrit 31.6 L Medications Medications Current Medications Lactobacillus Acidophilus/ Rhamnosus (Culturelle) 1 cap BID PO Last administered on 02/26/17 08:00; Admin Dose 1 CAP; Start 02/19/17 at 21:00 Multivitamins Therapeutic (Theragran) 1 tab DAILY PO Last administered on 08:00; Admin Dose 1 TAB; Start 02/20/17 at 09:00 Ascorbic Acid (Vitamin C) 500 mg QAM PO Last administered on 02/26/17 08:00; Admin Dose 500 MG; Start 02/20/17 at 09:00 Ticagrelor (Brilinta) 90 mg QAM PO Last administered on 02/26/17 08:01; Admin Dose 90 MG; Start 02/19/17 at 16:30 Zinc Sulfate (Zinc Sulfate) 220 mg QAM PO Last administered on 02/26/17 08:00 ; Admin Dose 220 MG; Start 02/20/17 at 09:00 Atorvastatin Calcium (Lipitor) 80 mg DAILY@21 PO Last administered on 20:40; Admin Dose 80 MG; Start 02/19/17 at 21:00 Ondansetron HCl (Zofran Inj) 4 mg Q6H PRN IV NAUSEA AND/OR VOMITING; Start at 16:30 Acetaminophen (Tylenol Tab) 650 mg Q6H PRN PO PAIN LEVEL 1-3 OR FEVER; Start at 16:30 Acetaminophen (Tylenol Supp) 650 mg Q6H PRN [place] PAIN LEVEL 1-3 OR FEVER; Start 02/19/17 at 16:30 Acetaminophen/ Hydrocodone Bitart ([place] (5/325)) 1 tab Q6H PRN PO MODERATE PAIN LEVEL 4-6; Start 02/19/17 at 16:30 Morphine Sulfate (morphine) 2 mg Q4H PRN IV SEVERE PAIN LEVEL 7-10 Last administered on 02/25/17 18:04; Admin Dose 2 MG; Start 02/19/17 at 16:30 Miscellaneous Information 1 ea NOTE XX ; Start 02/19/17 at 16:30 Glucose (Glutose) 15 gm Q15M PRN PO DECREASED GLUCOSE; Start 02/19/17 at 16:30 Glucose (Glutose) 22.5 gm Q15M PRN PO DECREASED GLUCOSE; Start 02/19/17 at 16: 30 Dextrose (D50w Syringe) 25 ml Q15M PRN IV DECREASED GLUCOSE Last administered on 02/25/17 04:31; Admin Dose 25 ML; Start 02/19/17 at 16:30 Dextrose (D50w Syringe) 50 ml Q15M PRN IV DECREASED GLUCOSE Last administered on 02/25/17 20:58; Admin Dose 50 ML; Start 02/19/17 at 16:30 Glucagon (Glucagen) 1 mg Q15M PRN IM DECREASED GLUCOSE; Start 02/19/17 at 16:30 Glucose (Glutose) 15 gm Q15M PRN BUCCAL DECREASED GLUCOSE; Start 02/19/17 at 16 :30 Diagnostic Test (Pha) (Accu-Chek) 1 ea 02 XX Last administered on 02/26/17 02: 44; Admin Dose 1 EA; Start 02/20/17 at 02:00 Insulin Aspart NOVOLOG *MILD* ALGORITHM Q4 SC Last administered on 02/26/17 12 :30; Admin Dose 1 UNIT; Start 02/20/17 at 13:00 Norepinephrine/ Dextrose (Levophed/D5W) 500 ml @ 1.87 mls/hr TITRATE IV Last administered on 02/22/17 05:57; Admin Dose 1.87 MLS/HR; Start 02/20/17 at 11:00 Pantoprazole (Protonix Iv) 40 mg BID@06,18 IV Last administered on 02/26/17 05 :28; Admin Dose 40 MG; Start 02/20/17 at 18:00 Aspirin (Halfprin) 81 mg DAILY PO Last administered on 02/23/17 10:58; Admin Dose 81 MG; Start 02/21/17 at 09:00; Status Future Hold Levothyroxine Sodium (Synthroid) 50 mcg DAILY@06 PO Last administered on 05:54; Admin Dose 50 MCG; Start 02/22/17 at 06:00; Status Future hold Venlafaxine HCl (Effexor) 25 mg BID NGT Last administered on 02/26/17 08:00; Admin Dose 25 MG; Start 02/22/17 at 10:30 Vancomycin HCl (Vancomycin Oral Syringe) 250 mg Q6 PO Last administered on 02/26 11:42; Admin Dose 250 MG; Start 02/24/17 at 18:00 Ergocalciferol (Drisdol) 50,000 unit Sa@09 PO Last administered on 02/25/17 08 :31; Admin Dose 50,000 UNIT; Start 02/25/17 at 09:00 Insulin Glargine (Lantus) 6 unit BID SC ; Start 02/25/17 at 09:00; Status Future Hold Rifaximin (Xifaxan) 200 mg TID NGT Last administered on 02/26/17 12:25; Admin Dose 200 MG; Start 02/25/17 at 09:00 Magnesium Citrate (Citroma) 300 ml ONCE ONCE NGT ; Start 02/26/17 at 17:30; Stop 02/26/17 at 17:31 Polyethylene Glycol 119 gm 119 gm ONCE ONCE NGT ; Start 02/26/17 at 18:30; Stop 02/26/17 at 18:31 Metronidazole 250 mg/N/A 50 ml @ 50 mls/hr Q8 IVPB Last administered on 13:32; Admin Dose 50 MLS/HR; Start 02/25/17 at 14:00 Dextrose (D10w) 1,000 ml @ 60 mls/hr [id number] IV Last administered on 01:05; Admin Dose 60 MLS/HR; Start 02/26/17 at 01:00 Lactulose (Enulose) 10 gm ONCE ONCE NGT ; Start 02/27/17 at 06:00; Stop at 06:01 ANJEL LEE MD February 26, 2017 16:22
[2017-02-26] MEDS ORDERED: POTASSIUM PHOSPHATE 15 MM in SOD CHLORIDE 0.9% 250 ML IVPB ONE (17:00)
[2017-02-26] MEDS ORDERED: MAGNESIUM CITRATE 300 ML BTL NGT ONE (17:30)
[2017-02-26] MEDS ORDERED: POLYETHYLENE GLYCOL 3350 119 GM POWDER NGT ONE (18:30)
[2017-02-26] MEDS: ATORVASTATIN 80 MG TAB PO SCH (20:14)
[2017-02-27] VITALS (20 sets, daily range): BP systolic 84–131; BP diastolic 48–64; PULSE 76–108; RESP 15–30
[2017-02-27 01:11] LABS: HEMATOCRIT 28.6 % (42.0-52.0); HEMOGLOBIN 9.6 g/dl (14.0-18.0)
[2017-02-27] MEDS: INSULIN ASPART [NOVOLOG] 3 ML PEN SC SCH ×6 (01:23→21:00)
[2017-02-27] MEDS: ACCUCHECK AT 2AM (Patients on SS coverage) XX SCH (02:57)
[2017-02-27] MEDS ORDERED: POLYETHYLENE GLYCOL 3350 119 GM POWDER NGT ONE (06:00)
[2017-02-27] MEDS ORDERED: LACTULOSE 30ML CUP NGT ONE (06:00)
[2017-02-27] MEDS: PANTOPRAZOLE 40 MG INJ IV SCH ×2 (06:25→17:02)
[2017-02-27] MEDS: VANCOMYCIN HCL 250 MG/5ML POSYG PO SCH ×3 (06:25→17:02)
[2017-02-27] MEDS: metroNIDAZOLE 500 MG/NS (PMX) 250 MG in EVAC CONTAINER 1 BOTTLE IVPB SCH ×3 (06:25→22:56)
[2017-02-27 06:36] LABS: HEMATOCRIT 29.2 % (42.0-52.0); HEMOGLOBIN 9.5 g/dl (14.0-18.0)
[2017-02-27 06:56] LABS: INR 2.15; PROTIME 24.2 Sec (12.2-14.2); PT RATIO 1.9
[2017-02-27 06:58] LABS: PARTIAL THROMBOPLASTIN TIME 43.9 Sec (25.0-35.0)
[2017-02-27 07:02] LABS: PLATELET COUNT 35 10^3/UL (140-440); THROMBIN TIME 15.3 SEC (13.8-19.1)
[2017-02-27 07:04] LABS: D-DIMER 3796.07 ng/ml (<460)
[2017-02-27 07:13] LABS: ALBUMIN 1.5 g/dl (3.3-4.9)
[2017-02-27 07:14] LABS: POTASSIUM 3.5 mmol/L (3.5-5.1)
[2017-02-27 07:16] LABS: ALBUMIN/GLOBULIN RATIO 0.71; BILIRUBIN,INDIRECT 0.3 mg/dl (0-1.1); BILIRUBIN,TOTAL 0.3 mg/dl (0.2-1.3); CREATININE 0.98 mg/dl (0.61-1.24); TOTAL PROTEIN 3.6 g/dl (6.1-8.1)
[2017-02-27 07:17] LABS: CALCIUM 6.8 mg/dl (8.4-10.2)
--- NOTE | 2017-02-27 07:30 | PN ---
DATE: 02/25/2017 CARDIOLOGY FOLLOWUP SUBJECTIVE: Discussed with the staff. Rhythm strip was reviewed. The patient with recurrent blood y stool. His blood pressure has improved off of pressors now. No reported chest pain or pressure; however, does not answer my questions. Discussed with the staff. MEDICATIONS: Reviewed. PHYSICAL EXAMINATION: VITAL SIGNS: Temperature 97.4, heart rate of 93, blood pressure 92/45, respiratory rate of 14, satu rating 98%. HEENT: Normocephalic, atraumatic. Status post NG tube in place. CARDIOVASCULAR: Regular rate and rhythm. Systolic murmur. PULMONARY: With mild rhonchi. GASTROINTESTINAL: Soft, mildly distended. No rebound or guarding. EXTREMITIES: Positive lower extremity edema. NEUROLOGIC: Does not appear to be awake, does not my questions. LABORATORY: WBC of 6.2, hemoglobin 6.9, platelets of 41. Sodium 135, potassium 2.6, BUN of 26, cre atinine 1.04, glucose of 47. Albumin is 1.9. INR is 2.14. ASSESSMENT AND PLAN: 1. Sinus tachycardia, multifactorial, currently has improved. 2. Coronary artery disease, status post myocardial infarction. 3. History of percutaneous coronary intervention , currently only on Brilinta unable to tolerate __ __ once a day. 4. Coagulopathy with elevated INR, probably secondary to sepsis. 5. Clostridium difficile colitis ____ sepsis. 6. ____, severe hypokalemia. 7. Severe malnutrition. Consider thyroid disorder. 8. Thrombocytopenia. 9. Severe anemia. RECOMMENDATIONS: Transfusion ____ internal medicine. Continue the Brilinta once a day only, ____ h as been given already. Antibiotic as per internal medicine. Electrolytes including potassium to be replaced aggressively. Continue with the ICU care for now. Currently, off of pressors. Dictated By: CAITIE ESTRELLA/LADY Conf#: [id number] DID#: [id number]
[2017-02-27] MEDS ORDERED: BISACODYL (EC) 5 MG TAB PO ONE (08:00)
[2017-02-27] MEDS: VENLAFAXINE 25 MG TAB NGT SCH ×2 (09:00→21:39)
[2017-02-27] MEDS: ZINC SULFATE 220 MG CAP PO SCH (09:00)
[2017-02-27] MEDS: MULTIVITAMINS THERAPEUTIC TAB PO SCH (09:00)
[2017-02-27] MEDS: ASCORBIC ACID 500 MG TAB PO SCH (09:00)
[2017-02-27] MEDS: RIFAXIMIN 200 MG TAB NGT SCH ×3 (09:00→21:39)
[2017-02-27] MEDS: TICAGRELOR 90 MG TABLET PO SCH (09:00)
[2017-02-27] MEDS: LACTOBACILLUS RHAMNOSUS CAP PO SCH ×2 (09:00→22:59)
--- NOTE | 2017-02-27 10:05 | RADRPT ---
PROCEDURE: MR Abdomen and MRCP. CLINICAL INDICATION: Elevated transaminase concerning for biliary obstruction. TECHNIQUE: MRI abdomen with and without contrast and MRCP was performed on a high field scanner. Patient was examined both before and following the uncomplicated intravenous injection of 20 cc of gadolinium. 3-D coronal rotating MIP images of the biliary tree are available for review. COMPARISON: Abdomen ultrasound 02/23/2017. FINDINGS: MRI Abdomen: There is a small sized liver with surface nodularity in keeping with cirrhosis. No large focal live r mass. There is small volume abdominopelvic ascites. Spleen is normal in size. The stomach is partially collapsed but grossly unremarkable. The pancreas, as visualized, is equally unremarkable. No pancreatic lesion is seen. The adrenal glands and kidneys are symmetrically normal. The aorta is of normal caliber. There is no retroperitoneal lymphadenopathy. The bowel and mesentery, as vi sualized, are all unremarkable. There is approximately 4.5 cm cyst in the upper pole left kidney. MRCP: There is mild distension of the gallbladder with layering small gallstones. There is no gallbladder wall thickening. The biliary tree is not dilated. No intrahepatic nor extrahepatic biliary dilatat ion is present. The pancreatic duct, as visualized, is equally unremarkable. IMPRESSION: Somewhat limited MRCP images due to presence of the ascites and breathing artifacts. 1. No biliary ductal dilatation. No CBD stones. 2. Gallstones in mildly distended gallbladder with no gallbladder wall thickening. If there is cli nical suspicion for acute cholecystitis, recommend HIDA scan further evaluation. 3. Morphologic changes suggestive of cirrhosis. 4. Small abdominopelvic ascites. RPTAT: BB .Darwin Martins MD, MD Date Time Electronically viewed and signed by .Darwin Martins MD, on 02/27/2017 10:05 .O/
[2017-02-27] MEDS: DEXTROSE 10% 1,000 ML IV SCH ×2 (10:20→13:03)
--- NOTE | 2017-02-27 10:41 | CONS ---
Date/Time of Note Date/Time of Note DATE: 02/27/17 TIME: 10:39 Consult Date/Type/Reason Admit Date/Time February 19, 2017 at 14:52 Type of Consultation: Pulmonary ICU Ordering Provider: BEBO SEYMOUR Subjective Patient remains off vasopressors for the past 48 hours Eyes open makes eye contact appears somewhat confused No evidence of respiratory distress this morning Scheduled for endoscopy and colonoscopy after MRI. Objective Vital Signs Date Time Temp Pulse Resp B/P Pulse Ox O2 Delivery O2 Flow Rate FiO2 02/27/17 08:00 97.0 99 18 101/52 97 Room Air 02/26/17 17:42 21 02/25/17 17:54 2.0 Intake and Output 02/26/17 02/26/17 02/27/17 14:59 22:59 06:59 Intake Total 990 ml 1220 ml 830 ml Output Total 460 ml 320 ml 690 ml Balance 530 ml 900 ml 140 ml Exam GENERAL: Elderly gentleman comfortable at rest no acute distress VITAL SIGNS: per chart NECK: Supple. No JVD or lymphadenopathy. CARDIAC EXAM: S1, S2. No added sounds or murmurs. CHEST: clear bilaterally, No added sounds, rales or wheezes ABDOMEN: Soft, nontender. No guarding or rebound. EXTREMITIES: No cyanosis, clubbing or edema. NEUROLOGIC: Generalized weakness. No focal deficits. Results/Medications Result Diagram: 02/27/17 0530 02/27/17 0450 Results 24 hrs Laboratory Tests Test 02/26/17 12:27 02/26/17 12:37 02/26/17 17:17 02/26/17 20:23 Bedside Glucose 157 167 182 Hemoglobin 10.7 L Hematocrit 31.6 L Test 02/27/17 01:05 02/27/17 01:19 02/27/17 02:52 02/27/17 04:50 Hemoglobin 9.6 L 9.5 L Hematocrit 28.6 L 29.2 L Bedside Glucose 215 177 Sodium Level 136 Potassium Level 3.5 Chloride Level 110 Carbon Dioxide Level 18 L Anion Gap 12 Blood Urea Nitrogen 16 Creatinine 0.98 Glucose Level 125 Calcium Level 6.8 L Magnesium Level 2.7 H Total Bilirubin 0.3 Direct Bilirubin 0.00 Indirect Bilirubin 0.3 Aspartate Amino Transf (AST/SGOT) 18 Alanine Aminotransferase (ALT/SGPT) 55 Alkaline Phosphatase 255 H Total Protein 3.6 L Albumin 1.5 L Globulin 2.10 Albumin/Globulin Ratio 0.71 Test 02/27/17 04:55 02/27/17 05:30 02/27/17 08:24 Bedside Glucose 137 160 Platelet Count 35 L Prothrombin Time 24.2 H Prothrombin Time Ratio 1.9 INR International Normalized Ratio 2.15 Activated Partial Thromboplast Time 43.9 H Thrombin Time Pending Fibrinogen 303.0 Plasma Fibrin Degradation Products Pending D-Dimer 3796.07 H D-Dimer Comment Medications Current Medications Lactobacillus Acidophilus/ Rhamnosus (Culturelle) 1 cap BID PO Last administered on 02/26/17 20:14; Admin Dose 1 CAP; Start 02/19/17 at 21:00 Multivitamins Therapeutic (Theragran) 1 tab DAILY PO Last administered on 08:00; Admin Dose 1 TAB; Start 02/20/17 at 09:00 Ascorbic Acid (Vitamin C) 500 mg QAM PO Last administered on 02/26/17 08:00; Admin Dose 500 MG; Start 02/20/17 at 09:00 Ticagrelor (Brilinta) 90 mg QAM PO Last administered on 02/26/17 08:01; Admin Dose 90 MG; Start 02/19/17 at 16:30 Zinc Sulfate (Zinc Sulfate) 220 mg QAM PO Last administered on 02/26/17 08:00 ; Admin Dose 220 MG; Start 02/20/17 at 09:00 Atorvastatin Calcium (Lipitor) 80 mg DAILY@21 PO Last administered on 20:14; Admin Dose 80 MG; Start 02/19/17 at 21:00 Ondansetron HCl (Zofran Inj) 4 mg Q6H PRN IV NAUSEA AND/OR VOMITING; Start at 16:30 Acetaminophen (Tylenol Tab) 650 mg Q6H PRN PO PAIN LEVEL 1-3 OR FEVER; Start at 16:30 Acetaminophen (Tylenol Supp) 650 mg Q6H PRN [place] PAIN LEVEL 1-3 OR FEVER; Start 02/19/17 at 16:30 Acetaminophen/ Hydrocodone Bitart ([place] (5/325)) 1 tab Q6H PRN PO MODERATE PAIN LEVEL 4-6; Start 02/19/17 at 16:30 Morphine Sulfate (morphine) 2 mg Q4H PRN IV SEVERE PAIN LEVEL 7-10 Last administered on 02/25/17 18:04; Admin Dose 2 MG; Start 02/19/17 at 16:30 Miscellaneous Information 1 ea NOTE XX ; Start 02/19/17 at 16:30 Glucose (Glutose) 15 gm Q15M PRN PO DECREASED GLUCOSE; Start 02/19/17 at 16:30 Glucose (Glutose) 22.5 gm Q15M PRN PO DECREASED GLUCOSE; Start 02/19/17 at 16: 30 Dextrose (D50w Syringe) 25 ml Q15M PRN IV DECREASED GLUCOSE Last administered on 02/25/17 04:31; Admin Dose 25 ML; Start 02/19/17 at 16:30 Dextrose (D50w Syringe) 50 ml Q15M PRN IV DECREASED GLUCOSE Last administered on 02/25/17 20:58; Admin Dose 50 ML; Start 02/19/17 at 16:30 Glucagon (Glucagen) 1 mg Q15M PRN IM DECREASED GLUCOSE; Start 02/19/17 at 16:30 Glucose (Glutose) 15 gm Q15M PRN BUCCAL DECREASED GLUCOSE; Start 02/19/17 at 16 :30 Diagnostic Test (Pha) (Accu-Chek) 1 ea 02 XX Last administered on 02/27/17 02: 57; Admin Dose 1 EA; Start 02/20/17 at 02:00 Insulin Aspart NOVOLOG *MILD* ALGORITHM Q4 SC Last administered on 02/27/17 08 :26; Admin Dose 1 UNIT; Start 02/20/17 at 13:00 Norepinephrine/ Dextrose (Levophed/D5W) 500 ml @ 1.87 mls/hr TITRATE IV Last administered on 02/22/17 05:57; Admin Dose 1.87 MLS/HR; Start 02/20/17 at 11:00 Pantoprazole (Protonix Iv) 40 mg BID@06,18 IV Last administered on 02/27/17 06 :25; Admin Dose 40 MG; Start 02/20/17 at 18:00 Aspirin (Halfprin) 81 mg DAILY PO Last administered on 02/23/17 10:58; Admin Dose 81 MG; Start 02/21/17 at 09:00; Status Future Hold Levothyroxine Sodium (Synthroid) 50 mcg DAILY@06 PO Last administered on 05:54; Admin Dose 50 MCG; Start 02/22/17 at 06:00; Status Future hold Venlafaxine HCl (Effexor) 25 mg BID NGT Last administered on 02/26/17 20:14; Admin Dose 25 MG; Start 02/22/17 at 10:30 Vancomycin HCl (Vancomycin Oral Syringe) 250 mg Q6 PO Last administered on 02/27 06:25; Admin Dose 250 MG; Start 02/24/17 at 18:00 Ergocalciferol (Drisdol) 50,000 unit Sa@09 PO Last administered on 02/25/17 08 :31; Admin Dose 50,000 UNIT; Start 02/25/17 at 09:00 Insulin Glargine (Lantus) 6 unit BID SC ; Start 02/25/17 at 09:00; Status Future Hold Rifaximin 200 mg 200 mg TID NGT Last administered on 02/26/17 20:32; Admin Dose 200 MG; Start 02/25/17 at 09:00 Metronidazole 250 mg/N/A 50 ml @ 50 mls/hr Q8 IVPB Last administered on 06:25; Admin Dose 50 MLS/HR; Start 02/25/17 at 14:00 Dextrose (D10w) 1,000 ml @ 60 mls/hr [id number] IV Last administered on 17:47; Admin Dose 60 MLS/HR; Start 02/26/17 at 01:00 Assessment/Plan Chief Complaint/Hosp Course IMPRESSION AND PLAN: 1. Status post septic shock 2. Possible healthcare-associated pneumonia. 3. Renal insufficiency, likely prerenal. Now improved. 4. Hyponatremia resolved. 5. Sinus tachycardia likely secondary to vasopressors now improved off Levophed. 6. History of depression PLAN: 1. Continue antibiotics, currently on vancomycin and cefepime. MRI abdomen today 2. Infectious disease recommendations consider de-escalation of antibiotics 3. Replace electrolytes 4. DVT and GI prophylaxis. 5. EGD and colonoscopy per GI today Disposition Consider transfer to telemetry after procedures. Problems: PAULO TRIMBLE MD, [facility] February 27, 2017 10:41
--- NOTE | 2017-02-27 11:01 | PN ---
Date/Time of Note Date/Time of Note DATE: 02/27/17 TIME: 10:59 Assessment/Plan Lines/Catheters IV Catheter Type (from [facility]): Central Line Christopher in Place (from Nrs): Yes Assessment/Plan Assessment/Plan [facility] Progress Note Date of Service: 02/27/17 Today's Impression & Plan: Overall stable and improving. Likely attributed to the efficacy of treatment for C-diff. Abd appears benign. No indication for acute surgical intervention. MRCP did not show obvious biliary pathology. Discussed with his nurse and Dr. Renee. With above assessment, I've recommended the following for today: 1. Cont current management 2. Cont C-diff therapy 3. Cancel endoscopy (EGD and colonoscopy) 4. D/c NG 5. Bedside swallow and clear liquid diet if pass Thank you again for your great care of this very pleasant patient and wonderful family. If there are any questions, please feel free to call me at [phone]. TOTAL VISIT TIME: 20 minutes of which more than half was spent in [id number] discussion with the patient, possibly including family, as well as coordination of care between multiple physicians and providers. Disclaimer: Inadvertent spelling or grammatical errors are likely due to EHR/ dictation software use and do not reflect on the overall quality of patient care. Updated Clinical Summary: The patient is a very pleasant 86-year-old gentleman admitted to [facility] on 02/19/2017 from a m[facility] ([facility]) initially for sepsis, which was manifesting by fatigue and lethargy. He was in the intensive care unit since admission and required significant support and has progressively gotten better to a point where he extubated 3 days prior to my initial visit. This was thought to be due to Clostridium difficile infection. 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 COMORBIDITIES: 1. Chronic coronary artery disease, potentially old NM, treated on Brilinta. He had a percutaneous intervention in May. 2. Chronic dyslipidemia. 3. Chronic diabetes. 4. Chronic hypothyroidism. 5. Metabolic syndrome. 6. History of sepsis due to pneumonia treated in [facility] and then transferred to [facility] after a month. 7. Prostate cancer diagnosed years ago. No evidence of obvious metastasis. He has been on surveillance and expectant management. 8. Sciatica with history of epidurals. 9. Cataracts. 10. Hernia. 11. Clostridium difficile colitis infection, culture positive 02/24/2017. Subjective: No major events or complaints overnight; no abd pain; no n/v/d; no sob or cp; + flatus; + BM; - activity; nodded yes to being hungry Objective: Vitals: See below Exam: GENERAL: On exam, the patient was laying in bed and appeared to be comfortable and in no acute distress. ABDOMEN: Soft, nontender and nondistended. There are no peritoneal signs or guarding. SKIN: Skin appears to be pink and feels warm to touch. NEUROLOGIC: Patient is awake and followed simple commands. Still not speaking in audible words, but seemed more engaged in the conversation. Exam/Review of Systems Vital Signs Vitals Vital Signs Date Time Temp Pulse Resp B/P Pulse Ox O2 Delivery O2 Flow Rate FiO2 02/27/17 08:00 97.0 99 18 101/52 97 Room Air 02/26/17 17:42 21 02/25/17 17:54 2.0 Intake and Output 02/26/17 02/26/17 02/27/17 15:00 23:00 07:00 Intake Total 1040 ml 1220 ml 780 ml Output Total 475 ml 325 ml 670 ml Balance 565 ml 895 ml 110 ml Results Result Diagram: 02/27/17 0530 02/27/17 0450 RADHA JAMES M.D. February 27, 2017 11:01
[2017-02-27 11:53] LABS: FIBRIN SPLIT PRODUCT <10 ug/ml (<10)
--- NOTE | 2017-02-27 12:39 | PN ---
DATE: 02/27/2017 INFECTIOUS DISEASE PROGRESS NOTE SUBJECTIVE: No acute changes. The patient is lethargic, looks comfortable. No fevers. Temperature 97, pulse 96, respirations 18, blood pressure 101/52, saturations 97% on room air. No CBC this morning. H and H 9.5 and 29.2. Platelets 16, creatinine 0.98. DIAGNOSTICS: MRI of the abdomen this morning revealed no biliary ductal dilatation and no common bi le duct stones. INDWELLINGS: NG tube, Christopher catheter, rectal tube, peripheral IV. ANTIMICROBIALS: Patient is on: 1. Flagyl. 2. Oral vancomycin. 3. He is also on rifaximin. PHYSICAL EXAMINATION: GENERAL: Fragile, elderly man, who is in no distress. HEENT: Head atraumatic, normocephalic. Sclerae are anicteric. Buccal mucosa dry. NECK: Supple, trachea midline. CHEST: Chest rise is symmetrical. Breath sounds diminished to the bases. HEART: S1, S2. ABDOMEN: Soft, bowel tones present. EXTREMITIES: No cyanosis. ASSESSMENT: 1. Sepsis, status post shock. 2. Clostridium difficile colitis. 3. Status post pneumonia. 4. Transaminitis. 5. Diabetes. 6. History of prostate cancer. PLAN: Patient is clinically unchanged, on appropriate antimicrobials. Continue the present care. Pending EGD once INR appropriate. Dictated By: MICHAELA SPEARS [employer] INSTRUCTOR for [employer]AD[employer] Conf#: [id number] DID#: [id number]
--- NOTE | 2017-02-27 14:42 | PN ---
Date/Time of Note Date/Time of Note DATE: 02/27/17 TIME: 14:34 Assessment/Plan VTE Prophylaxis VTE Prophylaxis Intervention: other Assessment/Plan Chief Complaint/Hosp Course 1. Septic shock secondary to C. difficile colitis-improved Continue antibiotics, ID following 2. Acute kidney injury secondary to acute tubular necrosis from septic shock Renal following 3. Non-anion gap metabolic acidosis likely secondary to severe diarrhea-stable 4. Hyponatremia-resolved 5. 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 Acute encephalopathy with likely dementia 7. Dysphasia Speech therapy evaluation appreciated rec is for n.p.o. status at this time, will start tube feeds Prophylaxis: On Brilinta Problems: Subjective 24 Hr Interval Summary Constitutional: disoriented Exam/Review of Systems Vital Signs Vitals Vital Signs Date Time Temp Pulse Resp B/P Pulse Ox O2 Delivery O2 Flow Rate FiO2 02/27/17 14:00 104 17 94/64 97 Room Air 02/27/17 12:00 97.4 02/26/17 17:42 21 02/25/17 17:54 2.0 Intake and Output 02/26/17 02/26/17 02/27/17 15:00 23:00 07:00 Intake Total 1040 ml 1220 ml 780 ml Output Total 475 ml 325 ml 670 ml Balance 565 ml 895 ml 110 ml Exam Psych: confusion Respiratory: clear to auscultation Cardiovascular: regular rate and rhythm Gastrointestinal: soft, No distended Musculoskeletal: nl extremities to inspection Results Result Diagram: 02/27/17 0530 02/27/17 0450 Results 24 hrs Laboratory Tests Test 02/26/17 17:17 02/26/17 20:23 02/27/17 01:05 02/27/17 01:19 Bedside Glucose 167 182 215 Hemoglobin 9.6 L Hematocrit 28.6 L Test 02/27/17 02:52 02/27/17 04:50 02/27/17 04:55 02/27/17 05:30 Bedside Glucose 177 137 Hemoglobin 9.5 L Hematocrit 29.2 L Sodium Level 136 Potassium Level 3.5 Chloride Level 110 Carbon Dioxide Level 18 L Anion Gap 12 Blood Urea Nitrogen 16 Creatinine 0.98 Glucose Level 125 Calcium Level 6.8 L Magnesium Level 2.7 H Total Bilirubin 0.3 Direct Bilirubin 0.00 Indirect Bilirubin 0.3 Aspartate Amino Transf (AST/SGOT) 18 Alanine Aminotransferase (ALT/SGPT) 55 Alkaline Phosphatase 255 H Total Protein 3.6 L Albumin 1.5 L Globulin 2.10 Albumin/Globulin Ratio 0.71 Platelet Count 35 L Prothrombin Time 24.2 H Prothrombin Time Ratio 1.9 INR International Normalized Ratio 2.15 Activated Partial Thromboplast Time 43.9 H Thrombin Time 15.3 Fibrinogen 303.0 Plasma Fibrin Degradation Products <10 D-Dimer 3796.07 H D-Dimer Comment Test 02/27/17 08:24 02/27/17 12:19 Bedside Glucose 160 131 Medications Medications Current Medications Lactobacillus Acidophilus/ Rhamnosus (Culturelle) 1 cap BID PO Last administered on 02/26/17 20:14; Admin Dose 1 CAP; Start 02/19/17 at 21:00 Multivitamins Therapeutic (Theragran) 1 tab DAILY PO Last administered on 08:00; Admin Dose 1 TAB; Start 02/20/17 at 09:00 Ascorbic Acid (Vitamin C) 500 mg QAM PO Last administered on 02/26/17 08:00; Admin Dose 500 MG; Start 02/20/17 at 09:00 Ticagrelor (Brilinta) 90 mg QAM PO Last administered on 02/26/17 08:01; Admin Dose 90 MG; Start 02/19/17 at 16:30 Zinc Sulfate (Zinc Sulfate) 220 mg QAM PO Last administered on 02/26/17 08:00 ; Admin Dose 220 MG; Start 02/20/17 at 09:00 Atorvastatin Calcium (Lipitor) 80 mg DAILY@21 PO Last administered on 20:14; Admin Dose 80 MG; Start 02/19/17 at 21:00 Ondansetron HCl (Zofran Inj) 4 mg Q6H PRN IV NAUSEA AND/OR VOMITING; Start at 16:30 Acetaminophen (Tylenol Tab) 650 mg Q6H PRN PO PAIN LEVEL 1-3 OR FEVER; Start at 16:30 Acetaminophen (Tylenol Supp) 650 mg Q6H PRN [place] PAIN LEVEL 1-3 OR FEVER; Start 02/19/17 at 16:30 Acetaminophen/ Hydrocodone Bitart ([place] (5/325)) 1 tab Q6H PRN PO MODERATE PAIN LEVEL 4-6; Start 02/19/17 at 16:30 Morphine Sulfate (morphine) 2 mg Q4H PRN IV SEVERE PAIN LEVEL 7-10 Last administered on 02/25/17 18:04; Admin Dose 2 MG; Start 02/19/17 at 16:30 Miscellaneous Information 1 ea NOTE XX ; Start 02/19/17 at 16:30 Glucose (Glutose) 15 gm Q15M PRN PO DECREASED GLUCOSE; Start 02/19/17 at 16:30 Glucose (Glutose) 22.5 gm Q15M PRN PO DECREASED GLUCOSE; Start 02/19/17 at 16: 30 Dextrose (D50w Syringe) 25 ml Q15M PRN IV DECREASED GLUCOSE Last administered on 02/25/17 04:31; Admin Dose 25 ML; Start 02/19/17 at 16:30 Dextrose (D50w Syringe) 50 ml Q15M PRN IV DECREASED GLUCOSE Last administered on 02/25/17 20:58; Admin Dose 50 ML; Start 02/19/17 at 16:30 Glucagon (Glucagen) 1 mg Q15M PRN IM DECREASED GLUCOSE; Start 02/19/17 at 16:30 Glucose (Glutose) 15 gm Q15M PRN BUCCAL DECREASED GLUCOSE; Start 02/19/17 at 16 :30 Diagnostic Test (Pha) (Accu-Chek) 1 ea 02 XX Last administered on 02/27/17 02: 57; Admin Dose 1 EA; Start 02/20/17 at 02:00 Insulin Aspart NOVOLOG *MILD* ALGORITHM Q4 SC Last administered on 02/27/17 08 :26; Admin Dose 1 UNIT; Start 02/20/17 at 13:00 Norepinephrine/ Dextrose (Levophed/D5W) 500 ml @ 1.87 mls/hr TITRATE IV Last administered on 02/22/17 05:57; Admin Dose 1.87 MLS/HR; Start 02/20/17 at 11:00 Pantoprazole (Protonix Iv) 40 mg BID@06,18 IV Last administered on 02/27/17 06 :25; Admin Dose 40 MG; Start 02/20/17 at 18:00 Aspirin (Halfprin) 81 mg DAILY PO Last administered on 02/23/17 10:58; Admin Dose 81 MG; Start 02/21/17 at 09:00; Status Future Hold Levothyroxine Sodium (Synthroid) 50 mcg DAILY@06 PO Last administered on 05:54; Admin Dose 50 MCG; Start 02/22/17 at 06:00; Status Future hold Venlafaxine HCl (Effexor) 25 mg BID NGT Last administered on 02/26/17 20:14; Admin Dose 25 MG; Start 02/22/17 at 10:30 Vancomycin HCl (Vancomycin Oral Syringe) 250 mg Q6 PO Last administered on 02/27 12:07; Admin Dose 250 MG; Start 02/24/17 at 18:00 Ergocalciferol (Drisdol) 50,000 unit Sa@09 PO Last administered on 02/25/17 08 :31; Admin Dose 50,000 UNIT; Start 02/25/17 at 09:00 Insulin Glargine (Lantus) 6 unit BID SC ; Start 02/25/17 at 09:00; Status Future Hold Rifaximin 200 mg 200 mg TID NGT Last administered on 02/27/17 12:07; Admin Dose 200 MG; Start 02/25/17 at 09:00 Metronidazole 250 mg/N/A 50 ml @ 50 mls/hr Q8 IVPB Last administered on 13:03; Admin Dose 50 MLS/HR; Start 02/25/17 at 14:00 Dextrose (D10w) 1,000 ml @ 60 mls/hr [id number] IV Last administered on 13:03; Admin Dose 60 MLS/HR; Start 02/26/17 at 01:00 BEBO SEYMOUR February 27, 2017 14:42
--- NOTE | 2017-02-27 17:01 | PN ---
Date/Time of Note Date/Time of Note DATE: 02/27/17 TIME: 16:57 Assessment/Plan VTE Prophylaxis VTE Prophylaxis Intervention: SCD's Assessment/Plan Assessment/Plan Transaminitis Ultrasound . Sludge and small stones in the gallbladder without definite secondary signs of acute cholecystitis. * Anemia Consider Lower GI bleed ,R/O upper GI bleed * Hypokalemia 3.2 * Diabetes mellitus * S/P extubation 4 days ago Plan * monitor Hemoglobin and hematocrit q6 and transfuse 1 unit of PRBC if hgn<7.5, if hgb <7 2 uits PRBC * MRCP Subjective 24 Hr Interval Summary Free Text/Dictation * Course reviewed with RN * patient seen and examined * Hemoglobin 9.5 * C difficile positive * MRCP No biliary ductal dilatation. No CBD stones. . Gallstones in mildly distended gallbladder with no gallbladder wall thickening. If there is clinical suspicion for acute cholecystitis, recommend HIDA scan further evaluation . Morphologic changes suggestive of cirrhosis. Small abdominopelvic ascites. Exam/Review of Systems Vital Signs Vitals Vital Signs Date Time Temp Pulse Resp B/P Pulse Ox O2 Delivery O2 Flow Rate FiO2 02/27/17 16:00 96 02/27/17 16:00 97.6 15 98/58 97 Room Air 02/26/17 17:42 21 02/25/17 17:54 2.0 Intake and Output 02/26/17 02/26/17 02/27/17 15:00 23:00 07:00 Intake Total 1040 ml 1220 ml 780 ml Output Total 475 ml 325 ml 670 ml Balance 565 ml 895 ml 110 ml Exam Constitutional: frail Head: atraumatic, normocephalic Neck: non-tender, supple Respiratory: clear to auscultation, normal air movement Cardiovascular: nl pulses, regular rate and rhythm Gastrointestinal: non-tender, soft Musculoskeletal: nl extremities to inspection, nl gait and stance Extremities: normal pulses Results Result Diagram: 02/27/17 0530 02/27/17 3870 Results 24 hrs Laboratory Tests Test 02/26/17 17:17 02/26/17 20:23 02/27/17 01:05 02/27/17 01:19 Bedside Glucose 167 182 215 Hemoglobin 9.6 L Hematocrit 28.6 L Test 02/27/17 02:52 02/27/17 04:50 02/27/17 04:55 02/27/17 05:30 Bedside Glucose 177 137 Hemoglobin 9.5 L Hematocrit 29.2 L Sodium Level 136 Potassium Level 3.5 Chloride Level 110 Carbon Dioxide Level 18 L Anion Gap 12 Blood Urea Nitrogen 16 Creatinine 0.98 Glucose Level 125 Calcium Level 6.8 L Magnesium Level 2.7 H Total Bilirubin 0.3 Direct Bilirubin 0.00 Indirect Bilirubin 0.3 Aspartate Amino Transf (AST/SGOT) 18 Alanine Aminotransferase (ALT/SGPT) 55 Alkaline Phosphatase 255 H Total Protein 3.6 L Albumin 1.5 L Globulin 2.10 Albumin/Globulin Ratio 0.71 Platelet Count 35 L Prothrombin Time 24.2 H Prothrombin Time Ratio 1.9 INR International Normalized Ratio 2.15 Activated Partial Thromboplast Time 43.9 H Thrombin Time 15.3 Fibrinogen 303.0 Plasma Fibrin Degradation Products <10 D-Dimer 3796.07 H D-Dimer Comment Test 02/27/17 08:24 02/27/17 12:19 Bedside Glucose 160 131 Medications Medications Current Medications Lactobacillus Acidophilus/ Rhamnosus (Culturelle) 1 cap BID PO Last administered on 02/26/17 20:14; Admin Dose 1 CAP; Start 02/19/17 at 21:00 Multivitamins Therapeutic (Theragran) 1 tab DAILY PO Last administered on 08:00; Admin Dose 1 TAB; Start 02/20/17 at 09:00 Ascorbic Acid (Vitamin C) 500 mg QAM PO Last administered on 02/26/17 08:00; Admin Dose 500 MG; Start 02/20/17 at 09:00 Ticagrelor (Brilinta) 90 mg QAM PO Last administered on 02/26/17 08:01; Admin Dose 90 MG; Start 02/19/17 at 16:30 Zinc Sulfate (Zinc Sulfate) 220 mg QAM PO Last administered on 02/26/17 08:00 ; Admin Dose 220 MG; Start 02/20/17 at 09:00 Atorvastatin Calcium (Lipitor) 80 mg DAILY@21 PO Last administered on 20:14; Admin Dose 80 MG; Start 02/19/17 at 21:00 Ondansetron HCl (Zofran Inj) 4 mg Q6H PRN IV NAUSEA AND/OR VOMITING; Start at 16:30 Acetaminophen (Tylenol Tab) 650 mg Q6H PRN PO PAIN LEVEL 1-3 OR FEVER; Start at 16:30 Acetaminophen (Tylenol Supp) 650 mg Q6H PRN [place] PAIN LEVEL 1-3 OR FEVER; Start 02/19/17 at 16:30 Acetaminophen/ Hydrocodone Bitart ([place] (5/325)) 1 tab Q6H PRN PO MODERATE PAIN LEVEL 4-6; Start 02/19/17 at 16:30 Morphine Sulfate (morphine) 2 mg Q4H PRN IV SEVERE PAIN LEVEL 7-10 Last administered on 02/25/17 18:04; Admin Dose 2 MG; Start 02/19/17 at 16:30 Miscellaneous Information 1 ea NOTE XX ; Start 02/19/17 at 16:30 Glucose (Glutose) 15 gm Q15M PRN PO DECREASED GLUCOSE; Start 02/19/17 at 16:30 Glucose (Glutose) 22.5 gm Q15M PRN PO DECREASED GLUCOSE; Start 02/19/17 at 16: 30 Dextrose (D50w Syringe) 25 ml Q15M PRN IV DECREASED GLUCOSE Last administered on 02/25/17 04:31; Admin Dose 25 ML; Start 02/19/17 at 16:30 Dextrose (D50w Syringe) 50 ml Q15M PRN IV DECREASED GLUCOSE Last administered on 02/25/17 20:58; Admin Dose 50 ML; Start 02/19/17 at 16:30 Glucagon (Glucagen) 1 mg Q15M PRN IM DECREASED GLUCOSE; Start 02/19/17 at 16:30 Glucose (Glutose) 15 gm Q15M PRN BUCCAL DECREASED GLUCOSE; Start 02/19/17 at 16 :30 Diagnostic Test (Pha) (Accu-Chek) 1 ea 02 XX Last administered on 02/27/17 02: 57; Admin Dose 1 EA; Start 02/20/17 at 02:00 Insulin Aspart NOVOLOG *MILD* ALGORITHM Q4 SC Last administered on 02/27/17 08 :26; Admin Dose 1 UNIT; Start 02/20/17 at 13:00 Norepinephrine/ Dextrose (Levophed/D5W) 500 ml @ 1.87 mls/hr TITRATE IV Last administered on 02/22/17 05:57; Admin Dose 1.87 MLS/HR; Start 02/20/17 at 11:00 Pantoprazole (Protonix Iv) 40 mg BID@06,18 IV Last administered on 02/27/17 06 :25; Admin Dose 40 MG; Start 02/20/17 at 18:00 Aspirin (Halfprin) 81 mg DAILY PO Last administered on 02/23/17 10:58; Admin Dose 81 MG; Start 02/21/17 at 09:00; Status Future Hold Levothyroxine Sodium (Synthroid) 50 mcg DAILY@06 PO Last administered on 05:54; Admin Dose 50 MCG; Start 02/22/17 at 06:00; Status Future hold Venlafaxine HCl (Effexor) 25 mg BID NGT Last administered on 02/26/17 20:14; Admin Dose 25 MG; Start 02/22/17 at 10:30 Vancomycin HCl (Vancomycin Oral Syringe) 250 mg Q6 PO Last administered on 02/27 12:07; Admin Dose 250 MG; Start 02/24/17 at 18:00 Ergocalciferol (Drisdol) 50,000 unit Sa@09 PO Last administered on 02/25/17 08 :31; Admin Dose 50,000 UNIT; Start 02/25/17 at 09:00 Insulin Glargine (Lantus) 6 unit BID SC ; Start 02/25/17 at 09:00; Status Future Hold Rifaximin 200 mg 200 mg TID NGT Last administered on 02/27/17 12:07; Admin Dose 200 MG; Start 02/25/17 at 09:00 Metronidazole/N/A (Flagyl 500 Mg (Pmx)/Evac Container) 50 ml @ 50 mls/hr Q8 IVPB Last administered on 02/27/17 13:03; Admin Dose 50 MLS/HR; Start at 14:00 EVENS MARTIN MD February 27, 2017 17:01
--- NOTE | 2017-02-27 17:34 | CONS ---
Date/Time of Note Date/Time of Note DATE: 02/27/17 TIME: 17:32 Assessment/Plan Assessment/Plan Additional Assessment/Plan 1. Septic shock 2. Acute kidney injury secondary to acute tubular necrosis from septic shock. 3. Hyperchloremic non-anion gap metabolic acidosis likely secondary to severe diarrhea. Currently, the patient's bicarbonate has been dropped down to 16. 4. Hyponatremia, likely secondary to hypovolemic hyponatremia. 5. 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 6. Hypocalcemia, but the corrected calcium with a low albumin has been pretty much normal. PLAN: on levophed gtt, IVF discontinued Cr improving, good urine output will continue to follow up Full Code Consultation Date/Type/Reason Admit Date/Time February 19, 2017 at 14:52 Initial Consult Date 02/20/2017 Type of Consultation: NEPHROLOGY Referring Provider: BEBO SEYMOUR 24 HR Interval Summary Free Text/Dictation pt remained stable Exam/Review of Systems Vital Signs Vitals Vital Signs Date Time Temp Pulse Resp B/P Pulse Ox O2 Delivery O2 Flow Rate FiO2 02/27/17 17:00 107 29 101/63 100 Room Air 02/27/17 16:00 97.6 02/26/17 17:42 21 02/25/17 17:54 2.0 Intake and Output 02/26/17 02/26/17 02/27/17 15:00 23:00 07:00 Intake Total 1040 ml 1220 ml 780 ml Output Total 475 ml 325 ml 670 ml Balance 565 ml 895 ml 110 ml Results Result Diagram: 02/27/17 0530 02/27/17 0450 Results 24 hrs Laboratory Tests Test 02/26/17 20:23 02/27/17 01:05 02/27/17 01:19 02/27/17 02:52 Bedside Glucose 182 215 177 Hemoglobin 9.6 L Hematocrit 28.6 L Test 02/27/17 04:50 02/27/17 04:55 02/27/17 05:30 02/27/17 08:24 Hemoglobin 9.5 L Hematocrit 29.2 L Sodium Level 136 Potassium Level 3.5 Chloride Level 110 Carbon Dioxide Level 18 L Anion Gap 12 Blood Urea Nitrogen 16 Creatinine 0.98 Glucose Level 125 Calcium Level 6.8 L Magnesium Level 2.7 H Total Bilirubin 0.3 Direct Bilirubin 0.00 Indirect Bilirubin 0.3 Aspartate Amino Transf (AST/SGOT) 18 Alanine Aminotransferase (ALT/SGPT) 55 Alkaline Phosphatase 255 H Total Protein 3.6 L Albumin 1.5 L Globulin 2.10 Albumin/Globulin Ratio 0.71 Bedside Glucose 137 160 Platelet Count 35 L Prothrombin Time 24.2 H Prothrombin Time Ratio 1.9 INR International Normalized Ratio 2.15 Activated Partial Thromboplast Time 43.9 H Thrombin Time 15.3 Fibrinogen 303.0 Plasma Fibrin Degradation Products <10 D-Dimer 3796.07 H D-Dimer Comment Test 02/27/17 12:19 02/27/17 17:07 Bedside Glucose 131 122 Medications Medications Current Medications Lactobacillus Acidophilus/ Rhamnosus (Culturelle) 1 cap BID PO Last administered on 02/26/17 20:14; Admin Dose 1 CAP; Start 02/19/17 at 21:00 Multivitamins Therapeutic (Theragran) 1 tab DAILY PO Last administered on 08:00; Admin Dose 1 TAB; Start 02/20/17 at 09:00 Ascorbic Acid (Vitamin C) 500 mg QAM PO Last administered on 02/26/17 08:00; Admin Dose 500 MG; Start 02/20/17 at 09:00 Ticagrelor (Brilinta) 90 mg QAM PO Last administered on 02/26/17 08:01; Admin Dose 90 MG; Start 02/19/17 at 16:30 Zinc Sulfate (Zinc Sulfate) 220 mg QAM PO Last administered on 02/26/17 08:00 ; Admin Dose 220 MG; Start 02/20/17 at 09:00 Atorvastatin Calcium (Lipitor) 80 mg DAILY@21 PO Last administered on 20:14; Admin Dose 80 MG; Start 02/19/17 at 21:00 Ondansetron HCl (Zofran Inj) 4 mg Q6H PRN IV NAUSEA AND/OR VOMITING; Start at 16:30 Acetaminophen (Tylenol Tab) 650 mg Q6H PRN PO PAIN LEVEL 1-3 OR FEVER; Start at 16:30 Acetaminophen (Tylenol Supp) 650 mg Q6H PRN [place] PAIN LEVEL 1-3 OR FEVER; Start 02/19/17 at 16:30 Acetaminophen/ Hydrocodone Bitart ([place] (5/325)) 1 tab Q6H PRN PO MODERATE PAIN LEVEL 4-6; Start 02/19/17 at 16:30 Morphine Sulfate (morphine) 2 mg Q4H PRN IV SEVERE PAIN LEVEL 7-10 Last administered on 02/25/17 18:04; Admin Dose 2 MG; Start 02/19/17 at 16:30 Miscellaneous Information 1 ea NOTE XX ; Start 02/19/17 at 16:30 Glucose (Glutose) 15 gm Q15M PRN PO DECREASED GLUCOSE; Start 02/19/17 at 16:30 Glucose (Glutose) 22.5 gm Q15M PRN PO DECREASED GLUCOSE; Start 02/19/17 at 16: 30 Dextrose (D50w Syringe) 25 ml Q15M PRN IV DECREASED GLUCOSE Last administered on 02/25/17 04:31; Admin Dose 25 ML; Start 02/19/17 at 16:30 Dextrose (D50w Syringe) 50 ml Q15M PRN IV DECREASED GLUCOSE Last administered on 02/25/17 20:58; Admin Dose 50 ML; Start 02/19/17 at 16:30 Glucagon (Glucagen) 1 mg Q15M PRN IM DECREASED GLUCOSE; Start 02/19/17 at 16:30 Glucose (Glutose) 15 gm Q15M PRN BUCCAL DECREASED GLUCOSE; Start 02/19/17 at 16 :30 Diagnostic Test (Pha) (Accu-Chek) 1 ea 02 XX Last administered on 02/27/17 02: 57; Admin Dose 1 EA; Start 02/20/17 at 02:00 Insulin Aspart NOVOLOG *MILD* ALGORITHM Q4 SC Last administered on 02/27/17 08 :26; Admin Dose 1 UNIT; Start 02/20/17 at 13:00 Norepinephrine/ Dextrose (Levophed/D5W) 500 ml @ 1.87 mls/hr TITRATE IV Last administered on 02/22/17 05:57; Admin Dose 1.87 MLS/HR; Start 02/20/17 at 11:00 Pantoprazole (Protonix Iv) 40 mg BID@06,18 IV Last administered on 02/27/17 17 :02; Admin Dose 40 MG; Start 02/20/17 at 18:00 Aspirin (Halfprin) 81 mg DAILY PO Last administered on 02/23/17 10:58; Admin Dose 81 MG; Start 02/21/17 at 09:00; Status Future Hold Levothyroxine Sodium (Synthroid) 50 mcg DAILY@06 PO Last administered on 05:54; Admin Dose 50 MCG; Start 02/22/17 at 06:00; Status Future hold Venlafaxine HCl (Effexor) 25 mg BID NGT Last administered on 02/26/17 20:14; Admin Dose 25 MG; Start 02/22/17 at 10:30 Vancomycin HCl (Vancomycin Oral Syringe) 250 mg Q6 PO Last administered on 02/27 17:02; Admin Dose 250 MG; Start 02/24/17 at 18:00 Ergocalciferol (Drisdol) 50,000 unit Sa@09 PO Last administered on 02/25/17 08 :31; Admin Dose 50,000 UNIT; Start 02/25/17 at 09:00 Insulin Glargine (Lantus) 6 unit BID SC ; Start 02/25/17 at 09:00; Status Future Hold Rifaximin 200 mg 200 mg TID NGT Last administered on 02/27/17 12:07; Admin Dose 200 MG; Start 02/25/17 at 09:00 Metronidazole/N/A (Flagyl 500 Mg (Pmx)/Evac Container) 50 ml @ 50 mls/hr Q8 IVPB Last administered on 02/27/17 13:03; Admin Dose 50 MLS/HR; Start at 14:00 ANJEL LEE MD February 27, 2017 17:34
--- NOTE | 2017-02-27 18:22 | PN ---
DATE: 02/27/2017 CARDIOLOGY FOLLOWUP SUBJECTIVE: Discussed with the staff. Rhythm strip was reviewed. The patient remains in sinus rhy thm, sinus tachycardia. Heart rate has remained stable. Blood pressure on the low side but stable with no chest pain or pressure. MEDICATIONS: Reviewed. PHYSICAL EXAMINATION: VITAL SIGNS: Temperature 97.3, heart rate of 107, blood pressure 98/58, respiratory rate of 29. HEENT: Normocephalic, atraumatic. Satting 100%, status post NG tube in place. CARDIOVASCULAR: Tachycardic. PULMONARY: With mild rhonchi, diffuse. GASTROINTESTINAL: Soft. No rebound or guarding. EXTREMITIES: With diffuse edema of lower extremities. NEUROLOGIC: Awake but drowsy. Oriented to person. PSYCHIATRIC: Appears to be calm at this point. LABORATORY: Hemoglobin 9.5, hematocrit of 29.2, platelets 35. Sodium 132, potassium 3.5, BUN of 16 , creatinine 0.95, glucose 125. Albumin is 1.5. Abdominal MRI shows no biliary ductal dilatation, no common bile duct stones. ASSESSMENT AND PLAN: 1. Sinus tachycardia, multifactorial. 2. Coronary artery disease with history of myocardial infarction, history of percutaneous coronary intervention. 3. Coagulopathy with elevated INR, possibly sepsis and cirrhosis. 4. Clostridium difficile colitis, abnormalities. 5. Malnutrition. 6. History of thyroid disorder. 7. Thrombocytopenia. 8. Anemia. RECOMMENDATIONS: We will continue with the current cardiac care. Supportive care will be continued . Antibiotic as per internal medicine and GI recommendations. Electrolytes including potassium to be replaced as needed. Dictated By: CAITIE LOPEZ MD AV/LADY Conf#: [id number] DID#: [id number] CC: ANJEL LEE MD;*EndCC*
[2017-02-27] MEDS: ATORVASTATIN 80 MG TAB PO SCH (21:39)
[2017-02-28] VITALS (12 sets, daily range): BP systolic 87–110; BP diastolic 50–58; PULSE 101–118; RESP 18–20
[2017-02-28] MEDS: VANCOMYCIN HCL 250 MG/5ML POSYG PO SCH ×5 (00:48→23:43)
[2017-02-28] MEDS: INSULIN ASPART [NOVOLOG] 3 ML PEN SC SCH ×6 (01:00→22:15)
[2017-02-28] MEDS: ACCUCHECK AT 2AM (Patients on SS coverage) XX SCH (02:00)
[2017-02-28] MEDS: PANTOPRAZOLE 40 MG INJ IV SCH ×2 (05:55→17:52)
[2017-02-28] MEDS: metroNIDAZOLE 500 MG/NS (PMX) 250 MG in EVAC CONTAINER 1 BOTTLE IVPB SCH ×3 (06:35→22:15)
--- NOTE | 2017-02-28 08:05 | PN ---
Date/Time of Note Date/Time of Note DATE: 02/28/17 TIME: 08:02 Assessment/Plan Lines/Catheters IV Catheter Type (from Nrsg): Central Line Christopher in Place (from Nrsg): Yes Assessment/Plan Assessment/Plan [facility] Progress Note Date of Service: 02/28/17 Today's Impression & Plan: Overall stable and improving. Likely attributed to the efficacy of treatment for C-diff. Abd appears benign. No indication for acute surgical intervention. With above assessment, I've recommended the following for today: 1. Cont current management 2. Cont C-diff therapy 3. Check labs in am 4. D/c NG 5. Bedside swallow and clear liquid diet if pass Thank you again for your great care of this very pleasant patient and wonderful family. If there are any questions, please feel free to call me at [phone]. TOTAL VISIT TIME: 20 minutes of which more than half was spent in [id number] discussion with the patient, possibly including family, as well as coordination of care between multiple physicians and providers. Disclaimer: Inadvertent spelling or grammatical errors are likely due to EHR/ dictation software use and do not reflect on the overall quality of patient care. Updated Clinical Summary: The patient is a very pleasant 86-year-old gentleman admitted to [facility] on 02/19/2017 from a [facility] ([facility]) initially for sepsis, which was manifesting by fatigue and lethargy. He was in the intensive care unit since admission and required significant support and has progressively gotten better to a point where he extubated 3 days prior to my initial visit. This was thought to be due to Clostridium difficile infection. 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 COMORBIDITIES: 1. Chronic coronary artery disease, potentially old NE, treated on Brilinta. He had a percutaneous intervention in May. 2. Chronic dyslipidemia. 3. Chronic diabetes. 4. Chronic hypothyroidism. 5. Metabolic syndrome. 6. History of sepsis due to pneumonia treated in [facility] and then transferred to [facility] after a month. 7. Prostate cancer diagnosed years ago. No evidence of obvious metastasis. He has been on surveillance and expectant management. 8. Sciatica with history of epidurals. 9. Cataracts. 10. Hernia. 11. Clostridium difficile colitis infection, culture positive 02/24/2017. Subjective: No major events or complaints overnight; no abd pain; no n/v/d; no sob or cp; + flatus; + BM; - activity; attempted to speak and able to whisper a few words. Objective: Vitals: See below Exam: GENERAL: On exam, the patient was laying in bed and appeared to be comfortable and in no acute distress. ABDOMEN: Soft, nontender and nondistended. There are no peritoneal signs or guarding. SKIN: Skin appears to be pink and feels warm to touch. NEUROLOGIC: Patient is awake and followed simple commands. Attempted to speak and able to whisper a few words seemed more engaged in the conversation. Exam/Review of Systems Vital Signs Vitals Vital Signs Date Time Temp Pulse Resp B/P Pulse Ox O2 Delivery O2 Flow Rate FiO2 02/28/17 07:27 97.6 101 18 98/51 98 02/27/17 18:25 Room Air 02/26/17 17:42 21 02/25/17 17:54 2.0 Intake and Output 02/27/17 02/27/17 02/28/17 14:59 22:59 06:59 Intake Total 410 ml 90 ml 580 ml Output Total 425 ml 280 ml 520 ml Balance -15 ml -190 ml 60 ml Results Result Diagram: 02/27/17 0530 02/27/17 0450 RADHA JAMES M.D. February 28, 2017 08:05
[2017-02-28 08:43] LABS: ADD SCAN DIFF NO
[2017-02-28 08:59] LABS: ABNORMAL IP MESSAGE 1; BASOPHILS % 0.4 % (0.0-2.0); EOSINOPHILS # 0.1 10^3/ul (0.0-0.5); EOSINOPHILS % 2.3 % (0.0-7.0); HEMATOCRIT 30.3 % (42.0-52.0); HEMOGLOBIN 9.9 g/dl (14.0-18.0); LYMPHOCYTES % 21.3 % (15.0-51.0); MEAN CORPUSCULAR HEMOGLOBIN 28.7 pg (29.0-33.0); MEAN CORPUSCULAR HGB CONC 32.7 g/dl (32.0-37.0); MEAN CORPUSCULAR VOLUME 87.8 fl (82.0-101.0); MONOCYTE # 0.3 10^3/ul (0.3-0.9); MONOCYTES % 5.4 % (0.0-11.0); NEUTROPHIL # 3.3 10^3/ul (1.6-7.5); NEUTROPHILS % 69.6 % (39.0-77.0); RED BLOOD COUNT 3.45 10^6/ul (4.70-6.10); RED CELL DISTRIBUTION WIDTH 18.4 % (11.5-14.5); WHITE BLOOD COUNT 4.8 10^3/ul (4.8-10.8)
[2017-02-28] MEDS: morphine 2 MG INJ IV PRN (08:59)
[2017-02-28] MEDS: VENLAFAXINE 25 MG TAB NGT SCH ×2 (09:02→21:20)
[2017-02-28] MEDS: LACTOBACILLUS RHAMNOSUS CAP PO SCH ×2 (09:03→21:20)
[2017-02-28] MEDS: RIFAXIMIN 200 MG TAB NGT SCH ×3 (09:03→21:20)
[2017-02-28] MEDS: ZINC SULFATE 220 MG CAP PO SCH (09:03)
[2017-02-28] MEDS: MULTIVITAMINS THERAPEUTIC TAB PO SCH (09:03)
[2017-02-28] MEDS: ASCORBIC ACID 500 MG TAB PO SCH (09:03)
[2017-02-28 09:21] LABS: CALCIUM 6.9 mg/dl (8.4-10.2); CREATININE 0.99 mg/dl (0.61-1.24); MAGNESIUM 2.5 mg/dl (1.7-2.5); PHOSPHORUS 3.6 mg/dl (2.5-4.9); POTASSIUM 3.6 mmol/L (3.5-5.1)
[2017-02-28 09:24] LABS: PLATELET COUNT 38 10^3/UL (140-415)
--- NOTE | 2017-02-28 09:36 | CONS ---
Date/Time of Note Date/Time of Note DATE: 02/28/17 TIME: 09:34 Assessment/Plan Assessment/Plan Additional Assessment/Plan 1. Septic shock 2. Acute kidney injury secondary to acute tubular necrosis from septic shock. 3. Hyperchloremic non-anion gap metabolic acidosis likely secondary to severe diarrhea. Currently, the patient's bicarbonate has been dropped down to 16. 4. Hyponatremia, likely secondary to hypovolemic hyponatremia. 5. 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 6. Hypocalcemia, but the corrected calcium with a low albumin has been pretty much normal. PLAN: transferred to telemetyr floor Cr improved, K normal, will start Bicitra 30ml PO BID for low metabolic acidosis good urine output will continue to follow up Full Code Consultation Date/Type/Reason Admit Date/Time February 19, 2017 at 14:52 Initial Consult Date 02/20/2017 Type of Consultation: NEPHROLOGY Referring Provider: BEBO SEYMOUR 24 HR Interval Summary Free Text/Dictation transferred to Tele floor, BP stable, afebrile Exam/Review of Systems Vital Signs Vitals Vital Signs Date Time Temp Pulse Resp B/P Pulse Ox O2 Delivery O2 Flow Rate FiO2 02/28/17 08:38 101 02/28/17 07:27 97.6 18 98/51 98 02/27/17 18:25 Room Air 02/26/17 17:42 21 02/25/17 17:54 2.0 Intake and Output 02/27/17 02/27/17 02/28/17 15:00 23:00 07:00 Intake Total 420 ml 20 ml 580 ml Output Total 425 ml 250 ml 520 ml Balance -5 ml -230 ml 60 ml Results Result Diagram: 02/28/17 0719 02/28/17 0719 Results 24 hrs Laboratory Tests Test 02/27/17 12:19 02/27/17 17:07 02/27/17 21:16 02/28/17 01:21 Bedside Glucose 131 122 105 129 Test 02/28/17 05:54 02/28/17 07:19 02/28/17 08:58 Bedside Glucose 128 135 White Blood Count 4.8 # Red Blood Count 3.45 L Hemoglobin 9.9 L Hematocrit 30.3 L Mean Corpuscular Volume 87.8 Mean Corpuscular Hemoglobin 28.7 L Mean Corpuscular Hemoglobin Concent 32.7 Red Cell Distribution Width 18.4 H Platelet Count 38 L Mean Platelet Volume Neutrophils % 69.6 Lymphocytes % 21.3 Monocytes % 5.4 Eosinophils % 2.3 Basophils % 0.4 Nucleated Red Blood Cells % 0.0 Neutrophils # 3.3 Lymphocytes # 1.0 Monocytes # 0.3 Eosinophils # 0.1 Basophils # 0.0 Nucleated Red Blood Cells # 0.0 Sodium Level 135 Potassium Level 3.6 Chloride Level 114 H Carbon Dioxide Level 18 L Anion Gap 7 L Blood Urea Nitrogen 17 Creatinine 0.99 Glucose Level 118 Calcium Level 6.9 L Phosphorus Level 3.6 Magnesium Level 2.5 Medications Medications Current Medications Lactobacillus Acidophilus/ Rhamnosus (Culturelle) 1 cap BID PO Last administered on 02/27/17 22:59; Admin Dose 1 CAP; Start 02/19/17 at 21:00 Multivitamins Therapeutic (Theragran) 1 tab DAILY PO Last administered on 08:00; Admin Dose 1 TAB; Start 02/20/17 at 09:00 Ascorbic Acid (Vitamin C) 500 mg QAM PO Last administered on 02/26/17 08:00; Admin Dose 500 MG; Start 02/20/17 at 09:00 Ticagrelor (Brilinta) 90 mg QAM PO Last administered on 02/26/17 08:01; Admin Dose 90 MG; Start 02/19/17 at 16:30 Zinc Sulfate (Zinc Sulfate) 220 mg QAM PO Last administered on 02/26/17 08:00 ; Admin Dose 220 MG; Start 02/20/17 at 09:00 Atorvastatin Calcium (Lipitor) 80 mg DAILY@21 PO Last administered on 21:39; Admin Dose 80 MG; Start 02/19/17 at 21:00 Ondansetron HCl (Zofran Inj) 4 mg Q6H PRN IV NAUSEA AND/OR VOMITING; Start at 16:30 Acetaminophen (Tylenol Tab) 650 mg Q6H PRN PO PAIN LEVEL 1-3 OR FEVER; Start at 16:30 Acetaminophen (Tylenol Supp) 650 mg Q6H PRN [place] PAIN LEVEL 1-3 OR FEVER; Start 02/19/17 at 16:30 Acetaminophen/ Hydrocodone Bitart ([place] (5/325)) 1 tab Q6H PRN PO MODERATE PAIN LEVEL 4-6; Start 02/19/17 at 16:30 Morphine Sulfate (morphine) 2 mg Q4H PRN IV SEVERE PAIN LEVEL 7-10 Last administered on 02/25/17 18:04; Admin Dose 2 MG; Start 02/19/17 at 16:30 Miscellaneous Information 1 ea NOTE XX ; Start 02/19/17 at 16:30 Glucose (Glutose) 15 gm Q15M PRN PO DECREASED GLUCOSE; Start 02/19/17 at 16:30 Glucose (Glutose) 22.5 gm Q15M PRN PO DECREASED GLUCOSE; Start 02/19/17 at 16: 30 Dextrose (D50w Syringe) 25 ml Q15M PRN IV DECREASED GLUCOSE Last administered on 02/25/17 04:31; Admin Dose 25 ML; Start 02/19/17 at 16:30 Dextrose (D50w Syringe) 50 ml Q15M PRN IV DECREASED GLUCOSE Last administered on 02/25/17 20:58; Admin Dose 50 ML; Start 02/19/17 at 16:30 Glucagon (Glucagen) 1 mg Q15M PRN IM DECREASED GLUCOSE; Start 02/19/17 at 16:30 Glucose (Glutose) 15 gm Q15M PRN BUCCAL DECREASED GLUCOSE; Start 02/19/17 at 16 :30 Diagnostic Test (Pha) (Accu-Chek) 1 ea 02 XX Last administered on 02/27/17 02: 57; Admin Dose 1 EA; Start 02/20/17 at 02:00 Insulin Aspart NOVOLOG *MILD* ALGORITHM Q4 SC Last administered on 02/27/17 08 :26; Admin Dose 1 UNIT; Start 02/20/17 at 13:00 Norepinephrine/ Dextrose (Levophed/D5W) 500 ml @ 1.87 mls/hr TITRATE IV Last administered on 02/22/17 05:57; Admin Dose 1.87 MLS/HR; Start 02/20/17 at 11:00 Pantoprazole (Protonix Iv) 40 mg BID@06,18 IV Last administered on 02/28/17 05 :55; Admin Dose 40 MG; Start 02/20/17 at 18:00 Aspirin (Halfprin) 81 mg DAILY PO Last administered on 02/23/17 10:58; Admin Dose 81 MG; Start 02/21/17 at 09:00; Status Future Hold Levothyroxine Sodium (Synthroid) 50 mcg DAILY@06 PO Last administered on 05:54; Admin Dose 50 MCG; Start 02/22/17 at 06:00; Status Future hold Venlafaxine HCl (Effexor) 25 mg BID NGT Last administered on 02/27/17 21:39; Admin Dose 25 MG; Start 02/22/17 at 10:30 Vancomycin HCl (Vancomycin Oral Syringe) 250 mg Q6 PO Last administered on 02/28 05:55; Admin Dose 250 MG; Start 02/24/17 at 18:00 Ergocalciferol (Drisdol) 50,000 unit Sa@09 PO Last administered on 02/25/17 08 :31; Admin Dose 50,000 UNIT; Start 02/25/17 at 09:00 Insulin Glargine (Lantus) 6 unit BID SC ; Start 02/25/17 at 09:00; Status Future Hold Rifaximin 200 mg 200 mg TID NGT Last administered on 02/27/17 21:39; Admin Dose 200 MG; Start 02/25/17 at 09:00 Metronidazole/N/A (Flagyl 500 Mg (Pmx)/Evac Container) 50 ml @ 50 mls/hr Q8 IVPB Last administered on 02/28/17 06:35; Admin Dose 50 MLS/HR; Start at 14:00 ANJEL LEE MD February 28, 2017 09:36
[2017-02-28] MEDS: TICAGRELOR 90 MG TABLET PO SCH (09:46)
[2017-02-28] MEDS ORDERED: CITRIC ACID/SODIUM CITRATE 15 ML CUP PO ONE (10:30)
--- NOTE | 2017-02-28 11:09 | CONS ---
Date/Time of Note Date/Time of Note DATE: 02/28/17 TIME: 11:05 Consult Date/Type/Reason Admit Date/Time February 19, 2017 at 14:52 Type of Consultation: Pulmonary ICU Ordering Provider: BEBO SEYMOUR Subjective Patient is comfortable this morning on supplemental oxygen Objective Vital Signs Date Time Temp Pulse Resp B/P Pulse Ox O2 Delivery O2 Flow Rate FiO2 02/28/17 08:38 101 02/28/17 07:27 97.6 18 98/51 98 02/27/17 18:25 Room Air 02/26/17 17:42 21 02/25/17 17:54 2.0 Intake and Output 02/27/17 02/27/17 02/28/17 15:00 23:00 07:00 Intake Total 420 ml 20 ml 580 ml Output Total 425 ml 250 ml 520 ml Balance -5 ml -230 ml 60 ml Exam GENERAL: Elderly gentleman comfortable at rest no acute distress VITAL SIGNS: per chart NECK: Supple. No JVD or lymphadenopathy. CARDIAC EXAM: S1, S2. No added sounds or murmurs. CHEST: clear bilaterally, No added sounds, rales or wheezes ABDOMEN: Soft, nontender. No guarding or rebound. EXTREMITIES: No cyanosis, clubbing or edema. NEUROLOGIC: Generalized weakness. No focal deficits. Results/Medications Result Diagram: 02/28/1771802/28/17718 Results 24 hrs Laboratory Tests Test 02/27/17 12:19 02/27/17 17:07 02/27/17 21:16 02/28/17 01:21 Bedside Glucose 131 122 105 129 Test 02/28/17 05:54 02/28/17 07:19 02/28/17 08:58 Bedside Glucose 128 135 White Blood Count 4.8 # Red Blood Count 3.45 L Hemoglobin 9.9 L Hematocrit 30.3 L Mean Corpuscular Volume 87.8 Mean Corpuscular Hemoglobin 28.7 L Mean Corpuscular Hemoglobin Concent 32.7 Red Cell Distribution Width 18.4 H Platelet Count 38 L Mean Platelet Volume Neutrophils % 69.6 Lymphocytes % 21.3 Monocytes % 5.4 Eosinophils % 2.3 Basophils % 0.4 Nucleated Red Blood Cells % 0.0 Neutrophils # 3.3 Lymphocytes # 1.0 Monocytes # 0.3 Eosinophils # 0.1 Basophils # 0.0 Nucleated Red Blood Cells # 0.0 Sodium Level 135 Potassium Level 3.6 Chloride Level 114 H Carbon Dioxide Level 18 L Anion Gap 7 L Blood Urea Nitrogen 17 Creatinine 0.99 Glucose Level 118 Calcium Level 6.9 L Phosphorus Level 3.6 Magnesium Level 2.5 Medications Current Medications Lactobacillus Acidophilus/ Rhamnosus (Culturelle) 1 cap BID PO Last administered on 02/28/17 09:03; Admin Dose 1 CAP; Start 02/19/17 at 21:00 Multivitamins Therapeutic (Theragran) 1 tab DAILY PO Last administered on 09:03; Admin Dose 1 TAB; Start 02/20/17 at 09:00 Ascorbic Acid (Vitamin C) 500 mg QAM PO Last administered on 02/28/17 09:03; Admin Dose 500 MG; Start 02/20/17 at 09:00 Ticagrelor (Brilinta) 90 mg QAM PO Last administered on 02/28/17 09:46; Admin Dose 90 MG; Start 02/19/17 at 16:30 Zinc Sulfate (Zinc Sulfate) 220 mg QAM PO Last administered on 02/28/17 09:03 ; Admin Dose 220 MG; Start 02/20/17 at 09:00 Atorvastatin Calcium (Lipitor) 80 mg DAILY@21 PO Last administered on 21:39; Admin Dose 80 MG; Start 02/19/17 at 21:00 Ondansetron HCl (Zofran Inj) 4 mg Q6H PRN IV NAUSEA AND/OR VOMITING; Start at 16:30 Acetaminophen (Tylenol Tab) 650 mg Q6H PRN PO PAIN LEVEL 1-3 OR FEVER; Start at 16:30 Acetaminophen (Tylenol Supp) 650 mg Q6H PRN ID PAIN LEVEL 1-3 OR FEVER; Start 02/19/17 at 16:30 Acetaminophen/ Hydrocodone Bitart ([place] (5/325)) 1 tab Q6H PRN PO MODERATE PAIN LEVEL 4-6; Start 02/19/17 at 16:30 Morphine Sulfate (morphine) 2 mg Q4H PRN IV SEVERE PAIN LEVEL 7-10 Last administered on 02/28/17 08:59; Admin Dose 2 MG; Start 02/19/17 at 16:30 Miscellaneous Information 1 ea NOTE XX ; Start 02/19/17 at 16:30 Glucose (Glutose) 15 gm Q15M PRN PO DECREASED GLUCOSE; Start 02/19/17 at 16:30 Glucose (Glutose) 22.5 gm Q15M PRN PO DECREASED GLUCOSE; Start 02/19/17 at 16: 30 Dextrose (D50w Syringe) 25 ml Q15M PRN IV DECREASED GLUCOSE Last administered on 02/25/17 04:31; Admin Dose 25 ML; Start 02/19/17 at 16:30 Dextrose (D50w Syringe) 50 ml Q15M PRN IV DECREASED GLUCOSE Last administered on 02/25/17 20:58; Admin Dose 50 ML; Start 02/19/17 at 16:30 Glucagon (Glucagen) 1 mg Q15M PRN IM DECREASED GLUCOSE; Start 02/19/17 at 16:30 Glucose (Glutose) 15 gm Q15M PRN BUCCAL DECREASED GLUCOSE; Start 02/19/17 at 16 :30 Diagnostic Test (Pha) (Accu-Chek) 1 ea 02 XX Last administered on 02/27/17 02: 57; Admin Dose 1 EA; Start 02/20/17 at 02:00 Insulin Aspart NOVOLOG *MILD* ALGORITHM Q4 SC Last administered on 02/27/17 08 :26; Admin Dose 1 UNIT; Start 02/20/17 at 13:00 Norepinephrine/ Dextrose (Levophed/D5W) 500 ml @ 1.87 mls/hr TITRATE IV Last administered on 02/22/17 05:57; Admin Dose 1.87 MLS/HR; Start 02/20/17 at 11:00 Pantoprazole (Protonix Iv) 40 mg BID@,18 IV Last administered on 02/28/17 05 :55; Admin Dose 40 MG; Start 02/20/17 at 18:00 Aspirin (Halfprin) 81 mg DAILY PO Last administered on 02/23/17 10:58; Admin Dose 81 MG; Start 02/21/17 at 09:00; Status Future Hold Levothyroxine Sodium (Synthroid) 50 mcg DAILY@06 PO Last administered on 05:54; Admin Dose 50 MCG; Start 02/22/17 at 06:00; Status Future hold Venlafaxine HCl (Effexor) 25 mg BID NGT Last administered on 02/28/17 09:02; Admin Dose 25 MG; Start 02/22/17 at 10:30 Vancomycin HCl (Vancomycin Oral Syringe) 250 mg Q6 PO Last administered on 02/28 05:55; Admin Dose 250 MG; Start 02/24/17 at 18:00 Ergocalciferol (Drisdol) 50,000 unit Sa@09 PO Last administered on 02/25/17 08 :31; Admin Dose 50,000 UNIT; Start 02/25/17 at 09:00 Insulin Glargine (Lantus) 6 unit BID SC ; Start 02/25/17 at 09:00; Status Future Hold Rifaximin 200 mg 200 mg TID NGT Last administered on 02/28/17 09:03; Admin Dose 200 MG; Start 02/25/17 at 09:00 Metronidazole/N/A (Flagyl 500 Mg (Pmx)/Evac Container) 50 ml @ 50 mls/hr Q8 IVPB Last administered on 02/28/17 06:35; Admin Dose 50 MLS/HR; Start at 14:00 Citric Acid/ Sodium Citrate (Bicitra) 30 ml BID PO ; Start 02/28/17 at 11:00 Assessment/Plan Chief Complaint/Hosp Course IMPRESSION AND PLAN: 1. Status post septic shock with C. difficile colitis 2. Possible healthcare-associated pneumonia. 3. Recent renal insufficiency now with evidence of metabolic acidosis 4. Hyponatremia resolved. 5. Sinus tachycardia likely secondary to vasopressors now improved off Levophed. 6. History of depression 7. Thrombocytopenia possibly secondary to underlying sepsis PLAN: 1. Continue antibiotics, 2. Infectious disease recommendations consider de-escalation of antibiotics 3. Agree with DC nasogastric tube and speech therapy evaluation 4. DVT and GI prophylaxis. 5. EGD and colonoscopy per GI Disposition Disposition continue telemetry care Follow evaluation Problems: PAULO TRIMBLE MD, FCCP February 28, 2017 11:09
[2017-02-28] MEDS: CITRIC ACID/SODIUM CITRATE 15 ML CUP PO SCH ×2 (12:53→21:21)
--- NOTE | 2017-02-28 14:39 | RADRPT ---
PROCEDURE: XR Chest. CLINICAL INDICATION: CHF; pneumonia. TECHNIQUE: Single frontal view of the chest was obtained. COMPARISON: Chest x-ray 02/22/2017 01:40 p.m. FINDINGS: The soft tissues are normal. There are degenerative osteophytes in the thoracic spine. A central v enous catheter enters from right internal jugular approach with its tip at the right atrial superior vena cava junction. No pneumothorax is identified. A nasogastric tube is positioned distal to the GE junction. The heart, cardiomediastinal silhouette and hilar structures are normal. The pulmonar y vasculature is increased. There are vascular calcifications in the aortic arch. There are bilater al interstitial infiltrates. There are bilateral pleural effusions. The left is larger than the ri ght. There is asymmetric infiltrate silhouetting the medial aspect of the left diaphragm. IMPRESSION: 1. Mild cardiomegaly. 2. Mild congestive heart failure with interstitial pulmonary edema and bilateral pleural effusions, the left larger than right. 3. Satisfactory positioning of the central venous catheter and NG tube. 4. Spondylosis of the thoracic spine. 5. Atherosclerotic vascular disease. RPTAT:AAJJ Physician Meggan Date Time Electronically viewed and signed by Physician Meggan on 02/28/2017 14:39 FILEMON/
--- NOTE | 2017-02-28 14:52 | PN ---
Date/Time of Note Date/Time of Note DATE: 02/28/17 TIME: 14:46 Assessment/Plan VTE Prophylaxis VTE Prophylaxis Intervention: SCD's Lines/Catheters IV [facility]atheter Type (from [facility]): Central Line Central line still needed: Yes Urinary Cath still in place: Yes Reason Cath still needed: urinary retention Assessment/Plan Assessment/Plan Transaminitis resolved * MRI * No biliary ductal dilatation. No CBD stones. Gallstones in mildly distended gallbladder with no gallbladder wall thickening. If there is clinical suspicion for acute cholecystitis, . Morphologic changes suggestive of cirrhosis. . Small abdominopelvic ascites. Ultrasound . Sludge and small stones in the gallbladder without definite secondary signs of acute cholecystitis. * Anemia stable hgb 9.2 * Diabetes mellitus Plan * monitor Hemoglobin and hematocrit q6 and transfuse 1 unit of PRBC if hgn<7.5, if hgb <7 2 uits PRBC * tube feeding goal 50 cc * continue present management Subjective 24 Hr Interval Summary Free Text/Dictation * Course reviewed with RN * tolerating tube feeding * no hematochezia * latest hemoglobin 9.9 Exam/Review of Systems Vital Signs Vitals Vital Signs Date Time Temp Pulse Resp B/P Pulse Ox O2 Delivery O2 Flow Rate FiO2 02/28/17 12:48 118 02/28/17 11:44 97.3 19 98/52 96 02/27/17 18:25 Room Air 02/26/17 17:42 21 02/25/17 17:54 2.0 Intake and Output 02/27/17 02/27/17 02/28/17 15:00 23:00 07:00 Intake Total 420 ml 20 ml 580 ml Output Total 425 ml 250 ml 520 ml Balance -5 ml -230 ml 60 ml Exam Constitutional: frail ENMT: other (ngt tube) Neck: non-tender, supple Respiratory: diminished breath sounds, normal air movement Cardiovascular: nl pulses, regular rate and rhythm Gastrointestinal: bowel sounds, non-tender, other (rectal tube in placed), soft Musculoskeletal: joint tenderness, nl extremities to inspection Results Result Diagram: 02/28/1771802/28/17718 Results 24 hrs Laboratory Tests Test 02/27/17 17:07 02/27/17 21:16 02/28/17 01:21 02/28/17 05:54 Bedside Glucose 122 105 129 128 Test 02/28/17 07:19 02/28/17 08:58 02/28/17 12:52 White Blood Count 4.8 # Red Blood Count 3.45 L Hemoglobin 9.9 L Hematocrit 30.3 L Mean Corpuscular Volume 87.8 Mean Corpuscular Hemoglobin 28.7 L Mean Corpuscular Hemoglobin Concent 32.7 Red Cell Distribution Width 18.4 H Platelet Count 38 L Mean Platelet Volume Neutrophils % 69.6 Lymphocytes % 21.3 Monocytes % 5.4 Eosinophils % 2.3 Basophils % 0.4 Nucleated Red Blood Cells % 0.0 Neutrophils # 3.3 Lymphocytes # 1.0 Monocytes # 0.3 Eosinophils # 0.1 Basophils # 0.0 Nucleated Red Blood Cells # 0.0 Sodium Level 135 Potassium Level 3.6 Chloride Level 114 H Carbon Dioxide Level 18 L Anion Gap 7 L Blood Urea Nitrogen 17 Creatinine 0.99 Glucose Level 118 Calcium Level 6.9 L Phosphorus Level 3.6 Magnesium Level 2.5 Bedside Glucose 135 142 Medications Medications Current Medications Lactobacillus Acidophilus/ Rhamnosus (Culturelle) 1 cap BID PO Last administered on 02/28/17 09:03; Admin Dose 1 CAP; Start 02/19/17 at 21:00 Multivitamins Therapeutic (Theragran) 1 tab DAILY PO Last administered on 09:03; Admin Dose 1 TAB; Start 02/20/17 at 09:00 Ascorbic Acid (Vitamin C) 500 mg QAM PO Last administered on 02/28/17 09:03; Admin Dose 500 MG; Start 02/20/17 at 09:00 Ticagrelor (Brilinta) 90 mg QAM PO Last administered on 02/28/17 09:46; Admin Dose 90 MG; Start 02/19/17 at 16:30 Zinc Sulfate (Zinc Sulfate) 220 mg QAM PO Last administered on 02/28/17 09:03 ; Admin Dose 220 MG; Start 02/20/17 at 09:00 Atorvastatin Calcium (Lipitor) 80 mg DAILY@21 PO Last administered on 21:39; Admin Dose 80 MG; Start 02/19/17 at 21:00 Ondansetron HCl (Zofran Inj) 4 mg Q6H PRN IV NAUSEA AND/OR VOMITING; Start at 16:30 Acetaminophen (Tylenol Tab) 650 mg Q6H PRN PO PAIN LEVEL 1-3 OR FEVER; Start at 16:30 Acetaminophen (Tylenol Supp) 650 mg Q6H PRN [place] PAIN LEVEL 1-3 OR FEVER; Start 02/19/17 at 16:30 Acetaminophen/ Hydrocodone Bitart ([place] (5/325)) 1 tab Q6H PRN PO MODERATE PAIN LEVEL 4-6; Start 02/19/17 at 16:30 Morphine Sulfate (morphine) 2 mg Q4H PRN IV SEVERE PAIN LEVEL 7-10 Last administered on 02/28/17 08:59; Admin Dose 2 MG; Start 02/19/17 at 16:30 Miscellaneous Information 1 ea NOTE XX ; Start 02/19/17 at 16:30 Glucose (Glutose) 15 gm Q15M PRN PO DECREASED GLUCOSE; Start 02/19/17 at 16:30 Glucose (Glutose) 22.5 gm Q15M PRN PO DECREASED GLUCOSE; Start 02/19/17 at 16: 30 Dextrose (D50w Syringe) 25 ml Q15M PRN IV DECREASED GLUCOSE Last administered on 02/25/17 04:31; Admin Dose 25 ML; Start 02/19/17 at 16:30 Dextrose (D50w Syringe) 50 ml Q15M PRN IV DECREASED GLUCOSE Last administered on 02/25/17 20:58; Admin Dose 50 ML; Start 02/19/17 at 16:30 Glucagon (Glucagen) 1 mg Q15M PRN IM DECREASED GLUCOSE; Start 02/19/17 at 16:30 Glucose (Glutose) 15 gm Q15M PRN BUCCAL DECREASED GLUCOSE; Start 02/19/17 at 16 :30 Diagnostic Test (Pha) (Accu-Chek) 1 ea 02 XX Last administered on 02/27/17 02: 57; Admin Dose 1 EA; Start 02/20/17 at 02:00 Insulin Aspart NOVOLOG *MILD* ALGORITHM Q4 SC Last administered on 02/28/17 13 :00; Admin Dose 1 UNIT; Start 02/20/17 at 13:00 Norepinephrine/ Dextrose (Levophed/D5W) 500 ml @ 1.87 mls/hr TITRATE IV Last administered on 02/22/17 05:57; Admin Dose 1.87 MLS/HR; Start 02/20/17 at 11:00 Pantoprazole (Protonix Iv) 40 mg BID@06,18 IV Last administered on 02/28/17 05 :55; Admin Dose 40 MG; Start 02/20/17 at 18:00 Aspirin (Halfprin) 81 mg DAILY PO Last administered on 02/23/17 10:58; Admin Dose 81 MG; Start 02/21/17 at 09:00; Status Future Hold Levothyroxine Sodium (Synthroid) 50 mcg DAILY@06 PO Last administered on 05:54; Admin Dose 50 MCG; Start 02/22/17 at 06:00; Status Future hold Venlafaxine HCl (Effexor) 25 mg BID NGT Last administered on 02/28/17 09:02; Admin Dose 25 MG; Start 02/22/17 at 10:30 Vancomycin HCl (Vancomycin Oral Syringe) 250 mg Q6 PO Last administered on 02/28 12:56; Admin Dose 250 MG; Start 02/24/17 at 18:00 Ergocalciferol (Drisdol) 50,000 unit Sa@09 PO Last administered on 02/25/17 08 :31; Admin Dose 50,000 UNIT; Start 02/25/17 at 09:00 Insulin Glargine (Lantus) 6 unit BID SC ; Start 02/25/17 at 09:00; Status Future Hold Rifaximin 200 mg 200 mg TID NGT Last administered on 02/28/17 12:52; Admin Dose 200 MG; Start 02/25/17 at 09:00 Metronidazole/N/A (Flagyl 500 Mg (Pmx)/Evac Container) 50 ml @ 50 mls/hr Q8 IVPB Last administered on 02/28/17 06:35; Admin Dose 50 MLS/HR; Start at 14:00 Citric Acid/ Sodium Citrate (Bicitra) 30 ml BID PO Last administered on 12:53; Admin Dose 30 ML; Start 02/28/17 at 11:00 Miscellaneous Information (Pending Santyl Order For Wound Care) This patient dean... PRN PRN XX WOUND CARE; Start 02/28/17 at 15:00; Status EVENS WANG MD February 28, 2017 14:52
[2017-02-28] MEDS ORDERED: PENDING SANTYL ORDER FOR WOUND CARE XX PRN (15:00)
--- NOTE | 2017-02-28 16:42 | PN ---
Date/Time of Note Date/Time of Note DATE: 02/28/17 TIME: 16:41 Assessment/Plan VTE Prophylaxis VTE Prophylaxis Intervention: other Assessment/Plan Chief Complaint/Hosp Course 1. Septic shock secondary to C. difficile colitis-improved Continue antibiotics, ID following 2. Acute kidney injury secondary to acute tubular necrosis from septic shock- resolving Renal following 3. Non-anion gap metabolic acidosis likely secondary to severe diarrhea-stable 4. Hyponatremia-resolved 5. 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 Acute encephalopathy with likely dementia 7. Dysphasia Speech therapy evaluation appreciated rec is for n.p.o. status at this time, will cont tube feeds Prophylaxis: On Brilinta Problems: Subjective 24 Hr Interval Summary Constitutional: disoriented Exam/Review of Systems Vital Signs Vitals Vital Signs Date Time Temp Pulse Resp B/P Pulse Ox O2 Delivery O2 Flow Rate FiO2 02/28/17 15:58 97.8 112 18 104/58 94 02/27/17 18:25 Room Air 02/26/17 17:42 21 02/25/17 17:54 2.0 Intake and Output 02/27/17 02/27/17 02/28/17 15:00 23:00 07:00 Intake Total 420 ml 20 ml 580 ml Output Total 425 ml 250 ml 520 ml Balance -5 ml -230 ml 60 ml Exam Psych: confusion Respiratory: clear to auscultation Cardiovascular: regular rate and rhythm Gastrointestinal: soft, No distended Musculoskeletal: nl extremities to inspection Results Result Diagram: 02/28/17 0719 02/28/17 0719 Results 24 hrs Laboratory Tests Test 02/27/17 17:07 02/27/17 21:16 02/28/17 01:21 02/28/17 05:54 Bedside Glucose 122 105 129 128 Test 02/28/17 07:19 02/28/17 08:58 02/28/17 12:52 White Blood Count 4.8 # Red Blood Count 3.45 L Hemoglobin 9.9 L Hematocrit 30.3 L Mean Corpuscular Volume 87.8 Mean Corpuscular Hemoglobin 28.7 L Mean Corpuscular Hemoglobin Concent 32.7 Red Cell Distribution Width 18.4 H Platelet Count 38 L Mean Platelet Volume Neutrophils % 69.6 Lymphocytes % 21.3 Monocytes % 5.4 Eosinophils % 2.3 Basophils % 0.4 Nucleated Red Blood Cells % 0.0 Neutrophils # 3.3 Lymphocytes # 1.0 Monocytes # 0.3 Eosinophils # 0.1 Basophils # 0.0 Nucleated Red Blood Cells # 0.0 Sodium Level 135 Potassium Level 3.6 Chloride Level 114 H Carbon Dioxide Level 18 L Anion Gap 7 L Blood Urea Nitrogen 17 Creatinine 0.99 Glucose Level 118 Calcium Level 6.9 L Phosphorus Level 3.6 Magnesium Level 2.5 Bedside Glucose 135 142 Medications Medications Current Medications Lactobacillus Acidophilus/ Rhamnosus (Culturelle) 1 cap BID PO Last administered on 02/28/17 09:03; Admin Dose 1 CAP; Start 02/19/17 at 21:00 Multivitamins Therapeutic (Theragran) 1 tab DAILY PO Last administered on 09:03; Admin Dose 1 TAB; Start 02/20/17 at 09:00 Ascorbic Acid (Vitamin C) 500 mg QAM PO Last administered on 02/28/17 09:03; Admin Dose 500 MG; Start 02/20/17 at 09:00 Ticagrelor (Brilinta) 90 mg QAM PO Last administered on 02/28/17 09:46; Admin Dose 90 MG; Start 02/19/17 at 16:30 Zinc Sulfate (Zinc Sulfate) 220 mg QAM PO Last administered on 02/28/17 09:03 ; Admin Dose 220 MG; Start 02/20/17 at 09:00 Atorvastatin Calcium (Lipitor) 80 mg DAILY@21 PO Last administered on 21:39; Admin Dose 80 MG; Start 02/19/17 at 21:00 Ondansetron HCl (Zofran Inj) 4 mg Q6H PRN IV NAUSEA AND/OR VOMITING; Start at 16:30 Acetaminophen (Tylenol Tab) 650 mg Q6H PRN PO PAIN LEVEL 1-3 OR FEVER; Start at 16:30 Acetaminophen (Tylenol Supp) 650 mg Q6H PRN [place] PAIN LEVEL 1-3 OR FEVER; Start 02/19/17 at 16:30 Acetaminophen/ Hydrocodone Bitart ([place] (5/325)) 1 tab Q6H PRN PO MODERATE PAIN LEVEL 4-6; Start 02/19/17 at 16:30 Morphine Sulfate (morphine) 2 mg Q4H PRN IV SEVERE PAIN LEVEL 7-10 Last administered on 02/28/17 08:59; Admin Dose 2 MG; Start 02/19/17 at 16:30 Miscellaneous Information 1 ea NOTE XX ; Start 02/19/17 at 16:30 Glucose (Glutose) 15 gm Q15M PRN PO DECREASED GLUCOSE; Start 02/19/17 at 16:30 Glucose (Glutose) 22.5 gm Q15M PRN PO DECREASED GLUCOSE; Start 02/19/17 at 16: 30 Dextrose (D50w Syringe) 25 ml Q15M PRN IV DECREASED GLUCOSE Last administered on 02/25/17 04:31; Admin Dose 25 ML; Start 02/19/17 at 16:30 Dextrose (D50w Syringe) 50 ml Q15M PRN IV DECREASED GLUCOSE Last administered on 02/25/17 20:58; Admin Dose 50 ML; Start 02/19/17 at 16:30 Glucagon (Glucagen) 1 mg Q15M PRN IM DECREASED GLUCOSE; Start 02/19/17 at 16:30 Glucose (Glutose) 15 gm Q15M PRN BUCCAL DECREASED GLUCOSE; Start 02/19/17 at 16 :30 Diagnostic Test (Pha) (Accu-Chek) 1 ea 02 XX Last administered on 02/27/17 02: 57; Admin Dose 1 EA; Start 02/20/17 at 02:00 Insulin Aspart NOVOLOG *MILD* ALGORITHM Q4 SC Last administered on 02/28/17 13 :00; Admin Dose 1 UNIT; Start 02/20/17 at 13:00 Norepinephrine/ Dextrose (Levophed/D5W) 500 ml @ 1.87 mls/hr TITRATE IV Last administered on 02/22/17 05:57; Admin Dose 1.87 MLS/HR; Start 02/20/17 at 11:00 Pantoprazole (Protonix Iv) 40 mg BID@06,18 IV Last administered on 02/28/17 05 :55; Admin Dose 40 MG; Start 02/20/17 at 18:00 Aspirin (Halfprin) 81 mg DAILY PO Last administered on 02/23/17 10:58; Admin Dose 81 MG; Start 02/21/17 at 09:00; Status Future Hold Levothyroxine Sodium (Synthroid) 50 mcg DAILY@06 PO Last administered on 05:54; Admin Dose 50 MCG; Start 02/22/17 at 06:00; Status Future hold Venlafaxine HCl (Effexor) 25 mg BID NGT Last administered on 02/28/17 09:02; Admin Dose 25 MG; Start 02/22/17 at 10:30 Vancomycin HCl (Vancomycin Oral Syringe) 250 mg Q6 PO Last administered on 02/28 12:56; Admin Dose 250 MG; Start 02/24/17 at 18:00 Ergocalciferol (Drisdol) 50,000 unit Sa@09 PO Last administered on 02/25/17 08 :31; Admin Dose 50,000 UNIT; Start 02/25/17 at 09:00 Insulin Glargine (Lantus) 6 unit BID SC ; Start 02/25/17 at 09:00; Status Future Hold Rifaximin 200 mg 200 mg TID NGT Last administered on 02/28/17 12:52; Admin Dose 200 MG; Start 02/25/17 at 09:00 Metronidazole/N/A (Flagyl 500 Mg (Pmx)/Evac Container) 50 ml @ 50 mls/hr Q8 IVPB Last administered on 02/28/17 15:00; Admin Dose 50 MLS/HR; Start at 14:00 Citric Acid/ Sodium Citrate (Bicitra) 30 ml BID PO Last administered on 12:53; Admin Dose 30 ML; Start 02/28/17 at 11:00 Miscellaneous Information (Pending Santyl Order For Wound Care) This patient dean... PRN PRN XX WOUND CARE; Start 02/28/17 at 15:00 BEBO SEYMOUR February 28, 2017 16:42
--- NOTE | 2017-02-28 19:00 | PN ---
DATE: 02/28/2017 CARDIOLOGY FOLLOWUP PROGRESS NOTE SUBJECTIVE: Discussed with the staff. Rhythm strip was reviewed. Patient remains in sinus rhythm, sinus tachycardia, ICU. Unable to provide history. The patient is status post NG tube. MEDICATIONS: Reviewed. PHYSICAL EXAMINATION: VITAL SIGNS: Temperature 97.3, heart rate of 118, blood pressure 90/52, respiratory rate of 19. HEENT: Normocephalic, atraumatic. cachectic gentleman. Status post NG tube in place. CARDIOVASCULAR: Tachycardic. PULMONARY: With mild rhonchi, diffuse. GASTROINTESTINAL: Soft, nontender. EXTREMITIES: With diffuse lower extremity edema. NEUROLOGIC: He is awake, unable to communicate well. LABORATORY DATA: WBC of 4.8, hemoglobin 9.9, platelets of 38. Sodium 135, potassium 3.6, BUN of 17 , creatinine 0.99, glucose of 118. Mag is 2.8. Chest x-ray shows mild cardiomegaly and congestive heart failure and addition of edema. Bilateral pleural effusion, left more than right. ASSESSMENT AND PLAN: 1. Septic shock, currently blood pressure has improved. 2. Renal failure. 3. Coronary artery disease, status post myocardial infarction, status post percutaneous coronary in tervention. 4. Severe anemia. 5. Thrombocytopenia. 6. Possible cirrhosis. 7. Sinus tachycardia secondary to above. 8. Clostridium difficile colitis. 9. Thyroid disorder. RECOMMENDATIONS: Unable to give any beta-basia due to hypotension. Continue with the current car diac care. Monitor electrolytes and platelet levels. Monitor for any signs of bleeding. Antibioti c is managed as per internal medicine and ID recommendation. Continue to monitor on telemetry. Dictated By: CAITIE LOPEZ MD AV/LADY Conf#: [id number] DID#: [id number] CC: PAULO TRIMBLE MD;*EndCC*
[2017-02-28] MEDS: ATORVASTATIN 80 MG TAB PO SCH (21:20)
[2017-03-01] VITALS (14 sets, daily range): BP systolic 86–103; BP diastolic 51–59; PULSE 106–114; RESP 18
[2017-03-01] MEDS: INSULIN ASPART [NOVOLOG] 3 ML PEN SC SCH ×6 (01:00→20:49)
[2017-03-01] MEDS: ACCUCHECK AT 2AM (Patients on SS coverage) XX SCH (02:00)
[2017-03-01] MEDS: PANTOPRAZOLE 40 MG INJ IV SCH ×2 (05:22→17:48)
[2017-03-01] MEDS: LEVOTHYROXINE 50 MCG TAB PO SCH (05:22)
[2017-03-01] MEDS: VANCOMYCIN HCL 250 MG/5ML POSYG PO SCH ×3 (05:22→17:48)
[2017-03-01] MEDS: metroNIDAZOLE 500 MG/NS (PMX) 250 MG in EVAC CONTAINER 1 BOTTLE IVPB SCH ×3 (05:22→21:52)
[2017-03-01] MEDS: SOD CHLORIDE 0.9% 1,000 ML IV SCH ×2 (06:04→16:00)
[2017-03-01 07:25] LABS: ADD SCAN DIFF NO
[2017-03-01 07:46] LABS: ABNORMAL IP MESSAGE 1; BASOPHILS % 0.3 % (0.0-2.0); EOSINOPHILS # 0.1 10^3/ul (0.0-0.5); EOSINOPHILS % 2.5 % (0.0-7.0); HEMATOCRIT 26.9 % (42.0-52.0); HEMOGLOBIN 8.9 g/dl (14.0-18.0); LYMPHOCYTES # 0.8 10^3/ul (0.8-2.9); LYMPHOCYTES % 23.3 % (15.0-51.0); MEAN CORPUSCULAR HEMOGLOBIN 29.5 pg (29.0-33.0); MEAN CORPUSCULAR HGB CONC 33.1 g/dl (32.0-37.0); MEAN CORPUSCULAR VOLUME 89.1 fl (82.0-101.0); MEAN PLATELET VOLUME 12.7 fl (7.4-10.4); MONOCYTE # 0.2 10^3/ul (0.3-0.9); MONOCYTES % 6.4 % (0.0-11.0); NEUTROPHIL # 2.4 10^3/ul (1.6-7.5); NEUTROPHILS % 66.4 % (39.0-77.0); PLATELET COUNT 42 10^3/UL (140-415); RED BLOOD COUNT 3.02 10^6/ul (4.70-6.10); RED CELL DISTRIBUTION WIDTH 18.6 % (11.5-14.5); WHITE BLOOD COUNT 3.6 10^3/ul (4.8-10.8)
[2017-03-01 07:56] LABS: CREATININE 1.08 mg/dl (0.61-1.24)
[2017-03-01 07:57] LABS: CALCIUM 6.8 mg/dl (8.4-10.2)
[2017-03-01 08:02] LABS: POTASSIUM 2.9 mmol/L (3.5-5.1)
[2017-03-01] MEDS ORDERED: POTASSIUM CHLORIDE 20 MEQ POWDER FOR ORAL SOLN NGT ONE ×2 (08:30→10:30)
--- NOTE | 2017-03-01 09:05 | PN ---
DATE: 03/01/2017 CARDIOLOGY FOLLOWUP SUBJECTIVE: Discussed with the staff. Rhythm strip was reviewed. The patient remains in sinus rhy thm. No evidence of atrial fibrillation. Remains in sinus rhythm, sinus tachycardia. The patient is unable to provide any history to me. MEDICATIONS: Reviewed. PHYSICAL EXAMINATION: VITAL SIGNS: Temperature 98.4, heart rate of 110, blood pressure 95/51, respiration rate of 18, sat urating 96%. HEENT: Normocephalic, atraumatic. Status post NG tube in place. CARDIOVASCULAR: Tachycardic. PULMONARY: With mild rhonchi. No wheezes. GASTROINTESTINAL: Soft. No rebound or guarding. EXTREMITIES: With diffuse lower extremity edema. NEUROLOGIC: Awake, however, with very weak voice. PSYCH: Calm, LABORATORY DATA: ____ , potassium of 2.9, BUN of 23, creatinine 1.08, glucose 145. Mag from yeste rday was 2.5. WBC of 3.6, hemoglobin 9.9, platelets of 42. ASSESSMENT AND PLAN: 1. Septic shock, currently blood pressure has improved. 2. Coronary artery disease, history of recent PCI. 3. Severe anemia. 4. Thrombocytopenia. 5. Possible cirrhosis. 6. Coagulopathy. 7. Tachycardia secondary to above. 8. Clostridium difficile colitis. 9. Electrolyte abnormalities and hypokalemia. 10. Thyroid disorder. RECOMMENDATIONS: Thyroid management as per Dr. Marquis and associates. Still unable to tolerate beta basia due to his hypotension. I will replace the potassium. Aspirin is still on hold due to con cern about severe thrombocytopenia and anemia and possible bleeding. Continue to monitor on telemet ry. Dictated By: CAITIE LOPEZ MD AV/NTS Conf#: [id number] DID#: [id number] CC: BEBO SEYMOUR MD;*EndCC*
[2017-03-01] MEDS: MULTIVITAMINS THERAPEUTIC TAB PO SCH (09:43)
[2017-03-01] MEDS: ASCORBIC ACID 500 MG TAB PO SCH (09:43)
[2017-03-01] MEDS: LACTOBACILLUS RHAMNOSUS CAP PO SCH ×2 (09:43→20:44)
[2017-03-01] MEDS: CITRIC ACID/SODIUM CITRATE 15 ML CUP PO SCH ×2 (09:43→21:51)
[2017-03-01] MEDS: RIFAXIMIN 200 MG TAB NGT SCH (09:43)
[2017-03-01] MEDS: VENLAFAXINE 25 MG TAB NGT SCH ×2 (09:47→20:44)
[2017-03-01] MEDS: ZINC SULFATE 220 MG CAP PO SCH (09:47)
[2017-03-01] MEDS: TICAGRELOR 90 MG TABLET PO SCH (09:57)
[2017-03-01] MEDS ORDERED: POTASSIUM CHLORIDE 50 ML IVPB ONE (11:00)
--- NOTE | 2017-03-01 13:16 | PN ---
DATE: 03/01/2017 SUBJECTIVE: No acute changes. Patient is lethargic, looks comfortable, no fevers, tolerates tube f eeding. WBC 3.6, no shift, no bands, platelets 42. BUN 23, creatinine 1.08. ANTIMICROBIALS: The patient is on: 1. Flagyl. 2. Oral vancomycin. INDWELLINGS: NG tube, Christopher catheter, rectal tube, right IJ triple-lumen catheter. PHYSICAL EXAMINATION: GENERAL: This is a fragile, chronically ill-appearing, elderly man who is in no distress. HEENT: Head atraumatic, normocephalic. Sclerae anicteric. Buccal mucosa dry. NECK: Supple, trachea midline. CHEST: Rise symmetrical. Breath sounds diminished to bases. HEART: S1, S2. ABDOMEN: Soft, bowel tones present. EXTREMITIES: Without cyanosis. ASSESSMENT: 1. Resolving sepsis status post shock. 2. Status post pneumonia. 3. Clostridium difficile colitis. 4. Diabetes. 5. History of prostate cancer. 6. Dysphagia. 7. Coronary artery disease, history of recent PCI. PLAN: The patient remains stable, covered with appropriate antimicrobials. He is being followed by multiple consultants. Continue anti-aspiration measures. Dictated By: MICHAELA SPEARS LACER AND TIER for SUNITHA COLINDRES/LADY Conf#: [id number] DID#: [id number]
--- NOTE | 2017-03-01 16:37 | PN ---
Date/Time of Note Date/Time of Note DATE: 03/01/17 TIME: 16:35 Assessment/Plan VTE Prophylaxis VTE Prophylaxis Intervention: SCD's Lines/Catheters IV [facility]from [facility] Central Line Central line still needed: Yes Urinary Cath still in place: Yes Reason Cath still needed: urinary retention Assessment/Plan Assessment/Plan Transaminitis resolved * MRI * No biliary ductal dilatation. No CBD stones. Gallstones in mildly distended gallbladder with no gallbladder wall thickening. If there is clinical suspicion for acute cholecystitis, . Morphologic changes suggestive of cirrhosis. . Small abdominopelvic ascites. Ultrasound . Sludge and small stones in the gallbladder without definite secondary signs of acute cholecystitis. * Anemia stable 8.9 * Diabetes mellitus Plan * monitor Hemoglobin and hematocrit q6 and transfuse 1 unit of PRBC if hgn<7.5, if hgb <7 2 uits PRBC * tube feeding goal 50 cc * continue present management Subjective 24 Hr Interval Summary Free Text/Dictation * Course reviewed with RN * patient seen and examined * tolerating feeding Exam/Review of Systems Vital Signs Vitals Vital Signs Date Time Temp Pulse Resp B/P Pulse Ox O2 Delivery O2 Flow Rate FiO2 03/01/17 15:51 98.0 110 18 94/53 98 02/27/17 18:25 Room Air 02/26/17 17:42 21 02/25/17 17:54 2.0 Intake and Output 02/28/17 02/28/17 03/01/17 15:00 23:00 07:00 Intake Total 400 ml 740 ml Output Total 650 ml 400 ml Balance -250 ml 340 ml Exam Constitutional: frail Neck: non-tender, supple Respiratory: clear to auscultation, normal air movement Cardiovascular: regular rate and rhythm Gastrointestinal: non-tender, soft Musculoskeletal: nl extremities to inspection Results Result Diagram: 03/01/17 0645 03/01/17 0645 Results 24 hrs Laboratory Tests Test 02/28/17 17:51 02/28/17 21:32 02/28/17 22:12 03/01/17 01:05 Bedside Glucose 157 162 153 158 Test 03/01/17 05:07 03/01/17 06:45 03/01/17 08:06 03/01/17 12:24 Bedside Glucose 163 159 165 White Blood Count 3.6 #L Red Blood Count 3.02 L Hemoglobin 8.9 L Hematocrit 26.9 L Mean Corpuscular Volume 89.1 Mean Corpuscular Hemoglobin 29.5 Mean Corpuscular Hemoglobin Concent 33.1 Red Cell Distribution Width 18.6 H Platelet Count 42 L Mean Platelet Volume 12.7 H Neutrophils % 66.4 Lymphocytes % 23.3 Monocytes % 6.4 Eosinophils % 2.5 Basophils % 0.3 Nucleated Red Blood Cells % 0.0 Neutrophils # 2.4 Lymphocytes # 0.8 Monocytes # 0.2 L Eosinophils # 0.1 Basophils # 0.0 Nucleated Red Blood Cells # 0.0 Differential Comment AUTO w/SCAN Sodium Level 140 Potassium Level 2.9 *L Chloride Level 113 H Carbon Dioxide Level 20 L Anion Gap 10 Blood Urea Nitrogen 23 H Creatinine 1.08 Glucose Level 145 Calcium Level 6.8 L Medications Medications Current Medications Lactobacillus Acidophilus/ Rhamnosus (Culturelle) 1 cap BID PO Last administered on 03/01/17 09:43; Admin Dose 1 CAP; Start 02/19/17 at 21:00 Multivitamins Therapeutic (Theragran) 1 tab DAILY PO Last administered on 09:43; Admin Dose 1 TAB; Start 02/20/17 at 09:00 Ascorbic Acid (Vitamin C) 500 mg QAM PO Last administered on 03/01/17 09:43; Admin Dose 500 MG; Start 02/20/17 at 09:00 Ticagrelor (Brilinta) 90 mg QAM PO Last administered on 03/01/17 09:57; Admin Dose 90 MG; Start 02/19/17 at 16:30 Zinc Sulfate (Zinc Sulfate) 220 mg QAM PO Last administered on 03/01/17 09:47 ; Admin Dose 220 MG; Start 02/20/17 at 09:00 Atorvastatin Calcium (Lipitor) 80 mg DAILY@21 PO Last administered on 21:20; Admin Dose 80 MG; Start 02/19/17 at 21:00 Ondansetron HCl (Zofran Inj) 4 mg Q6H PRN IV NAUSEA AND/OR VOMITING; Start at 16:30 Acetaminophen (Tylenol Tab) 650 mg Q6H PRN PO PAIN LEVEL 1-3 OR FEVER; Start at 16:30 Acetaminophen (Tylenol Supp) 650 mg Q6H PRN [place] PAIN LEVEL 1-3 OR FEVER; Start 02/19/17 at 16:30 Acetaminophen/ Hydrocodone Bitart ([place] (5/325)) 1 tab Q6H PRN PO MODERATE PAIN LEVEL 4-6; Start 02/19/17 at 16:30 Morphine Sulfate (morphine) 2 mg Q4H PRN IV SEVERE PAIN LEVEL 7-10 Last administered on 02/28/17 08:59; Admin Dose 2 MG; Start 02/19/17 at 16:30 Miscellaneous Information 1 ea NOTE XX ; Start 02/19/17 at 16:30 Glucose (Glutose) 15 gm Q15M PRN PO DECREASED GLUCOSE; Start 02/19/17 at 16:30 Glucose (Glutose) 22.5 gm Q15M PRN PO DECREASED GLUCOSE; Start 02/19/17 at 16: 30 Dextrose (D50w Syringe) 25 ml Q15M PRN IV DECREASED GLUCOSE Last administered on 02/25/17 04:31; Admin Dose 25 ML; Start 02/19/17 at 16:30 Dextrose (D50w Syringe) 50 ml Q15M PRN IV DECREASED GLUCOSE Last administered on 02/25/17 20:58; Admin Dose 50 ML; Start 02/19/17 at 16:30 Glucagon (Glucagen) 1 mg Q15M PRN IM DECREASED GLUCOSE; Start 02/19/17 at 16:30 Glucose (Glutose) 15 gm Q15M PRN BUCCAL DECREASED GLUCOSE; Start 02/19/17 at 16 :30 Diagnostic Test (Pha) (Accu-Chek) 1 ea 02 XX Last administered on 02/27/17 02: 57; Admin Dose 1 EA; Start 02/20/17 at 02:00 Insulin Aspart (Novolog Insulin Pen) NOVOLOG *MILD* ALGORITHM Q4 SC Last administered on 03/01/17 12:40; Admin Dose 1 UNIT; Start 02/20/17 at 13:00 Pantoprazole (Protonix Iv) 40 mg BID@,18 IV Last administered on 03/01/17 05 :22; Admin Dose 40 MG; Start 02/20/17 at 18:00 Aspirin (Halfprin) 81 mg DAILY PO Last administered on 02/23/17 10:58; Admin Dose 81 MG; Start 02/21/17 at 09:00; Status Future Hold Levothyroxine Sodium (Synthroid) 50 mcg DAILY@06 PO Last administered on 05:22; Admin Dose 50 MCG; Start 02/22/17 at 06:00; Status Future hold Venlafaxine HCl (Effexor) 25 mg BID NGT Last administered on 03/01/17 09:47; Admin Dose 25 MG; Start 02/22/17 at 10:30 Vancomycin HCl (Vancomycin Oral Syringe) 250 mg Q6 PO Last administered on 03/01 12:16; Admin Dose 250 MG; Start 02/24/17 at 18:00 Ergocalciferol (Drisdol) 50,000 unit Sa@09 PO Last administered on 02/25/17 08 :31; Admin Dose 50,000 UNIT; Start 02/25/17 at 09:00 Insulin Glargine 6 unit 6 unit BID SC ; Start 02/25/17 at 09:00; Status Future Hold Metronidazole/N/A (Flagyl 500 Mg (Pmx)/Evac Container) 50 ml @ 50 mls/hr Q8 IVPB Last administered on 03/01/17 13:28; Admin Dose 50 MLS/HR; Start at 14:00 Citric Acid/ Sodium Citrate (Bicitra) 30 ml BID PO Last administered on 09:43; Admin Dose 30 ML; Start 02/28/17 at 11:00 Miscellaneous Information This patient dean... PRN PRN XX WOUND CARE; Start 02/28 at 15:00 Sodium Chloride (NS) 1,000 ml @ 100 mls/hr Q10H IV Last administered on 06:04; Admin Dose 100 MLS/HR; Start 03/01/17 at 06:00 EVENS MARTIN MD March 01, 2017 16:36
--- NOTE | 2017-03-01 16:46 | CONS ---
Date/Time of Note Date/Time of Note DATE: 03/01/17 TIME: 16:45 Consult Date/Type/Reason Admit Date/Time February 19, 2017 at 14:52 Type of Consultation: Pulmonary ICU Ordering Provider: BEBO SEYMOUR Subjective Patient remains stable no new events Objective Vital Signs Date Time Temp Pulse Resp B/P Pulse Ox O2 Delivery O2 Flow Rate FiO2 03/01/17 15:51 98.0 110 18 94/53 98 02/27/17 18:25 Room Air 02/26/17 17:42 21 02/25/17 17:54 2.0 Intake and Output 02/28/17 02/28/17 03/01/17 15:00 23:00 07:00 Intake Total 400 ml 740 ml Output Total 650 ml 400 ml Balance -250 ml 340 ml Exam GENERAL: Elderly gentleman comfortable at rest no acute distress VITAL SIGNS: per chart NECK: Supple. No JVD or lymphadenopathy. CARDIAC EXAM: S1, S2. No added sounds or murmurs. CHEST: clear bilaterally, No added sounds, rales or wheezes ABDOMEN: Soft, nontender. No guarding or rebound. EXTREMITIES: No cyanosis, clubbing or edema. NEUROLOGIC: Generalized weakness. No focal deficits. Results/Medications Result Diagram: 03/01/17 0645 03/01/17 0645 Results 24 hrs Laboratory Tests Test 02/28/17 17:51 02/28/17 21:32 02/28/17 22:12 03/01/17 01:05 Bedside Glucose 157 162 153 158 Test 03/01/17 05:07 03/01/17 06:45 03/01/17 08:06 03/01/17 12:24 Bedside Glucose 163 159 165 White Blood Count 3.6 #L Red Blood Count 3.02 L Hemoglobin 8.9 L Hematocrit 26.9 L Mean Corpuscular Volume 89.1 Mean Corpuscular Hemoglobin 29.5 Mean Corpuscular Hemoglobin Concent 33.1 Red Cell Distribution Width 18.6 H Platelet Count 42 L Mean Platelet Volume 12.7 H Neutrophils % 66.4 Lymphocytes % 23.3 Monocytes % 6.4 Eosinophils % 2.5 Basophils % 0.3 Nucleated Red Blood Cells % 0.0 Neutrophils # 2.4 Lymphocytes # 0.8 Monocytes # 0.2 L Eosinophils # 0.1 Basophils # 0.0 Nucleated Red Blood Cells # 0.0 Differential Comment AUTO w/SCAN Sodium Level 140 Potassium Level 2.9 *L Chloride Level 113 H Carbon Dioxide Level 20 L Anion Gap 10 Blood Urea Nitrogen 23 H Creatinine 1.08 Glucose Level 145 Calcium Level 6.8 L Medications Current Medications Lactobacillus Acidophilus/ Rhamnosus (Culturelle) 1 cap BID PO Last administered on 03/01/17 09:43; Admin Dose 1 CAP; Start 02/19/17 at 21:00 Multivitamins Therapeutic (Theragran) 1 tab DAILY PO Last administered on 09:43; Admin Dose 1 TAB; Start 02/20/17 at 09:00 Ascorbic Acid (Vitamin C) 500 mg QAM PO Last administered on 03/01/17 09:43; Admin Dose 500 MG; Start 02/20/17 at 09:00 Ticagrelor (Brilinta) 90 mg QAM PO Last administered on 03/01/17 09:57; Admin Dose 90 MG; Start 02/19/17 at 16:30 Zinc Sulfate (Zinc Sulfate) 220 mg QAM PO Last administered on 03/01/17 09:47 ; Admin Dose 220 MG; Start 02/20/17 at 09:00 Atorvastatin Calcium (Lipitor) 80 mg DAILY@21 PO Last administered on 21:20; Admin Dose 80 MG; Start 02/19/17 at 21:00 Ondansetron HCl (Zofran Inj) 4 mg Q6H PRN IV NAUSEA AND/OR VOMITING; Start at 16:30 Acetaminophen (Tylenol Tab) 650 mg Q6H PRN PO PAIN LEVEL 1-3 OR FEVER; Start at 16:30 Acetaminophen (Tylenol Supp) 650 mg Q6H PRN [place] PAIN LEVEL 1-3 OR FEVER; Start 02/19/17 at 16:30 Acetaminophen/ Hydrocodone Bitart ([place] (5/325)) 1 tab Q6H PRN PO MODERATE PAIN LEVEL 4-6; Start 02/19/17 at 16:30 Morphine Sulfate (morphine) 2 mg Q4H PRN IV SEVERE PAIN LEVEL 7-10 Last administered on 02/28/17 08:59; Admin Dose 2 MG; Start 02/19/17 at 16:30 Miscellaneous Information 1 ea NOTE XX ; Start 02/19/17 at 16:30 Glucose (Glutose) 15 gm Q15M PRN PO DECREASED GLUCOSE; Start 02/19/17 at 16:30 Glucose (Glutose) 22.5 gm Q15M PRN PO DECREASED GLUCOSE; Start 02/19/17 at 16: 30 Dextrose (D50w Syringe) 25 ml Q15M PRN IV DECREASED GLUCOSE Last administered on 02/25/17 04:31; Admin Dose 25 ML; Start 02/19/17 at 16:30 Dextrose (D50w Syringe) 50 ml Q15M PRN IV DECREASED GLUCOSE Last administered on 02/25/17 20:58; Admin Dose 50 ML; Start 02/19/17 at 16:30 Glucagon (Glucagen) 1 mg Q15M PRN IM DECREASED GLUCOSE; Start 02/19/17 at 16:30 Glucose (Glutose) 15 gm Q15M PRN BUCCAL DECREASED GLUCOSE; Start 02/19/17 at 16 :30 Diagnostic Test (Pha) (Accu-Chek) 1 ea 02 XX Last administered on 02/27/17 02: 57; Admin Dose 1 EA; Start 02/20/17 at 02:00 Insulin Aspart (Novolog Insulin Pen) NOVOLOG *MILD* ALGORITHM Q4 SC Last administered on 03/01/17 12:40; Admin Dose 1 UNIT; Start 02/20/17 at 13:00 Pantoprazole (Protonix Iv) 40 mg BID@06,18 IV Last administered on 03/01/17 05 :22; Admin Dose 40 MG; Start 02/20/17 at 18:00 Aspirin (Halfprin) 81 mg DAILY PO Last administered on 02/23/17 10:58; Admin Dose 81 MG; Start 02/21/17 at 09:00; Status Future Hold Levothyroxine Sodium (Synthroid) 50 mcg DAILY@06 PO Last administered on 05:22; Admin Dose 50 MCG; Start 02/22/17 at 06:00; Status Future hold Venlafaxine HCl (Effexor) 25 mg BID NGT Last administered on 03/01/17 09:47; Admin Dose 25 MG; Start 02/22/17 at 10:30 Vancomycin HCl (Vancomycin Oral Syringe) 250 mg Q6 PO Last administered on 03/01 12:16; Admin Dose 250 MG; Start 02/24/17 at 18:00 Ergocalciferol (Drisdol) 50,000 unit Sa@09 PO Last administered on 02/25/17 08 :31; Admin Dose 50,000 UNIT; Start 02/25/17 at 09:00 Insulin Glargine 6 unit 6 unit BID SC ; Start 02/25/17 at 09:00; Status Future Hold Metronidazole/N/A (Flagyl 500 Mg (Pmx)/Evac Container) 50 ml @ 50 mls/hr Q8 IVPB Last administered on 03/01/17 13:28; Admin Dose 50 MLS/HR; Start at 14:00 Citric Acid/ Sodium Citrate (Bicitra) 30 ml BID PO Last administered on 09:43; Admin Dose 30 ML; Start 02/28/17 at 11:00 Miscellaneous Information This patient dean... PRN PRN XX WOUND CARE; Start 02/28 at 15:00 Sodium Chloride (NS) 1,000 ml @ 100 mls/hr Q10H IV Last administered on 06:04; Admin Dose 100 MLS/HR; Start 03/01/17 at 06:00 Assessment/Plan Chief Complaint/Hosp Course IMPRESSION AND PLAN: 1. Status post septic shock with C. difficile colitis 2. Possible healthcare-associated pneumonia. 3. Recent renal insufficiency now with evidence of metabolic acidosis 4. Hyponatremia resolved. 5. Sinus tachycardia likely secondary to vasopressors now improved off Levophed. 6. History of depression 7. Thrombocytopenia possibly secondary to underlying sepsis PLAN: 1. Continue antibiotics, 2. Infectious disease recommendations consider de-escalation of antibiotics 3. Agree with DC nasogastric tube and speech therapy evaluation 4. DVT and GI prophylaxis. 5. aspiration precautions. Disposition Disposition continue telemetry care Follow evaluation Problems: PAULO TRIMBLE MD, [facility] March 01, 2017 16:46
--- NOTE | 2017-03-01 17:07 | PN ---
Date/Time of Note Date/Time of Note DATE: 03/01/17 TIME: 17:06 Assessment/Plan VTE Prophylaxis VTE Prophylaxis Intervention: other Assessment/Plan Chief Complaint/Hosp Course 1. Septic shock secondary to C. difficile colitis-improved Continue antibiotics, ID following 2. Acute kidney injury secondary to acute tubular necrosis from septic shock- resolving Renal following 3. Non-anion gap metabolic acidosis likely secondary to severe diarrhea-stable 4. Hypokalemia-replete 5. 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 Acute encephalopathy with likely dementia secondary to sepsis Continue antibiotics 7. Dysphasia Speech therapy evaluation appreciated rec is for n.p.o. status at this time, will cont tube feeds Prophylaxis: On Brilinta Problems: Subjective 24 Hr Interval Summary Constitutional: disoriented Exam/Review of Systems Vital Signs Vitals Vital Signs Date Time Temp Pulse Resp B/P Pulse Ox O2 Delivery O2 Flow Rate FiO2 03/01/17 15:51 98.0 110 18 94/53 98 02/27/17 18:25 Room Air 02/26/17 17:42 21 02/25/17 17:54 2.0 Intake and Output 02/28/17 02/28/17 03/01/17 15:00 23:00 07:00 Intake Total 400 ml 740 ml Output Total 650 ml 400 ml Balance -250 ml 340 ml Exam Psych: confusion Respiratory: clear to auscultation Cardiovascular: regular rate and rhythm Gastrointestinal: soft, No distended Musculoskeletal: nl extremities to inspection Results Result Diagram: 03/01/17 0645 03/01/17 0645 Results 24 hrs Laboratory Tests Test 02/28/17 17:51 02/28/17 21:32 02/28/17 22:12 03/01/17 01:05 Bedside Glucose 157 162 153 158 Test 03/01/17 05:07 03/01/17 06:45 03/01/17 08:06 03/01/17 12:24 Bedside Glucose 163 159 165 White Blood Count 3.6 #L Red Blood Count 3.02 L Hemoglobin 8.9 L Hematocrit 26.9 L Mean Corpuscular Volume 89.1 Mean Corpuscular Hemoglobin 29.5 Mean Corpuscular Hemoglobin Concent 33.1 Red Cell Distribution Width 18.6 H Platelet Count 42 L Mean Platelet Volume 12.7 H Neutrophils % 66.4 Lymphocytes % 23.3 Monocytes % 6.4 Eosinophils % 2.5 Basophils % 0.3 Nucleated Red Blood Cells % 0.0 Neutrophils # 2.4 Lymphocytes # 0.8 Monocytes # 0.2 L Eosinophils # 0.1 Basophils # 0.0 Nucleated Red Blood Cells # 0.0 Differential Comment AUTO w/SCAN Sodium Level 140 Potassium Level 2.9 *L Chloride Level 113 H Carbon Dioxide Level 20 L Anion Gap 10 Blood Urea Nitrogen 23 H Creatinine 1.08 Glucose Level 145 Calcium Level 6.8 L Medications Medications Current Medications Lactobacillus Acidophilus/ Rhamnosus (Culturelle) 1 cap BID PO Last administered on 03/01/17 09:43; Admin Dose 1 CAP; Start 02/19/17 at 21:00 Multivitamins Therapeutic (Theragran) 1 tab DAILY PO Last administered on 09:43; Admin Dose 1 TAB; Start 02/20/17 at 09:00 Ascorbic Acid (Vitamin C) 500 mg QAM PO Last administered on 03/01/17 09:43; Admin Dose 500 MG; Start 02/20/17 at 09:00 Ticagrelor (Brilinta) 90 mg QAM PO Last administered on 03/01/17 09:57; Admin Dose 90 MG; Start 02/19/17 at 16:30 Zinc Sulfate (Zinc Sulfate) 220 mg QAM PO Last administered on 03/01/17 09:47 ; Admin Dose 220 MG; Start 02/20/17 at 09:00 Atorvastatin Calcium (Lipitor) 80 mg DAILY@21 PO Last administered on 21:20; Admin Dose 80 MG; Start 02/19/17 at 21:00 Ondansetron HCl (Zofran Inj) 4 mg Q6H PRN IV NAUSEA AND/OR VOMITING; Start at 16:30 Acetaminophen (Tylenol Tab) 650 mg Q6H PRN PO PAIN LEVEL 1-3 OR FEVER; Start at 16:30 Acetaminophen (Tylenol Supp) 650 mg Q6H PRN [place] PAIN LEVEL 1-3 OR FEVER; Start 02/19/17 at 16:30 Acetaminophen/ Hydrocodone Bitart ([place] (5/325)) 1 tab Q6H PRN PO MODERATE PAIN LEVEL 4-6; Start 02/19/17 at 16:30 Morphine Sulfate (morphine) 2 mg Q4H PRN IV SEVERE PAIN LEVEL 7-10 Last administered on 02/28/17 08:59; Admin Dose 2 MG; Start 02/19/17 at 16:30 Miscellaneous Information 1 ea NOTE XX ; Start 02/19/17 at 16:30 Glucose (Glutose) 15 gm Q15M PRN PO DECREASED GLUCOSE; Start 02/19/17 at 16:30 Glucose (Glutose) 22.5 gm Q15M PRN PO DECREASED GLUCOSE; Start 02/19/17 at 16: 30 Dextrose (D50w Syringe) 25 ml Q15M PRN IV DECREASED GLUCOSE Last administered on 02/25/17 04:31; Admin Dose 25 ML; Start 02/19/17 at 16:30 Dextrose (D50w Syringe) 50 ml Q15M PRN IV DECREASED GLUCOSE Last administered on 02/25/17 20:58; Admin Dose 50 ML; Start 02/19/17 at 16:30 Glucagon (Glucagen) 1 mg Q15M PRN IM DECREASED GLUCOSE; Start 02/19/17 at 16:30 Glucose (Glutose) 15 gm Q15M PRN BUCCAL DECREASED GLUCOSE; Start 02/19/17 at 16 :30 Diagnostic Test (Pha) (Accu-Chek) 1 ea 02 XX Last administered on 02/27/17 02: 57; Admin Dose 1 EA; Start 02/20/17 at 02:00 Insulin Aspart (Novolog Insulin Pen) NOVOLOG *MILD* ALGORITHM Q4 SC Last administered on 03/01/17 12:40; Admin Dose 1 UNIT; Start 02/20/17 at 13:00 Pantoprazole (Protonix Iv) 40 mg BID@,18 IV Last administered on 03/01/17 05 :22; Admin Dose 40 MG; Start 02/20/17 at 18:00 Aspirin (Halfprin) 81 mg DAILY PO Last administered on 02/23/17 10:58; Admin Dose 81 MG; Start 02/21/17 at 09:00; Status Future Hold Levothyroxine Sodium (Synthroid) 50 mcg DAILY@06 PO Last administered on 05:22; Admin Dose 50 MCG; Start 02/22/17 at 06:00; Status Future hold Venlafaxine HCl (Effexor) 25 mg BID NGT Last administered on 03/01/17 09:47; Admin Dose 25 MG; Start 02/22/17 at 10:30 Vancomycin HCl (Vancomycin Oral Syringe) 250 mg Q6 PO Last administered on 03/01 12:16; Admin Dose 250 MG; Start 02/24/17 at 18:00 Ergocalciferol (Drisdol) 50,000 unit Sa@09 PO Last administered on 02/25/17 08 :31; Admin Dose 50,000 UNIT; Start 02/25/17 at 09:00 Insulin Glargine 6 unit 6 unit BID SC ; Start 02/25/17 at 09:00; Status Future Hold Metronidazole/N/A (Flagyl 500 Mg (Pmx)/Evac Container) 50 ml @ 50 mls/hr Q8 IVPB Last administered on 03/01/17 13:28; Admin Dose 50 MLS/HR; Start at 14:00 Citric Acid/ Sodium Citrate (Bicitra) 30 ml BID PO Last administered on 09:43; Admin Dose 30 ML; Start 02/28/17 at 11:00 Miscellaneous Information This patient dean... PRN PRN XX WOUND CARE; Start 02/28 at 15:00 Sodium Chloride (NS) 1,000 ml @ 100 mls/hr Q10H IV Last administered on 06:04; Admin Dose 100 MLS/HR; Start 03/01/17 at 06:00 BEBO SEYMOUR March 01, 2017 17:07
--- NOTE | 2017-03-01 17:55 | CONS ---
Date/Time of Note Date/Time of Note DATE: 03/01/17 TIME: 17:52 Assessment/Plan Assessment/Plan Additional Assessment/Plan 1. Septic shock 2. Acute kidney injury secondary to acute tubular necrosis from septic shock. 3. Hyperchloremic non-anion gap metabolic acidosis likely secondary to severe diarrhea. 4. Hyponatremia, likely secondary to hypovolemic hyponatremia. 5. 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 6. Hypocalcemia, but the corrected calcium with a low albumin has been pretty much normal. PLAN: Cr improved, K low- KCL 10mEQ IV X 1 in addiition to PO replacement Bicitra 30ml PO BID for low metabolic acidosis good urine output will continue to follow up Full Code Consultation Date/Type/Reason Admit Date/Time February 19, 2017 at 14:52 Initial Consult Date 02/20/2017 Type of Consultation: NEPHROLOGY Referring Provider: BEBO SEYMOUR 24 HR Interval Summary Free Text/Dictation transferred to telemety floor, K low, already replaced with PO KCL Exam/Review of Systems Vital Signs Vitals Vital Signs Date Time Temp Pulse Resp B/P Pulse Ox O2 Delivery O2 Flow Rate FiO2 03/01/17 16:25 112 03/01/17 15:51 98.0 18 94/53 98 02/27/17 18:25 Room Air 02/26/17 17:42 21 02/25/17 17:54 2.0 Intake and Output 02/28/17 02/28/17 03/01/17 15:00 23:00 07:00 Intake Total 400 ml 740 ml Output Total 650 ml 400 ml Balance -250 ml 340 ml Exam Psych: confusion Respiratory: clear to auscultation Cardiovascular: regular rate and rhythm Gastrointestinal: soft, No distended Musculoskeletal: nl extremities to inspection Results Result Diagram: 03/01/17 0645 03/01/17 0645 Results 24 hrs Laboratory Tests Test 02/28/17 21:32 02/28/17 22:12 03/01/17 01:05 03/01/17 05:07 Bedside Glucose 162 153 158 163 Test 03/01/17 06:45 03/01/17 08:06 03/01/17 12:24 03/01/17 17:24 White Blood Count 3.6 #L Red Blood Count 3.02 L Hemoglobin 8.9 L Hematocrit 26.9 L Mean Corpuscular Volume 89.1 Mean Corpuscular Hemoglobin 29.5 Mean Corpuscular Hemoglobin Concent 33.1 Red Cell Distribution Width 18.6 H Platelet Count 42 L Mean Platelet Volume 12.7 H Neutrophils % 66.4 Lymphocytes % 23.3 Monocytes % 6.4 Eosinophils % 2.5 Basophils % 0.3 Nucleated Red Blood Cells % 0.0 Neutrophils # 2.4 Lymphocytes # 0.8 Monocytes # 0.2 L Eosinophils # 0.1 Basophils # 0.0 Nucleated Red Blood Cells # 0.0 Differential Comment AUTO w/SCAN Sodium Level 140 Potassium Level 2.9 *L Chloride Level 113 H Carbon Dioxide Level 20 L Anion Gap 10 Blood Urea Nitrogen 23 H Creatinine 1.08 Glucose Level 145 Calcium Level 6.8 L Bedside Glucose 159 165 168 Medications Medications Current Medications Lactobacillus Acidophilus/ Rhamnosus (Culturelle) 1 cap BID PO Last administered on 03/01/17 09:43; Admin Dose 1 CAP; Start 02/19/17 at 21:00 Multivitamins Therapeutic (Theragran) 1 tab DAILY PO Last administered on 09:43; Admin Dose 1 TAB; Start 02/20/17 at 09:00 Ascorbic Acid (Vitamin C) 500 mg QAM PO Last administered on 03/01/17 09:43; Admin Dose 500 MG; Start 02/20/17 at 09:00 Ticagrelor (Brilinta) 90 mg QAM PO Last administered on 03/01/17 09:57; Admin Dose 90 MG; Start 02/19/17 at 16:30 Zinc Sulfate (Zinc Sulfate) 220 mg QAM PO Last administered on 03/01/17 09:47 ; Admin Dose 220 MG; Start 02/20/17 at 09:00 Atorvastatin Calcium (Lipitor) 80 mg DAILY@21 PO Last administered on 21:20; Admin Dose 80 MG; Start 02/19/17 at 21:00 Ondansetron HCl (Zofran Inj) 4 mg Q6H PRN IV NAUSEA AND/OR VOMITING; Start at 16:30 Acetaminophen (Tylenol Tab) 650 mg Q6H PRN PO PAIN LEVEL 1-3 OR FEVER; Start at 16:30 Acetaminophen (Tylenol Supp) 650 mg Q6H PRN [place] PAIN LEVEL 1-3 OR FEVER; Start 02/19/17 at 16:30 Acetaminophen/ Hydrocodone Bitart ([place] (5/325)) 1 tab Q6H PRN PO MODERATE PAIN LEVEL 4-6; Start 02/19/17 at 16:30 Morphine Sulfate (morphine) 2 mg Q4H PRN IV SEVERE PAIN LEVEL 7-10 Last administered on 02/28/17 08:59; Admin Dose 2 MG; Start 02/19/17 at 16:30 Miscellaneous Information 1 ea NOTE XX ; Start 02/19/17 at 16:30 Glucose (Glutose) 15 gm Q15M PRN PO DECREASED GLUCOSE; Start 02/19/17 at 16:30 Glucose (Glutose) 22.5 gm Q15M PRN PO DECREASED GLUCOSE; Start 02/19/17 at 16: 30 Dextrose (D50w Syringe) 25 ml Q15M PRN IV DECREASED GLUCOSE Last administered on 02/25/17 04:31; Admin Dose 25 ML; Start 02/19/17 at 16:30 Dextrose (D50w Syringe) 50 ml Q15M PRN IV DECREASED GLUCOSE Last administered on 02/25/17 20:58; Admin Dose 50 ML; Start 02/19/17 at 16:30 Glucagon (Glucagen) 1 mg Q15M PRN IM DECREASED GLUCOSE; Start 02/19/17 at 16:30 Glucose (Glutose) 15 gm Q15M PRN BUCCAL DECREASED GLUCOSE; Start 02/19/17 at 16 :30 Diagnostic Test (Pha) (Accu-Chek) 1 ea 02 XX Last administered on 02/27/17 02: 57; Admin Dose 1 EA; Start 02/20/17 at 02:00 Insulin Aspart (Novolog Insulin Pen) NOVOLOG *MILD* ALGORITHM Q4 SC Last administered on 03/01/17 17:28; Admin Dose 1 UNIT; Start 02/20/17 at 13:00 Pantoprazole (Protonix Iv) 40 mg BID@06,18 IV Last administered on 03/01/17 17 :48; Admin Dose 40 MG; Start 02/20/17 at 18:00 Aspirin (Halfprin) 81 mg DAILY PO Last administered on 02/23/17 10:58; Admin Dose 81 MG; Start 02/21/17 at 09:00; Status Future Hold Levothyroxine Sodium (Synthroid) 50 mcg DAILY@06 PO Last administered on 05:22; Admin Dose 50 MCG; Start 02/22/17 at 06:00; Status Future hold Venlafaxine HCl (Effexor) 25 mg BID NGT Last administered on 03/01/17 09:47; Admin Dose 25 MG; Start 02/22/17 at 10:30 Vancomycin HCl (Vancomycin Oral Syringe) 250 mg Q6 PO Last administered on 03/01 17:48; Admin Dose 250 MG; Start 02/24/17 at 18:00 Ergocalciferol (Drisdol) 50,000 unit Sa@09 PO Last administered on 02/25/17 08 :31; Admin Dose 50,000 UNIT; Start 02/25/17 at 09:00 Insulin Glargine 6 unit 6 unit BID SC ; Start 02/25/17 at 09:00; Status Future Hold Metronidazole/N/A (Flagyl 500 Mg (Pmx)/Evac Container) 50 ml @ 50 mls/hr Q8 IVPB Last administered on 03/01/17 13:28; Admin Dose 50 MLS/HR; Start at 14:00 Citric Acid/ Sodium Citrate (Bicitra) 30 ml BID PO Last administered on 09:43; Admin Dose 30 ML; Start 02/28/17 at 11:00 Miscellaneous Information This patient dean... PRN PRN XX WOUND CARE; Start 02/28 at 15:00 Sodium Chloride (NS) 1,000 ml @ 100 mls/hr Q10H IV Last administered on 06:04; Admin Dose 100 MLS/HR; Start 03/01/17 at 06:00 Apixaban (Eliquis) 10 mg BID PO ; Start 03/01/17 at 21:00; Stop 03/08/17 at 09: 01 Apixaban (Eliquis) 5 mg BID PO ; Start 03/08/17 at 21:00; Stop 04/07/17 at 09:01 ANJEL LEE MD March 01, 2017 17:55
[2017-03-01] MEDS: ATORVASTATIN 80 MG TAB PO SCH (20:44)
[2017-03-01] MEDS ORDERED: APIXABAN 5 MG TABLET PO SCH ×2 (21:00)
[2017-03-02] VITALS (12 sets, daily range): BP systolic 93–122; BP diastolic 54–64; PULSE 111–130; RESP 17–19
[2017-03-02] MEDS: VANCOMYCIN HCL 250 MG/5ML POSYG PO SCH ×4 (00:11→17:50)
[2017-03-02] MEDS: INSULIN ASPART [NOVOLOG] 3 ML PEN SC SCH ×6 (01:00→20:54)
[2017-03-02] MEDS: SOD CHLORIDE 0.9% 1,000 ML IV SCH ×2 (02:00→05:38)
[2017-03-02] MEDS: ACCUCHECK AT 2AM (Patients on SS coverage) XX SCH (02:00)
[2017-03-02] MEDS: PANTOPRAZOLE 40 MG INJ IV SCH ×2 (05:40→17:50)
[2017-03-02] MEDS: metroNIDAZOLE 500 MG/NS (PMX) 250 MG in EVAC CONTAINER 1 BOTTLE IVPB SCH ×2 (05:40→21:25)
[2017-03-02] MEDS: LEVOTHYROXINE 50 MCG TAB PO SCH (05:40)
[2017-03-02 07:08] LABS: ADD SCAN DIFF NO
[2017-03-02 07:23] LABS: ABNORMAL IP MESSAGE 1; HEMATOCRIT 27.2 % (42.0-52.0); HEMOGLOBIN 8.8 g/dl (14.0-18.0); MEAN CORPUSCULAR HEMOGLOBIN 29.1 pg (29.0-33.0); MEAN CORPUSCULAR HGB CONC 32.4 g/dl (32.0-37.0); MEAN CORPUSCULAR VOLUME 90.1 fl (82.0-101.0); MEAN PLATELET VOLUME 13.3 fl (7.4-10.4); PLATELET COUNT 40 10^3/UL (140-415); RED BLOOD COUNT 3.02 10^6/ul (4.70-6.10); RED CELL DISTRIBUTION WIDTH 18.9 % (11.5-14.5); WHITE BLOOD COUNT 3.2 10^3/ul (4.8-10.8)
[2017-03-02 07:37] LABS: PROTIME 56.7 Sec (12.2-14.2); PT RATIO 4.4
[2017-03-02 07:47] LABS: INR 6.27
[2017-03-02 07:58] LABS: ALBUMIN 1.4 g/dl (3.3-4.9); ALBUMIN/GLOBULIN RATIO 0.6; BILIRUBIN,INDIRECT 0.1 mg/dl (0-1.1); BILIRUBIN,TOTAL 0.1 mg/dl (0.2-1.3); CALCIUM 6.6 mg/dl (8.4-10.2); CREATININE 0.95 mg/dl (0.61-1.24); POTASSIUM 3.4 mmol/L (3.5-5.1); TOTAL PROTEIN 3.7 g/dl (6.1-8.1)
[2017-03-02] MEDS ORDERED: POTASSIUM CHLORIDE 20 MEQ POWDER FOR ORAL SOLN NGT ONE (09:00)
--- NOTE | 2017-03-02 09:16 | PN ---
DATE: 03/02/2017 CARDIOLOGY FOLLOWUP SUBJECTIVE: Discussed with the staff. Rhythm strip was reviewed. The patient remains in sinus rhy thm, sinus tachycardia. No evidence of atrial fibrillation. Still not able to answer questions. I ing was reviewed and discussed with the staff. MEDICATIONS: Reviewed. PHYSICAL EXAMINATION: VITAL SIGNS: Temperature 98, heart rate of 111, blood pressure 105/64, respiratory rate of 17, satu rating 94%. HEENT: Normocephalic, atraumatic. Elderly gentleman. Status post NG tube in place. CARDIOVASCULAR: Tachycardic. PULMONARY: With mild rhonchi. GASTROINTESTINAL: Soft. No rebound or guarding. EXTREMITIES: With positive diffuse edema. NEUROLOGIC: He is awake, appears to be alert; however, unable to speak. LABORATORY: Chemistry is still pending from today. WBC is 3.2, hemoglobin of 8.8, platelets of 40. P T/INR is still pending. ASSESSMENT AND PLAN: 1. Coronary artery disease with a history of myocardial infarction and history of percutaneous tomi nary intervention. 2. Septic shock. Currently blood pressure has improved. Still hypotensive. 3. Clostridium difficile colitis. 4. Acute renal failure. 5. Severe malnutrition. 6. Electrolyte abnormalities with hypokalemia. 7. Severe coagulopathy with questionable DIC. 7. Dysphagia. RECOMMENDATIONS: The Brilinta will be continued. The patient is currently on Eliquis. Will discus s further with Dr. Deng. May have to discontinue given his coagulopathy. Antibiotics as per in ternal medicine. Continue to monitor on telemetry. Electrolytes will be corrected as needed. Dictated By: CAITIE LOPEZ MD AV/NTS Conf#: [id number] DID#: [id number] CC: BEBO SEYMOUR MD;*EndCC*
--- NOTE | 2017-03-02 09:23 | CONS ---
Date/Time of Note Date/Time of Note DATE: 03/02/17 TIME: 09:20 Assessment/Plan Assessment/Plan Additional Assessment/Plan 1. Septic shock 2. Acute kidney injury secondary to acute tubular necrosis from septic shock. 3. Hyperchloremic non-anion gap metabolic acidosis likely secondary to severe diarrhea. 4. Hyponatremia, likely secondary to hypovolemic hyponatremia. 5. 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 6. Hypocalcemia, but the corrected calcium with a low albumin has been pretty much normal. PLAN: Cr improved, K low- KCL 20mEQ IV X 1 d/c IVF due to hyperchloremic metabolic acidosis Bicitra 30ml PO BID for low metabolic acidosis good urine output will continue to follow up Full Code Consultation Date/Type/Reason Admit Date/Time February 19, 2017 at 14:52 Initial Consult Date 02/20/2017 Type of Consultation: NEPHROLOGY Referring Provider: BEBO SEYMOUR 24 HR Interval Summary Free Text/Dictation remained stable, no acute events Exam/Review of Systems Vital Signs Vitals Vital Signs Date Time Temp Pulse Resp B/P Pulse Ox O2 Delivery O2 Flow Rate FiO2 03/02/17 08:00 115 03/02/17 07:53 98.1 18 97/55 95 02/27/17 18:25 Room Air 02/26/17 17:42 21 Intake and Output 03/01/17 03/01/17 03/02/17 15:00 23:00 07:00 Intake Total 100 ml 650 ml 1670 ml Output Total 250 ml 1000 ml 750 ml Balance -150 ml -350 ml 920 ml Exam GENERAL: This is a fragile, chronically ill-appearing, elderly man who is in no distress. HEENT: Head atraumatic, normocephalic. Sclerae anicteric. Buccal mucosa dry. NECK: Supple, trachea midline. CHEST: Rise symmetrical. Breath sounds diminished to bases. HEART: S1, S2. ABDOMEN: Soft, bowel tones present. EXTREMITIES: Without cyanosis. Results Result Diagram: 03/02/17 0609 03/02/17 0609 Results 24 hrs Laboratory Tests Test 03/01/17 12:24 03/01/17 17:24 03/01/17 20:49 03/02/17 01:19 Bedside Glucose 165 168 149 182 Test 03/02/17 04:47 03/02/17 06:09 Bedside Glucose 133 White Blood Count 3.2 L Red Blood Count 3.02 L Hemoglobin 8.8 L Hematocrit 27.2 L Mean Corpuscular Volume 90.1 Mean Corpuscular Hemoglobin 29.1 Mean Corpuscular Hemoglobin Concent 32.4 Red Cell Distribution Width 18.9 H Platelet Count 40 L Mean Platelet Volume 13.3 H Neutrophils % Lymphocytes % Monocytes % Eosinophils % Neutrophils # Lymphocytes # Monocytes # Eosinophils # Prothrombin Time 56.7 #H Prothrombin Time Ratio 4.4 INR International Normalized Ratio 6.27 *H Sodium Level 140 Potassium Level 3.4 L Chloride Level 118 H Carbon Dioxide Level 19 L Anion Gap 6 L Blood Urea Nitrogen 24 H Creatinine 0.95 Glucose Level 124 Calcium Level 6.6 L Total Bilirubin 0.1 L Direct Bilirubin 0.00 Indirect Bilirubin 0.1 Aspartate Amino Transf (AST/SGOT) 19 Alanine Aminotransferase (ALT/SGPT) 43 Alkaline Phosphatase 323 H Total Protein 3.7 L Albumin 1.4 L Globulin 2.30 Albumin/Globulin Ratio 0.60 Medications Medications Current Medications Lactobacillus Acidophilus/ Rhamnosus (Culturelle) 1 cap BID PO Last administered on 03/01/17 20:44; Admin Dose 1 CAP; Start 02/19/17 at 21:00 Multivitamins Therapeutic (Theragran) 1 tab DAILY PO Last administered on 09:43; Admin Dose 1 TAB; Start 02/20/17 at 09:00 Ascorbic Acid (Vitamin C) 500 mg QAM PO Last administered on 03/01/17 09:43; Admin Dose 500 MG; Start 02/20/17 at 09:00 Ticagrelor (Brilinta) 90 mg QAM PO Last administered on 03/01/17 09:57; Admin Dose 90 MG; Start 02/19/17 at 16:30; Status Future Hold Zinc Sulfate (Zinc Sulfate) 220 mg QAM PO Last administered on 03/01/17 09:47 ; Admin Dose 220 MG; Start 02/20/17 at 09:00 Atorvastatin Calcium (Lipitor) 80 mg DAILY@21 PO Last administered on 20:44; Admin Dose 80 MG; Start 02/19/17 at 21:00 Ondansetron HCl (Zofran Inj) 4 mg Q6H PRN IV NAUSEA AND/OR VOMITING; Start at 16:30 Acetaminophen (Tylenol Tab) 650 mg Q6H PRN PO PAIN LEVEL 1-3 OR FEVER; Start at 16:30 Acetaminophen (Tylenol Supp) 650 mg Q6H PRN [place] PAIN LEVEL 1-3 OR FEVER; Start 02/19/17 at 16:30 Acetaminophen/ Hydrocodone Bitart ([place] (5/325)) 1 tab Q6H PRN PO MODERATE PAIN LEVEL 4-6; Start 02/19/17 at 16:30 Morphine Sulfate (morphine) 2 mg Q4H PRN IV SEVERE PAIN LEVEL 7-10 Last administered on 02/28/17 08:59; Admin Dose 2 MG; Start 02/19/17 at 16:30 Miscellaneous Information 1 ea NOTE XX ; Start 02/19/17 at 16:30 Glucose (Glutose) 15 gm Q15M PRN PO DECREASED GLUCOSE; Start 02/19/17 at 16:30 Glucose (Glutose) 22.5 gm Q15M PRN PO DECREASED GLUCOSE; Start 02/19/17 at 16: 30 Dextrose (D50w Syringe) 25 ml Q15M PRN IV DECREASED GLUCOSE Last administered on 02/25/17 04:31; Admin Dose 25 ML; Start 02/19/17 at 16:30 Dextrose (D50w Syringe) 50 ml Q15M PRN IV DECREASED GLUCOSE Last administered on 02/25/17 20:58; Admin Dose 50 ML; Start 02/19/17 at 16:30 Glucagon (Glucagen) 1 mg Q15M PRN IM DECREASED GLUCOSE; Start 02/19/17 at 16:30 Glucose (Glutose) 15 gm Q15M PRN BUCCAL DECREASED GLUCOSE; Start 02/19/17 at 16 :30 Diagnostic Test (Pha) (Accu-Chek) 1 ea 02 XX Last administered on 03/02/17 02: 00; Admin Dose 1 EA; Start 02/20/17 at 02:00 Insulin Aspart (Novolog Insulin Pen) NOVOLOG *MILD* ALGORITHM Q4 SC Last administered on 03/01/17 17:28; Admin Dose 1 UNIT; Start 02/20/17 at 13:00 Pantoprazole (Protonix Iv) 40 mg BID@06,18 IV Last administered on 03/02/17 05 :40; Admin Dose 40 MG; Start 02/20/17 at 18:00 Aspirin (Halfprin) 81 mg DAILY PO Last administered on 02/23/17 10:58; Admin Dose 81 MG; Start 02/21/17 at 09:00; Status Future Hold Levothyroxine Sodium (Synthroid) 50 mcg DAILY@06 PO Last administered on 05:40; Admin Dose 50 MCG; Start 02/22/17 at 06:00; Status Future hold Venlafaxine HCl (Effexor) 25 mg BID NGT Last administered on 03/01/17 20:44; Admin Dose 25 MG; Start 02/22/17 at 10:30 Vancomycin HCl (Vancomycin Oral Syringe) 250 mg Q6 PO Last administered on 03/02 05:40; Admin Dose 250 MG; Start 02/24/17 at 18:00 Ergocalciferol (Drisdol) 50,000 unit Sa@09 PO Last administered on 02/25/17 08 :31; Admin Dose 50,000 UNIT; Start 02/25/17 at 09:00 Insulin Glargine 6 unit 6 unit BID SC ; Start 02/25/17 at 09:00; Status Future Hold Metronidazole/N/A (Flagyl 500 Mg (Pmx)/Evac Container) 50 ml @ 50 mls/hr Q8 IVPB Last administered on 03/02/17 05:40; Admin Dose 50 MLS/HR; Start at 14:00 Citric Acid/ Sodium Citrate (Bicitra) 30 ml BID PO Last administered on 21:51; Admin Dose 30 ML; Start 02/28/17 at 11:00 Miscellaneous Information This patient dean... PRN PRN XX WOUND CARE; Start 02/28 at 15:00 Sodium Chloride (NS) 1,000 ml @ 100 mls/hr Q10H IV Last administered on 05:38; Admin Dose 100 MLS/HR; Start 03/01/17 at 06:00 ANJEL LEE MD March 02, 2017 09:23
[2017-03-02] MEDS: MULTIVITAMINS THERAPEUTIC TAB PO SCH (09:54)
[2017-03-02] MEDS: ASCORBIC ACID 500 MG TAB PO SCH (09:54)
[2017-03-02] MEDS: CITRIC ACID/SODIUM CITRATE 15 ML CUP PO SCH ×2 (09:54→20:44)
[2017-03-02] MEDS: ZINC SULFATE 220 MG CAP PO SCH (09:54)
[2017-03-02] MEDS: VENLAFAXINE 25 MG TAB NGT SCH ×2 (09:57→20:45)
[2017-03-02] MEDS: LACTOBACILLUS RHAMNOSUS CAP PO SCH ×2 (10:06→20:45)
--- NOTE | 2017-03-02 10:29 | CONS ---
Date/Time of Note Date/Time of Note DATE: 03/02/17 TIME: 10:26 Consult Date/Type/Reason Admit Date/Time February 19, 2017 at 14:52 Type of Consultation: Pulmonary Ordering Provider: BEBO SEYMOUR Subjective Patient appears comfortable at rest no acute distress Objective Vital Signs Date Time Temp Pulse Resp B/P Pulse Ox O2 Delivery O2 Flow Rate FiO2 03/02/17 08:00 115 03/02/17 07:53 98.1 18 97/55 95 02/27/17 18:25 Room Air 02/26/17 17:42 21 Intake and Output 03/01/17 03/01/17 03/02/17 15:00 23:00 07:00 Intake Total 100 ml 650 ml 1670 ml Output Total 250 ml 1000 ml 750 ml Balance -150 ml -350 ml 920 ml Exam GENERAL: Elderly gentleman comfortable at rest no acute distress VITAL SIGNS: per chart NECK: Supple. No JVD or lymphadenopathy. CARDIAC EXAM: S1, S2. No added sounds or murmurs. CHEST: clear bilaterally, No added sounds, rales or wheezes ABDOMEN: Soft, nontender. No guarding or rebound. Bowel sounds present EXTREMITIES: No cyanosis, clubbing, edema +1 NEUROLOGIC: Generalized weakness. Results/Medications Result Diagram: 03/02/17 0609 03/02/17 0609 Results 24 hrs Laboratory Tests Test 03/01/17 12:24 03/01/17 17:24 03/01/17 20:49 03/02/17 01:19 Bedside Glucose 165 168 149 182 Test 03/02/17 04:47 03/02/17 06:09 03/02/17 09:58 Bedside Glucose 133 139 White Blood Count 3.2 L Red Blood Count 3.02 L Hemoglobin 8.8 L Hematocrit 27.2 L Mean Corpuscular Volume 90.1 Mean Corpuscular Hemoglobin 29.1 Mean Corpuscular Hemoglobin Concent 32.4 Red Cell Distribution Width 18.9 H Platelet Count 40 L Mean Platelet Volume 13.3 H Neutrophils % Lymphocytes % Monocytes % Eosinophils % Neutrophils # Lymphocytes # Monocytes # Eosinophils # Prothrombin Time 56.7 #H Prothrombin Time Ratio 4.4 INR International Normalized Ratio 6.27 *H Sodium Level 140 Potassium Level 3.4 L Chloride Level 118 H Carbon Dioxide Level 19 L Anion Gap 6 L Blood Urea Nitrogen 24 H Creatinine 0.95 Glucose Level 124 Calcium Level 6.6 L Total Bilirubin 0.1 L Direct Bilirubin 0.00 Indirect Bilirubin 0.1 Aspartate Amino Transf (AST/SGOT) 19 Alanine Aminotransferase (ALT/SGPT) 43 Alkaline Phosphatase 323 H Total Protein 3.7 L Albumin 1.4 L Globulin 2.30 Albumin/Globulin Ratio 0.60 Medications Current Medications Lactobacillus Acidophilus/ Rhamnosus (Culturelle) 1 cap BID PO Last administered on 03/02/17 10:06; Admin Dose 1 CAP; Start 02/19/17 at 21:00 Multivitamins Therapeutic (Theragran) 1 tab DAILY PO Last administered on 09:54; Admin Dose 1 TAB; Start 02/20/17 at 09:00 Ascorbic Acid (Vitamin C) 500 mg QAM PO Last administered on 03/02/17 09:54; Admin Dose 500 MG; Start 02/20/17 at 09:00 Ticagrelor (Brilinta) 90 mg QAM PO Last administered on 03/01/17 09:57; Admin Dose 90 MG; Start 02/19/17 at 16:30; Status Future Hold Zinc Sulfate (Zinc Sulfate) 220 mg QAM PO Last administered on 03/02/17 09:54 ; Admin Dose 220 MG; Start 02/20/17 at 09:00 Atorvastatin Calcium (Lipitor) 80 mg DAILY@21 PO Last administered on 20:44; Admin Dose 80 MG; Start 02/19/17 at 21:00 Ondansetron HCl (Zofran Inj) 4 mg Q6H PRN IV NAUSEA AND/OR VOMITING; Start at 16:30 Acetaminophen (Tylenol Tab) 650 mg Q6H PRN PO PAIN LEVEL 1-3 OR FEVER; Start at 16:30 Acetaminophen (Tylenol Supp) 650 mg Q6H PRN [place] PAIN LEVEL 1-3 OR FEVER; Start 02/19/17 at 16:30 Acetaminophen/ Hydrocodone Bitart ([place] (5/325)) 1 tab Q6H PRN PO MODERATE PAIN LEVEL 4-6; Start 02/19/17 at 16:30 Morphine Sulfate (morphine) 2 mg Q4H PRN IV SEVERE PAIN LEVEL 7-10 Last administered on 02/28/17 08:59; Admin Dose 2 MG; Start 02/19/17 at 16:30 Miscellaneous Information 1 ea NOTE XX ; Start 02/19/17 at 16:30 Glucose (Glutose) 15 gm Q15M PRN PO DECREASED GLUCOSE; Start 02/19/17 at 16:30 Glucose (Glutose) 22.5 gm Q15M PRN PO DECREASED GLUCOSE; Start 02/19/17 at 16: 30 Dextrose (D50w Syringe) 25 ml Q15M PRN IV DECREASED GLUCOSE Last administered on 02/25/17 04:31; Admin Dose 25 ML; Start 02/19/17 at 16:30 Dextrose (D50w Syringe) 50 ml Q15M PRN IV DECREASED GLUCOSE Last administered on 02/25/17 20:58; Admin Dose 50 ML; Start 02/19/17 at 16:30 Glucagon (Glucagen) 1 mg Q15M PRN IM DECREASED GLUCOSE; Start 02/19/17 at 16:30 Glucose (Glutose) 15 gm Q15M PRN BUCCAL DECREASED GLUCOSE; Start 02/19/17 at 16 :30 Diagnostic Test (Pha) (Accu-Chek) 1 ea 02 XX Last administered on 03/02/17 02: 00; Admin Dose 1 EA; Start 02/20/17 at 02:00 Insulin Aspart (Novolog Insulin Pen) NOVOLOG *MILD* ALGORITHM Q4 SC Last administered on 03/01/17 17:28; Admin Dose 1 UNIT; Start 02/20/17 at 13:00 Pantoprazole (Protonix Iv) 40 mg BID@06,18 IV Last administered on 03/02/17 05 :40; Admin Dose 40 MG; Start 02/20/17 at 18:00 Aspirin (Halfprin) 81 mg DAILY PO Last administered on 02/23/17 10:58; Admin Dose 81 MG; Start 02/21/17 at 09:00; Status Future Hold Levothyroxine Sodium (Synthroid) 50 mcg DAILY@06 PO Last administered on 05:40; Admin Dose 50 MCG; Start 02/22/17 at 06:00; Status Future hold Venlafaxine HCl (Effexor) 25 mg BID NGT Last administered on 03/02/17 09:57; Admin Dose 25 MG; Start 02/22/17 at 10:30 Vancomycin HCl (Vancomycin Oral Syringe) 250 mg Q6 PO Last administered on 03/02 05:40; Admin Dose 250 MG; Start 02/24/17 at 18:00 Ergocalciferol (Drisdol) 50,000 unit Sa@09 PO Last administered on 02/25/17 08 :31; Admin Dose 50,000 UNIT; Start 02/25/17 at 09:00 Insulin Glargine 6 unit 6 unit BID SC ; Start 02/25/17 at 09:00; Status Future Hold Metronidazole/N/A (Flagyl 500 Mg (Pmx)/Evac Container) 50 ml @ 50 mls/hr Q8 IVPB Last administered on 03/02/17 05:40; Admin Dose 50 MLS/HR; Start at 14:00 Citric Acid/ Sodium Citrate (Bicitra) 30 ml BID PO Last administered on 09:54; Admin Dose 30 ML; Start 02/28/17 at 11:00 Miscellaneous Information This patient dean... PRN PRN XX WOUND CARE; Start 02/28 at 15:00 Potassium Chloride/Sodium Chloride (KCl/NS) 110 ml @ 55 mls/hr ONCE ONCE IVPB ; Start 03/02/17 at 11:00; Stop 03/02/17 at 12:59 Assessment/Plan Chief Complaint/Hosp Course IMPRESSION AND PLAN: 1. Status post septic shock with C. difficile colitis 2. Possible healthcare-associated pneumonia. 3. Recent renal insufficiency now with evidence of metabolic acidosis 4. Hyponatremia resolved. 5. Sinus tachycardia likely secondary to vasopressors now improved off Levophed. 6. History of depression 7. Thrombocytopenia possibly secondary to underlying sepsis elevated INR PLAN: 1. Continue antibiotics, 2. Infectious disease recommendations consider de-escalation of antibiotics 3. Speech therapy recommendations when patient more alert 4. DVT and GI prophylaxis. 5. aspiration precautions. 6. Discontinue anticoagulation, vitamin K 1 monitor closely. May require FFP. Disposition Disposition continue telemetry care Consider addressing CODE STATUS Problems: PAULO TRIMBLE MD, [facility] March 02, 2017 10:29
[2017-03-02] MEDS ORDERED: PHYTONADIONE 10 MG/ML INJ SC ONE (10:30)
[2017-03-02 10:33] LABS: LYMPHOCYTES # 1.1 10^3/ul (0.8-2.9); MONOCYTE # 0.2 10^3/ul (0.3-0.9); NEUTROPHIL # 1.6 10^3/ul (1.6-7.5); PLATELET ESTIMATE PLT APPEAR DECREASED
[2017-03-02] MEDS ORDERED: POTASSIUM CHLORIDE 20 MEQ in SOD CHLORIDE 0.9% 100 ML IVPB ONE (11:00)
[2017-03-02] MEDS: morphine 2 MG INJ IV PRN (11:45)
--- NOTE | 2017-03-02 14:13 | CONS ---
Date/Time of Note Date/Time of Note DATE: 03/02/17 TIME: 14:11 Assessment/Plan Assessment/Plan Chief Complaint/Hosp Course SUBJECTIVE: Lethargic, tachycardic, looks comfortable. No fevers. INDWELLINGS: NG tube, Christopher catheter, rectal tube, peripheral IV. ANTIMICROBIALS: 1. Flagyl. 2. Oral vancomycin. PHYSICAL EXAMINATION: GENERAL: Fragile, elderly man, who is in no distress. HEENT: Head atraumatic, normocephalic. Sclerae are anicteric. Buccal mucosa dry. NECK: Supple, trachea midline. CHEST: Chest rise is symmetrical. Breath sounds diminished to the bases. HEART: S1, S2, irregular, tachycardic. ABDOMEN: Soft, bowel tones present. EXTREMITIES: No cyanosis. ASSESSMENT: 1. Sepsis, status post shock. 2. Clostridium difficile colitis. 3. Status post pneumonia. 4. Transaminitis. 5. Diabetes. 6. History of prostate cancer. PLAN: Patient is clinically unchanged, continue PO Vanco, dc Flagyl, continue aspiration precautions, pulmonary/card rec-s DW staff Problems: Consultation Date/Type/Reason Admit Date/Time February 19, 2017 at 14:52 Initial Consult Date 02/25/17 Type of Consultation: ID Referring Provider: BEBO SEYMOUR Exam/Review of Systems Vital Signs Vitals Vital Signs Date Time Temp Pulse Resp B/P Pulse Ox O2 Delivery O2 Flow Rate FiO2 03/02/17 12:00 121 03/02/17 07:53 98.1 18 97/55 95 02/27/17 18:25 Room Air 02/26/17 17:42 21 Intake and Output 03/01/17 03/01/17 03/02/17 15:00 23:00 07:00 Intake Total 100 ml 650 ml 1670 ml Output Total 250 ml 1000 ml 750 ml Balance -150 ml -350 ml 920 ml Results Result Diagram: 03/02/17 0609 03/02/17 0609 Results 24 hrs Laboratory Tests Test 03/01/17 17:24 03/01/17 20:49 03/02/17 01:19 03/02/17 04:47 Bedside Glucose 168 149 182 133 Test 03/02/17 06:09 03/02/17 09:58 03/02/17 13:39 White Blood Count 3.2 L Red Blood Count 3.02 L Hemoglobin 8.8 L Hematocrit 27.2 L Mean Corpuscular Volume 90.1 Mean Corpuscular Hemoglobin 29.1 Mean Corpuscular Hemoglobin Concent 32.4 Red Cell Distribution Width 18.9 H Platelet Count 40 L Mean Platelet Volume 13.3 H Neutrophils % 49.0 Band Neutrophils % 9.0 H Lymphocytes % 35.0 Monocytes % 6.0 Eosinophils % 1.0 Neutrophils # 1.6 Lymphocytes # 1.1 Monocytes # 0.2 L Eosinophils # 0.0 Platelet Estimate PLT APPEAR DECREASED Prothrombin Time 56.7 #H Prothrombin Time Ratio 4.4 INR International Normalized Ratio 6.27 *H Sodium Level 140 Potassium Level 3.4 L Chloride Level 118 H Carbon Dioxide Level 19 L Anion Gap 6 L Blood Urea Nitrogen 24 H Creatinine 0.95 Glucose Level 124 Calcium Level 6.6 L Total Bilirubin 0.1 L Direct Bilirubin 0.00 Indirect Bilirubin 0.1 Aspartate Amino Transf (AST/SGOT) 19 Alanine Aminotransferase (ALT/SGPT) 43 Alkaline Phosphatase 323 H Total Protein 3.7 L Albumin 1.4 L Globulin 2.30 Albumin/Globulin Ratio 0.60 Bedside Glucose 139 141 Medications Medications Current Medications Lactobacillus Acidophilus/ Rhamnosus (Culturelle) 1 cap BID PO Last administered on 03/02/17 10:06; Admin Dose 1 CAP; Start 02/19/17 at 21:00 Multivitamins Therapeutic (Theragran) 1 tab DAILY PO Last administered on 09:54; Admin Dose 1 TAB; Start 02/20/17 at 09:00 Ascorbic Acid (Vitamin C) 500 mg QAM PO Last administered on 03/02/17 09:54; Admin Dose 500 MG; Start 02/20/17 at 09:00 Ticagrelor (Brilinta) 90 mg QAM PO Last administered on 03/01/17 09:57; Admin Dose 90 MG; Start 02/19/17 at 16:30; Status Future Hold Zinc Sulfate (Zinc Sulfate) 220 mg QAM PO Last administered on 03/02/17 09:54 ; Admin Dose 220 MG; Start 02/20/17 at 09:00 Atorvastatin Calcium (Lipitor) 80 mg DAILY@21 PO Last administered on 20:44; Admin Dose 80 MG; Start 02/19/17 at 21:00 Ondansetron HCl (Zofran Inj) 4 mg Q6H PRN IV NAUSEA AND/OR VOMITING; Start at 16:30 Acetaminophen (Tylenol Tab) 650 mg Q6H PRN PO PAIN LEVEL 1-3 OR FEVER; Start at 16:30 Acetaminophen (Tylenol Supp) 650 mg Q6H PRN [place] PAIN LEVEL 1-3 OR FEVER; Start 02/19/17 at 16:30 Acetaminophen/ Hydrocodone Bitart ([place] (5/325)) 1 tab Q6H PRN PO MODERATE PAIN LEVEL 4-6; Start 02/19/17 at 16:30 Morphine Sulfate (morphine) 2 mg Q4H PRN IV SEVERE PAIN LEVEL 7-10 Last administered on 03/02/17 11:45; Admin Dose 2 MG; Start 02/19/17 at 16:30 Miscellaneous Information 1 ea NOTE XX ; Start 02/19/17 at 16:30 Glucose (Glutose) 15 gm Q15M PRN PO DECREASED GLUCOSE; Start 02/19/17 at 16:30 Glucose (Glutose) 22.5 gm Q15M PRN PO DECREASED GLUCOSE; Start 02/19/17 at 16: 30 Dextrose (D50w Syringe) 25 ml Q15M PRN IV DECREASED GLUCOSE Last administered on 02/25/17 04:31; Admin Dose 25 ML; Start 02/19/17 at 16:30 Dextrose (D50w Syringe) 50 ml Q15M PRN IV DECREASED GLUCOSE Last administered on 02/25/17 20:58; Admin Dose 50 ML; Start 02/19/17 at 16:30 Glucagon (Glucagen) 1 mg Q15M PRN IM DECREASED GLUCOSE; Start 02/19/17 at 16:30 Glucose (Glutose) 15 gm Q15M PRN BUCCAL DECREASED GLUCOSE; Start 02/19/17 at 16 :30 Diagnostic Test (Pha) (Accu-Chek) 1 ea 02 XX Last administered on 03/02/17 02: 00; Admin Dose 1 EA; Start 02/20/17 at 02:00 Insulin Aspart (Novolog Insulin Pen) NOVOLOG *MILD* ALGORITHM Q4 SC Last administered on 03/02/17 13:50; Admin Dose 1 UNIT; Start 02/20/17 at 13:00 Pantoprazole (Protonix Iv) 40 mg BID@,18 IV Last administered on 03/02/17 05 :40; Admin Dose 40 MG; Start 02/20/17 at 18:00 Aspirin (Halfprin) 81 mg DAILY PO Last administered on 02/23/17 10:58; Admin Dose 81 MG; Start 02/21/17 at 09:00; Status Future Hold Levothyroxine Sodium (Synthroid) 50 mcg DAILY@06 PO Last administered on 05:40; Admin Dose 50 MCG; Start 02/22/17 at 06:00; Status Future hold Venlafaxine HCl (Effexor) 25 mg BID NGT Last administered on 03/02/17 09:57; Admin Dose 25 MG; Start 02/22/17 at 10:30 Vancomycin HCl (Vancomycin Oral Syringe) 250 mg Q6 PO Last administered on 03/02 11:15; Admin Dose 250 MG; Start 02/24/17 at 18:00 Ergocalciferol (Drisdol) 50,000 unit Sa@09 PO Last administered on 02/25/17 08 :31; Admin Dose 50,000 UNIT; Start 02/25/17 at 09:00 Insulin Glargine 6 unit 6 unit BID SC ; Start 02/25/17 at 09:00; Status Future Hold Metronidazole/N/A (Flagyl 500 Mg (Pmx)/Evac Container) 50 ml @ 50 mls/hr Q8 IVPB Last administered on 03/02/17 05:40; Admin Dose 50 MLS/HR; Start at 14:00 Citric Acid/ Sodium Citrate (Bicitra) 30 ml BID PO Last administered on 09:54; Admin Dose 30 ML; Start 02/28/17 at 11:00 Miscellaneous Information (Pending Santyl Order For Wound Care) This patient dean... PRN PRN XX WOUND CARE; Start 02/28/17 at 15:00 MICHAELA SPEARS NP March 02, 2017 14:13
--- NOTE | 2017-03-02 16:08 | PN ---
Date/Time of Note Date/Time of Note DATE: 03/02/17 TIME: 16:05 Assessment/Plan VTE Prophylaxis VTE Prophylaxis Intervention: SCD's Lines/Catheters IV Catheter Type (from [facility]): Central Line Central line still needed: Yes Assessment/Plan Assessment/Plan C difficile colitis Transaminitis resolved * MRI * No biliary ductal dilatation. No CBD stones. Gallstones in mildly distended gallbladder with no gallbladder wall thickening. If there is clinical suspicion for acute cholecystitis, . Morphologic changes suggestive of cirrhosis. . Small abdominopelvic ascites. Ultrasound . Sludge and small stones in the gallbladder without definite secondary signs of acute cholecystitis. * Anemia stable 8.9 * Diabetes mellitus Plan * monitor Hemoglobin and hematocrit q6 and transfuse 1 unit of PRBC if hgn<7.5, if hgb <7 2 uits PRBC * tube feeding goal 50 cc * continue present management * continue present management Subjective 24 Hr Interval Summary Free Text/Dictation * Course reviewed with RN * Patient seen and examined * Episode of hematochezia this morning minimal amount * Patient on Brilinta Exam/Review of Systems Vital Signs Vitals Vital Signs Date Time Temp Pulse Resp B/P Pulse Ox O2 Delivery O2 Flow Rate FiO2 03/02/17 15:22 98.2 121 19 95/55 03/02/17 12:00 95 02/27/17 18:25 Room Air 02/26/17 17:42 21 Intake and Output 03/01/17 03/01/17 03/02/17 15:00 23:00 07:00 Intake Total 100 ml 650 ml 1670 ml Output Total 250 ml 1000 ml 750 ml Balance -150 ml -350 ml 920 ml Exam Constitutional: frail Eyes: nl conjunctiva, nl lids Neck: non-tender, supple Respiratory: clear to auscultation, normal air movement Cardiovascular: nl pulses, regular rate and rhythm Gastrointestinal: soft Genitourinary - Male: nl penis Musculoskeletal: nl extremities to inspection Extremities: normal pulses Results Result Diagram: 03/02/17 0609 03/02/17 0609 Results 24 hrs Laboratory Tests Test 03/01/17 17:24 03/01/17 20:49 03/02/17 01:19 03/02/17 04:47 Bedside Glucose 168 149 182 133 Test 03/02/17 06:09 03/02/17 09:58 03/02/17 13:39 White Blood Count 3.2 L Red Blood Count 3.02 L Hemoglobin 8.8 L Hematocrit 27.2 L Mean Corpuscular Volume 90.1 Mean Corpuscular Hemoglobin 29.1 Mean Corpuscular Hemoglobin Concent 32.4 Red Cell Distribution Width 18.9 H Platelet Count 40 L Mean Platelet Volume 13.3 H Neutrophils % 49.0 Band Neutrophils % 9.0 H Lymphocytes % 35.0 Monocytes % 6.0 Eosinophils % 1.0 Neutrophils # 1.6 Lymphocytes # 1.1 Monocytes # 0.2 L Eosinophils # 0.0 Platelet Estimate PLT APPEAR DECREASED Prothrombin Time 56.7 #H Prothrombin Time Ratio 4.4 INR International Normalized Ratio 6.27 *H Sodium Level 140 Potassium Level 3.4 L Chloride Level 118 H Carbon Dioxide Level 19 L Anion Gap 6 L Blood Urea Nitrogen 24 H Creatinine 0.95 Glucose Level 124 Calcium Level 6.6 L Total Bilirubin 0.1 L Direct Bilirubin 0.00 Indirect Bilirubin 0.1 Aspartate Amino Transf (AST/SGOT) 19 Alanine Aminotransferase (ALT/SGPT) 43 Alkaline Phosphatase 323 H Total Protein 3.7 L Albumin 1.4 L Globulin 2.30 Albumin/Globulin Ratio 0.60 Bedside Glucose 139 141 Medications Medications Current Medications Lactobacillus Acidophilus/ Rhamnosus (Culturelle) 1 cap BID PO Last administered on 03/02/17 10:06; Admin Dose 1 CAP; Start 02/19/17 at 21:00 Multivitamins Therapeutic (Theragran) 1 tab DAILY PO Last administered on 09:54; Admin Dose 1 TAB; Start 02/20/17 at 09:00 Ascorbic Acid (Vitamin C) 500 mg QAM PO Last administered on 03/02/17 09:54; Admin Dose 500 MG; Start 02/20/17 at 09:00 Ticagrelor (Brilinta) 90 mg QAM PO Last administered on 03/01/17 09:57; Admin Dose 90 MG; Start 02/19/17 at 16:30; Status Future Hold Zinc Sulfate (Zinc Sulfate) 220 mg QAM PO Last administered on 03/02/17 09:54 ; Admin Dose 220 MG; Start 02/20/17 at 09:00 Atorvastatin Calcium (Lipitor) 80 mg DAILY@21 PO Last administered on 20:44; Admin Dose 80 MG; Start 02/19/17 at 21:00 Ondansetron HCl (Zofran Inj) 4 mg Q6H PRN IV NAUSEA AND/OR VOMITING; Start at 16:30 Acetaminophen (Tylenol Tab) 650 mg Q6H PRN PO PAIN LEVEL 1-3 OR FEVER; Start at 16:30 Acetaminophen (Tylenol Supp) 650 mg Q6H PRN [place] PAIN LEVEL 1-3 OR FEVER; Start 02/19/17 at 16:30 Acetaminophen/ Hydrocodone Bitart ([place] (5/325)) 1 tab Q6H PRN PO MODERATE PAIN LEVEL 4-6; Start 02/19/17 at 16:30 Morphine Sulfate (morphine) 2 mg Q4H PRN IV SEVERE PAIN LEVEL 7-10 Last administered on 03/02/17 11:45; Admin Dose 2 MG; Start 02/19/17 at 16:30 Miscellaneous Information 1 ea NOTE XX ; Start 02/19/17 at 16:30 Glucose (Glutose) 15 gm Q15M PRN PO DECREASED GLUCOSE; Start 02/19/17 at 16:30 Glucose (Glutose) 22.5 gm Q15M PRN PO DECREASED GLUCOSE; Start 02/19/17 at 16: 30 Dextrose (D50w Syringe) 25 ml Q15M PRN IV DECREASED GLUCOSE Last administered on 02/25/17 04:31; Admin Dose 25 ML; Start 02/19/17 at 16:30 Dextrose (D50w Syringe) 50 ml Q15M PRN IV DECREASED GLUCOSE Last administered on 02/25/17 20:58; Admin Dose 50 ML; Start 02/19/17 at 16:30 Glucagon (Glucagen) 1 mg Q15M PRN IM DECREASED GLUCOSE; Start 02/19/17 at 16:30 Glucose (Glutose) 15 gm Q15M PRN BUCCAL DECREASED GLUCOSE; Start 02/19/17 at 16 :30 Diagnostic Test (Pha) (Accu-Chek) 1 ea 02 XX Last administered on 03/02/17 02: 00; Admin Dose 1 EA; Start 02/20/17 at 02:00 Insulin Aspart (Novolog Insulin Pen) NOVOLOG *MILD* ALGORITHM Q4 SC Last administered on 03/02/17 13:50; Admin Dose 1 UNIT; Start 02/20/17 at 13:00 Pantoprazole (Protonix Iv) 40 mg BID@06,18 IV Last administered on 03/02/17 05 :40; Admin Dose 40 MG; Start 02/20/17 at 18:00 Aspirin (Halfprin) 81 mg DAILY PO Last administered on 02/23/17 10:58; Admin Dose 81 MG; Start 02/21/17 at 09:00; Status Future Hold Levothyroxine Sodium (Synthroid) 50 mcg DAILY@06 PO Last administered on 05:40; Admin Dose 50 MCG; Start 02/22/17 at 06:00; Status Future hold Venlafaxine HCl (Effexor) 25 mg BID NGT Last administered on 03/02/17 09:57; Admin Dose 25 MG; Start 02/22/17 at 10:30 Vancomycin HCl (Vancomycin Oral Syringe) 250 mg Q6 PO Last administered on 03/02 11:15; Admin Dose 250 MG; Start 02/24/17 at 18:00 Ergocalciferol (Drisdol) 50,000 unit Sa@09 PO Last administered on 02/25/17 08 :31; Admin Dose 50,000 UNIT; Start 02/25/17 at 09:00 Insulin Glargine (Lantus) 6 unit BID SC ; Start 02/25/17 at 09:00; Status Future Hold Citric Acid/ Sodium Citrate (Bicitra) 30 ml BID PO Last administered on 09:54; Admin Dose 30 ML; Start 02/28/17 at 11:00 Miscellaneous Information (Pending [facility] Order For Wound Care) This patient dean... PRN PRN XX WOUND CARE; Start 02/28/17 at 15:00 EVENS MARTIN MD March 02, 2017 16:08
--- NOTE | 2017-03-02 19:56 | PN ---
Date/Time of Note Date/Time of Note DATE: 03/02/17 TIME: 19:54 Assessment/Plan VTE Prophylaxis VTE Prophylaxis Intervention: other Assessment/Plan Chief Complaint/Hosp Course 1. Septic shock secondary to C. difficile colitis-improved Continue antibiotics, ID following 2. Acute kidney injury secondary to acute tubular necrosis from septic shock- resolving Renal following 3. Non-anion gap metabolic acidosis likely secondary to severe diarrhea-stable 4. Hypokalemia-replete 5. 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 Progressively worsening frontal lobe dementia Patient history from patient's and daughter appears the patient has a frontal lobe dementia that is progressively getting worse, patient will need long-term placement and a [place] [facility] [place] Palliative care consultation appreciated accountant manager to assist with [place] [facility] [place] 7. Dysphasia Speech therapy evaluation appreciated rec is for n.p.o. status at this time, will cont tube feeds Prophylaxis: On Brilinta Problems: Subjective 24 Hr Interval Summary Constitutional: disoriented Exam/Review of Systems Vital Signs Vitals Vital Signs Date Time Temp Pulse Resp B/P Pulse Ox O2 Delivery O2 Flow Rate FiO2 03/02/17 16:00 123 03/02/17 15:22 98.2 19 95/55 03/02/17 12:00 95 02/27/17 18:25 Room Air 02/26/17 17:42 21 Intake and Output 03/01/17 03/01/17 03/02/17 15:00 23:00 07:00 Intake Total 100 ml 650 ml 1670 ml Output Total 250 ml 1000 ml 750 ml Balance -150 ml -350 ml 920 ml Exam Constitutional: non-verbal Psych: confusion Respiratory: clear to auscultation Cardiovascular: regular rate and rhythm Gastrointestinal: soft, No distended Musculoskeletal: nl extremities to inspection Results Result Diagram: 03/02/17 0609 03/02/17 0609 Results 24 hrs Laboratory Tests Test 03/01/17 20:49 03/02/17 01:19 03/02/17 04:47 03/02/17 06:09 Bedside Glucose 149 182 133 White Blood Count 3.2 L Red Blood Count 3.02 L Hemoglobin 8.8 L Hematocrit 27.2 L Mean Corpuscular Volume 90.1 Mean Corpuscular Hemoglobin 29.1 Mean Corpuscular Hemoglobin Concent 32.4 Red Cell Distribution Width 18.9 H Platelet Count 40 L Mean Platelet Volume 13.3 H Neutrophils % 49.0 Band Neutrophils % 9.0 H Lymphocytes % 35.0 Monocytes % 6.0 Eosinophils % 1.0 Neutrophils # 1.6 Lymphocytes # 1.1 Monocytes # 0.2 L Eosinophils # 0.0 Platelet Estimate PLT APPEAR DECREASED Prothrombin Time 56.7 #H Prothrombin Time Ratio 4.4 INR International Normalized Ratio 6.27 *H Sodium Level 140 Potassium Level 3.4 L Chloride Level 118 H Carbon Dioxide Level 19 L Anion Gap 6 L Blood Urea Nitrogen 24 H Creatinine 0.95 Glucose Level 124 Calcium Level 6.6 L Total Bilirubin 0.1 L Direct Bilirubin 0.00 Indirect Bilirubin 0.1 Aspartate Amino Transf (AST/SGOT) 19 Alanine Aminotransferase (ALT/SGPT) 43 Alkaline Phosphatase 323 H Total Protein 3.7 L Albumin 1.4 L Globulin 2.30 Albumin/Globulin Ratio 0.60 Test 03/02/17 09:58 03/02/17 13:39 03/02/17 17:50 Bedside Glucose 139 141 132 Medications Medications Current Medications Lactobacillus Acidophilus/ Rhamnosus (Culturelle) 1 cap BID PO Last administered on 03/02/17 10:06; Admin Dose 1 CAP; Start 02/19/17 at 21:00 Multivitamins Therapeutic (Theragran) 1 tab DAILY PO Last administered on 09:54; Admin Dose 1 TAB; Start 02/20/17 at 09:00 Ascorbic Acid (Vitamin C) 500 mg QAM PO Last administered on 03/02/17 09:54; Admin Dose 500 MG; Start 02/20/17 at 09:00 Ticagrelor (Brilinta) 90 mg QAM PO Last administered on 03/01/17 09:57; Admin Dose 90 MG; Start 02/19/17 at 16:30; Status Future Hold Zinc Sulfate (Zinc Sulfate) 220 mg QAM PO Last administered on 03/02/17 09:54 ; Admin Dose 220 MG; Start 02/20/17 at 09:00 Atorvastatin Calcium (Lipitor) 80 mg DAILY@21 PO Last administered on 20:44; Admin Dose 80 MG; Start 02/19/17 at 21:00 Ondansetron HCl (Zofran Inj) 4 mg Q6H PRN IV NAUSEA AND/OR VOMITING; Start at 16:30 Acetaminophen (Tylenol Tab) 650 mg Q6H PRN PO PAIN LEVEL 1-3 OR FEVER; Start at 16:30 Acetaminophen (Tylenol Supp) 650 mg Q6H PRN [place] PAIN LEVEL 1-3 OR FEVER; Start 02/19/17 at 16:30 Acetaminophen/ Hydrocodone Bitart ([place] (5/325)) 1 tab Q6H PRN PO MODERATE PAIN LEVEL 4-6; Start 02/19/17 at 16:30 Morphine Sulfate (morphine) 2 mg Q4H PRN IV SEVERE PAIN LEVEL 7-10 Last administered on 03/02/17 11:45; Admin Dose 2 MG; Start 02/19/17 at 16:30 Miscellaneous Information 1 ea NOTE XX ; Start 02/19/17 at 16:30 Glucose (Glutose) 15 gm Q15M PRN PO DECREASED GLUCOSE; Start 02/19/17 at 16:30 Glucose (Glutose) 22.5 gm Q15M PRN PO DECREASED GLUCOSE; Start 02/19/17 at 16: 30 Dextrose (D50w Syringe) 25 ml Q15M PRN IV DECREASED GLUCOSE Last administered on 02/25/17 04:31; Admin Dose 25 ML; Start 02/19/17 at 16:30 Dextrose (D50w Syringe) 50 ml Q15M PRN IV DECREASED GLUCOSE Last administered on 02/25/17 20:58; Admin Dose 50 ML; Start 02/19/17 at 16:30 Glucagon (Glucagen) 1 mg Q15M PRN IM DECREASED GLUCOSE; Start 02/19/17 at 16:30 Glucose (Glutose) 15 gm Q15M PRN BUCCAL DECREASED GLUCOSE; Start 02/19/17 at 16 :30 Diagnostic Test (Pha) (Accu-Chek) 1 ea 02 XX Last administered on 03/02/17 02: 00; Admin Dose 1 EA; Start 02/20/17 at 02:00 Insulin Aspart (Novolog Insulin Pen) NOVOLOG *MILD* ALGORITHM Q4 SC Last administered on 03/02/17 13:50; Admin Dose 1 UNIT; Start 02/20/17 at 13:00 Pantoprazole (Protonix Iv) 40 mg BID@06,18 IV Last administered on 03/02/17 17 :50; Admin Dose 40 MG; Start 02/20/17 at 18:00 Aspirin (Halfprin) 81 mg DAILY PO Last administered on 02/23/17 10:58; Admin Dose 81 MG; Start 02/21/17 at 09:00; Status Future Hold Levothyroxine Sodium (Synthroid) 50 mcg DAILY@06 PO Last administered on 05:40; Admin Dose 50 MCG; Start 02/22/17 at 06:00; Status Future hold Venlafaxine HCl (Effexor) 25 mg BID NGT Last administered on 03/02/17 09:57; Admin Dose 25 MG; Start 02/22/17 at 10:30 Vancomycin HCl (Vancomycin Oral Syringe) 250 mg Q6 PO Last administered on 03/02 17:50; Admin Dose 250 MG; Start 02/24/17 at 18:00 Ergocalciferol (Drisdol) 50,000 unit Sa@09 PO Last administered on 02/25/17 08 :31; Admin Dose 50,000 UNIT; Start 02/25/17 at 09:00 Insulin Glargine (Lantus) 6 unit BID SC ; Start 02/25/17 at 09:00; Status Future Hold Citric Acid/ Sodium Citrate (Bicitra) 30 ml BID PO Last administered on 09:54; Admin Dose 30 ML; Start 02/28/17 at 11:00 Miscellaneous Information (Pending Santyl Order For Wound Care) This patient dean... PRN PRN XX WOUND CARE; Start 02/28/17 at 15:00 BEBO SEYMOUR March 02, 2017 19:56
[2017-03-02] MEDS: ATORVASTATIN 80 MG TAB PO SCH (20:45)
[2017-03-03] VITALS (11 sets, daily range): BP systolic 91–126; BP diastolic 53–65; PULSE 121–130; RESP 16–19
[2017-03-03] MEDS: VANCOMYCIN HCL 250 MG/5ML POSYG PO SCH ×4 (01:00→17:27)
[2017-03-03] MEDS: INSULIN ASPART [NOVOLOG] 3 ML PEN SC SCH ×6 (01:00→20:15)
[2017-03-03] MEDS: ACCUCHECK AT 2AM (Patients on SS coverage) XX SCH (01:08)
[2017-03-03] MEDS: PANTOPRAZOLE 40 MG INJ IV SCH ×2 (05:36→17:27)
[2017-03-03] MEDS: LEVOTHYROXINE 50 MCG TAB PO SCH (05:37)
[2017-03-03 07:22] LABS: ADD SCAN DIFF NO
[2017-03-03 07:27] LABS: ABNORMAL IP MESSAGE 1; HEMATOCRIT 25.9 % (42.0-52.0); HEMOGLOBIN 8.4 g/dl (14.0-18.0); MEAN CORPUSCULAR HEMOGLOBIN 29.3 pg (29.0-33.0); MEAN CORPUSCULAR HGB CONC 32.4 g/dl (32.0-37.0); MEAN CORPUSCULAR VOLUME 90.2 fl (82.0-101.0); MEAN PLATELET VOLUME 13.2 fl (7.4-10.4); PLATELET COUNT 75 10^3/UL (140-415); RED BLOOD COUNT 2.87 10^6/ul (4.70-6.10); RED CELL DISTRIBUTION WIDTH 19.5 % (11.5-14.5); WHITE BLOOD COUNT 4.6 10^3/ul (4.8-10.8)
[2017-03-03 07:39] LABS: INR 4.06; PROTIME 40.1 Sec (12.2-14.2); PT RATIO 3.1
[2017-03-03 07:48] LABS: ALBUMIN 1.5 g/dl (3.3-4.9); ALBUMIN/GLOBULIN RATIO 0.6; CREATININE 0.93 mg/dl (0.61-1.24); MAGNESIUM 1.8 mg/dl (1.7-2.5); POTASSIUM 4.4 mmol/L (3.5-5.1)
[2017-03-03] MEDS: CITRIC ACID/SODIUM CITRATE 15 ML CUP PO SCH ×2 (08:37→20:12)
[2017-03-03] MEDS: ZINC SULFATE 220 MG CAP PO SCH (08:38)
[2017-03-03] MEDS: ASCORBIC ACID 500 MG TAB PO SCH (08:38)
[2017-03-03] MEDS: VENLAFAXINE 25 MG TAB NGT SCH ×2 (08:38→20:12)
[2017-03-03] MEDS: LACTOBACILLUS RHAMNOSUS CAP PO SCH ×2 (08:38→20:12)
[2017-03-03] MEDS: MULTIVITAMINS THERAPEUTIC TAB PO SCH (08:38)
--- NOTE | 2017-03-03 10:57 | CONS ---
Date/Time of Note Date/Time of Note DATE: 03/03/17 TIME: 10:56 Consult Date/Type/Reason Admit Date/Time February 19, 2017 at 14:52 Type of Consultation: Pulmonary ICU Ordering Provider: BEBO SEYMOUR Subjective Patient awake alert this morning appears comfortable Hemodynamically stable at present Still having bloody stools slightly improved Objective Vital Signs Date Time Temp Pulse Resp B/P Pulse Ox O2 Delivery O2 Flow Rate FiO2 03/03/17 08:31 126 03/03/17 07:34 98.0 18 118/61 99 02/27/17 18:25 Room Air Intake and Output 03/02/17 03/02/17 03/03/17 15:00 23:00 07:00 Intake Total 250 ml 990 ml 60 ml Output Total 550 ml 700 ml Balance 250 ml 440 ml -640 ml Exam GENERAL: Elderly gentleman comfortable at rest no acute distress VITAL SIGNS: per chart NECK: Supple. No JVD or lymphadenopathy. CARDIAC EXAM: S1, S2. No added sounds or murmurs. CHEST: clear bilaterally, No added sounds, rales or wheezes ABDOMEN: Soft, nontender. No guarding or rebound. Bowel sounds present EXTREMITIES: No cyanosis, clubbing, edema +1 NEUROLOGIC: Generalized weakness. Results/Medications Result Diagram: 03/03/17 0638 03/03/17 0638 Results 24 hrs Laboratory Tests Test 03/02/17 13:39 03/02/17 17:50 03/02/17 20:54 03/03/17 01:07 Bedside Glucose 141 132 150 132 Test 03/03/17 05:38 03/03/17 06:38 03/03/17 08:35 Bedside Glucose 134 168 White Blood Count 4.6 #L Red Blood Count 2.87 L Hemoglobin 8.4 L Hematocrit 25.9 L Mean Corpuscular Volume 90.2 Mean Corpuscular Hemoglobin 29.3 Mean Corpuscular Hemoglobin Concent 32.4 Red Cell Distribution Width 19.5 H Platelet Count 75 #L Mean Platelet Volume 13.2 H Neutrophils % Eosinophils % Neutrophils # Eosinophils # Prothrombin Time 40.1 #H Prothrombin Time Ratio 3.1 INR International Normalized Ratio 4.06 Sodium Level 142 Potassium Level 4.4 Chloride Level 119 H Carbon Dioxide Level 19 L Anion Gap 8 Blood Urea Nitrogen 28 H Creatinine 0.93 Glucose Level 135 Calcium Level 7.0 L Magnesium Level 1.8 Total Bilirubin 0.0 L Direct Bilirubin 0.00 Indirect Bilirubin 0.0 Aspartate Amino Transf (AST/SGOT) 25 Alanine Aminotransferase (ALT/SGPT) 37 Alkaline Phosphatase 378 H Total Protein 4.0 L Albumin 1.5 L Globulin 2.50 Albumin/Globulin Ratio 0.60 Medications Current Medications Lactobacillus Acidophilus/ Rhamnosus (Culturelle) 1 cap BID PO Last administered on 03/03/17 08:38; Admin Dose 1 CAP; Start 02/19/17 at 21:00 Multivitamins Therapeutic (Theragran) 1 tab DAILY PO Last administered on 08:38; Admin Dose 1 TAB; Start 02/20/17 at 09:00 Ascorbic Acid (Vitamin C) 500 mg QAM PO Last administered on 03/03/17 08:38; Admin Dose 500 MG; Start 02/20/17 at 09:00 Ticagrelor (Brilinta) 90 mg QAM PO Last administered on 03/01/17 09:57; Admin Dose 90 MG; Start 02/19/17 at 16:30; Status Future Hold Zinc Sulfate (Zinc Sulfate) 220 mg QAM PO Last administered on 03/03/17 08:38 ; Admin Dose 220 MG; Start 02/20/17 at 09:00 Atorvastatin Calcium (Lipitor) 80 mg DAILY@21 PO Last administered on 20:45; Admin Dose 80 MG; Start 02/19/17 at 21:00 Ondansetron HCl (Zofran Inj) 4 mg Q6H PRN IV NAUSEA AND/OR VOMITING; Start at 16:30 Acetaminophen (Tylenol Tab) 650 mg Q6H PRN PO PAIN LEVEL 1-3 OR FEVER; Start at 16:30 Acetaminophen (Tylenol Supp) 650 mg Q6H PRN [place] PAIN LEVEL 1-3 OR FEVER; Start 02/19/17 at 16:30 Acetaminophen/ Hydrocodone Bitart ([place] (5/325)) 1 tab Q6H PRN PO MODERATE PAIN LEVEL 4-6; Start 02/19/17 at 16:30 Morphine Sulfate (morphine) 2 mg Q4H PRN IV SEVERE PAIN LEVEL 7-10 Last administered on 03/02/17 11:45; Admin Dose 2 MG; Start 02/19/17 at 16:30 Miscellaneous Information 1 ea NOTE XX ; Start 02/19/17 at 16:30 Glucose (Glutose) 15 gm Q15M PRN PO DECREASED GLUCOSE; Start 02/19/17 at 16:30 Glucose (Glutose) 22.5 gm Q15M PRN PO DECREASED GLUCOSE; Start 02/19/17 at 16: 30 Dextrose (D50w Syringe) 25 ml Q15M PRN IV DECREASED GLUCOSE Last administered on 02/25/17 04:31; Admin Dose 25 ML; Start 02/19/17 at 16:30 Dextrose (D50w Syringe) 50 ml Q15M PRN IV DECREASED GLUCOSE Last administered on 02/25/17 20:58; Admin Dose 50 ML; Start 02/19/17 at 16:30 Glucagon (Glucagen) 1 mg Q15M PRN IM DECREASED GLUCOSE; Start 02/19/17 at 16:30 Glucose (Glutose) 15 gm Q15M PRN BUCCAL DECREASED GLUCOSE; Start 02/19/17 at 16 :30 Diagnostic Test (Pha) (Accu-Chek) 1 ea 02 XX Last administered on 03/02/17 02: 00; Admin Dose 1 EA; Start 02/20/17 at 02:00 Insulin Aspart (Novolog Insulin Pen) NOVOLOG *MILD* ALGORITHM Q4 SC Last administered on 03/03/17 08:53; Admin Dose 1 UNIT; Start 02/20/17 at 13:00 Pantoprazole (Protonix Iv) 40 mg BID@06,18 IV Last administered on 03/03/17 05 :36; Admin Dose 40 MG; Start 02/20/17 at 18:00 Aspirin (Halfprin) 81 mg DAILY PO Last administered on 02/23/17 10:58; Admin Dose 81 MG; Start 02/21/17 at 09:00; Status Future Hold Levothyroxine Sodium (Synthroid) 50 mcg DAILY@06 PO Last administered on 05:37; Admin Dose 50 MCG; Start 02/22/17 at 06:00; Status Future hold Venlafaxine HCl (Effexor) 25 mg BID NGT Last administered on 03/03/17 08:38; Admin Dose 25 MG; Start 02/22/17 at 10:30 Vancomycin HCl (Vancomycin Oral Syringe) 250 mg Q6 PO Last administered on 03/03 05:36; Admin Dose 250 MG; Start 02/24/17 at 18:00 Ergocalciferol (Drisdol) 50,000 unit Sa@09 PO Last administered on 02/25/17 08 :31; Admin Dose 50,000 UNIT; Start 02/25/17 at 09:00 Insulin Glargine (Lantus) 6 unit BID SC ; Start 02/25/17 at 09:00; Status Future Hold Citric Acid/ Sodium Citrate (Bicitra) 30 ml BID PO Last administered on 08:37; Admin Dose 30 ML; Start 02/28/17 at 11:00 [facility] This patient dean... PRN PRN XX WOUND CARE; Start 02/28/17 at 15:00 Assessment/Plan Chief Complaint/Hosp Course IMPRESSION AND PLAN: 1. Status post septic shock with C. difficile colitis 2. Possible healthcare-associated pneumonia. 3. Recent renal insufficiency now with evidence of metabolic acidosis 4. Hyponatremia resolved. 5. Sinus tachycardia likely secondary to vasopressors now improved off Levophed. 6. History of depression 7. Thrombocytopenia possibly secondary to underlying sepsis elevated INR 8. Low GI bleed 9. Coronary artery disease with stent placement PLAN: 1. Continue antibiotics, 2. Infectious disease recommendations consider de-escalation of antibiotics 3. Speech therapy recommendations when patient more alert 4. DVT and GI prophylaxis. 5. aspiration precautions. 6. Discontinue anticoagulation, repeat vitamin K and FFP 2 units 7. Resume Brilinta per cardiology Disposition Continue current level of care Problems: PAULO TRIMBLE MD, [facility] March 03, 2017 10:57
[2017-03-03] MEDS ORDERED: PHYTONADIONE 10 MG/ML INJ SC ONE (11:00)
[2017-03-03 11:43] LABS: EOSINOPHILS # 0.2 10^3/ul (0.0-0.5); LYMPHOCYTES # 1.1 10^3/ul (0.8-2.9); MONOCYTE # 0.3 10^3/ul (0.3-0.9); NEUTROPHIL # 2.2 10^3/ul (1.6-7.5); PLATELET ESTIMATE PLT APPEAR DECREASED
--- NOTE | 2017-03-03 13:00 | CONS ---
Date/Time of Note Date/Time of Note DATE: 03/03/17 TIME: 12:59 Assessment/Plan Assessment/Plan Additional Assessment/Plan 1. Septic shock 2. Acute kidney injury secondary to acute tubular necrosis from septic shock. 3. Hyperchloremic non-anion gap metabolic acidosis likely secondary to severe diarrhea. 4. Hyponatremia, likely secondary to hypovolemic hyponatremia. 5. 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 6. Hypocalcemia, but the corrected calcium with a low albumin has been pretty much normal. PLAN: Cr improved, IVF dicontinued yesterday HCO3 low despite being on bicitra good urine output will continue to follow up Full Code Consultation Date/Type/Reason Admit Date/Time February 19, 2017 at 14:52 Initial Consult Date 02/20/2017 Type of Consultation: NEPHROLOGY Referring Provider: BEBO SEYMOUR 24 HR Interval Summary Free Text/Dictation doing ok, BP stable, afebrile Exam/Review of Systems Vital Signs Vitals Vital Signs Date Time Temp Pulse Resp B/P Pulse Ox O2 Delivery O2 Flow Rate FiO2 03/03/17 12:12 128 03/03/17 11:09 98.4 18 123/56 99 02/27/17 18:25 Room Air Intake and Output 03/02/17 03/02/17 03/03/17 15:00 23:00 07:00 Intake Total 250 ml 990 ml 60 ml Output Total 550 ml 700 ml Balance 250 ml 440 ml -640 ml Results Result Diagram: 03/03/17 0638 03/03/17 0638 Results 24 hrs Laboratory Tests Test 03/02/17 13:39 03/02/17 17:50 03/02/17 20:54 03/03/17 01:07 Bedside Glucose 141 132 150 132 Test 03/03/17 05:38 03/03/17 06:38 03/03/17 08:35 03/03/17 12:08 Bedside Glucose 134 168 186 White Blood Count 4.6 #L Red Blood Count 2.87 L Hemoglobin 8.4 L Hematocrit 25.9 L Mean Corpuscular Volume 90.2 Mean Corpuscular Hemoglobin 29.3 Mean Corpuscular Hemoglobin Concent 32.4 Red Cell Distribution Width 19.5 H Platelet Count 75 #L Mean Platelet Volume 13.2 H Neutrophils % 48.0 Band Neutrophils % 17.0 H Lymphocytes % 23.0 Monocytes % 7.0 Eosinophils % 4.0 Basophils % 1.0 Neutrophils # 2.2 Lymphocytes # 1.1 Monocytes # 0.3 Eosinophils # 0.2 Basophils # 0.0 Platelet Estimate PLT APPEAR DECREASED Prothrombin Time 40.1 #H Prothrombin Time Ratio 3.1 INR International Normalized Ratio 4.06 Sodium Level 142 Potassium Level 4.4 Chloride Level 119 H Carbon Dioxide Level 19 L Anion Gap 8 Blood Urea Nitrogen 28 H Creatinine 0.93 Glucose Level 135 Calcium Level 7.0 L Magnesium Level 1.8 Total Bilirubin 0.0 L Direct Bilirubin 0.00 Indirect Bilirubin 0.0 Aspartate Amino Transf (AST/SGOT) 25 Alanine Aminotransferase (ALT/SGPT) 37 Alkaline Phosphatase 378 H Total Protein 4.0 L Albumin 1.5 L Globulin 2.50 Albumin/Globulin Ratio 0.60 Test 03/03/17 12:09 Bedside Glucose 167 Medications Medications Current Medications Lactobacillus Acidophilus/ Rhamnosus (Culturelle) 1 cap BID PO Last administered on 03/03/17 08:38; Admin Dose 1 CAP; Start 02/19/17 at 21:00 Multivitamins Therapeutic (Theragran) 1 tab DAILY PO Last administered on 08:38; Admin Dose 1 TAB; Start 02/20/17 at 09:00 Ascorbic Acid (Vitamin C) 500 mg QAM PO Last administered on 03/03/17 08:38; Admin Dose 500 MG; Start 02/20/17 at 09:00 Ticagrelor (Brilinta) 90 mg QAM PO Last administered on 03/01/17 09:57; Admin Dose 90 MG; Start 02/19/17 at 16:30; Status Future Hold Zinc Sulfate (Zinc Sulfate) 220 mg QAM PO Last administered on 03/03/17 08:38 ; Admin Dose 220 MG; Start 02/20/17 at 09:00 Atorvastatin Calcium (Lipitor) 80 mg DAILY@21 PO Last administered on 20:45; Admin Dose 80 MG; Start 02/19/17 at 21:00 Ondansetron HCl (Zofran Inj) 4 mg Q6H PRN IV NAUSEA AND/OR VOMITING; Start at 16:30 Acetaminophen (Tylenol Tab) 650 mg Q6H PRN PO PAIN LEVEL 1-3 OR FEVER; Start at 16:30 Acetaminophen (Tylenol Supp) 650 mg Q6H PRN [place] PAIN LEVEL 1-3 OR FEVER; Start 02/19/17 at 16:30 Acetaminophen/ Hydrocodone Bitart ([place] (5/325)) 1 tab Q6H PRN PO MODERATE PAIN LEVEL 4-6; Start 02/19/17 at 16:30 Morphine Sulfate (morphine) 2 mg Q4H PRN IV SEVERE PAIN LEVEL 7-10 Last administered on 03/02/17 11:45; Admin Dose 2 MG; Start 02/19/17 at 16:30 Miscellaneous Information 1 ea NOTE XX ; Start 02/19/17 at 16:30 Glucose (Glutose) 15 gm Q15M PRN PO DECREASED GLUCOSE; Start 02/19/17 at 16:30 Glucose (Glutose) 22.5 gm Q15M PRN PO DECREASED GLUCOSE; Start 02/19/17 at 16: 30 Dextrose (D50w Syringe) 25 ml Q15M PRN IV DECREASED GLUCOSE Last administered on 02/25/17 04:31; Admin Dose 25 ML; Start 02/19/17 at 16:30 Dextrose (D50w Syringe) 50 ml Q15M PRN IV DECREASED GLUCOSE Last administered on 02/25/17 20:58; Admin Dose 50 ML; Start 02/19/17 at 16:30 Glucagon (Glucagen) 1 mg Q15M PRN IM DECREASED GLUCOSE; Start 02/19/17 at 16:30 Glucose (Glutose) 15 gm Q15M PRN BUCCAL DECREASED GLUCOSE; Start 02/19/17 at 16 :30 Diagnostic Test (Pha) (Accu-Chek) 1 ea 02 XX Last administered on 03/02/17 02: 00; Admin Dose 1 EA; Start 02/20/17 at 02:00 Insulin Aspart (Novolog Insulin Pen) NOVOLOG *MILD* ALGORITHM Q4 SC Last administered on 03/03/17 12:25; Admin Dose 1 UNIT; Start 02/20/17 at 13:00 Pantoprazole (Protonix Iv) 40 mg BID@06,18 IV Last administered on 03/03/17 05 :36; Admin Dose 40 MG; Start 02/20/17 at 18:00 Aspirin (Halfprin) 81 mg DAILY PO Last administered on 02/23/17 10:58; Admin Dose 81 MG; Start 02/21/17 at 09:00; Status Future Hold Levothyroxine Sodium (Synthroid) 50 mcg DAILY@06 PO Last administered on 05:37; Admin Dose 50 MCG; Start 02/22/17 at 06:00; Status Future hold Venlafaxine HCl (Effexor) 25 mg BID NGT Last administered on 03/03/17 08:38; Admin Dose 25 MG; Start 02/22/17 at 10:30 Vancomycin HCl (Vancomycin Oral Syringe) 250 mg Q6 PO Last administered on 03/03 12:03; Admin Dose 250 MG; Start 02/24/17 at 18:00 Ergocalciferol (Drisdol) 50,000 unit Sa@09 PO Last administered on 02/25/17 08 :31; Admin Dose 50,000 UNIT; Start 02/25/17 at 09:00 Insulin Glargine (Lantus) 6 unit BID SC ; Start 02/25/17 at 09:00; Status Future Hold Citric Acid/ Sodium Citrate (Bicitra) 30 ml BID PO Last administered on 08:37; Admin Dose 30 ML; Start 02/28/17 at 11:00 Miscellaneous Information (Pending [facility] Order For Wound Care) This patient dean... PRN PRN XX WOUND CARE; Start 02/28/17 at 15:00 ANJEL LEE MD March 03, 2017 13:00
--- NOTE | 2017-03-03 14:48 | CONS ---
Date/Time of Note Date/Time of Note DATE: 03/03/17 TIME: 14:46 Assessment/Plan Assessment/Plan Chief Complaint/Hosp Course SUBJECTIVE: + bloody stools, no fevers, looks comfortable, INDWELLINGS: NG tube, Christopher catheter, rectal tube, peripheral IV. ANTIMICROBIALS: Oral vancomycin. PHYSICAL EXAMINATION: GENERAL: Fragile, elderly man, who is in no distress. HEENT: Head atraumatic, normocephalic. Sclerae are anicteric. Buccal mucosa dry. NECK: Supple, trachea midline. CHEST: Chest rise is symmetrical. Breath sounds diminished to the bases. HEART: S1, S2, irregular, tachycardic. ABDOMEN: Soft, bowel tones present. EXTREMITIES: No cyanosis. ASSESSMENT: 1. Sepsis, status post shock. 2. Clostridium difficile colitis. 3. Status post pneumonia. 4. Transaminitis. 5. Diabetes. 6. History of prostate cancer. 7. Anemia/GIB PLAN: Patient is clinically unchanged, continue abx, aspiration precautions, monitor h&h, transfuse prn, GI rec-s [facility] staff Problems: Consultation Date/Type/Reason Admit Date/Time February 19, 2017 at 14:52 Initial Consult Date 02/25/17 Type of Consultation: id Referring Provider: BEBO SEYMOUR Exam/Review of Systems Vital Signs Vitals Vital Signs Date Time Temp Pulse Resp B/P Pulse Ox O2 Delivery O2 Flow Rate FiO2 03/03/17 12:12 128 03/03/17 11:09 98.4 18 123/56 99 02/27/17 18:25 Room Air Intake and Output 03/02/17 03/02/17 03/03/17 15:00 23:00 07:00 Intake Total 250 ml 990 ml 60 ml Output Total 550 ml 700 ml Balance 250 ml 440 ml -640 ml Results Result Diagram: 03/03/17 0638 03/03/17 0638 Results 24 hrs Laboratory Tests Test 03/02/17 17:50 03/02/17 20:54 03/03/17 01:07 03/03/17 05:38 Bedside Glucose 132 150 132 134 Test 03/03/17 06:38 03/03/17 08:35 03/03/17 12:08 03/03/17 12:09 White Blood Count 4.6 #L Red Blood Count 2.87 L Hemoglobin 8.4 L Hematocrit 25.9 L Mean Corpuscular Volume 90.2 Mean Corpuscular Hemoglobin 29.3 Mean Corpuscular Hemoglobin Concent 32.4 Red Cell Distribution Width 19.5 H Platelet Count 75 #L Mean Platelet Volume 13.2 H Neutrophils % 48.0 Band Neutrophils % 17.0 H Lymphocytes % 23.0 Monocytes % 7.0 Eosinophils % 4.0 Basophils % 1.0 Neutrophils # 2.2 Lymphocytes # 1.1 Monocytes # 0.3 Eosinophils # 0.2 Basophils # 0.0 Platelet Estimate PLT APPEAR DECREASED Prothrombin Time 40.1 #H Prothrombin Time Ratio 3.1 INR International Normalized Ratio 4.06 Sodium Level 142 Potassium Level 4.4 Chloride Level 119 H Carbon Dioxide Level 19 L Anion Gap 8 Blood Urea Nitrogen 28 H Creatinine 0.93 Glucose Level 135 Calcium Level 7.0 L Magnesium Level 1.8 Total Bilirubin 0.0 L Direct Bilirubin 0.00 Indirect Bilirubin 0.0 Aspartate Amino Transf (AST/SGOT) 25 Alanine Aminotransferase (ALT/SGPT) 37 Alkaline Phosphatase 378 H Total Protein 4.0 L Albumin 1.5 L Globulin 2.50 Albumin/Globulin Ratio 0.60 Bedside Glucose 168 186 167 Medications Medications Current Medications Lactobacillus Acidophilus/ Rhamnosus (Culturelle) 1 cap BID PO Last administered on 03/03/17 08:38; Admin Dose 1 CAP; Start 02/19/17 at 21:00 Multivitamins Therapeutic (Theragran) 1 tab DAILY PO Last administered on 08:38; Admin Dose 1 TAB; Start 02/20/17 at 09:00 Ascorbic Acid (Vitamin C) 500 mg QAM PO Last administered on 03/03/17 08:38; Admin Dose 500 MG; Start 02/20/17 at 09:00 Ticagrelor (Brilinta) 90 mg QAM PO Last administered on 03/01/17 09:57; Admin Dose 90 MG; Start 02/19/17 at 16:30; Status Future Hold Zinc Sulfate (Zinc Sulfate) 220 mg QAM PO Last administered on 03/03/17 08:38 ; Admin Dose 220 MG; Start 02/20/17 at 09:00 Atorvastatin Calcium (Lipitor) 80 mg DAILY@21 PO Last administered on 20:45; Admin Dose 80 MG; Start 02/19/17 at 21:00 Ondansetron HCl (Zofran Inj) 4 mg Q6H PRN IV NAUSEA AND/OR VOMITING; Start at 16:30 Acetaminophen (Tylenol Tab) 650 mg Q6H PRN PO PAIN LEVEL 1-3 OR FEVER; Start at 16:30 Acetaminophen (Tylenol Supp) 650 mg Q6H PRN [place] PAIN LEVEL 1-3 OR FEVER; Start 02/19/17 at 16:30 Acetaminophen/ Hydrocodone Bitart ([place] (5/325)) 1 tab Q6H PRN PO MODERATE PAIN LEVEL 4-6; Start 02/19/17 at 16:30 Morphine Sulfate (morphine) 2 mg Q4H PRN IV SEVERE PAIN LEVEL 7-10 Last administered on 03/02/17 11:45; Admin Dose 2 MG; Start 02/19/17 at 16:30 Miscellaneous Information 1 ea NOTE XX ; Start 02/19/17 at 16:30 Glucose (Glutose) 15 gm Q15M PRN PO DECREASED GLUCOSE; Start 02/19/17 at 16:30 Glucose (Glutose) 22.5 gm Q15M PRN PO DECREASED GLUCOSE; Start 02/19/17 at 16: 30 Dextrose (D50w Syringe) 25 ml Q15M PRN IV DECREASED GLUCOSE Last administered on 02/25/17 04:31; Admin Dose 25 ML; Start 02/19/17 at 16:30 Dextrose (D50w Syringe) 50 ml Q15M PRN IV DECREASED GLUCOSE Last administered on 02/25/17 20:58; Admin Dose 50 ML; Start 02/19/17 at 16:30 Glucagon (Glucagen) 1 mg Q15M PRN IM DECREASED GLUCOSE; Start 02/19/17 at 16:30 Glucose (Glutose) 15 gm Q15M PRN BUCCAL DECREASED GLUCOSE; Start 02/19/17 at 16 :30 Diagnostic Test (Pha) (Accu-Chek) 1 ea 02 XX Last administered on 03/02/17 02: 00; Admin Dose 1 EA; Start 02/20/17 at 02:00 Insulin Aspart (Novolog Insulin Pen) NOVOLOG *MILD* ALGORITHM Q4 SC Last administered on 03/03/17 12:25; Admin Dose 1 UNIT; Start 02/20/17 at 13:00 Pantoprazole (Protonix Iv) 40 mg BID@,18 IV Last administered on 03/03/17 05 :36; Admin Dose 40 MG; Start 02/20/17 at 18:00 Aspirin (Halfprin) 81 mg DAILY PO Last administered on 02/23/17 10:58; Admin Dose 81 MG; Start 02/21/17 at 09:00; Status Future Hold Levothyroxine Sodium (Synthroid) 50 mcg DAILY@06 PO Last administered on 05:37; Admin Dose 50 MCG; Start 02/22/17 at 06:00; Status Future hold Venlafaxine HCl (Effexor) 25 mg BID NGT Last administered on 03/03/17 08:38; Admin Dose 25 MG; Start 02/22/17 at 10:30 Vancomycin HCl (Vancomycin Oral Syringe) 250 mg Q6 PO Last administered on 03/03 12:03; Admin Dose 250 MG; Start 02/24/17 at 18:00 Ergocalciferol (Drisdol) 50,000 unit Sa@09 PO Last administered on 02/25/17 08 :31; Admin Dose 50,000 UNIT; Start 02/25/17 at 09:00 Insulin Glargine (Lantus) 6 unit BID SC ; Start 02/25/17 at 09:00; Status Future Hold Citric Acid/ Sodium Citrate (Bicitra) 30 ml BID PO Last administered on 08:37; Admin Dose 30 ML; Start 02/28/17 at 11:00 [facility]isc[facility] This patient dean... PRN PRN XX WOUND CARE; Start 02/28/17 at 15:00 MICHAELA SPEARS NP March 03, 2017 14:48
--- NOTE | 2017-03-03 15:30 | CONS ---
Date/Time of Note Date/Time of Note DATE: 03/03/17 TIME: 15:24 Assessment/Plan Assessment/Plan Additional Assessment/Plan C difficile colitis * Antibiotics per ID Transaminitis resolved * MRCP: No biliary ductal dilatation. No CBD stones. Gallstones in mildly distended gallbladder with no gallbladder wall thickening. If there is clinical suspicion for acute cholecystitis. Morphologic changes suggestive of cirrhosis. Small abdominopelvic ascites. * Ultrasound: Sludge and small stones in the gallbladder without definite secondary signs of acute cholecystitis. Anemia Dysphagia * Speech therapy follow Diabetes mellitus Plan: Monitor hemoglobin every 6 hours, transfuse 1 unit for hemoglobin less than 7.5 and transfuse 2 units for hemoglobin less than 7.0 Monitor tube feed, hold feed for residual greater than 150 mL Await speech therapy evaluation for dysphagia, patient may need G-tube ID following Further recommendations depend on clinical course Patient seen in collaboration with Dr. Renee Consultation Date/Type/Reason Admit Date/Time February 19, 2017 at 14:52 Initial Consult Date 02/25/17 Type of Consultation: Gastroenterology Referring Provider: BEBO SEYMOUR 24 HR Interval Summary Free Text/Dictation Hemoglobin stable 1 unit FFP with vitamin K today Will order another unit of FFP if INR above 2.0 Speech therapy to evaluate whether or not patient can safely have p.o. intake Exam/Review of Systems Vital Signs Vitals Vital Signs Date Time Temp Pulse Resp B/P Pulse Ox O2 Delivery O2 Flow Rate FiO2 03/03/17 12:12 128 03/03/17 11:09 98.4 18 123/56 99 02/27/17 18:25 Room Air Intake and Output 03/02/17 03/02/17 03/03/17 15:00 23:00 07:00 Intake Total 250 ml 990 ml 60 ml Output Total 550 ml 700 ml Balance 250 ml 440 ml -640 ml Exam Constitutional: alert, oriented, in no apparent distress Psych: nl mood/affect Head: normocephalic Eyes: EOMI, nl conjunctiva, nl lids ENMT: nl external ears & nose, nl lips & teeth, nl nasal mucosa & septum Respiratory: clear to auscultation, normal air movement Cardiovascular: regular rate and rhythm Gastrointestinal: soft, non-tender Musculoskeletal: nl extremities to inspection 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 II-XII intact Results Result Diagram: 03/03/17 0638 03/03/17 0638 Results 24 hrs Laboratory Tests Test 03/02/17 17:50 03/02/17 20:54 03/03/17 01:07 03/03/17 05:38 Bedside Glucose 132 150 132 134 Test 03/03/17 06:38 03/03/17 08:35 03/03/17 12:08 03/03/17 12:09 White Blood Count 4.6 #L Red Blood Count 2.87 L Hemoglobin 8.4 L Hematocrit 25.9 L Mean Corpuscular Volume 90.2 Mean Corpuscular Hemoglobin 29.3 Mean Corpuscular Hemoglobin Concent 32.4 Red Cell Distribution Width 19.5 H Platelet Count 75 #L Mean Platelet Volume 13.2 H Neutrophils % 48.0 Band Neutrophils % 17.0 H Lymphocytes % 23.0 Monocytes % 7.0 Eosinophils % 4.0 Basophils % 1.0 Neutrophils # 2.2 Lymphocytes # 1.1 Monocytes # 0.3 Eosinophils # 0.2 Basophils # 0.0 Platelet Estimate PLT APPEAR DECREASED Prothrombin Time 40.1 #H Prothrombin Time Ratio 3.1 INR International Normalized Ratio 4.06 Sodium Level 142 Potassium Level 4.4 Chloride Level 119 H Carbon Dioxide Level 19 L Anion Gap 8 Blood Urea Nitrogen 28 H Creatinine 0.93 Glucose Level 135 Calcium Level 7.0 L Magnesium Level 1.8 Total Bilirubin 0.0 L Direct Bilirubin 0.00 Indirect Bilirubin 0.0 Aspartate Amino Transf (AST/SGOT) 25 Alanine Aminotransferase (ALT/SGPT) 37 Alkaline Phosphatase 378 H Total Protein 4.0 L Albumin 1.5 L Globulin 2.50 Albumin/Globulin Ratio 0.60 Bedside Glucose 168 186 167 Medications Medications Current Medications Lactobacillus Acidophilus/ Rhamnosus (Culturelle) 1 cap BID PO Last administered on 03/03/17 08:38; Admin Dose 1 CAP; Start 02/19/17 at 21:00 Multivitamins Therapeutic (Theragran) 1 tab DAILY PO Last administered on 08:38; Admin Dose 1 TAB; Start 02/20/17 at 09:00 Ascorbic Acid (Vitamin C) 500 mg QAM PO Last administered on 03/03/17 08:38; Admin Dose 500 MG; Start 02/20/17 at 09:00 Ticagrelor (Brilinta) 90 mg QAM PO Last administered on 03/01/17 09:57; Admin Dose 90 MG; Start 02/19/17 at 16:30; Status Future Hold Zinc Sulfate (Zinc Sulfate) 220 mg QAM PO Last administered on 03/03/17 08:38 ; Admin Dose 220 MG; Start 02/20/17 at 09:00 Atorvastatin Calcium (Lipitor) 80 mg DAILY@21 PO Last administered on 20:45; Admin Dose 80 MG; Start 02/19/17 at 21:00 Ondansetron HCl (Zofran Inj) 4 mg Q6H PRN IV NAUSEA AND/OR VOMITING; Start at 16:30 Acetaminophen (Tylenol Tab) 650 mg Q6H PRN PO PAIN LEVEL 1-3 OR FEVER; Start at 16:30 Acetaminophen (Tylenol Supp) 650 mg Q6H PRN [place] PAIN LEVEL 1-3 OR FEVER; Start 02/19/17 at 16:30 Acetaminophen/ Hydrocodone Bitart ([place] (5/325)) 1 tab Q6H PRN PO MODERATE PAIN LEVEL 4-6; Start 02/19/17 at 16:30 Morphine Sulfate (morphine) 2 mg Q4H PRN IV SEVERE PAIN LEVEL 7-10 Last administered on 03/02/17 11:45; Admin Dose 2 MG; Start 02/19/17 at 16:30 Miscellaneous Information 1 ea NOTE XX ; Start 02/19/17 at 16:30 Glucose (Glutose) 15 gm Q15M PRN PO DECREASED GLUCOSE; Start 02/19/17 at 16:30 Glucose (Glutose) 22.5 gm Q15M PRN PO DECREASED GLUCOSE; Start 02/19/17 at 16: 30 Dextrose (D50w Syringe) 25 ml Q15M PRN IV DECREASED GLUCOSE Last administered on 02/25/17 04:31; Admin Dose 25 ML; Start 02/19/17 at 16:30 Dextrose (D50w Syringe) 50 ml Q15M PRN IV DECREASED GLUCOSE Last administered on 02/25/17 20:58; Admin Dose 50 ML; Start 02/19/17 at 16:30 Glucagon (Glucagen) 1 mg Q15M PRN IM DECREASED GLUCOSE; Start 02/19/17 at 16:30 Glucose (Glutose) 15 gm Q15M PRN BUCCAL DECREASED GLUCOSE; Start 02/19/17 at 16 :30 Diagnostic Test (Pha) (Accu-Chek) 1 ea 02 XX Last administered on 03/02/17 02: 00; Admin Dose 1 EA; Start 02/20/17 at 02:00 Insulin Aspart (Novolog Insulin Pen) NOVOLOG *MILD* ALGORITHM Q4 SC Last administered on 03/03/17 12:25; Admin Dose 1 UNIT; Start 02/20/17 at 13:00 Pantoprazole (Protonix Iv) 40 mg BID@06,18 IV Last administered on 03/03/17 05 :36; Admin Dose 40 MG; Start 02/20/17 at 18:00 Aspirin (Halfprin) 81 mg DAILY PO Last administered on 02/23/17 10:58; Admin Dose 81 MG; Start 02/21/17 at 09:00; Status Future Hold Levothyroxine Sodium (Synthroid) 50 mcg DAILY@06 PO Last administered on 05:37; Admin Dose 50 MCG; Start 02/22/17 at 06:00; Status Future hold Venlafaxine HCl (Effexor) 25 mg BID NGT Last administered on 03/03/17 08:38; Admin Dose 25 MG; Start 02/22/17 at 10:30 Vancomycin HCl (Vancomycin Oral Syringe) 250 mg Q6 PO Last administered on 03/03 12:03; Admin Dose 250 MG; Start 02/24/17 at 18:00 Ergocalciferol (Drisdol) 50,000 unit Sa@09 PO Last administered on 02/25/17 08 :31; Admin Dose 50,000 UNIT; Start 02/25/17 at 09:00 Insulin Glargine (Lantus) 6 unit BID SC ; Start 02/25/17 at 09:00; Status Future Hold Citric Acid/ Sodium Citrate (Bicitra) 30 ml BID PO Last administered on 08:37; Admin Dose 30 ML; Start 02/28/17 at 11:00 Miscellaneous Information (Pending [facility] Order For Wound Care) This patient dean... PRN PRN XX WOUND CARE; Start 02/28/17 at 15:00 ÓSCAR JOHNSON March 03, 2017 15:30
--- NOTE | 2017-03-03 15:46 | PN ---
DATE: 03/03/2017 CARDIOLOGY FOLLOWUP Discussed with the staff. Discussed with the patient's daughter, discussed with Dr. Trimble. The p atient remains tachycardic in sinus. No atrial fibrillation. No reported chest pain or pressure. Status post NG tube in place. Unable to history from the patient himself. MEDICATIONS: Reviewed. PHYSICAL EXAMINATION: VITAL SIGNS: Temperature 98.4, heart rate of 120, blood pressure 123/56, respiration rate of 18, sa turating 99%. HEENT: Normocephalic, atraumatic. Status post NG tube in place. CARDIOVASCULAR: Tachycardic. PULMONARY: Mild rhonchi. GASTROINTESTINAL: Soft. No rebound. EXTREMITIES: With positive diffuse edema. NEUROLOGIC: Awake. LABORATORY: WBC of 4.6, hemoglobin 8.4, platelets of 75. Sodium 142, potassium 4.4, BUN of 28, cre atinine 0.93, glucose 135. Albumin is 1.5. INR is 4 today. ASSESSMENT AND PLAN: 1. Coronary artery disease with history of myocardial infarction. 2. History of percutaneous coronary intervention. 3. Septic shock. 4. Severe thrombocytopenia. 5. Severe coagulopathy. 6. Clostridium difficile colitis, history of severe anemia. 7. Acute renal failure. 7. Severe malnutrition and low albumin level. 8. Electrolyte abnormalities. 9. Dysphagia. RECOMMENDATIONS: Vitamin K has been given and with marginal improvement. Antibiotic as per fashion buying internship al medicine. Aspirin has been on hold for many days due to concern about the bleeding. Brilinta dean s been on hold. We will start it in 2 days following the coagulopathy. ____ beta basia due to lo w blood pressure. Antibiotic as per internal medicine. Monitor on telemetry. Dictated By: CAITIE LOPEZ MD AV/NTS Conf#: [id number] DID#: [id number] CC: PAULO TRIMBLE MD;*EndCC*
--- NOTE | 2017-03-03 16:49 | PN ---
Date/Time of Note Date/Time of Note DATE: 03/03/17 TIME: 16:46 Assessment/Plan VTE Prophylaxis VTE Prophylaxis Intervention: other Assessment/Plan Chief Complaint/Hosp Course 1. Septic shock secondary to C. difficile colitis-improved Continue antibiotics, ID following 2. Acute kidney injury secondary to acute tubular necrosis from septic shock- resolving Renal following 3. Non-anion gap metabolic acidosis likely secondary to severe diarrhea-stable 4. Hypokalemia-replete 5. 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 Progressively worsening frontal lobe dementia Patient history from patient's and daughter appears the patient has a frontal lobe dementia that is progressively getting worse, patient will need long-term placement and a group home Palliative care consultation appreciated financial systems manager to assist with group home placement 7. Dysphasia Speech therapy evaluation appreciated rec is for n.p.o. status at this time, patient will have another swallow evaluation with speech therapy and may need a video swallow study, if patient continues to fail then may require PEG tube placement family is aware cont tube feeds via NG tube for now Prophylaxis: On Brilinta Problems: Subjective 24 Hr Interval Summary Subjective hx not possible: pt non-verbal Exam/Review of Systems Vital Signs Vitals Vital Signs Date Time Temp Pulse Resp B/P Pulse Ox O2 Delivery O2 Flow Rate FiO2 03/03/17 16:20 121 03/03/17 15:42 98.1 18 103/55 98 02/27/17 18:25 Room Air Intake and Output 03/02/17 03/02/17 03/03/17 15:00 23:00 07:00 Intake Total 250 ml 990 ml 60 ml Output Total 550 ml 700 ml Balance 250 ml 440 ml -640 ml Exam Constitutional: non-verbal Respiratory: clear to auscultation Cardiovascular: regular rate and rhythm Gastrointestinal: soft, No distended Musculoskeletal: nl extremities to inspection Results Result Diagram: 03/03/17 0638 03/03/17 0638 Results 24 hrs Laboratory Tests Test 03/02/17 17:50 03/02/17 20:54 03/03/17 01:07 03/03/17 05:38 Bedside Glucose 132 150 132 134 Test 03/03/17 06:38 03/03/17 08:35 03/03/17 12:08 03/03/17 12:09 White Blood Count 4.6 #L Red Blood Count 2.87 L Hemoglobin 8.4 L Hematocrit 25.9 L Mean Corpuscular Volume 90.2 Mean Corpuscular Hemoglobin 29.3 Mean Corpuscular Hemoglobin Concent 32.4 Red Cell Distribution Width 19.5 H Platelet Count 75 #L Mean Platelet Volume 13.2 H Neutrophils % 48.0 Band Neutrophils % 17.0 H Lymphocytes % 23.0 Monocytes % 7.0 Eosinophils % 4.0 Basophils % 1.0 Neutrophils # 2.2 Lymphocytes # 1.1 Monocytes # 0.3 Eosinophils # 0.2 Basophils # 0.0 Platelet Estimate PLT APPEAR DECREASED Prothrombin Time 40.1 #H Prothrombin Time Ratio 3.1 INR International Normalized Ratio 4.06 Sodium Level 142 Potassium Level 4.4 Chloride Level 119 H Carbon Dioxide Level 19 L Anion Gap 8 Blood Urea Nitrogen 28 H Creatinine 0.93 Glucose Level 135 Calcium Level 7.0 L Magnesium Level 1.8 Total Bilirubin 0.0 L Direct Bilirubin 0.00 Indirect Bilirubin 0.0 Aspartate Amino Transf (AST/SGOT) 25 Alanine Aminotransferase (ALT/SGPT) 37 Alkaline Phosphatase 378 H Total Protein 4.0 L Albumin 1.5 L Globulin 2.50 Albumin/Globulin Ratio 0.60 Bedside Glucose 168 186 167 Medications Medications Current Medications Lactobacillus Acidophilus/ Rhamnosus (Culturelle) 1 cap BID PO Last administered on 03/03/17 08:38; Admin Dose 1 CAP; Start 02/19/17 at 21:00 Multivitamins Therapeutic (Theragran) 1 tab DAILY PO Last administered on 08:38; Admin Dose 1 TAB; Start 02/20/17 at 09:00 Ascorbic Acid (Vitamin C) 500 mg QAM PO Last administered on 03/03/17 08:38; Admin Dose 500 MG; Start 02/20/17 at 09:00 Zinc Sulfate (Zinc Sulfate) 220 mg QAM PO Last administered on 03/03/17 08:38 ; Admin Dose 220 MG; Start 02/20/17 at 09:00 Atorvastatin Calcium (Lipitor) 80 mg DAILY@21 PO Last administered on 20:45; Admin Dose 80 MG; Start 02/19/17 at 21:00 Ondansetron HCl (Zofran Inj) 4 mg Q6H PRN IV NAUSEA AND/OR VOMITING; Start at 16:30 Acetaminophen (Tylenol Tab) 650 mg Q6H PRN PO PAIN LEVEL 1-3 OR FEVER; Start at 16:30 Acetaminophen (Tylenol Supp) 650 mg Q6H PRN [place] PAIN LEVEL 1-3 OR FEVER; Start 02/19/17 at 16:30 Acetaminophen/ Hydrocodone Bitart ([place] (5/325)) 1 tab Q6H PRN PO MODERATE PAIN LEVEL 4-6; Start 02/19/17 at 16:30 Morphine Sulfate (morphine) 2 mg Q4H PRN IV SEVERE PAIN LEVEL 7-10 Last administered on 03/02/17 11:45; Admin Dose 2 MG; Start 02/19/17 at 16:30 Miscellaneous Information 1 ea NOTE XX ; Start 02/19/17 at 16:30 Glucose (Glutose) 15 gm Q15M PRN PO DECREASED GLUCOSE; Start 02/19/17 at 16:30 Glucose (Glutose) 22.5 gm Q15M PRN PO DECREASED GLUCOSE; Start 02/19/17 at 16: 30 Dextrose (D50w Syringe) 25 ml Q15M PRN IV DECREASED GLUCOSE Last administered on 02/25/17 04:31; Admin Dose 25 ML; Start 02/19/17 at 16:30 Dextrose (D50w Syringe) 50 ml Q15M PRN IV DECREASED GLUCOSE Last administered on 02/25/17 20:58; Admin Dose 50 ML; Start 02/19/17 at 16:30 Glucagon (Glucagen) 1 mg Q15M PRN IM DECREASED GLUCOSE; Start 02/19/17 at 16:30 Glucose (Glutose) 15 gm Q15M PRN BUCCAL DECREASED GLUCOSE; Start 02/19/17 at 16 :30 Diagnostic Test (Pha) (Accu-Chek) 1 ea 02 XX Last administered on 03/02/17 02: 00; Admin Dose 1 EA; Start 02/20/17 at 02:00 Insulin Aspart (Novolog Insulin Pen) NOVOLOG *MILD* ALGORITHM Q4 SC Last administered on 03/03/17 12:25; Admin Dose 1 UNIT; Start 02/20/17 at 13:00 Pantoprazole (Protonix Iv) 40 mg BID@06,18 IV Last administered on 03/03/17 05 :36; Admin Dose 40 MG; Start 02/20/17 at 18:00 Aspirin (Halfprin) 81 mg DAILY PO Last administered on 02/23/17 10:58; Admin Dose 81 MG; Start 02/21/17 at 09:00; Status Future Hold Levothyroxine Sodium (Synthroid) 50 mcg DAILY@06 PO Last administered on 05:37; Admin Dose 50 MCG; Start 02/22/17 at 06:00; Status Future hold Venlafaxine HCl (Effexor) 25 mg BID NGT Last administered on 03/03/17 08:38; Admin Dose 25 MG; Start 02/22/17 at 10:30 Vancomycin HCl (Vancomycin Oral Syringe) 250 mg Q6 PO Last administered on 03/03 12:03; Admin Dose 250 MG; Start 02/24/17 at 18:00 Ergocalciferol (Drisdol) 50,000 unit Sa@09 PO Last administered on 02/25/17 08 :31; Admin Dose 50,000 UNIT; Start 02/25/17 at 09:00 Insulin Glargine (Lantus) 6 unit BID SC ; Start 02/25/17 at 09:00; Status Future Hold Citric Acid/ Sodium Citrate (Bicitra) 30 ml BID PO Last administered on 08:37; Admin Dose 30 ML; Start 02/28/17 at 11:00 Miscellaneous Information (Pending [facility] Order For Wound Care) This patient dean... PRN PRN XX WOUND CARE; Start 02/28/17 at 15:00 Ticagrelor (Brilinta) 90 mg QAM PO ; Start 03/05/17 at 16:30 BEBO SEYMOUR March 03, 2017 16:48
[2017-03-03 19:27] LABS: INR 3.09; PROTIME 32.3 Sec (12.2-14.2); PT RATIO 2.5
[2017-03-03] MEDS: ATORVASTATIN 80 MG TAB PO SCH (20:12)
[2017-03-03] MEDS: morphine 2 MG INJ IV PRN (20:16)
[2017-03-04] VITALS (25 sets, daily range): BP systolic 66–108; BP diastolic 43–68; PULSE 0–140; RESP 0–32
[2017-03-04] MEDS: VANCOMYCIN HCL 250 MG/5ML POSYG PO SCH ×2 (00:37→08:26)
[2017-03-04] MEDS: INSULIN ASPART [NOVOLOG] 3 ML PEN SC SCH ×3 (00:41→09:00)
[2017-03-04] MEDS: ACCUCHECK AT 2AM (Patients on SS coverage) XX SCH (01:28)
[2017-03-04] MEDS ORDERED: ALBUMIN HUMAN 25% 150 ML IV SCH (01:30)
[2017-03-04] MEDS: ALBUMIN HUMAN 25% 50 ML INJ IV SCH ×3 (02:18→04:34)
[2017-03-04 02:41] LABS: INR 2.52; PROTIME 27.5 Sec (12.2-14.2); PT RATIO 2.1
[2017-03-04] MEDS ORDERED: FUROSEMIDE 20 MG INJ IV ONE (04:34)
[2017-03-04] MEDS ORDERED: PHENYLephrine 20MG IN 250 ML 250 ML ONE (05:39)
[2017-03-04] MEDS: PHENYLephrine 20MG IN 250 ML 250 ML IV SCH ×3 (05:46→08:04)
[2017-03-04] MEDS ORDERED: NORepinephrine 8MG/250 ML (PMX 250 ML ONE (06:15)
[2017-03-04] MEDS ORDERED: NORepinephrine 8MG/250 ML (PMX 250 ML IV SCH (06:45)
[2017-03-04] MEDS ORDERED: SOD CHLORIDE 0.9% 500 ML IV ONE (07:00)
[2017-03-04] MEDS: PANTOPRAZOLE 40 MG INJ IV SCH (07:01)
[2017-03-04] MEDS: LEVOTHYROXINE 50 MCG TAB PO SCH (07:08)
[2017-03-04 07:35] LABS: Allen Test ACCEPTAB; Arterial Base Excess -7.6 mmol/L (-3.0-3); Arterial COHb 0.2 % (0.0-3.0); Arterial Fraction of Oxyhgb 85.9 % (93.0-99.0); Arterial HCO3 18.4 mmol/L (22.0-26.0); Arterial MetHb 0.4 % (0.0-1.5); MODE NASAL CANNULA
[2017-03-04] MEDS ORDERED: VASOPRESSIN 60 UNIT in DEXTROSE 5% 57 ML IV SCH (08:00)
[2017-03-04] MEDS ORDERED: FUROSEMIDE 40 MG INJ IV ONE (08:30)
[2017-03-04 08:49] LABS: ADD SCAN DIFF NO
[2017-03-04 08:57] LABS: PLATELET COUNT 87 10^3/UL (140-415)
[2017-03-04 08:58] LABS: ABNORMAL IP MESSAGE 1; HEMATOCRIT 22.2 % (42.0-52.0); MEAN CORPUSCULAR HGB CONC 30.2 g/dl (32.0-37.0); MEAN CORPUSCULAR VOLUME 96.1 fl (82.0-101.0); MEAN PLATELET VOLUME 12.7 fl (7.4-10.4); PLATELET COUNT 79 10^3/UL (140-415); RED BLOOD COUNT 2.31 10^6/ul (4.70-6.10); RED CELL DISTRIBUTION WIDTH 20.3 % (11.5-14.5); WHITE BLOOD COUNT 7.7 10^3/ul (4.8-10.8)
[2017-03-04] MEDS: VENLAFAXINE 25 MG TAB NGT SCH (08:59)
[2017-03-04] MEDS: CITRIC ACID/SODIUM CITRATE 15 ML CUP PO SCH (08:59)
[2017-03-04] MEDS ORDERED: MIDODRINE 5 MG TAB PO SCH (09:00)
[2017-03-04] MEDS: ERGOCALCIFEROL 50,000 UNIT CAP PO SCH (09:00)
[2017-03-04] MEDS: MULTIVITAMINS THERAPEUTIC TAB PO SCH (09:00)
[2017-03-04] MEDS: LACTOBACILLUS RHAMNOSUS CAP PO SCH (09:00)
[2017-03-04] MEDS ORDERED: PHENYLephrine 40 MG in DEXTROSE 5% 496 ML IV SCH (09:00)
[2017-03-04] MEDS: ZINC SULFATE 220 MG CAP PO SCH (09:00)
[2017-03-04] MEDS: ASCORBIC ACID 500 MG TAB PO SCH (09:00)
--- NOTE | 2017-03-04 09:00 | RADRPT ---
PROCEDURE: XR Chest. CLINICAL INDICATION: Fluid overload. TECHNIQUE: Single frontal view of the chest was obtained. COMPARISON: Chest x-ray 02/28/2017. FINDINGS: The soft tissues are normal. There are degenerative osteophytes in the thoracic and upper lumbar sp ine. The heart is enlarged. The cardiomediastinal silhouette and hilar structures are normal. The pulmonary vasculature is equilibrated. Vast calcifications in the aortic arch. A central venous ca theter enters from right internal jugular approach with its tip in the right atrium. An NG tube is positioned distal to the GE junction. Monitoring electrodes are draped across the chest. There are perihilar and basilar infiltrates. There are additional infiltrates in the periphery of the right l anderson. There are bilateral pleural effusions. IMPRESSION: 1. Cardiomegaly with congestive heart failure and interstitial pulmonary edema with associated bilat eral pleural effusions which increased in size since the earlier study. 2. Satisfactory positioning of a central venous catheter and nasogastric tube. 3. Atherosclerosis of the aortic arch. 4. 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 RPTAT:AAJJ Physician Meggan Date Time Electronically viewed and signed by Physician Meggan on 03/04/2017 09:00 FILEMON/
--- NOTE | 2017-03-04 09:05 | EN ---
Date/Time of Note Date/Time of Note DATE: 03/04/17 TIME: 09:04 ER Progress Note I was asked to evaluate this patient's for possible intubation in the ICU staff on behalf of the hospitalist team. Upon my arrival, patient was saturating 100%. He was tachypneic with increased work of breathing and tachycardic. He was hypotensive. History available from the ICU staff indicated that he was likely sepsis and had a prolonged hospital stay. Patient has had multiple comorbid conditions complicating his stay as well. Patient was suctioned with a large secretion removed from his airway. This only minimally helped his respiratory distress. After IV Lasix from the hospitalist group, there is no significant improvement and I was called back to see this patient. Upon my arrival, the patient's and daughter were at bedside. Had a conversation with them about placing their and father on life support. After a conversation, the family was clear that they did not wish to have life support and wished comfort measures for their father. This was then communicate it to the hospitalist team. FLOYD VILLA March 04, 2017 09:05
[2017-03-04 09:09] LABS: HEMOGLOBIN 6.7 g/dl (14.0-18.0)
[2017-03-04 09:17] LABS: CREATININE 0.93 mg/dl (0.61-1.24)
[2017-03-04 09:18] LABS: CALCIUM 7.3 mg/dl (8.4-10.2)
[2017-03-04] MEDS ORDERED: morphine (DRIP) 100 MG/100 ML 100 ML IV SCH (09:30)
[2017-03-04] MEDS ORDERED: ALBUMIN HUMAN 25% 50 ML INJ IV SCH (09:30)
[2017-03-04 10:27] LABS: INR 2.59; PROTIME 28.1 Sec (12.2-14.2); PT RATIO 2.2
[2017-03-04 10:30] LABS: PARTIAL THROMBOPLASTIN TIME 34.5 Sec (25.0-35.0)
[2017-03-04 10:33] LABS: THROMBIN TIME 14.9 SEC (13.8-19.1)
[2017-03-04 10:34] LABS: INR 2.49; PROTIME 27.2 Sec (12.2-14.2); PT RATIO 2.1
[2017-03-04 10:36] LABS: THROMBIN TIME 15.3 SEC (13.8-19.1)
[2017-03-04 10:40] LABS: PARTIAL THROMBOPLASTIN TIME 37.1 Sec (25.0-35.0)
[2017-03-04 11:28] LABS: BASOPHIL # 0.2 10^3/ul (0.0-0.1); EOSINOPHILS # 0.2 10^3/ul (0.0-0.5); LYMPHOCYTES # 2.3 10^3/ul (0.8-2.9); MONOCYTE # 0.8 10^3/ul (0.3-0.9); NEUTROPHIL # 2.9 10^3/ul (1.6-7.5)
[2017-03-04 12:03] LABS: D-DIMER 2921.22 ng/ml (<460)
[2017-03-04 12:52] LABS: FIBRIN SPLIT PRODUCT <10 ug/ml (<10)
--- NOTE | 2017-03-05 05:56 | DES ---
DATE OF ADMISSION: 02/19/2017 DATE OF : 03/04/2017 DIAGNOSES: 1. Cardiopulmonary failure secondary to shock and Clostridium difficile colitis. 2. 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 3. Dysphagia secondary to dementia. HOSPITAL COURSE: The patient is an 86-year-old male with dementia. The patient most likely has fro ntal lobe dementia that has been getting progressively worse. The patient presented with fatigue an d weakness, was found to be in shock. Source was felt to be secondary to C. diff. Cultures did ind eed show C. diff. Blood cultures were negative. Patient did continue to deteriorate despite of ant ibiotic therapy. He was initially taken off pressors but then went back into shock and had to be tr ansferred back to the ICU. The family decided to make the patient comfort care, DNR/DNI. Ultimatel y, the patient succumbed to his underlying illnesses. The patient was pronounced at 0933 a.m. on . The patient was noted to be pulseless. He had no respiratory sounds. He had no pupillar y reflex and no response to noxious stimuli. The patient was noted to go into asystole on telemetry . Dictated By: BEBO CELAYA/LADY Conf#: [id number] DID#: [id number]
[2017-03-05] MEDS ORDERED: TICAGRELOR 90 MG TABLET PO SCH (16:30)
[2017-03-08] MEDS ORDERED: APIXABAN 5 MG TABLET PO SCH (21:00)
== END 2017-03-04 09:14 | disposition expired | DRG 871 ==
LOC: E/R 09:59 → ICU 14:52 → E/R 14:52 → ICU 18:11 → UNDODISIN 02-22 04:40 → TEL 02-27 18:18 → ICU 03-04 05:38
PROVIDERS: ADMIT Internal Medicine; ATTEND Internal Medicine
PROC: 02HV33Z Insertion of Infusion Device into Superior Vena Cava, Percutaneous Approach (ICD-10-PCS; principal; 2017-02-19)
DX: A41.9 Sepsis, unspecified organism (principal); R65.21 Severe sepsis with septic shock; N17.0 Acute kidney failure with tubular necrosis; E43 Unspecified severe protein-calorie malnutrition; G93.40 Encephalopathy, unspecified; A04.7 Enterocolitis due to Clostridium difficile; D68.9 Coagulation defect, unspecified; E87.2 Acidosis; E87.1 Hypo-osmolality and hyponatremia; R13.19 Other dysphagia; G31.09 Other frontotemporal neurocognitive disorder; F02.80 Dementia in other diseases classified elsewhere, unspecified severity, without behavioral disturbance, psychotic disturbance, mood disturbance, and anxiety; I25.10 Atherosclerotic heart disease of native coronary artery without angina pectoris; E11.9 Type 2 diabetes mellitus without complications; R31.9 Hematuria, unspecified; E83.51 Hypocalcemia; D50.9 Iron deficiency anemia, unspecified; E78.5 Hyperlipidemia, unspecified; E03.9 Hypothyroidism, unspecified; Z95.5 Presence of coronary angioplasty implant and graft; E55.9 Vitamin D deficiency, unspecified; D63.8 Anemia in other chronic diseases classified elsewhere; E88.09 Other disorders of plasma-protein metabolism, not elsewhere classified; E87.6 Hypokalemia; C61 Malignant neoplasm of prostate; L89.302 Pressure ulcer of unspecified buttock, stage 2; Z68.21 Body mass index [BMI] 21.0-21.9, adult; Z79.4 Long term (current) use of insulin; Z66 Do not resuscitate
CPT/HCPCS: 36415; 36430; 36600; 70450; 71010; 74181; 76705; 76775; 76937; 78582; 80048; 80053; 80061; 80076; 80202; 81001; 81003; 82140; 82306; 82533; 82550; 82553; 82728; 82803; 82962; 83036; 83540; 83605; 83690; 83735; 83880; 84100; 84132; 84155; 84300; 84439; 84443; 84484; 85014; 85018; 85025; 85049; 85362; 85378; 85384; 85610; 85670; 85730; 86803; 86850; 86900; 86901; 86920; 87040; 87075; 87081; 87086; 87340; 89190; 92526; 92610; 93005; 93306; 96361; 96374; 96375; J1940; A9540; C9113; J0456; J0610; J0692; J1650; J1815; J2270; J2370; J2916; J3370; J3420; J3475; J3480; J7030; J7040; J7042; J7050; J7060; J7070; J7120; J7512; P9016; P9047; P9059